=== PATIENT | male | born 1970 | race Caucasian/White ===

== ENCOUNTER 2019-11-04 00:13 | Emergency (ER) | payer OTHER, SELFPAY ==
--- NOTE | 2019-11-04 00:21 | HMH.EDGENADL ---
ED Disposition Clinical Impression: Elbow pain, right Disposition: Home, Self-Care Condition on Discharge: Good Additional Instructions: Use Tylenol and ibuprofen for pain and ice intermediately and keep elevated in the sling. Follow-up with orthopedics for further evaluation return to the ED for any new numbness or weakness to the right hand. Referrals: PCP,No [Primary Care Provider] - - Critical Care Critical Care Time: No Attestation: On , the high probability of a clinically significant, sudden or life threatening deterioration of the following system(s) required my full and direct attention, intervention and personal management. The time I documented below is in addition to time spent performing reported procedures but includes the following listed in this critical care notation. Medical Decision Making - Surendra Inquiry Pt receiving controlled substance: No Vital Signs: 11/04/19 00:23 Temperature 98.7 F Temperature Source Oral Pulse Rate [Left Radial] 96 H Respiratory Rate 18 Blood Pressure [Left Arm] 158/100 H Blood Pressure Mean [Left Arm] 119 Blood Pressure Source [Left Arm] Automatic Cuff Blood Pressure Position [Left Arm] Sitting 02 Sat by Pulse Oximetry 100 Oxygen Delivery Method Room Air Orders (Tests/Meds): ED MEDICATIONS Discontinued Medications Generic Name Dose Route Start Last Admin Trade Name Freq PRN Reason Stop Dose Admin Hydrocodone Bitart/Acetaminophen 1 tab 11/04/19 00:28 11/04/19 00:35 Mercer 5/325mg Tablet PO 11/04/19 00:29 1 tab ONCE ONE Administration ORDERS Category Date Time Status Elbow XR right minimum 3 views [XR elbow RT min 3V] Exams 11/04/19 00:27 Taken Stat Forearm XR right 2 views [XR forearm RT 2V] Stat Exams 11/04/19 00:28 Taken - Radiology Data #1 Image Reviewed: Yes I reviewed the patient's radiology image X-rays of the right elbow and forearm were reviewed demonstrating subtle posterior effusion of the distal humerus concerning for possible occult radial head fracture. Medical Decision Narrative: 48-year-old male who presents after hyperextension of the right arm with pain over the elbow. X-rays demonstrate possible posterior fat pad on the distal humerus concerning for occult radial head fracture no other obvious fracture seen. On reevaluation following Lortab administration for pain the patient's range of motion is improved and able to extend the elbow with minimal pain. Remains neurovascularly intact. Patient will be placed in a sling and instructed to keep sling on for flexion of the elbow and stabilization of the joint. Instructed to follow-up with orthopedics within 1 week and return to the ED for any persistent pain or new numbness or weakness to the hand. General Adult HPI - General Stated complaint: rt shoulder injury Time Seen by Provider: 11/04/19 00:22 Mode of Arrival: Ambulatory Source of Information: Patient Limitations: No Limitations - History of Present Illness HPI narrative: 48-year-old male presents with pain in his right elbow and difficulty with extension of the elbow secondary to pain. Patient states he was lifting a heavy barrel when he felt and heard a pop in his arm hyperextended at the elbow. Denies weakness in his hand denies numbness and tingling states his pain is 6 out of 10 at this time worse with supination of the forearm and flexion of the wrist. Not taking medication prior to arrival. No other trauma. Onset (ago): minute(s) Location: upper extremity Severity: moderate Severity scale (1-10): 6 Quality: sharp Consistency: constant Relieving factors: none Exacerbating factors: movement Associated symptoms: denies other symptoms - Related Data Home Medications Medication Instructions Recorded Confirmed No Known Home Medications 11/04/19 11/04/19 Allergies Allergy/AdvReac Type Severity Reaction Status Date / Time No Known Allergies Allergy Verified 11/04/19 0
[2019-11-04 00:23] VITALS: BP 158/100; PULSE 96; RESP 18; TEMP 37.1; O2SAT 100; BMI 35.6
--- NOTE | 2019-11-04 00:27 | XR_ITS ---
PROCEDURE: XR ELBOW RT MIN 3V CLINICAL INDICATION: pain on supination COMPARISON: No exams were available for comparison FINDINGS: No fracture or dislocation. No lytic or blastic change. There is normal mineralization. The joint spaces are well-preserved. No significant degenerative/arthritic changes. No erosive changes evident. Other findings:None. IMPRESSION: No acute findings. Dictated by: Dr. Alton Andre MD 11/04/2019 08:28 Dr. Alton Andre MD in [place] 11/04/2019 08:28
--- NOTE | 2019-11-04 00:28 | XR_ITS ---
PROCEDURE: XR FOREARM RT 2V CLINICAL INDICATION: hyperextension with pain COMPARISON: No exams were available for comparison FINDINGS: No fracture or dislocation. No lytic or blastic change. There is normal mineralization. The joint spaces are well-preserved. No significant degenerative/arthritic changes. No erosive changes evident. Other findings:None. IMPRESSION: No acute findings. Dictated by: Dr. Alton Andre MD 11/04/2019 08:28 Dr. Alton Andre MD in [place] 11/04/2019 08:28
[2019-11-04 01:37] VITALS: BP 134/95; PULSE 85; RESP 16; TEMP 36.6
== END 2019-11-04 01:44 | disposition home or self-care (01) ==
PROVIDERS: Emergency Provider Student in an Organized Health Care Education/Training Program
DX: M25.521 Pain in right elbow (principal); I10 Essential (primary) hypertension; F17.210 Nicotine dependence, cigarettes, uncomplicated; X50.0XXA Overexertion from strenuous movement or load, initial encounter
CPT/HCPCS: 73080; 73090; 99282

== ENCOUNTER → 2019-11-21 10:06 | Outpatient (CLI) | payer OTHER, SELFPAY ==
[2019-11-21 10:10] LABS: MANUAL DIFFERENTIAL MANUAL DIFFERENTIAL (MANUAL DIFF)
--- NOTE | 2019-11-21 10:16 | XR_ITS ---
PROCEDURE: XR CHEST 2V CLINICAL HISTORY: HTN,H/O NICOTINE DEPENDENCE COMPARISON: No exams were available for comparison FINDINGS: The cardiomediastinal silhouette and pulmonary vascularity are within normal limits. The lungs are clear without infiltrates, suspicious nodules, or pleural effusions. There are small calcified hilar nodes bilaterally and there are few scattered tiny calcified granulomata in both lower lobes. No acute bony abnormalities. IMPRESSION: Old granulomatous disease, no acute chest pathology noted Dictated by: Dr. Alton Andre MD 11/21/2019 10:44 Dr. Alton Andre MD in [place] 11/21/2019 10:44
[2019-11-21 10:45] LABS: Basophils # 0.2 K/mm3 (0-0.2); Basophils % 1.4 % (0.1-2.0); Eosinophils # 0.3 K/mm3 (0.0-0.4); Eosinophils % 2.9 % (0.1-12.0); Hematocrit 51.3 % (42.0-52.0); Hemoglobin 17.4 g/dL (14.1-18.0); Lymphocytes # 2.8 K/mm3 (0.7-4.5); Mean Corpuscular HGB Conc 33.9 g/dL (31.8-35.4); Mean Corpuscular Hemoglobin 32.6 pg (27.0-31.2); Mean Corpuscular Volume 96.1 fl (80-94); Mean Platelet Volume 8.1 fl (7.4-10.4); Monocytes % 8.5 % (1.7-9.3); Neutrophils # 7.1 K/mm3 (1.8-7.8); Neutrophils % 62.4 % (37.0-80.0); Platelet Count 267 K/mm3 (142-424); Red Blood Count 5.34 M/mm3 (4.60-6.20); White Blood Count 11.3 K/mm3 (4.8-10.8)
[2019-11-21 11:21] LABS: Chloride 106 mmol/L (98-107); Potassium 4.7 mmoL/L (3.5-5.1); Sodium 141 mmol/L (136-145)
[2019-11-21 11:24] LABS: Alanine Aminotransferase 34 U/L (12-78); Albumin Level 4.4 g/dl (3.5-5.0); Albumin/Globulin Ratio 1.4 (1.1-1.8); Alkaline Phosphatase 76 U/L (38-126); Anion Gap 14.7 mEq/L (5-15); Aspartate Amino Transferase 41 U/L (17-59); Bilirubin,Total 0.7 mg/dl (0.2-1.3); Blood Urea Nitrogen 21 mg/dl (9-20); Calcium 9.8 mg/dl (8.4-10.2); Carbon Dioxide 25 mmol/L (22.0-30.0); Estimated Glomerular Filt Rate 72 ml/min (>60); GFR (African American) 87 ML/MIN (>60); Globulin 3.1 g/dL (1.3-3.2); Glucose 114 mg/dl (74-100); Total Protein,Serum 7.5 g/dl (6.3-8.2)
[2019-11-21 11:52] LABS: Coronavirus 19 IgG Antibody Negative (Negative); Coronavirus 19 IgM Antibody Negative (Negative)
[2019-11-21 14:12] LABS: Eosinophils % 4 % (0-3); Lymphocytes % 17 % (10-50); Monocytes % 4 % (2-9); Neutrophils % 75 % (42-76); Platelet Estimate Normal; RBC Morphology Normal; Total Cells Counted 100
== END ==
PROVIDERS: Visit Provider Orthopaedic Surgery
DX: Z01.89 Encounter for other specified special examinations (principal); S46.219A Strain of muscle, fascia and tendon of other parts of biceps, unspecified arm, initial encounter
CPT/HCPCS: 36415; 71046; 80053; 85007; 85014; 85018; 85048; 85049; 86328

== ENCOUNTER 2019-11-22 06:07 | Day surgery (SDC) | payer OTHER, SELFPAY ==
[2019-11-20 10:28] VITALS: BMI 31.4
[2019-11-22] VITALS (12 sets, daily range): BP systolic 129–151; BP diastolic 47–93; PULSE 78–115; RESP 18–20; TEMP 36.1–43; O2SAT 90–98
--- NOTE | 2019-11-22 08:47 | HMH.ANESCL ---
[facility] Anesthesia Checklist - Patient Identification Patient Identification: Arm Band, Verbal (Name & ) - Structural Data Admitted From: Home Planned Operative Procedure/s: Right distal biceps tendon repair Consent for Planned Operative Procedure(s) Verified: Yes Verified Documents: Surgical Consent, History and Physical - NPO Status Verified Time NPO: 22:00 - Chart Verification Results Verified: CBC, BMP - Additional verifications Anesthesia Reactions: No Hx Blood Transfusions: No Blood Transfusion Reaction: No - Airway Assessment C-Spine Mobility Assessed: Yes (Facial hair, MP 2, TMD 4) TMJ Mobility Assessed: Yes Dentition: Edentulous - Neurological Assessment Level of Consciousness: Awake, Alert, Appropriate, Follows Commands Hx Seizures: No Numbness or tingling in extremities: No - Anesthesia Plan Anesthesia Risk discussed: Yes Anesthesia Plan: Verified ASA Class: II Anesthesia Type: General w/block [facility] History I have reviewed the patient's past medical history: Yes Medical History: Reports:: Hypertension, Kidney Stones Denies:: Cancer, Diabetes Mellitus Type 1, Diabetes Mellitus Type 2, MRSA, Seizures *Have you ever received a pneumonia vaccine?: No *Have you received a flu vaccine this season?: No Other Medical History: Denies: Blood Transfusion Reaction Comment:: obesity, histoplasmosis, legionnaires disease. Anesthesia experience/problems:: None Other Surgeries: Yes: Cardiac Catheterization, Hernia Repair, Other (ESWL) Amputation: No Fractures: No - *Social History Last grade of school completed: Some college Smoking Status: Current every day smoker Tobacco Type: cigarettes # Packs/Day (cigarettes): 20 Alcohol Intake: current Alcohol Intake Frequency:: 0-2 drinks per day Substance Use Type: denies use, crack/cocaine (20+ years ago) *Occupational Status:: employed *Travel in the last 8 weeks: None Family Hx:: Other (NA)
--- NOTE | 2019-11-22 11:03 | XR_ITS ---
PROCEDURE: XR ELBOW RT 2V CLINICAL INDICATION: BICEP REPAIR COMPARISON: No exams were available for comparison FINDINGS: Fluoro time: 47 seconds Multiple images are submitted with C-arm during biceps tendon repair. Multiple small surgical clips are present in the anterior elbow region and there is a small metallic button along the proximal radius at the tendon tunnel site IMPRESSION: Status post bicipital tendon repair Dictated by: Sheldon Barrientos MD 11/22/2019 17:36 Sheldon Barrientos MD in [place] 11/22/2019 17:36
--- NOTE | 2019-11-22 11:28 | HMH.ANESI ---
[facility] Anesthesia Record Part I Intake, IV Amount: 140 Estimated blood loss (mL): 10 Urine output (mL): 0 (NM) Blood Products used (#): none Blood Pressure: 141/79 SaO2: 90 Pulse Rate: 115 Respiratory Rate: 18 Temperature: 97.7 F Patient is:: Awake, Drowsy, Stable Stable to PACU at:: 11:25
--- NOTE | 2019-11-22 11:40 | PC.NURSE ---
1135- resp therapist at bedside giving duoneb per pet adoption counselor orders
--- NOTE | 2019-11-22 13:39 | HMH.OPNOTE ---
Date of procedure: 11/22/19 Pre-op Diagnosis:: R distal biceps tendon rupture Post-op Diagnosis:: R distal biceps tendon rupture Procedure performed:: R distal biceps tendon repair Surgeon:: Hannah Wynne MD Varnish Maker(s):: Ramandeep Aleman ALTERATION TAILOR:: Jamar Ludwig Anesthesia: GETA, regional (interscalene block) Estimated blood loss (mL): 50 Clinical Note:: 48-year-old [id number] male who sustained an injury to the right elbow on 11/04/2019. He was attempting to lift a large trash can full of wood, weighing around 55 pounds, with the right arm supinated and underneath the bottom of the trash can. When he lifted it up, his hand slipped and the trash can came down on the hand/wrist while he simultaneously tried to flex the elbow, creating an eccentric load on the elbow. He felt an immediate tearing sensation and heard a pop in the right elbow. He has had a small bulge over the distal/anterior aspect of the arm with inability to flex or supinate the arm without severe pain. Additionally he has ecchymosis over the anterior/distal aspect of the right arm in the medial/proximal aspect of the right forearm. A few days after the injury he started noticing numbness in the radial 3 digits of the hand. No open wounds. No previous history of injury to or surgery on this arm. He is right-hand dominant and self-employed in construction. MRI of the right elbow confirmed complete rupture of the distal biceps tendon with 9cm retraction. I discussed treatment options with the patient and have recommended surgical repair. I discussed the risks of surgery, including but not limited to: infection, bleeding, failure of tendon to heal, tendon re-rupture, nerve injury including PIN palsy; the patient vocalized understanding, informed consent obtained. I attempted to obtain an EMG-NCS of the RUE prior to surgery but it was not able to be scheduled for several weeks and I felt surgery should not be delayed. I will monitor the ulnar-sided numbness and obtain EMG-NCS if still present 6 weeks post-injury. On exam, sensation is intact but patient reports tingling in ulnar distribution. Operative findings:: *arthrex distal biceps repair kit used distal biceps tendon was completely ruptured and retracted to mid-upper arm. Stump was bulbous and scarred. Operative note:: The patient was examined in preoperative holding and the right arm signed by myself. Anesthesia discussed surgical analgesia options including a regional nerve block; the patient elected to have a regional nerve block in addition to general anesthesia with an LMA. Consent was reviewed with the patient and all questions answered. He was then taken to the OR where he was placed supine on the operative table. 2 g Ancef were infused intravenously and general anesthesia induced. Once the patient was asleep, the right upper extremity was then prepped and draped in the usual sterile fashion and a sterile tourniquet was placed on the upper right arm. Timeout was performed, identifying the correct patient, correct procedure, and correct site. The procedure was begun by exsanguinating the right upper extremity with an Esmarch and inflating the tourniquet to 250 mmHg. Incision was made over the proximal volar right forearm in a transverse fashion, 4 cm long and 3 cm distal to the antecubital crease. Skin only was incised, and subcutaneous tissue bluntly dissected with a blunt-tipped Metzenbaum scissors. The biceps tendon was easily palpated and identified, and delivered from the wound. The distal stump of the tendon was bulbous and scarred, and some additional scarring/contraction was seen around the biceps muscle belly; this was mobilized with finger dissection. During the approach, care was taken to identify and protect the lateral antebrachial cutaneous nerve and blunt [place] retractors were used to hold the incision open and provide adequate exposure to the wound. An Tianna clamp was next placed on the end of the ten
--- NOTE | 2019-11-23 07:04 | HMH.ANESII ---
[facility] Anesthesia Record Part II Discharge Time: 11:55 Destination: Medical Surgical Department PACU nurse assessment reviewed?: Yes Patient Condition:: Good Anesthesia Complications:: None Swallowing reflex intact?: Yes Cyanosis?: No Blood Pressure: 129/47 Pulse Rate: 107 Temperature: 98.3 F Mental Status: Alert & Oriented Pain level:: 0 Nausea and/or vomitting:: None Intake, IV Amount: 0 (Normovolemic)
[2019-11-23 07:07] VITALS: BP 129/47; PULSE 107; TEMP 36.8
== END 2019-11-22 12:39 | disposition home or self-care (01) ==
LOC: OR 06:09
PROVIDERS: PCP Nurse Practitioner Family; Visit Provider Orthopaedic Surgery
PROC: (CPT 24341; principal; 2019-11-22 07:30)
DX: M66.821 Spontaneous rupture of other tendons, right upper arm (principal)
CPT/HCPCS: 24342; 73070; 76000; 94640; 96374; J0670; J2405

== ENCOUNTER 2019-11-29 14:22 | Outpatient (RCR) | payer OTHER, SELFPAY | END 2019-11-29 15:00 | disposition home or self-care (01) | LOC: OT 14:22 | PROVIDERS: Visit Provider Orthopaedic Surgery | DX: S46.211D Strain of muscle, fascia and tendon of other parts of biceps, right arm, subsequent encounter (principal) | CPT/HCPCS: 97763 ==

== ENCOUNTER → 2020-01-14 10:33 | Outpatient (CLI) | payer OTHER, SELFPAY ==
--- NOTE | 2020-01-14 10:39 | XR_ITS ---
PROCEDURE: XR ELBOW RT MIN 3V CLINICAL INDICATION: RT bicep repair COMPARISON: No exams were available for comparison FINDINGS: Status post biceps tendon repair with bony defect in the proximal radius from the tendon surgery. There is minimal calcific density along the anterior aspect of the bony defect and may be related to some soft tissue calcification. Surgical clips are present in the antecubital fossa region. The joint spaces are well-preserved. No significant degenerative/arthritic changes. No erosive changes evident. Other findings:None. IMPRESSION: Postsurgical changes, no acute finding Dictated by: Sheldon Barrientos MD 01/14/2020 16:24 Sheldon Barrientos MD in [place] 01/14/2020 16:24
== END ==
PROVIDERS: Visit Provider Orthopaedic Surgery
DX: M25.521 Pain in right elbow (principal)
CPT/HCPCS: 73080

== ENCOUNTER 2020-01-14 17:14 | Emergency (ER) | payer OTHER, SELFPAY ==
--- NOTE | 2020-01-14 17:08 | ECG_ITS ---
APPROVED REPORT Exam: Resting ECG HR:81 bpm ECG Measurements Heart Rate 81 AXES NC 138 P 42 QRSd 102 QRS 40 QT 378 T 2 QTc 439 Conclusion Normal sinus rhythm Nonspecific ST and T wave abnormality Abnormal ECG Electronically signed by : Kj Madrid, 01/14/2020 21:05:25
[2020-01-14 17:14] VITALS: BP 157/107; BP 160/108; PULSE 83; PULSE 85; RESP 12; RESP 18; TEMP 36.7; O2SAT 97; BMI 30.8
--- NOTE | 2020-01-14 17:15 | XR_ITS ---
PROCEDURE: XR CHEST PORTABLE CLINICAL HISTORY: chest pain COMPARISON: DX XR CHEST 2V from 11/21/2019 FINDINGS: The cardiomediastinal silhouette and pulmonary vascularity are within normal limits. There are numerous small bilateral calcified nodules consistent with miliary granulomas. No lobar consolidation or collapse. No acute bony abnormalities. IMPRESSION: No acute findings. Dictated by: Sheldon Barrientos MD 01/14/2020 17:46 Sheldon Barrientos MD in [place] 01/14/2020 17:46
[2020-01-14 17:30] LABS: Basophils # 0.1 K/mm3 (0-0.2); Basophils % 1.1 % (0.1-2.0); Eosinophils # 0.3 K/mm3 (0.0-0.4); Eosinophils % 3.8 % (0.1-12.0); Hematocrit 48.1 % (42.0-52.0); Hemoglobin 16.5 g/dL (14.1-18.0); Lymphocytes # 2.4 K/mm3 (0.7-4.5); Lymphocytes % 28.5 % (10-50); Mean Corpuscular HGB Conc 34.2 g/dL (31.8-35.4); Mean Corpuscular Hemoglobin 31.9 pg (27.0-31.2); Mean Corpuscular Volume 93.3 fl (80-94); Mean Platelet Volume 8.5 fl (7.4-10.4); Monocytes # 0.9 K/mm3 (0.1-1.0); Monocytes % 10.4 % (1.7-9.3); Neutrophils # 4.8 K/mm3 (1.8-7.8); Neutrophils % 56.3 % (37.0-80.0); Platelet Count 279 K/mm3 (142-424); Red Blood Count 5.16 M/mm3 (4.60-6.20); Red Cell Distribution Width 13.2 % (11.5-17.5); White Blood Count 8.5 K/mm3 (4.8-10.8)
[2020-01-14 17:34] LABS: Chloride 105 mmol/L (98-107); Sodium 142 mmol/L (136-145)
[2020-01-14 17:37] LABS: Blood Urea Nitrogen 23 mg/dl (9-20); Creatinine Clearance Estimated 126 mL/min (50-200); Estimated Glomerular Filt Rate 65 ml/min (>60); GFR (African American) 78 ML/MIN (>60)
[2020-01-14 17:38] LABS: Calcium 9.1 mg/dl (8.4-10.2); Carbon Dioxide 26 mmol/L (22.0-30.0); Glucose 102 mg/dl (74-100)
[2020-01-14 17:44] VITALS: BP 166/111; PULSE 81; RESP 16; O2SAT 95
[2020-01-14 17:51] LABS: Troponin I < 0.01 ng/ml (0.00-0.034)
--- NOTE | 2020-01-14 17:59 | HMH.EDCP ---
ED Disposition Clinical Impression: Atypical chest pain Disposition: Home, Self-Care Condition on Discharge: Fair Instructions: DI for Atypical Chest Pain, Essential Hypertension Additional Instructions: Tear labs EKG and chest x-ray and no acute findings are noted however your blood pressure was noted to be elevated we have given you clonidine to bring the blood pressure down but you need to follow-up with your primary care physician as soon as possible Referrals: PCP,No [Primary Care Provider] - - Critical Care Critical Care Time: No Attestation: On 01/14/20, the high probability of a clinically significant, sudden or life threatening deterioration of the following system(s) required my full and direct attention, intervention and personal management. The time I documented below is in addition to time spent performing reported procedures but includes the following listed in this critical care notation. Medical Decision Making - Medical Records Medical records reviewed: Yes: I reviewed the patient's medical records. MR Talamantes: Is a 49-year-old male here with a complaint of chest pain that has been ongoing for about 2 days, also worried about his blood pressure which has been noted to be high this was an incidental finding he had a surgery on his right hand and when he comes up for physical therapy, they recheck his blood pressure and found to be consistently high; he is going to be evaluated by primary care physician in a couple of days, however his insisted that he come to the ER for further for evaluation prior to that visit; he says his chest pain is low is about 3 on a scale of 0-10; He does smoke, he has no family history of heart disease, but states that he has used drugs in the past. Checked his EKG labs chest x-ray and troponin x2 and all within normal limits his blood pressure was elevated so we have given him clonidine I am advising him to follow-up with his primary care doctor for for follow-up on the blood pressure and we have also advised him to quit smoking - Surendra Inquiry Pt receiving controlled substance: No Vital Signs: 01/14/20 17:14 01/14/20 17:44 01/14/20 18:44 Temperature 98.0 F Temperature Source Oral Pulse Rate [Right Radial] 83 81 74 Respiratory Rate 12 16 14 Blood Pressure [Right Arm] 160/108 H 166/111 H 159/103 H Blood Pressure Mean [Right Arm] 125 129 121 Blood Pressure Source [Right Arm] Automatic Cuff Automatic Cuff Automatic Cuff Blood Pressure Position [Right Arm] Sitting Sitting Sitting 02 Sat by Pulse Oximetry 97 95 97 Oxygen Delivery Method Room Air Room Air Room Air - Lab Data Lab results reviewed: Yes: I reviewed the patient's lab results. Lab Results 01/14/20 15:17: WBC 8.5, RBC 5.16, Hgb 16.5, Hct 48.1, MCV 93.3, MCH 31.9 H, MCHC 34.2, RDW 13.2, Plt Count 279, MPV 8.5, Neut % (Auto) 56.3, Lymph % (Auto) 28.5, [place] % (Auto) 10.4 H, Eos % (Auto) 3.8, Baso % (Auto) 1.1, Neut # (Auto) 4.8, Lymph # (Auto) 2.4, [place] # (Auto) 0.9, Eos # (Auto) 0.3, Baso # (Auto) 0.1 01/14/20 15:17: Sodium 142, Potassium 4.0, Chloride 105, Carbon Dioxide 26, Anion Gap 15.0, BUN 23 H, Creatinine 1.20, Estimated Creat Clear 126, Estimated GFR 65, Est GFR ( Amer) 78, Glucose 102 H, Calcium 9.1, Troponin I < 0.01 01/14/20 19:15: Troponin I < 0.01 Result diagrams: 01/14/20 15:17 01/14/20 15:17 Orders (Tests/Meds): ED MEDICATIONS Discontinued Medications Generic Name Dose Route Start Last Admin Trade Name Yonny PRN Reason Stop Dose Admin Aspirin 324 mg 01/14/20 17:50 01/14/20 18:05 Aspirin 81mg Chewable Tablet PO 01/14/20 17:51 324 mg ONCE ONE Administration Clonidine HCl 0.1 mg 01/14/20 19:49 01/14/20 19:50 Clonidine 0.1mg Tablet PO 01/14/20 19:50 0.1 mg ONCE ONE Administration ORDERS Category Date Time Status Troponin I Q3H Lab 01/14/20 23:15 Ordered Chest Pain HPI - General Chief Complaint: Chest Pain Stated Complaint: CH
[2020-01-14 18:44] VITALS: BP 159/103; PULSE 74; RESP 14; O2SAT 97
--- NOTE | 2020-01-14 19:04 | PC.NURSE ---
ER MD gave verbal order for troponin at 7:30pm
[2020-01-14 19:52] LABS: Troponin I < 0.01 ng/ml (0.00-0.034)
[2020-01-14 19:58] VITALS: BP 154/101; PULSE 67; RESP 16; TEMP 36.7; O2SAT 98
== END 2020-01-14 20:06 | disposition home or self-care (01) ==
PROVIDERS: Emergency Provider Emergency Medicine
DX: R07.89 Other chest pain (principal); F17.210 Nicotine dependence, cigarettes, uncomplicated; Z87.442 Personal history of urinary calculi
CPT/HCPCS: 71045; 80048; 84484; 85025; 93005; 99283

== ENCOUNTER → 2020-01-23 14:26 | Outpatient (CLI) | payer OTHER, SELFPAY ==
--- NOTE | 2020-01-23 14:29 | CT_ITS ---
PROCEDURE: CT LUNG SCREENING CLINICAL INDICATION: HX OF NICOTINE USE Forty-five pack-year smoking history, asymptomatic for lung cancer COMPARISON: No exams were available for comparison TECHNIQUE: The exam was performed on a GE Light Speed [address] scanner using 2.90 mGy CTDI. A low dose helical CT CHEST was performed on a multi-detector scanner. All CT scans at the facility use one or more dose reduction, viz: automated exposure control, ma/kV adjustment per patient size (including targeted exams where dose is matched to indication, i.e. head), or iterative reconstruction technique. The LDCT was performed in a facility that meets the criteria for the screening program. Data regarding this exam was submitted to ACR which is an approved registry. The order for this exam indicates that it came as a result of a lung cancer screening counseling shard decision-making visit that included all the elements required of such a visit including smoking cessation. The radiologist interpreting this exam meets the CMS criteria for the LDCT lung cancer screening program. The exam is reported using the Lung-RADS classification scale and reported to the ACR registry. NOTE: This study was performed for the specific purposes of lung cancer screening and is not an alternative to diagnostic chest CT. RADIATION DOSE: CTDI vol(CT dose Index-volume) = 2.90mG DLP (Dose Length Product) = 106.5 mGcm FINDINGS: COPD changes and old granulomatous disease. There are multiple calcified granulomas. Calcified hilar lymph nodes and mediastinal lymph nodes are present. No suspicious pulmonary nodules identified. OTHER FINDINGS: No other pertinent findings evident. IMPRESSION: Lung-RADS Category 2 Benign Appearance or Behavior Follow-up: Continue annual screening with LDCT in 12 months Dictated by: Sheldon Barrientos MD 02/07/2020 11:33 Sheldon Barrientos MD in [place] 02/07/2020 11:33
== END ==
PROVIDERS: PCP Internal Medicine Adolescent Medicine; Visit Provider Internal Medicine Adolescent Medicine
DX: Z87.891 Personal history of nicotine dependence (principal); Z12.2 Encounter for screening for malignant neoplasm of respiratory organs

== ENCOUNTER → 2020-01-29 14:09 | Outpatient (CLI) | payer OTHER, SELFPAY ==
[2020-01-29 16:03] VITALS: PULSE 75; PULSE 80
== END ==
PROVIDERS: PCP Internal Medicine Adolescent Medicine; Visit Provider Internal Medicine Adolescent Medicine
DX: R06.02 Shortness of breath (principal); F17.200 Nicotine dependence, unspecified, uncomplicated; Z86.19 Personal history of other infectious and parasitic diseases
CPT/HCPCS: 94060; 94618; 94640; 94726; 94729

== ENCOUNTER 2020-02-11 09:00 | Outpatient (RCR) | payer OTHER, SELFPAY ==
--- NOTE | 2019-12-06 10:35 | HMH.OTOPEV ---
OT Inpatient Evaluation Rehab OT Outpatient Eval Start: 12/06/19 10:22 Freq: Status: Active Protocol: Document 12/06/19 10:22 RMARSHALL (Rec: 12/06/19 10:35 [facility] [id number]) Electronically Signed By Kj Moon OT 12/06/19 10:22 Outpatient Therapy Subjective History Subjective History Pt seen this date for initial evaluation to right elbow. Pt initially injured his right elbow while working; he is self employed. He was lifting a 55 gallon drum when it slipped and he tried to catch it with right arm. Pt had immediate pain and obvious deformity of proximal bicep area. Pt required surgery on 11/22/19 for R distal biceps repair. Pt is right hand dominant. Pt is currently 2 weeks out and following the post operative rehab protocol with hinged elbow brace at 45 degrees to full eblow flexion. Pt demonstrates with decreased AROM and PROM at right elbow. Pt will continue to be seen twice a week in order to address all right elbow deficits. Chief Complaint Pain,Stiff,Swelling,Weakness Symptom Type Ache,Throb,Sharp,Dull,Numbness Symptoms Relieved By Rest/Positioning Symptoms Aggravated By Physical Activity,Twisting, Lifting Prior Functional Limitations None Current Functional Limitations Reaching,Lifting,Housework, Dressing,Driving,Sleeping, Recreation Activity Symptom Description Constant but Variable Level of pain today (0-10) 7 Pain scale - at its best (0-10) 5 Pain scale - at its worst (0-10) 10 Shoulder/Elbow Eval Shoulder Objective Measurements Elbow Objective Measurements Elbow ROM Right full ROM elbow exam standard left decreased ROM elbow exam standard right pain with active ROM elbow exam standard right pain with passive ROM elbow exam right standard Elbow Extension Active Range of Motion ( 45 degrees degrees) Elbow Extension Passive Range of Motion 45 degrees (degrees) Elbow Flexion Active Range of Motion ( 100 degrees degrees) Elbow Flexion Passive Range of [place]
--- NOTE | 2020-01-17 08:45 | HMH.RHREAS ---
Rehab Reassessment Rehab OP Re-assessment Start: 01/17/20 08:31 Freq: Status: Active Protocol: Document 01/17/20 08:32 RMARSHALL (Rec: 01/17/20 08:45 RMARSHALL [id number]) Electronically Signed By Kj Moon OT 01/17/20 08:32 Rehab Re-assessment Subjective Subjective She said I could start strengthening. Objective Objective Notes Pt continues to be seen twice weekly in order to address right elbow deficits. Each session pt has received scar massage and prom manual stretching to right elbow in flexion, extension, supination and pronation. Pt also receives modalities in order to decrease pain/inflammation. AROM/AAROM have been completed as well due to following protocol of distal biceps repair. Assessment Progress Assessment Progressing as Expected Assessment Notes Pt's AROM at right elbow has improved significantly since initial evaluation. Pt's AROM is WNL at this time. Strength continues to remain slightly limitied due to not being able to engage in strengthening exercises. Surgeon recently released patient to begin strengthening exercises so these will be added to each therapy session. Pt was also released from brace at last check-up. Current MMT at R elbow: Flex: 4- Ext: 4- Sup: 4- Pro: 4- Patient goals met All STGs have been met. All LTG based on AROM, pain, and endurance have been met. Goals Not Met LTG of strength Revised Goals The only goals still not met are the assisted goals of strength: 4+,5-,5/5 throughout elbow Plan Plan Continue with OT plan of care Frequency of Therapy 1-2x's a week Duration of therapy 6 more weeks Mishel
== END 2020-02-11 09:05 | disposition home or self-care (01) ==
LOC: OT 09:00
PROVIDERS: Visit Provider Orthopaedic Surgery
DX: S46.211D Strain of muscle, fascia and tendon of other parts of biceps, right arm, subsequent encounter (principal)
CPT/HCPCS: 97014; 97110; 97140; 97164; 97165; G0283

== ENCOUNTER → 2020-02-23 16:16 | Outpatient (CLI) | payer OTHER, SELFPAY | PROVIDERS: PCP Internal Medicine Adolescent Medicine; Visit Provider Nurse Practitioner Family | DX: G47.33 Obstructive sleep apnea (adult) (pediatric) (principal); R06.89 Other abnormalities of breathing | CPT/HCPCS: 95806 ==

== ENCOUNTER → 2020-03-14 11:32 | Outpatient (CLI) | payer OTHER, SELFPAY ==
[2020-03-14 12:20] LABS: Basophils # 0.1 K/mm3 (0-0.2); Basophils % 0.7 % (0.1-2.0); Eosinophils # 0.4 K/mm3 (0.0-0.4); Eosinophils % 3.1 % (0.1-12.0); Hematocrit 51.2 % (42.0-52.0); Lymphocytes # 2.4 K/mm3 (0.7-4.5); Lymphocytes % 19.5 % (10-50); Mean Corpuscular HGB Conc 33.2 g/dL (31.8-35.4); Mean Corpuscular Hemoglobin 31.6 pg (27.0-31.2); Mean Corpuscular Volume 95.4 fl (80-94); Monocytes # 0.6 K/mm3 (0.1-1.0); Monocytes % 5.2 % (1.7-9.3); Neutrophils # 8.8 K/mm3 (1.8-7.8); Neutrophils % 71.5 % (37.0-80.0); Platelet Count 311 K/mm3 (142-424); Red Blood Count 5.37 M/mm3 (4.60-6.20); Red Cell Distribution Width 13.2 % (11.5-17.5); White Blood Count 12.3 K/mm3 (4.8-10.8)
[2020-03-16 18:14] LABS: Alpha-1-Antitrypsin 128 mg/dL (101-187)
== END ==
PROVIDERS: Visit Provider Internal Medicine Pulmonary Disease
DX: J44.9 Chronic obstructive pulmonary disease, unspecified (principal); J45.909 Unspecified asthma, uncomplicated
CPT/HCPCS: 36415; 82103; 85025

== ENCOUNTER 2020-04-28 23:23 | Emergency (ER) | payer OTHER, SELFPAY ==
[2020-04-28 23:30] VITALS: BP 138/99; PULSE 116; RESP 17; TEMP 36.7; O2SAT 95; BMI 28.8
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
[2020-04-28 23:47] VITALS: BP 140/100; PULSE 89; RESP 16; TEMP 36.7; O2SAT 98
== END 2020-04-28 23:53 | disposition home or self-care (01) ==
PROVIDERS: Emergency Provider Emergency Medicine; PCP Internal Medicine Adolescent Medicine
DX: F10.10 Alcohol abuse, uncomplicated (principal); I10 Essential (primary) hypertension; Z87.442 Personal history of urinary calculi; F17.210 Nicotine dependence, cigarettes, uncomplicated; Z79.899 Other long term (current) drug therapy
CPT/HCPCS: 99282

== ENCOUNTER → 2020-12-09 08:58 | Outpatient (CLI) | payer OTHER, SELFPAY ==
[2020-12-09 09:58] LABS: Alanine Aminotransferase 43 U/L (12-78); Albumin/Globulin Ratio 1.3 (1.1-1.8); Alkaline Phosphatase 73 U/L (38-126); Anion Gap 7.8 mEq/L (5-15); Aspartate Amino Transferase 53 U/L (17-59); Bilirubin,Total 1.1 mg/dl (0.2-1.3); Blood Urea Nitrogen 15 mg/dl (9-20); Calcium 8.9 mg/dl (8.4-10.2); Carbon Dioxide 32 mmol/L (22.0-30.0); Chloride 105 mmol/L (98-107); Chol/HDL Ratio 3.2 (1-3.5); Cholesterol 201 mg/dl (140-200); Estimated Glomerular Filt Rate 90 ml/min (>60); GFR (African American) 109 ML/MIN (>60); Globulin 3.1 g/dL (1.3-3.2); Glucose 98 mg/dl (74-100); HDL Cholesterol 63 mg/dl (40-60); Potassium 3.8 mmoL/L (3.5-5.1); Sodium 141 mmol/L (136-145); Total Protein,Serum 7.1 g/dl (6.3-8.2); Triglycerides 251 mg/dl (30-150); VLDL Cholesterol 50 mg/dL (0-40)
== END ==
PROVIDERS: Visit Provider Nurse Practitioner Family
DX: Z00.00 Encounter for general adult medical examination without abnormal findings (principal); I10 Essential (primary) hypertension
CPT/HCPCS: 36415; 80053; 80061

== ENCOUNTER → 2021-01-26 11:49 | Outpatient (CLI) | payer OTHER, SELFPAY | PROVIDERS: PCP Internal Medicine Adolescent Medicine; Visit Provider Nurse Practitioner | DX: Z20.822 Contact with and (suspected) exposure to COVID-19 (principal) | CPT/HCPCS: C9803; U0003; U0005 ==

== ENCOUNTER → 2021-02-10 08:32 | Outpatient (CLI) | payer OTHER, SELFPAY ==
--- NOTE | 2021-02-10 08:35 | CT_ITS ---
PROCEDURE: CT CHEST WO CON CLINICAL INDICATION: TOBACCO USE DISORDER Shortness of air COMPARISON: CT CT LUNG SCREENING from 01/23/2020 TECHNIQUE: Axial images obtained with sagittal and coronal reformats. All CT scans at the facility use one or more dose reduction, viz: automated exposure control, ma/kV adjustment per patient size (including targeted exams where dose is matched to indication, i.e. head), or iterative reconstruction technique. FINDINGS: HEART AND MEDIASTINAL STRUCTURES: There are scattered calcified nodes in the mediastinum and maye. No adenopathy. LUNGS AND PLEURAL SPACES: COPD changes. Scattered calcified granulomas. 8 x 4 mm nodular density in the right major fissure suggesting a lymph node unchanged minimal subpleural thickening posteriorly on the right in the mid aspect of the right lower lobe nonspecific measuring 8 x 3 mm. This is not readily apparent on the previous study. No areas of infiltrate. No effusions or suspicious nodules. BONY STRUCTURES: No acute bony abnormalities apparent. UPPER ABDOMEN: Fatty liver. Possible cholelithiasis. Hyperdensity noted in the upper pole of both kidneys within the calices. If the patient has not had recent IV contrast then, this would be consistent with bilateral nephrolithiasis. ADDITIONAL FINDINGS: No other significant abnormalities. IMPRESSION: 1. No acute finding of the chest. There is COPD with evidence of old granulomatous disease. A new small subpleural opacity is present in the right lower lobe and is nonspecific. Consider 6-12 month follow-up to confirm stability in this patient with positive smoking history. 2. Possible cholelithiasis. 3. Hyperdensity within the upper pole both renal calices. Differential diagnosis would include recent IV contrast administration versus bilateral nephrolithiasis. Dictated by: Sheldon Barrientos MD 02/11/2021 08:33 Sheldon Barrientos MD in [place] 02/11/2021 08:34
== END ==
PROVIDERS: PCP Internal Medicine Adolescent Medicine; Visit Provider Nurse Practitioner Family
DX: F17.200 Nicotine dependence, unspecified, uncomplicated (principal)
CPT/HCPCS: 71250

== ENCOUNTER 2021-06-28 10:11 | Emergency (ER) | payer OTHER, SELFPAY ==
[2021-06-28 10:31] VITALS: BMI 32.0
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
--- NOTE | 2021-06-28 10:32 | PC.NURSE ---
ED MD at
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
[2021-06-28 10:41] LABS: Basophils # 0.2 K/mm3 (0-0.2); Basophils % 2.2 % (0.1-2.0); Eosinophils # 0.3 K/mm3 (0.0-0.4); Eosinophils % 3.7 % (0.1-12.0); Hematocrit 49.2 % (42.0-52.0); Hemoglobin 16.4 g/dL (14.1-18.0); Lymphocytes # 2.1 K/mm3 (0.7-4.5); Lymphocytes % 23.8 % (10-50); Mean Corpuscular HGB Conc 33.4 g/dL (31.8-35.4); Mean Corpuscular Hemoglobin 33.5 pg (27.0-31.2); Mean Corpuscular Volume 100.3 fl (80-94); Mean Platelet Volume 9.3 fl (7.4-10.4); Monocytes # 0.5 K/mm3 (0.1-1.0); Monocytes % 5.6 % (1.7-9.3); Neutrophils # 5.7 K/mm3 (1.8-7.8); Neutrophils % 64.8 % (37.0-80.0); Platelet Count 296 K/mm3 (142-424); Red Blood Count 4.91 M/mm3 (4.60-6.20); Red Cell Distribution Width 13.8 % (11.5-17.5); White Blood Count 8.8 K/mm3 (4.8-10.8)
--- NOTE | 2021-06-28 10:41 | PC.NURSE ---
patient to radiology by stretcher with classroom technology coach
[2021-06-28 10:44] LABS: Alanine Aminotransferase 41 U/L (12-78); Albumin Level 4.1 g/dl (3.5-5.0); Albumin/Globulin Ratio 1.4 (1.1-1.8); Alkaline Phosphatase 74 U/L (38-126); Anion Gap 12.4 mEq/L (5-15); Aspartate Amino Transferase 48 U/L (17-59); Bilirubin,Total 0.5 mg/dl (0.2-1.3); Blood Urea Nitrogen 18 mg/dl (9-20); Calcium 8.3 mg/dl (8.4-10.2); Carbon Dioxide 27 mmol/L (22.0-30.0); Chloride 107 mmol/L (98-107); Creatinine Clearance Estimated 155 mL/min (50-200); Estimated Glomerular Filt Rate 79 ml/min (>60); GFR (African American) 96 ML/MIN (>60); Globulin 2.9 g/dL (1.3-3.2); Glucose 119 mg/dl (74-100); Potassium 3.4 mmoL/L (3.5-5.1); Sodium 143 mmol/L (136-145)
[2021-06-28 10:47] VITALS: BP 174/115; PULSE 97; RESP 18; TEMP 36.8; O2SAT 98; BMI 32.0
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
--- NOTE | 2021-06-28 11:51 | PC.NURSE ---
JAMES Villalba at [facility]
[2021-06-28 12:54] VITALS: BP 162/94; PULSE 91; RESP 18; TEMP 36.8; O2SAT 99
== END 2021-06-28 12:55 | disposition home or self-care (01) ==
PROVIDERS: Emergency Provider Emergency Medicine; PCP Internal Medicine Adolescent Medicine
DX: S06.0X0A Concussion without loss of consciousness, initial encounter (principal); S39.012A Strain of muscle, fascia and tendon of lower back, initial encounter; S13.4XXA Sprain of ligaments of cervical spine, initial encounter; V23.4XXA Motorcycle driver injured in collision with car, pick-up truck or van in traffic accident, initial encounter
CPT/HCPCS: 70450; 71260; 72125; 72131; 74177; 80053; 85025; 96360; 99284; Q9967

== ENCOUNTER 2021-07-25 08:08 | Emergency (ER) | payer OTHER, SELFPAY ==
[2021-07-25 08:09] VITALS: BP 177/112; PULSE 105; RESP 20; TEMP 36.6; O2SAT 97; BMI 31.8
[2021-07-25 08:15] VITALS: BP 177/112; PULSE 79; O2SAT 96
--- NOTE | 2021-07-25 08:17 | HMH.EDGENADL ---
ED Disposition Clinical Impression: Acute gout Qualifiers: Gout site: foot Gout etiology: idiopathic Laterality: left Qualified Code(s): M10.072 - Idiopathic gout, left ankle and foot Disposition: Home, Self-Care Condition on Discharge: Good Instructions: DI for Gout Additional Instructions: Prednisone as prescribed. Percocet as needed for pain. Rest and elevate foot. Follow-up with primary care provider next week. Additional instructions for CONTROLLED SUBSTANCES: You have been prescribed a medication that is a controlled substance. Controlled substances include pain medications known as opiates and sedative nerve medications known as benzodiazepines. Tramadol, fioricet, and gabapentin are also controlled substances. Some common opiates include: Codeine (such as Tylenol #3) Hydrocodone (Vicodin, Lortab, Lorcet, [place]) Oxycodone (Percocet, Percodan, Oxycodone, Oxy IR) Some common benzodiazepines include: Diazepam (Valium) Lorazepam (Ativan) Alprazolam (Xanax) Clonazepam (Klonopin) Oxazepam (Serax) All of these controlled substances are highly addictive and frequently abused. Misuse can and frequently does lead to addiction as well as overdose and . Medication should be stored in a locked cabinet or other secure storage unit. Do not store the medication in a motor vehicle. Short term supplies, 3 days or less, are prescribed because of the highly addictive nature of the medication. Any of the controlled substance medication NOT taken should be disposed of properly and NOT SAVED. The recommended method of disposing of unused medications is: Place the medicines in a sealable plastic bag. If the medicine is a solid, crush it or add water to dissolve it. Add something undesirable (cat litter, coffee grounds, etc.) Dispose of sealed bag in household trash Do not flush or pour unused medicines down a sink or drain. Controlled substances should not be shared, given away or sold. Because of the addictive nature and frequent abuse, these medications are sometimes stolen. These medications should be kept in a safe place where they cannot be stolen. Do not keep them in your car or purse. Lost or stolen prescriptions for controlled substances WILL NOT BE REFILLED in this emergency department, regardless of whether a police report was filed. Prescriptions: Oxycodone HCl/Acetaminophen [Percocet 5/325mg tablet] 1 tab PO Q6HP PRN #10 tablet PRN Reason: Moderate To Severe Pain Transmission Status[id number] predniSONE [Prednisone 10mg Tab Dose-Pack] 10 mg PO DAILY #42 packet Transmission Status: [facility] Referrals: Kj Madrid MD [Primary Care Provider] - - Critical Care Critical Care Time: No Attestation: On , the high probability of a clinically significant, sudden or life threatening deterioration of the following system(s) required my full and direct attention, intervention and personal management. The time I documented below is in addition to time spent performing reported procedures but includes the following listed in this critical care notation. Medical Decision Making - Surendar Inquiry Pt receiving controlled substance: Yes Surendra was queried for this patient: Yes Risks and benefits of using a controlled substance: were discussed with pt by me Orders (Tests/Meds): ED MEDICATIONS Discontinued Medications Generic Name Dose Route Start Last Admin Trade Name Freq PRN Reason Stop Dose Admin Ketorolac Tromethamine 30 mg 07/25/21 08:21 Ketorolac 30mg/Ml Vial IV 07/25/21 08:22 ONCE ONE Methylprednisolone Sodium Succinate 125 mg 07/25/21 08:21 Methylprednisolone Sod Succ 125mg Vial IV 07/25/21 08:22 ONCE ONE ORDERS Category Date Time Status XR foot LT min 3V Stat Exams 07/25/21 08:21 Taken - Radiology Data #1 Image(s): Foot/Toes Image Reviewed: Yes I reviewed the patient's radiology i
--- NOTE | 2021-07-25 08:18 | PC.NURSE ---
ED MD at
--- NOTE | 2021-07-25 08:19 | PC.NURSE ---
Grace Buchanan, RN at
--- NOTE | 2021-07-25 08:19 | PC.NURSE ---
dr went into room to see pt
--- NOTE | 2021-07-25 08:21 | XR_ITS ---
PROCEDURE INFORMATION: Exam: XR Left Foot Exam date and time: 07/25/2021 8:19 AM Age: 50 years old Clinical indication: Pain; Foot; Left; Additional info: Pain, swelling- patient said feels like gout, he has had that before - pain in 5th metatarsal area TECHNIQUE: Imaging protocol: XR Left foot. Views: 3 or more views. COMPARISON: No relevant prior studies available. FINDINGS: Bones/joints: Degenerative change, without marginal erosions. Anatomic alignment. Subcentimeter calcaneal bone islands. Soft tissues: Multiple soft tissue calcifications about the lateral tarsus and proximal 5th metatarsal. IMPRESSION: Multiple soft tissue calcifications about the lateral tarsus and proximal 5th metatarsal.
[2021-07-25 08:22] VITALS: BP 154/133; PULSE 83; O2SAT 98
--- NOTE | 2021-07-25 08:45 | PC.NURSE ---
ED MD at speaking with patient regarding POC
[2021-07-25 09:01] VITALS: BP 154/118
--- NOTE | 2021-07-25 09:01 | PC.NURSE ---
Grace Buchanan, RN at discussing discharge instructions
[2021-07-25 09:05] VITALS: BP 154/118; PULSE 83; RESP 20; TEMP 36.6; O2SAT 98
== END 2021-07-25 09:06 | disposition home or self-care (01) ==
LOC: ER 08:41
PROVIDERS: Emergency Provider Emergency Medicine; PCP Internal Medicine Adolescent Medicine
DX: M10.072 Idiopathic gout, left ankle and foot (principal); I10 Essential (primary) hypertension; F17.210 Nicotine dependence, cigarettes, uncomplicated
CPT/HCPCS: 73630; 96374; 96375; 99284

== ENCOUNTER → 2021-09-15 07:51 | Outpatient (CLI) | payer OTHER, SELFPAY ==
--- NOTE | 2021-09-15 07:52 | CT_ITS ---
FINAL REPORT TECHNIQUE: Axial CT images of the abdomen and pelvis were obtained before and after the administration of IV contrast. Oral contrast was administered.This study was performed with techniques to keep radiation doses as low as reasonably achievable (ALARA). Individualized dose reduction techniques using automated exposure control or adjustment of mA and/or kV according to the patient''s size were employed. CLINICAL HISTORY: RENAL MASS COMPARISON: 06/28/2021 FINDINGS: Abdomen: The lung bases are clear. The heart is normal in size. There is fatty infiltration of the liver. The spleen is unremarkable. No adrenal masses present. The pancreas has an unremarkable appearance. There is a mass in the anterior pole of the right kidney measuring 4.3 cm which is heterogeneous and shows contrast enhancement consistent with renal neoplasm, likely renal cell carcinoma. The renal veins appear normal. Moderate vascular calcification peer The aorta is normal in caliber. There is no free fluid or adenopathy. Precontrast images demonstrate numerous bilateral renal stones including staghorn calculi bilaterally. The largest in the left upper pole measures 3.8 cm. Pelvis: The appendix is normal. There is sigmoid diverticulosis without evidence of diverticulitis. The urinary bladder is unremarkable. No inflammatory process is seen. There is no evidence of mass or adenopathy. There is no evidence of bowel obstruction. IMPRESSION: Right renal mass consistent with renal neoplasm, likely renal cell carcinoma. Bilateral nephrolithiasis. Reviewed, Interpreted and Dictated by Nick Ruiz III, MD Transcribed by Maria De Jesus Negron Authenticated and [facility]
== END ==
PROVIDERS: PCP Internal Medicine Adolescent Medicine; Visit Provider Urology
DX: N28.89 Other specified disorders of kidney and ureter (principal)
CPT/HCPCS: 74178; Q9967

== ENCOUNTER → 2021-09-21 16:42 | Outpatient (CLI) | payer OTHER, SELFPAY | PROVIDERS: PCP Internal Medicine Adolescent Medicine; Visit Provider Internal Medicine | DX: Z01.812 Encounter for preprocedural laboratory examination (principal); Z20.822 Contact with and (suspected) exposure to COVID-19; Z12.11 Encounter for screening for malignant neoplasm of colon | CPT/HCPCS: C9803; U0003; U0005 ==

== ENCOUNTER 2021-09-23 10:59 | Day surgery (SDC) | payer OTHER, SELFPAY ==
[2021-09-21 14:07] VITALS: BMI 32.0
[2021-09-23 11:17] VITALS: BP 158/104; PULSE 84; RESP 18; TEMP 36.5; O2SAT 98
--- NOTE | 2021-09-23 12:08 | P.PN_ITS ---
[facility] Anesthesia Checklist - Structural Data Admitted From: Home Planned Operative Procedure/s: colonoscopy Consent for Planned Operative Procedure(s) Verified: Yes - Additional verifications Anesthesia Reactions: No Hx Blood Transfusions: No Blood Transfusion Reaction: No - Airway Assessment C-Spine Mobility Assessed: Yes TMJ Mobility Assessed: Yes Dentition: Good Dentition - Neurological Assessment Level of Consciousness: Awake, Alert, Appropriate - Anesthesia Plan Anesthesia Risk discussed: Yes Anesthesia Plan: Patient unable to respond/answer ASA Class: II Anesthesia Type: MAC [facility] History I have reviewed the patient's past medical history: Yes Medical History: Reports:: Hypertension, Kidney Stones Denies:: Cancer, Diabetes Mellitus Type 1, Diabetes Mellitus Type 2, Internal Pacemaker, MRSA, Seizures *Have you ever received a pneumonia vaccine?: No *Have you received a flu vaccine this season?: No Other Medical History: Denies: Blood Transfusion Reaction Anesthesia experience/problems:: none Laterality Cases: Right: Other Other Surgeries: Yes: Cardiac Catheterization, Hernia Repair, Other. No: Pacemaker Amputation: No Fractures: No - *Social History Last grade of school completed: Some college Smoking Status: Current every day smoker Tobacco Type: cigarettes # Packs/Day (cigarettes): 1 Alcohol Intake: current Alcohol Intake Frequency:: 0-2 drinks per day Substance Use Type: denies use, crack/cocaine *Occupational Status:: employed Housing: house Household Members: spouse, family *Travel in the last 8 weeks: None Family Hx:: Other
[2021-09-23 12:16] VITALS: O2SAT 98
[2021-09-23 12:44] VITALS: BP 128/80; PULSE 80; RESP 18; TEMP 36.3; O2SAT 95
--- NOTE | 2021-09-23 12:46 | HMH.SCOPE ---
- Procedure: Date: 09/23/21 Patient Date of :: 1970 Procedure Performed:: Colonoscopy Indications:: The patient is a 50 year old who presents for colonoscopy. He had a CT abdomen and pelvis in June that reported possible left sided colon wall thickening. Also found to have a right renal neoplasm. A repeat CT abdomen and pelvis in August did not report thickening of the left colon Performing Provider:: Marty Small MD Referring Provider:: Kj Madrid MD Sedation:: See RN notes Procedure:: After placing the patient in the left lateral decubitus position, the colonoscopy was gently inserted into the rectum and under direct visualization advanced to the cecum which was identified by transillumination in the right lower quadrant, identification of the ileocecal valve, appendiceal orifice, and cecal strap. Color, texture, mucosa, and anatomy of the colon were carefully examined with the scope. Findings:: Anal canal: normal Rectum: Internal hemorrhoids Sigmoid colon: Edematous appearing mucosa of the mid sigmoid colon. Biopsies obtained. Diverticulosis. Fair to poor bowel preparation Descending colon: Diverticulosis. Fair to poor bowel preparation Splenic flexure: Fair to poor bowel preparation Transverse colon: Poor bowel preparation Hepatic flexure: Poor bowel preparation Ascending colon: Poor bowel preparation Cecum: Poor bowel preparation Terminal ileum: not visualized Recommendations:: Await pathology results Recommend repeat colonoscopy with 2 days liquid diet and split dose bowel preparation Complications:: none Estimated blood obtained (mL): 0
[2021-09-23 12:54] VITALS: BP 163/87; PULSE 80; RESP 18; TEMP 36.3; O2SAT 96
[2021-09-23 13:04] VITALS: BP 134/96; PULSE 79; RESP 16; TEMP 36.3; O2SAT 96
[2021-09-23 13:10] VITALS: BP 134/96; PULSE 79; RESP 18; TEMP 36.3; O2SAT 96
== END 2021-09-23 13:10 | disposition home or self-care (01) ==
LOC: OUTP 11:00
PROVIDERS: PCP Internal Medicine Adolescent Medicine; Visit Provider Internal Medicine
PROC: 0DJD8ZZ Inspection of Lower Intestinal Tract, Via Natural or Artificial Opening Endoscopic (ICD-10-PCS; CPT 45378; principal; 2021-09-23 12:00)
DX: R93.89 Abnormal findings on diagnostic imaging of other specified body structures (principal); I10 Essential (primary) hypertension; Z72.0 Tobacco use; Z91.19 Patient's noncompliance with other medical treatment and regimen; K57.30 Diverticulosis of large intestine without perforation or abscess without bleeding
CPT/HCPCS: 45380

== ENCOUNTER → 2021-10-05 15:41 | Outpatient (CLI) | payer OTHER, SELFPAY | PROVIDERS: PCP Internal Medicine Adolescent Medicine; Visit Provider Internal Medicine | DX: Z01.812 Encounter for preprocedural laboratory examination (principal); Z20.822 Contact with and (suspected) exposure to COVID-19; Z12.11 Encounter for screening for malignant neoplasm of colon | CPT/HCPCS: C9803; U0003; U0005 ==

== ENCOUNTER 2021-10-07 09:44 | Day surgery (SDC) | payer OTHER, SELFPAY ==
[2021-10-01 14:35] VITALS: BMI 32.0
[2021-10-07] VITALS (7 sets, daily range): BP systolic 92–132; BP diastolic 61–98; PULSE 86–109; RESP 17–18; TEMP 36.2–36.4; O2SAT 91–97
--- NOTE | 2021-10-07 10:09 | HMH.ANESCL ---
[facility] Anesthesia Checklist - Patient Identification Patient Identification: Arm Band - Structural Data Admitted From: Home Planned Operative Procedure/s: Colonoscopy Consent for Planned Operative Procedure(s) Verified: Yes - NPO Status Verified Time NPO: 03:00 - Additional verifications Anesthesia Reactions: No Hx Blood Transfusions: No Blood Transfusion Reaction: No - Airway Assessment C-Spine Mobility Assessed: Yes TMJ Mobility Assessed: Yes Dentition: Edentulous - Neurological Assessment Level of Consciousness: Awake Hx Seizures: No Numbness or tingling in extremities: No - Anesthesia Plan Anesthesia Risk discussed: Yes Anesthesia Plan: Verified ASA Class: III Anesthesia Type: MAC [facility] History I have reviewed the patient's past medical history: Yes Medical History: Reports:: Cancer (kidney), Chronic Obstructive Pulmonary Disease (COPD), Hypertension, Kidney Stones Denies:: Diabetes Mellitus Type 1, Diabetes Mellitus Type 2, Internal Pacemaker, MRSA, Seizures *Have you ever received a pneumonia vaccine?: No *Have you received a flu vaccine this season?: No Other Medical History: Denies: Blood Transfusion Reaction Anesthesia experience/problems:: None Laterality Cases: Right: Other Other Surgeries: Yes: Cardiac Catheterization, Hernia Repair, Other. No: Pacemaker Amputation: No Fractures: No - *Social History Smoking Status: Current every day smoker Tobacco Type: cigarettes # Packs/Day (cigarettes): 1 Alcohol Intake: current Alcohol Intake Frequency:: 3 or more drinks per day Substance Use Type: denies use, crack/cocaine *Occupational Status:: employed Housing: house Household Members: spouse, family *Travel in the last 8 weeks: None Family Hx:: No significant family history
--- NOTE | 2021-10-07 11:13 | HMH.SCOPE ---
- Procedure: Date: 10/07/21 Patient Date of :: 1970 Procedure Performed:: Colonoscopy Indications:: The patient is a 50 year old who presents for colonoscopy. He had a CT abdomen and pelvis in June that reported possible left sided colon wall thickening. Also found to have a right RCC. A repeat CT abdomen and pelvis in August did not report thickening of the left colon. Colonoscopy last month was poor bowel preparation Performing Provider:: Marty Small MD Referring Provider:: Kj Madrid MD Sedation:: See RN records Procedure:: After placing the patient in the left lateral decubitus position, the colonoscopy was gently inserted into the rectum and under direct visualization advanced to the cecum which was identified by transillumination in the right lower quadrant, identification of the ileocecal valve, appendiceal orifice, and cecal strap. Color, texture, mucosa, and anatomy of the colon were carefully examined with the scope. Bowel preparation was good Findings:: Anal canal: normal Rectum: normal Sigmoid colon: Non-specific irritation, possible inflammatory changes of mid sigmoid colon. Biopsies obtained. Diverticulosis Descending colon: normal without polyps or inflammatory changes Splenic flexure: normal Transverse colon: normal without polyps or inflammatory changes Hepatic flexure: normal Ascending colon: normal without polyps or inflammatory changes Cecum: normal Terminal ileum: not visualized Impression: 1. Non-specific irritation, possible inflammatory changes of mid sigmoid colon 2. Sigmoid colon diverticulosis Recommendations:: Await pathology results Repeat colonoscopy in 5 years or sooner if clinically indicated Complications:: None Estimated blood obtained (mL): 0
== END 2021-10-07 12:00 | disposition home or self-care (01) ==
LOC: OUTP 09:45
PROVIDERS: PCP Internal Medicine Adolescent Medicine; Visit Provider Internal Medicine
PROC: 0DJD8ZZ Inspection of Lower Intestinal Tract, Via Natural or Artificial Opening Endoscopic (ICD-10-PCS; CPT 45378; principal; 2021-10-07 10:30)
DX: Z72.0 Tobacco use; Z12.11 Encounter for screening for malignant neoplasm of colon; K57.90 Diverticulosis of intestine, part unspecified, without perforation or abscess without bleeding
CPT/HCPCS: 45380; J2704

== ENCOUNTER 2022-01-07 06:18 | Emergency (ER) | payer OTHER, SELFPAY ==
[2022-01-07] VITALS (10 sets, daily range): BP systolic 123–146; BP diastolic 78–112; PULSE 70–113; RESP 18–20; TEMP 36.8–36.9; O2SAT 97–99; BMI 31.4
--- NOTE | 2022-01-07 07:02 | XR_ITS ---
FINAL REPORT CLINICAL HISTORY: left lateral foot pain and swelling COMPARISON: 07/25/2021 FINDINGS: LEFT FOOT Three views demonstrate no acute fracture or dislocation. There are minimal hypertrophic changes at the 1st metatarsophalangeal joint. An os trigonum is noted. No acute soft tissue abnormality is seen. IMPRESSION: No acute process. Reviewed, Interpreted and Dictated by Leoncio Gardner MD Transcribed by Naz Pete Authenticated and [facility]
[2022-01-07 07:10] LABS: Basophils # 0.1 K/mm3 (0-0.2); Basophils % 0.8 % (0.1-2.0); Eosinophils # 0.2 K/mm3 (0.0-0.4); Eosinophils % 1.2 % (0.1-12.0); Hematocrit 47.2 % (42.0-52.0); Hemoglobin 15.4 g/dL (14.1-18.0); Lymphocytes # 3.3 K/mm3 (0.7-4.5); Lymphocytes % 25.4 % (10-50); Mean Corpuscular HGB Conc 32.7 g/dL (31.8-35.4); Mean Corpuscular Hemoglobin 33.3 pg (27.0-31.2); Mean Corpuscular Volume 102.1 fl (80-94); Mean Platelet Volume 8.5 fl (7.4-10.4); Monocytes % 7.8 % (1.7-9.3); Neutrophils # 8.4 K/mm3 (1.8-7.8); Neutrophils % 64.7 % (37.0-80.0); Platelet Count 329 K/mm3 (142-424); Red Blood Count 4.62 M/mm3 (4.60-6.20); Red Cell Distribution Width 14.2 % (11.5-17.5)
[2022-01-07 07:15] LABS: Alanine Aminotransferase 38 U/L (12-78); Albumin Level 4.7 g/dl (3.5-5.0); Albumin/Globulin Ratio 1.3 (1.1-1.8); Alkaline Phosphatase 103 U/L (38-126); Aspartate Amino Transferase 49 U/L (17-59); Bilirubin,Total 0.5 mg/dl (0.2-1.3); Blood Urea Nitrogen 25 mg/dl (9-20); Calcium 9.5 mg/dl (8.4-10.2); Carbon Dioxide 19 mmol/L (22.0-30.0); Chloride 105 mmol/L (98-107); Creatinine Clearance Estimated 107 mL/min (50-200); Estimated Glomerular Filt Rate 54 ml/min (>60); GFR (African American) 65 ML/MIN (>60); Globulin 3.5 g/dL (1.3-3.2); Glucose 123 mg/dl (74-100); Sodium 141 mmol/L (136-145); Total Protein,Serum 8.2 g/dl (6.3-8.2)
[2022-01-07 07:20] LABS: C-Reactive Protein 6.6 mg/L (0-4)
[2022-01-07 07:42] LABS: Erythrocyte Sedimentation Rate 17 mm/hr (0-15)
--- NOTE | 2022-01-07 08:33 | HMH.EDGENADL ---
Discharge Plan Disposition Patient Disposition: Home, Self-Care Condition: Fair Prescriptions Prescriptions: New indomethacin 50 mg capsule 50 mg PO TID 5 Days Qty: 15 0RF Rx Instructions: administer with food or milk hydrocodone-acetaminophen 5-325 mg tablet 1 tab PO Q8H PRN (Reason: pain) Qty: 10 0RF prednisone 20 mg tablet 20 mg PO DAILY Qty: 18 0RF Rx Instructions: 3 tabs daily for 3 days, followed by 2 tabs daily for 3 days followed by 1 tab daily for 3 days No Action losartan 50 mg tablet 100 mg PO DAILY albuterol sulfate [Ventolin HFA] 90 mcg/actuation HFA aerosol inhaler 2 puff INHALATION Q6H PRN (Reason: .) indomethacin 50 mg capsule 50 mg PO Q4HP PRN (Reason: Pain) metoprolol succinate 25 mg tablet extended release 24 hr 25 mg PO DAILY Spiriva with HandiHaler 18 mcg capsule, w/inhalation device 18 mcg INHALATION DAILY Keytruda 50 mg Recon Soln 50 mg IV MONTHLY amlodipine 10 MG tablet 10 mg PO DAILY Referrals Follow up/Referrals: Kj Madrid MD [Primary Care Provider] - See instructions Clinical Impressions Clinical Impression: Gout attack Instructions Patient Instructions: DI for Gout Discharge ED Provider: Manuel Boyce General Adult HPI General Chief complaint: PAIN Stated complaint: Hurting all over Time Seen by Provider: 01/07/22 08:20 Mode of Arrival: Ambulatory Source of Information: Patient Limitations: No Limitations Description of Symptoms (Recalled from ER Triage Doc. by RN): Patient c/o generalized severe cramping for the last few days. Says that the pain had been intermittent, lasting 5-10 seconds at a time, however over the last day it has been very severe and unbearable. Patient says he has pain anywhere I've ever had a surgery or broken bone . Patient is concerned that the he has been in an immunotherapy program at [facility] for Kidney cancer. Patient says his worst pain is in his left foot where his dog stepped on it several days ago. History of Present Illness HPI narrative: Patient is a 51-year-old male with a past medical history of renal cell carcinoma, gout who presents with concern for pain. He says that his pain is mainly in his left ankle. He said that his dog stepped on it several days ago and he says that since then he is now getting a cramping sensation that comes up his calf. He says his ankle is painful to move. He says it feels like a stabbing sensation. He says that it is also happening at some other joints as well but says that it all feels like when he normally has gout. He denies any fever or chills. He says that it has just gotten progressively worse over the last couple days so he wanted to come in for evaluation. Denies any shortness of breath or chest pain. Denies any numbness or tingling into the extremity. Denies any neck or back pain. He is still able to ambulate but with difficulty. Related Data Home Medications Medication Instructions Recorded Confirmed albuterol sulfate 90 mcg/actuation 2 puff INHALATION Q6H PRN . 02/11/20 01/07/22 aerosol inhaler (Ventolin HFA) losartan 50 mg tablet 100 mg PO DAILY . 02/11/20 01/07/22 amlodipine 10 mg tablet 10 mg PO DAILY High blood pressure 09/23/21 01/07/22 indomethacin 50 mg capsule 50 mg PO Q4HP PRN Pain 01/07/22 01/07/22 metoprolol succinate 25 mg 25 mg PO DAILY htn 01/07/22 01/07/22 tablet,extended release 24 hr pembrolizumab 50 mg intravenous 50 mg IV MONTHLY cancer 01/07/22 01/07/22 solution tiotropium bromide 18 mcg capsule 18 mcg inhalation DAILY COPD 01/07/22 01/07/22 with inhalation device (Spiriva with HandiHaler) Previous Rx's Medication Instructions Recorded hydrocodone 5 mg-acetaminophen 325 1 tab PO Q8H PRN pain #10 tabs 01/07/22 mg tablet indomethacin 50 mg capsule 50 mg PO TID 5 days #15 caps 01/07/22 prednisone 20 mg tablet 20 mg PO DAILY #18 tabs 01/07/22 Allergies Allergy
--- NOTE | 2022-01-07 09:11 | PC.NURSE ---
Maria De Jesus Yun of customer relations came down and roomed on pt
[2022-01-07 09:44] LABS: Uric Acid 13.4 mg/dl (3.5-8.5)
[2022-01-07 09:54] LABS: Magnesium 1.3 mg/dl (1.6-2.3)
== END 2022-01-07 12:02 | disposition home or self-care (01) ==
PROVIDERS: Emergency Medicine; Emergency Provider Student in an Organized Health Care Education/Training Program; PCP Internal Medicine Adolescent Medicine
DX: M25.572 Pain in left ankle and joints of left foot (principal); M79.672 Pain in left foot; M10.9 Gout, unspecified; F17.210 Nicotine dependence, cigarettes, uncomplicated; Z79.51 Long term (current) use of inhaled steroids; Z79.52 Long term (current) use of systemic steroids; Z79.899 Other long term (current) drug therapy; Z87.442 Personal history of urinary calculi; Z90.5 Acquired absence of kidney; Z85.528 Personal history of other malignant neoplasm of kidney; Z92.25 Personal history of immunosuppression therapy
CPT/HCPCS: 73630; 80053; 83735; 84550; 85025; 85651; 86140; 99283; J3475

== ENCOUNTER 2022-03-10 02:35 | Observation (INO) | payer OTHER, SELFPAY ==
[2022-03-10] VITALS (14 sets, daily range): BP systolic 118–152; BP diastolic 81–111; PULSE 100–153; RESP 16–28; TEMP 36.6–36.9; O2SAT 90–97; BMI 32.0; BMI 25.9
--- NOTE | 2022-03-10 02:42 | ECG_ITS ---
APPROVED REPORT Exam: Resting ECG HR:151 bpm ECG Measurements Heart Rate 151 AXES WV 130 P 60 QRSd 93 QRS 59 QT 283 T 62 QTc 369 Conclusion SINUS TACHYCARDIA UNCONFIRMED REPORT Electronically signed by : Kj Madrid MD 03/10/2022 21:45:09
--- NOTE | 2022-03-10 02:52 | XR_ITS ---
PROCEDURE INFORMATION: Exam: XR Chest Exam date and time: 03/10/2022 2:54 AM Age: 51 years old Clinical indication: Pain; Shortness of breath; On breathing; Additional info: SOA, known kidney cancer TECHNIQUE: Imaging protocol: Radiologic exam of the chest. Views: 2 views. COMPARISON: 1. CT CHEST W CON 06/28/2021 11:03 AM 2. CR XR CHEST PORTABLE 01/14/2020 5:14 PM FINDINGS: Lungs: Left greater than right bilateral basilar indistinctness is new versus prior studies. Hypoaerated lungs. Bilateral perihilar calcific granulomata. Pleural spaces: No pneumothorax. Minimal bilateral pleural thickening. Heart/Mediastinum: Cardiac silhouette not enlarged. Bones/joints: Unremarkable. IMPRESSION: New finding of left greater than right bilateral basilar opacities and indistinctness may be secondary to atelectasis versus early consolidation.
[2022-03-10 02:57] LABS: Coronavirus 19, PCR Not Detected (NotDetected); Influenza A, PCR Not Detected (NotDetected); Influenza B, PCR Not Detected (NotDetected)
[2022-03-10 03:02] LABS: Basophils # 0.2 K/mm3 (0-0.2); Basophils % 1.1 % (0.1-2.0); Eosinophils # 0.2 K/mm3 (0.0-0.4); Eosinophils % 1.2 % (0.1-12.0); Hematocrit 46.9 % (42.0-52.0); Hemoglobin 15.6 g/dL (14.1-18.0); Lymphocytes # 3.7 K/mm3 (0.7-4.5); Lymphocytes % 17.6 % (10-50); Mean Corpuscular HGB Conc 33.3 g/dL (31.8-35.4); Mean Platelet Volume 8.8 fl (7.4-10.4); Monocytes # 11.4 K/mm3 (0.1-1.0); Monocytes % 54.9 % (1.7-9.3); Neutrophils # 5.2 K/mm3 (1.8-7.8); Neutrophils % 25.2 % (37.0-80.0); Platelet Count 295 K/mm3 (142-424); Red Blood Count 4.73 M/mm3 (4.60-6.20); Red Cell Distribution Width 13.8 % (11.5-17.5); White Blood Count 20.7 K/mm3 (4.8-10.8)
[2022-03-10 03:04] LABS: Chloride 104 mmol/L (98-107); Potassium 3.9 mmoL/L (3.5-5.1); Sodium 136 mmol/L (136-145)
[2022-03-10 03:06] LABS: Blood Urea Nitrogen 24 mg/dl (9-20); Creatinine Clearance Estimated 96 mL/min (50-200); Estimated Glomerular Filt Rate 46 ml/min (>60); GFR (African American) 56 ML/MIN (>60)
[2022-03-10 03:07] LABS: Alanine Aminotransferase 45 U/L (12-78); Albumin Level 4.5 g/dl (3.5-5.0); Albumin/Globulin Ratio 1.2 (1.1-1.8); Alkaline Phosphatase 98 U/L (38-126); Anion Gap 15.9 mEq/L (5-15); Aspartate Amino Transferase 27 U/L (17-59); Bilirubin,Total 0.8 mg/dl (0.2-1.3); Calcium 9.2 mg/dl (8.4-10.2); Carbon Dioxide 20 mmol/L (22.0-30.0); Globulin 3.8 g/dL (1.3-3.2); Glucose 121 mg/dl (74-100); MANUAL DIFFERENTIAL MANUAL DIFFERENTIAL (MANUAL DIFF); Total Protein,Serum 8.3 g/dl (6.3-8.2)
[2022-03-10 03:12] LABS: C-Reactive Protein 43.8 mg/L (0-4)
[2022-03-10 03:18] LABS: NT Pro Brain Natriuretic Pep. 116 pg/mL (0-125)
[2022-03-10 03:29] LABS: Troponin I < 0.01 ng/ml (0.00-0.034)
[2022-03-10 03:35] LABS: Procalcitonin 0.318 ng/mL (0.0-2.0)
--- NOTE | 2022-03-10 03:35 | CT_ITS ---
PROCEDURE INFORMATION: Exam: CTA Chest With Contrast Exam date and time: 03/10/2022 4:21 AM Age: 51 years old Clinical indication: Injury or trauma; Patient HX: Recent fall from ladder. C/O right sided chest pain, SOA; Additional info: R chest pain, SOA, sudden onset TECHNIQUE: Imaging protocol: Computed tomographic angiography of the chest with contrast. 3D rendering (Not supervised by radiologist): MIP and/or 3D reconstructed images were created by the technologist. Radiation optimization: All CT scans at this facility use at least one of these dose optimization techniques: automated exposure control; mA and/or kV adjustment per patient size (includes targeted exams where dose is matched to clinical indication); or iterative reconstruction. Contrast material: ISOVUE; Contrast volume: 70 ml; Contrast route: INTRAVENOUS (IV); COMPARISON: CT CHEST W CON 06/28/2021 11:03 AM FINDINGS: Limitations: Patient motion artifacts degrade multiple images of this examination. These artifacts can cause image blurring and limit interpretation. Pulmonary arteries: The examination is not optimal given motion artifacts, but differential enhancement of a right lower lobe posterolateral segmental pulmonary artery on images 5/46-50, 1002/33-38 and 1001/59-61 are concerning for acute pulmonary embolus when compared to enhancement of adjacent pulmonary artery branches and prior imaging. Aorta: The thoracic aorta is nonaneurysmal. No dissection. Calcific vessel wall plaque. Lungs: Scattered bilateral calcific pulmonary granulomata. Nonspecific interstitial thickening. No lobar consolidation. Pleural spaces: No pneumothorax. There are no pleural effusions present. Heart: Heart not enlarged. Coronary artery calcification is not appreciated. The RV/LV ratio is normal, measuring 0.85. No right heart strain. Lymph nodes: Multiple bilateral hilar and mediastinal calcified nodules are stable. Diaphragm: Small hiatal hernia. Bones/joints: No large or obvious lytic or expansile bone lesions. Interval anterolateral left 4th rib defect possible healed fracture. Soft tissues: Unremarkable. IMPRESSION: 1. Suspected acute right lower lobe segmental pulmonary embolus. 2. Small hiatal hernia. 3. Suspected anterolateral left 4th rib healed fracture.
[2022-03-10 03:36] LABS: Lactic Acid 1.7 mmol/L (0.7-2.1)
--- NOTE | 2022-03-10 03:57 | PC.NURSE ---
Dr. May at
--- NOTE | 2022-03-10 04:01 | HMH.EDSOB ---
Discharge Plan Disposition Patient Disposition: Admitted As Inpatient Chief Complaint: Shortness of Breath/Dyspnea Prescriptions Prescriptions: No Action albuterol sulfate [Ventolin HFA] 90 mcg/actuation HFA aerosol inhaler 2 puff INHALATION Q6H PRN (Reason: soa) Spiriva with HandiHaler 18 mcg capsule, w/inhalation device 18 mcg INHALATION DAILY Keytruda 50 mg Recon Soln 50 mg IV MONTHLY hydrocodone-acetaminophen 5-325 mg tablet 1 tab PO Q8H PRN (Reason: pain) Qty: 10 0RF methocarbamol 500 mg tablet 500 mg PO TIDP PRN (Reason: Muscle Spasm) prednisone 20 mg tablet 20 mg PO DAILY metoprolol succinate 100 mg tablet extended release 24 hr 100 mg PO DAILY losartan 100 mg tablet 100 mg PO DAILY amlodipine 10 MG tablet 10 mg PO DAILY Referrals Follow up/Referrals: Kj Madrid MD [Primary Care Provider] - See instructions Clinical Impressions Clinical Impression: Pulmonary emboli, H/O renal cell cancer Discharge ED Provider: Gallo May Resp/SOB HPI General Chief Complaint: Shortness of Breath/Dyspnea Stated Complaint: SOA Time Seen by Provider: 03/10/22 03:30 Mode of Arrival: Family Vehicle Source of Information: Patient, Spouse and Medical Record Limitations: No Limitations Description of Symptoms (Recalled from ER Triage Doc. by RN): Pt c/o SOA and pain to R flank and R lateral chest area That came on suddenly while laying in bed. States he recently had a fall off a ladder on Tuesday03/07/22. He did not seek treatment. Pt has also had recent kideny surgery d/t renal cell carcinoma. History of Present Illness has hx of rt renal cell cancer and has finished chemo and then steroids - he had fall a few days ago but had been doing ok but dev rt sided chest pain and sob this am Complaint: shortness of breath Onset (ago): hour(s) Context: trauma/injury and other Severity: moderate Consistency/Duration: constant Associated symptoms: chest pain Treatment prior to arrival: none Related Data Home oxygen amount: none Home Medications Medication Instructions Recorded Confirmed albuterol sulfate 90 mcg/actuation 2 puff INHALATION Q6H PRN soa 02/11/20 03/10/22 aerosol inhaler (Ventolin HFA) amlodipine 10 mg tablet 10 mg PO DAILY Hypertension 09/23/21 03/10/22 pembrolizumab 50 mg intravenous 50 mg IV MONTHLY cancer 01/07/22 03/10/22 solution tiotropium bromide 18 mcg capsule 18 mcg inhalation DAILY COPD 01/07/22 03/10/22 with inhalation device (Spiriva with HandiHaler) losartan 100 mg tablet 100 mg PO DAILY Hypertension 03/10/22 03/10/22 methocarbamol 500 mg tablet 500 mg PO TIDP PRN Muscle Spasm 03/10/22 03/10/22 metoprolol succinate 100 mg 100 mg PO DAILY Hypertension 03/10/22 03/10/22 tablet,extended release 24 hr prednisone 20 mg tablet 20 mg PO DAILY inflammation 03/10/22 03/10/22 Previous Rx's Medication Instructions Recorded hydrocodone 5 mg-acetaminophen 325 1 tab PO Q8H PRN pain #10 tabs 01/07/22 mg tablet Allergies Allergy/AdvReac Type Severity Reaction Status Date / Time No Known Allergies Allergy Verified 10/07/21 09:57 Well's Criteria PE Score Clinical signs/symptoms of DVT: No PE is #1 diagnosis or equally likely: Yes Heart rate is > 100: Yes Immobile at least 3 days, or surgery in past 4 wks: No Previously, obj. diagnosed PE or DVT: No Hemoptysis: No Malignancy w/Rx within 6mo, or palliative: Yes PE Score: 5 Risk of Pulmonary Embolism by score: >3 pts=Hi Risk (78%) [facility] Disclaimer: The information contained in this section may have been updated after the patient was seen, as this information can be updated by other users. Medical History (Updated 03/10/22 @ 08:14 by Gallo May MD) Cancer of kidney Gout HTN (hypertension) Kidney stone Surgical History (Updated 01/07/22 @ 06:57 by Karla Benson RN) History of nephrectomy Social History (System 11/06/19 @ 08:18 by Celestina Acosta
--- NOTE | 2022-03-10 04:02 | CT_ITS ---
PROCEDURE INFORMATION: Exam: CT Abdomen And Pelvis With Contrast Exam date and time: 03/10/2022 4:21 AM Age: 51 years old Clinical indication: Injury or trauma; Injury date: 03/07/21; Patient HX: Recent fall from ladder, C/O right flank pain. HX renal cell carcinoma. HX partial nephrectomy. TECHNIQUE: Imaging protocol: Computed tomography of the abdomen and pelvis with contrast. Radiation optimization: All CT scans at this facility use at least one of these dose optimization techniques: automated exposure control; mA and/or kV adjustment per patient size (includes targeted exams where dose is matched to clinical indication); or iterative reconstruction. Contrast material: ISOVUE; Contrast volume: 70 ml; Contrast route: IV; COMPARISON: 1. CT ABDOMEN PELVIS WO/W CON 09/15/2021 8:[address] ABDOMEN PELVIS W CON 06/28/2021 11:03 AM FINDINGS: Diaphragm: Hiatal hernia. Diaphragmatic eventration. Chronically elevated right hemidiaphragm. Liver: Homogeneously hypodense liver parenchyma suggesting hepatic steatosis. Parenchymal calcification. Capsule intact. Gallbladder and bile ducts: Tiny dependent gallstones. No pericholecystic fluid. Pancreas: The pancreatic parenchyma appears homogeneous and unremarkable. Spleen: Splenic calcifications consistent with old granulomatous process. No visualized laceration. Accessory splenic tissue. Adrenal glands: The adrenal glands are normal. Kidneys and ureters: Interval resection of previously demonstrated right renal mass. Some postsurgical stranding, fluid and inflammatory changes are seen about the anterolateral aspect of the right kidney. Multiple bilateral renal calculi and staghorn appearance. No hydronephrosis. No ureterectasis. Stomach and bowel: No evidence of gastric or intestinal viscus perforation or bowel obstruction. No bowel wall thickening. Diverticulosis without diverticulitis. Appendix: The appendix is well visualized and unremarkable. Air-containing. No evidence of appendicitis. Intraperitoneal space: No free air. No ascites. Vasculature: Aorta nonaneurysmal. Minimal infrarenal aortic calcification. Celiac ostial stenosis. Mid celiac trunk ectasia to 15 mm (im ), which may be secondary to poststenotic dilatation but is stable versus my measurements on both prior studies. No dissection or inflammatory changes. Appearance is persistent. Superior mesenteric and inferior mesenteric arteries are both patent. Portal vein patent. Renal veins appear patent. Lymph nodes: No new or enlarged retroperitoneal or mesenteric root lymph node. Urinary bladder: Urinary bladder decompressed. Reproductive: Unremarkable as visualized. Bones/joints: No acute fracture. Left ischial ossicle. Soft tissues: Right pre femoral intramuscular lipoma stable in size. New, well healed anterior abdominal wall supraumbilical surgical scar. No fluid collection. IMPRESSION: 1. Interval resection of previously demonstrated right renal mass. Residual surgical bed inflammatory changes. Cannot exclude small residual or recurrent mass. 2. Bilateral and staghorn renal calculi. 3. Diverticulosis without diverticulitis. 4. Celiac artery ectasia.
[2022-03-10 04:20] LABS: Erythrocyte Sedimentation Rate 23 mm/hr (0-15)
[2022-03-10 04:28] LABS: Magnesium 1.5 mg/dl (1.6-2.3)
[2022-03-10 04:50] LABS: Lymphocytes % 15 % (10-50); Monocytes % 1 % (2-9); Neutrophils % 83 % (42-76); Total Cells Counted 100
[2022-03-10 04:51] LABS: Macrocytosis 1+; Platelet Estimate Normal
--- NOTE | 2022-03-10 05:12 | PC.NURSE ---
Rechecked pt condition. Pt given ice per request. No other needs voiced.
--- NOTE | 2022-03-10 05:34 | PC.NURSE ---
Second trop drawn and sent to lab
--- NOTE | 2022-03-10 05:55 | PC.NURSE ---
Dr. May s/w LORIEAD
[2022-03-10 06:10] LABS: Troponin I < 0.01 ng/ml (0.00-0.034)
--- NOTE | 2022-03-10 07:00 | PC.NURSE ---
verbal order for pain medication given by dr de dios
--- NOTE | 2022-03-10 07:55 | CA_ITS ---
APPROVED REPORT EXAM: Comprehensive 2D, Doppler, and color-flow Echocardiogram [employer]: Shweta Mayfield, JOSE L, RVS Ht: 6 ft 5 in Wt: 270lbs BSA: 2.54 BP: 130/94 mmHg Rhythm: PVC's Indications: Dyspnea, SOA, COPD, + pulmonary embolism, Renal cell carcinoma s/p partial nephrectomy-ongoing chemotherapy, Smoker, HTN 2D Dimensions IVSd 0.98 cm LVEF (Visual) 50.00 % PWd 1.02 cm LVDd 5.63 cm LVDs 3.21 cm Aortic Root 3.76 cm Left Atrium 3.43 cm LVOT 2.31 cm (M/F) 1.5-2.5 M-Mode Dimensions LA Diam 3.53 cm (1.9-4.0) Ao Diam 3.95 cm (2.0-3.7) EPSs 1.07 cm TAPSE 1.79 (<1.7) LV Diastology E Decel Time 127.00 (160-240 msec) E/A Ratio 0.60 MED E' 6.60 (< 7 cm/sec) MED A' 12.90 cm/s E'/MED E' Ratio 5.71 (>14) LAT E' 10.80 (<10 cm/sec) LAT A' 11.70 cm/s E/LAT E' Ratio 3.49 (>14) Aortic Valve LVOT Max 80.00 (70-110 cm/s) LVOT VTI 13.87 cm AoV Peak Zi. 125.00 (50-130 cm/s) AO Peak GR. 6.20 mmHg AO Mean GR. 3.10 (<5 mmHg) AO VTI 15.86 (18-25 cm) TOYIN (VTI) 3.67 (2.5-4.5 cm2) Mitral Valve MV A Velocity 63.00 (40-130 cm/s) E/A Ratio 0.60 MV Decel. Time 127.00 (160-240 ms) MV PHT 37.00 ms Pulmonary Valve PV Peak Velocity 68.00 (50-150 cm/s) Tricuspid Valve TR P. Velocity 168.00 cm/s RAP Estimate 10.00 mmHg RVSP 21.30 mmHg Left Ventricle Technically difficult study because of the patient factors and poor acoustic windows. Left atrium is mildly enlarged, left ventricle is normal size, estimated ejection fraction 55%, there is abnormal septal motion, grade 1 diastolic dysfunction seen without tissue Doppler evidence of large left atrial pressure. Right Ventricle Right atrium and right ventricle are mildly enlarged with normal contractility. Aortic Valve Aortic valve is grossly normal there is no aortic stenosis aortic insufficiency. Mitral Valve Mitral valve is grossly normal, there is trace mitral regurgitation. Tricuspid Valve Tricuspid valve grossly normal, there is trace tricuspid regurgitation tricuspid regurgitation jet velocity is inadequate for calculation of the right ventricular systolic pressure. Pulmonic Valve Pulmonic valve is poorly visualized. Great Vessels Aortic root is normal size. Inferior vena cava is poorly visualized. Pericardium No significant pericardial effusion noted. Conclusion 1. Mild biatrial enlargement, normal left ventricular size, mild concentric left ventricular hypertrophy, estimated ejection fraction 55% with no regional wall motion abnormality, there is abnormal septal motion, grade 1 diastolic dysfunction seen without tissue Doppler evidence of raise left atrial pressure. 2. Mildly enlarged right ventricle with normal contractility. 3. Trace mitral and tricuspid regurgitation. 4. No significant pericardial effusion. 5. Inferior vena cava is poorly visualized. Electronically signed by : Omid Laguna MD 03/10/2022 13:07:04
--- NOTE | 2022-03-10 07:55 | EXP.HP ---
[facility] Disclaimer: The information contained in this section may have been updated after the patient was seen, as this information can be updated by other users. Medical History (Updated 01/07/22 @ 11:38 by Manuel Boyce MD) Cancer of kidney Gout HTN (hypertension) Kidney stone Surgical History (Updated 01/07/22 @ 06:57 by Karla Benson RN) History of nephrectomy Social History (System 11/06/19 @ 08:18 by Celestina Weller) Smoking Status: Current every day smoker tobacco type: cigarettes packs per day: 1 second hand exposure: Yes alcohol intake: current substance use type: denies use and crack/cocaine current occupational status: employed Travel in the last 8 weeks: None household members: spouse and family housing: house current occupation: self current occupational exposures/hazards: No caffeine: Yes Meds Home Medications and Allergies Home Medications Medication Instructions Recorded Confirmed Type albuterol sulfate 90 mcg/actuation 2 puff INHALATION Q6H PRN soa 02/11/20 03/10/22 History aerosol inhaler (Ventolin HFA) amlodipine 10 mg tablet 10 mg PO DAILY Hypertension 09/23/21 03/10/22 History hydrocodone 5 mg-acetaminophen 325 1 tab PO Q8H PRN pain #10 tabs 01/07/22 03/10/22 Rx mg tablet pembrolizumab 50 mg intravenous 50 mg IV MONTHLY cancer 01/07/22 03/10/22 History solution tiotropium bromide 18 mcg capsule 18 mcg inhalation DAILY COPD 01/07/22 03/10/22 History with inhalation device (Spiriva with HandiHaler) losartan 100 mg tablet 100 mg PO DAILY Hypertension 03/10/22 03/10/22 History methocarbamol 500 mg tablet 500 mg PO TIDP PRN Muscle Spasm 03/10/22 03/10/22 History metoprolol succinate 100 mg 100 mg PO DAILY Hypertension 03/10/22 03/10/22 History tablet,extended release 24 hr prednisone 20 mg tablet 20 mg PO DAILY inflammation 03/10/22 03/10/22 History New Prescriptions to Start Prescriptions: Allergies Allergy/AdvReac Type Severity Reaction Status Date / Time No Known Allergies Allergy Verified 10/07/21 09:57 Exam Data for Last 24 hours Vital signs and Labs for Last 24 Hours: Temp Pulse Resp BP Pulse Ox 98.5 F 110 H 21 130/94 H 94 L 03/10/22 02:36 03/10/22 06:31 03/10/22 06:31 03/10/22 06:31 03/10/22 06:31 Laboratory Results - last 24 hr 03/10/22 02:49: WBC 20.7 H*, RBC 4.73, Hgb 15.6, Hct 46.9, MCV 99.0 H, MCH 33.0 H, MCHC 33.3, RDW 13.8, Plt Count 295, MPV 8.8, Neut % (Auto) 25.2 L, Lymph % (Auto) 17.6, [place] % (Auto) 54.9 H, Eos % (Auto) 1.2, Baso % (Auto) 1.1, Neut # (Auto) 5.2, Lymph # (Auto) 3.7, [place] # (Auto) 11.4 H, Eos # (Auto) 0.2, Baso # (Auto) 0.2, Total Counted 100, Neutrophils % (Manual) 83 H, Lymphocytes % (Manual) 15, Monocytes % (Manual) 1 L, Basophils % (Manual) 1.0, Platelet Estimate Normal, RBC Morphology Not Reportable, Macrocytosis 1+, ESR 23 H 03/10/22 02:49: Sodium 136, Potassium 3.9, Chloride 104, Carbon Dioxide 20 L, Anion Gap 15.9 H, BUN 24 H, Creatinine 1.60 H, Estimated Creat Clear 96, Estimated GFR 46 L, Est GFR ( Amer) 56 L, Glucose 121 H, Calcium 9.2, Total Bilirubin 0.8, AST 27, ALT 45, Alkaline Phosphatase 98, Troponin I < 0.01, C-Reactive Protein 43.8 H, NT-Pro-B Natriuret Pep 116, Total Protein 8.3 H, Albumin 4.5, Globulin 3.8 H, Albumin/Globulin Ratio 1.2, Procalcitonin 0.318 03/10/22 02:49: Lactate 1.7 03/10/22 02:49: Magnesium 1.5 L 03/10/22 02:54: SARS-CoV-2 (PCR) Not detected, Influenza A Untype (PCR) Not detected, Influenza Type B (PCR) Not detected 03/10/22 05:33: Troponin I < 0.01 I & O for Last 24 hours: Intake & Output 03/07/22 03/08/22 03/09/22 03/10/22 23:59 23:59 23:59 23:59 Weight 122.47 kg
--- NOTE | 2022-03-10 08:00 | PC.NURSE ---
0800 DR. RUIZ SPEAKING WITH DR. ANDINO FOR ADMISSION
--- NOTE | 2022-03-10 08:10 | PC.NURSE ---
called care management for admission
--- NOTE | 2022-03-10 08:14 | PC.NURSE ---
ECHO AT BEDSIDE
--- NOTE | 2022-03-10 08:22 | PC.NURSE ---
PT REPORTS INCREASED SHORTNESS OF BREATH, RN AND RESPIRATORY AT BEDSIDE. PT AND REQUESTING MD EVALUATION. DR. RUIZ NOTIFIED
--- NOTE | 2022-03-10 08:23 | PC.NURSE ---
VERBAL ORDER RECEIVED FROM DR. RUIZ FOR LOVENOX 1MG/KG. PHARMACY NOTIFIED. BENJY IN PHARMACY WITH DOSE
--- NOTE | 2022-03-10 08:24 | PC.NURSE ---
DR. RUIZ AT BEDSIDE FOR EVALUATION
--- NOTE | 2022-03-10 08:26 | PC.NURSE ---
verbal order for dilaudid and ativan given by dr de dios at this time
--- NOTE | 2022-03-10 08:35 | PC.NURSE ---
PT MEDICATED PER EMAR, PT WEARING NRB MASK. PT VERY ANXIOUS.
--- NOTE | 2022-03-10 08:38 | PC.NURSE ---
Spoke with Deja in Registration to place patient in a bed assignment. [id number]
--- NOTE | 2022-03-10 08:40 | PC.NURSE ---
PT MORE COMFORTABLE AT THIS TIME
[2022-03-10 08:50] LABS: ABG Base Excess -7.9 mmol/L (-2.4-2.3); ABG HCO3 18.1 mmhg (22.0-26.0); ABG Oxygen Saturation 92 % (90-100); ABG PCO2 35.4 mmhg (35.0-45.0); ABG PH 7.33 mmol/L (7.35-7.45); ABG PO2 64.6 mmhg (80-100); ABG TCO2 19.2 mmhg (23-27)
[2022-03-10 08:51] LABS: Allen's Test Patient Unable; Oxygen RA %; Source Right Radial
[2022-03-10 09:24] LABS: Troponin I < 0.01 ng/ml (0.00-0.034)
--- NOTE | 2022-03-10 09:51 | PC.NURSE ---
arrived to floor by wheelchair from ED at [id number]
--- NOTE | 2022-03-10 11:50 | CA_ITS ---
FINAL REPORT TECHNIQUE: Graded compression and a standard color Doppler and grayscale ultrasound images of the bilateral deep venous system were obtained from the groin to the knee. CLINICAL HISTORY: PE, renal cancer, chemo, smoker, HTN, COPD, SOB COMPARISON: None FINDINGS: The deep venous system is normal. There is normal compressibility. There is no evidence of thrombus. IMPRESSION: No evidence of right or left lower extremity DVT. Reviewed, Interpreted and Dictated by Nick Ruiz III, MD Transcribed by Ada Bales Authenticated and [facility]
--- NOTE | 2022-03-10 15:37 | EXP.HPDC ---
General Admission date:: 03/10/22 Discharge date: 03/10/22 *Admission Date: 03/10/22 *Chief complaint: atypical chest pain *History of present illness: 51-year-old male who presented to the ER because of worsening chest pain on the right side of his chest. History of recent diagnosis of hepatocellular carcinoma with removal of a third of his right kidney. Has metastases per his report and his cancer is stage III. He has been going through chemotherapy, on steroids at this time. States that he was helping a friend with moving material in a box truck when he fell out of the truck on Tuesday landing on his side and his back. His friend fell on him when he landed on the ground. He has had pain on the right side for the past 3 to 4 days, worse this morning to the point was unbearable and he sought medical treatment at the ER. On work-up in the ER, noted to have mild leukocytosis, tachypnea, intractable pain. Imaging with no right-sided rib fractures. No large hematomas or right upper quadrant trauma. He did however have finding of subsegmental PE in right lower lobe of his lung. States that his pain is worse when he takes a deep breath. Scant hemoptysis that is longstanding. Denies nausea, vomiting, syncope. Some improvement with Dilaudid and Toradol in the ER. Admitted to medicine for observation and initiation of treatment for PE. On arrival to the floor, patient is stable on room air. He is received 1 dose of therapeutic Lovenox (1 mg/kg). He is requesting to go home later today if possible. Remains afebrile. No previous history of DVTs [facility] Disclaimer: The information contained in this section may have been updated after the patient was seen, as this information can be updated by other users. Medical History Cancer of kidney Gout Histoplasmosis HTN (hypertension) Kidney stone Legionella infection Surgical History History of nephrectomy Social History Smoking Status: Current every day smoker tobacco type: cigarettes packs per day: 1 second hand exposure: Yes alcohol intake: current substance use type: denies use and crack/cocaine current occupational status: employed Travel in the last 8 weeks: None household members: spouse and family housing: house current occupation: self current occupational exposures/hazards: No caffeine: Yes Review of Systems Review of Systems Review of systems (narrative): 14 point review of systems performed, pertinent positives and negatives as per HPI Exam Data for Last 24 hours Vital signs and Labs for Last 24 Hours: Temp Pulse Resp BP Pulse Ox 97.9 F 110 H 22 151/86 H 93 L 03/10/22 12:00 03/10/22 12:00 03/10/22 12:00 03/10/22 12:00 03/10/22 12:00 Laboratory Results - last 24 hr 03/10/22 02:49: WBC 20.7 H*, RBC 4.73, Hgb 15.6, Hct 46.9, MCV 99.0 H, MCH 33.0 H, MCHC 33.3, RDW 13.8, Plt Count 295, MPV 8.8, Neut % (Auto) 25.2 L, Lymph % (Auto) 17.6, [place] % (Auto) 54.9 H, Eos % (Auto) 1.2, Baso % (Auto) 1.1, Neut # (Auto) 5.2, Lymph # (Auto) 3.7, [place] # (Auto) 11.4 H, Eos # (Auto) 0.2, Baso # (Auto) 0.2, Total Counted 100, Neutrophils % (Manual) 83 H, Lymphocytes % (Manual) 15, Monocytes % (Manual) 1 L, Basophils % (Manual) 1.0, Platelet Estimate Normal, RBC Morphology Not Reportable, Macrocytosis 1+, ESR 23 H 03/10/22 02:49: Sodium 136, Potassium 3.9, Chloride 104, Carbon Dioxide 20 L, Anion Gap 15.9 H, BUN 24 H, Creatinine 1.60 H, Estimated Creat Clear 96, Estimated GFR 46 L, Est GFR ( Amer) 56 L, Glucose 121 H, Calcium 9.2, Total Bilirubin 0.8, AST 27, ALT 45, Alkaline Phosphatase 98, Troponin I < 0.01, C-Reactive Protein 43.8 H, NT-Pro-B Natriuret Pep 116, Total Protein 8.3 H, Albumin 4.5, Globulin 3.8 H, Albumin/Globulin Ratio 1.2, Procalcitonin 0.318 03/10/22 02:49: Lactate 1.7 03/10/22 02
[2022-03-12 04:38] LABS: Peripheral Smear Review Scanned Result
--- NOTE | 2022-03-15 14:15 | CARE MANAGER ---
Attempted post-discharge phone interview, no answer.
== END 2022-03-10 16:07 | disposition home or self-care (01) ==
LOC: ER 08:14 → 2ND 09:01
PROVIDERS: Admitting Provider Internal Medicine Adolescent Medicine; Emergency Provider Emergency Medicine; PCP Internal Medicine Adolescent Medicine; Visit Provider Internal Medicine Adolescent Medicine
DX: R07.89 Other chest pain (principal); I26.93 Single subsegmental thrombotic pulmonary embolism without acute cor pulmonale; F17.210 Nicotine dependence, cigarettes, uncomplicated; I10 Essential (primary) hypertension; Z79.899 Other long term (current) drug therapy; Z79.811 Long term (current) use of aromatase inhibitors; C64.1 Malignant neoplasm of right kidney, except renal pelvis; C79.9 Secondary malignant neoplasm of unspecified site; Z90.5 Acquired absence of kidney; W17.89XA Other fall from one level to another, initial encounter; Z91.81 History of falling; Z20.822 Contact with and (suspected) exposure to COVID-19
CPT/HCPCS: 71046; 71275; 74177; 80053; 82803; 83605; 83735; 83880; 84145; 84484; 85007; 85025; 85651; 86140; 87040; 93005; 93306; 93970; 99285; C9803; G0378; J0131; Q9967; U0003; U0005

== ENCOUNTER 2022-04-20 10:13 | Outpatient (CLI) | payer OTHER, SELFPAY ==
[2022-04-20 10:21] VITALS: BMI 29.6
[2022-04-20 10:33] VITALS: BP 103/61; PULSE 103; RESP 18; O2SAT 97
[2022-04-20 10:45] LABS: Basophils # 0.1 K/mm3 (0-0.2); Basophils % 1.1 % (0.1-2.0); Eosinophils # 0.8 K/mm3 (0.0-0.4); Eosinophils % 6.3 % (0.1-12.0); Hematocrit 45.8 % (42.0-52.0); Hemoglobin 14.9 g/dL (14.1-18.0); Lymphocytes # 2.7 K/mm3 (0.7-4.5); Lymphocytes % 21.6 % (10-50); Mean Corpuscular HGB Conc 32.5 g/dL (31.8-35.4); Mean Corpuscular Hemoglobin 31.5 pg (27.0-31.2); Mean Corpuscular Volume 96.8 fl (80-94); Mean Platelet Volume 8.6 fl (7.4-10.4); Neutrophils # 7.9 K/mm3 (1.8-7.8); Neutrophils % 63.1 % (37.0-80.0); Platelet Count 543 K/mm3 (142-424); Red Blood Count 4.74 M/mm3 (4.60-6.20); Red Cell Distribution Width 13.7 % (11.5-17.5); White Blood Count 12.5 K/mm3 (4.8-10.8)
[2022-04-20 10:50] VITALS: BP 121/83; PULSE 100; RESP 18
[2022-04-20 11:00] LABS: Alanine Aminotransferase 21 U/L (12-78); Albumin Level 4.3 g/dl (3.5-5.0); Albumin/Globulin Ratio 1.1 (1.1-1.8); Alkaline Phosphatase 88 U/L (38-126); Anion Gap 14.9 mEq/L (5-15); Aspartate Amino Transferase 24 U/L (17-59); Bilirubin,Total 0.4 mg/dl (0.2-1.3); Blood Urea Nitrogen 32 mg/dl (9-20); Calcium 9.3 mg/dl (8.4-10.2); Carbon Dioxide 21 mmol/L (22.0-30.0); Chloride 106 mmol/L (98-107); Creatinine Clearance Estimated 51 mL/min (50-200); Estimated Glomerular Filt Rate 24 ml/min (>60); GFR (African American) 29 ML/MIN (>60); Glucose 100 mg/dl (74-100); Magnesium 1.4 mg/dl (1.6-2.3); Potassium 3.9 mmoL/L (3.5-5.1); Sodium 138 mmol/L (136-145); Total Protein,Serum 8.3 g/dl (6.3-8.2)
--- NOTE | 2022-04-20 11:18 | PC.NURSE ---
[id number]-notified lamine estevez aprn of pt's labs and blood pressure;new orders for pt to stop losartan, can take amlodipine tomorrow if sbp is >120; increase fluid intake with clear liquids for 24 hrs then bland diet;call nephrology with creatinine level 2.80; notify oncology of white stools and give copy of labs.
[2022-04-20 11:36] VITALS: BP 134/94; PULSE 94; RESP 18
--- NOTE | 2022-04-20 12:00 | PC.NURSE ---
Lesa-lamine zenaida russon notified rn to increase rate of ns bolus to 999 to finish liter
[2022-04-20 12:38] VITALS: BP 132/84; PULSE 93; RESP 18; O2SAT 98
== END 2022-04-20 12:38 | disposition home or self-care (01) ==
LOC: INF 10:14
PROVIDERS: PCP Nurse Practitioner Family; Visit Provider Nurse Practitioner Family
DX: E86.0 Dehydration (principal); I95.89 Other hypotension
CPT/HCPCS: 80053; 83735; 85025; 96360; 96361

== ENCOUNTER 2022-05-06 15:36 | Emergency (ER) | payer OTHER, SELFPAY ==
[2022-05-06 15:48] VITALS: BP 116/74; PULSE 129; RESP 20; O2SAT 99; BMI 29.0
--- NOTE | 2022-05-06 15:53 | PC.NURSE ---
Pt states that his baseline hr is 108, report given to [facility] nurse, will reassess pt hr. Pt states that he is really hurting at this time with his gout.
[2022-05-06 15:54] VITALS: BP 116/74; PULSE 129; RESP 20; TEMP 37; O2SAT 99; BMI 28.9
--- NOTE | 2022-05-06 16:14 | EXP.UTC ---
Discharge Plan Disposition Patient Disposition: Home, Self-Care Condition: Good Prescriptions Prescriptions: New methylprednisolone 4 mg Tablets,Dose Pack 4 mg PO DIRECTED Qty: 21 0RF No Action albuterol sulfate [Ventolin HFA] 90 mcg/actuation HFA aerosol inhaler 2 puff INHALATION Q6H PRN (Reason: soa) Spiriva with HandiHaler 18 mcg capsule, w/inhalation device 18 mcg INHALATION DAILY pembrolizumab 50 mg Recon Soln 50 mg IV MONTHLY hydrocodone-acetaminophen 5-325 mg tablet 1 tab PO Q8H PRN (Reason: pain) Qty: 10 0RF methocarbamol 500 mg tablet 500 mg PO TIDP PRN (Reason: Muscle Spasm) metoprolol succinate 100 mg tablet extended release 24 hr 100 mg PO DAILY losartan 100 mg tablet 100 mg PO DAILY oxycodone-acetaminophen 5-325 mg Tablet 1 ea PO Q6HP PRN (Reason: Moderate To Severe Pain) 3 Days Qty: 12 0RF Xarelto DVT-PE Treat 30d Start 15 mg (42)- 20 mg (9) tablets,dose pack See Rx Instructions .ROUTE .COMPLEX Qty: 51 0RF Rx Instructions: take one-15 mg tablet twice daily for 21 days, then one-20 mg tablet once daily; must take with meal/food prednisone 20 mg tablet 10 mg PO DAILY 2 Days Qty: 1 0RF amlodipine 10 MG tablet 10 mg PO DAILY Referrals Follow up/Referrals: Kj Madrid MD [Primary Care Provider] - See instructions Activity Restrictions/Add. Instructions Additional Instructions/Restrictions: Take the medications as directed, but don't start the oral steroids until tomorrow. Follow up with your regular doctor. GO TO THE ER FOR ANY WORSENING SYMPTOMS Clinical Impressions Clinical Impression: Exacerbation of gout Instructions Patient Instructions: Gout, DI for Gout, Methylprednisolone Injection Discharge ED [place]lin [place] [facility] [place] General Stated complaint: Possible Gout, L Lower leg ging around to R Mode of Arrival: Wheelchair Source of Information: Patient Limitations: No Limitations Time Seen by Provider: 05/06/22 16:08 Description of Symptoms (Recalled from Triage Doc. by RN): c/o left foot/toe and right foot pain, feels like his gout has flarred up. Pt states that he had a colonostomy a few weeks ago and usually after a procedure he has flare ups with gout. Denies any othe issues at time. HEENT Symptoms (Recalled from RN notes): No Resp Symptoms (Recalled from RN notes): No Skin Symptoms (Recalled from RN notes): No MS Symptoms (Recalled from RN notes): No Functional Status (Recalled from RN notes): wnl History of Present Illness Provider Complaint: He states that for the past 2 days he has had worsening left foot and ankle pain. He has a history of gout and he states that is what's happening now. Related Data Home Medications Medication Instructions Recorded Confirmed albuterol sulfate 90 mcg/actuation 2 puff INHALATION Q6H PRN soa 02/11/20 03/10/22 aerosol inhaler (Ventolin HFA) amlodipine 10 mg tablet 10 mg PO DAILY High blood pressure 09/23/21 03/10/22 pembrolizumab 50 mg intravenous 50 mg IV MONTHLY cancer 01/07/22 03/10/22 solution tiotropium bromide 18 mcg capsule 18 mcg inhalation DAILY COPD 01/07/22 03/10/22 with inhalation device (Spiriva with HandiHaler) losartan 100 mg tablet 100 mg PO DAILY High blood pressure 03/10/22 03/10/22 methocarbamol 500 mg tablet 500 mg PO TIDP PRN Muscle Spasm 03/10/22 03/10/22 metoprolol succinate 100 mg 100 mg PO DAILY High blood pressure 03/10/22 03/10/22 tablet,extended release 24 hr Previous Rx's Medication Instructions Recorded hydrocodone 5 mg-acetaminophen 325 1 tab PO Q8H PRN pain #10 tabs 01/07/22 mg tablet oxycodone-acetaminophen 5 mg-325 1 ea PO Q6HP PRN Moderate To 03/10/22 mg tablet Severe Pain 3 days #12 tabs prednisone 20 mg tablet 10 mg PO DAILY inflammation 2 days 03/10/22 #1 tab rivaroxaban 15 mg (42)-20 mg (9) See Rx Instructions PO .COMPLEX 03/10/22 tablets in a starter pack (Xarelto #51 tabs DVT-PE
[2022-05-06 16:49] VITALS: BP 116/74; PULSE 129; RESP 20; TEMP 37; O2SAT 99
== END 2022-05-06 17:09 | disposition home or self-care (01) ==
PROVIDERS: Emergency Provider Nurse Practitioner Family; PCP Internal Medicine Adolescent Medicine
DX: M79.671 Pain in right foot (principal); M10.9 Gout, unspecified
CPT/HCPCS: 96372; 99212; 99214; G0463

== ENCOUNTER 2022-05-07 09:22 | Outpatient (CLI) | payer OTHER, SELFPAY ==
[2022-05-07 09:41] VITALS: BMI 28.2
[2022-05-07 09:50] VITALS: BP 140/98; PULSE 101; RESP 18; O2SAT 97
[2022-05-07 10:07] LABS: Chloride 99 mmol/L (98-107); Potassium 3.8 mmoL/L (3.5-5.1); Sodium 130 mmol/L (136-145)
[2022-05-07 10:09] LABS: Blood Urea Nitrogen 18 mg/dl (9-20); Creatinine Clearance Estimated 96 mL/min (50-200); Estimated Glomerular Filt Rate 54 ml/min (>60); GFR (African American) 65 ML/MIN (>60)
[2022-05-07 10:10] LABS: Alanine Aminotransferase 22 U/L (12-78); Albumin Level 3.4 g/dl (3.5-5.0); Albumin/Globulin Ratio 0.9 (1.1-1.8); Alkaline Phosphatase 76 U/L (38-126); Aspartate Amino Transferase 42 U/L (17-59); Bilirubin,Total 0.5 mg/dl (0.2-1.3); Calcium 8.2 mg/dl (8.4-10.2); Carbon Dioxide 21 mmol/L (22.0-30.0); Globulin 3.6 g/dL (1.3-3.2); Glucose 182 mg/dl (74-100); Magnesium 1.3 mg/dl (1.6-2.3)
[2022-05-07 10:14] LABS: Anion Gap 13.8 mEq/L (5-15)
[2022-05-07 10:17] LABS: Uric Acid 8.6 mg/dl (3.5-8.5)
--- NOTE | 2022-05-07 10:20 | PC.NURSE ---
1020-spoke with lamine estevez aprn new orders for cbc and xray of left foot for pain and gout
--- NOTE | 2022-05-07 10:42 | XR_ITS ---
FINAL REPORT CLINICAL HISTORY: gout/swelling COMPARISON: 01/07/2022 FINDINGS: LEFT ANKLE 2 were obtained. There is no acute fracture. There is no dislocation. The joint spaces are preserved. There is evidence of soft tissue nodule or bony erosion. IMPRESSION: No acute bony abnormality or evidence of bony erosion. Reviewed, Interpreted and Dictated by Nick Ruiz III, MD Transcribed by Shirley Maynard Authenticated and [facility]
--- NOTE | 2022-05-07 10:42 | XR_ITS ---
FINAL REPORT CLINICAL HISTORY: gout/swelling/pain FINDINGS: LEFT FOOT 2 views of the left foot were obtained. There is no acute fracture or dislocation. There are mild degenerative changes of the 1st MTP joint. No soft tissue nodule or evidence of bony erosion is seen. IMPRESSION: Mild degenerative changes of the 1st MTP joint without acute bony abnormality or evidence of bony erosion. Reviewed, Interpreted and Dictated by Nick Ruiz III, MD Transcribed by Shirley Maynard Authenticated and [facility]
--- NOTE | 2022-05-07 10:42 | PC.NURSE ---
1042-rad here for xrays
[2022-05-07 11:05] VITALS: BP 139/85; PULSE 101; RESP 18; O2SAT 98
[2022-05-07 11:15] LABS: Basophils % 0.2 % (0.1-2.0); Eosinophils % 0.1 % (0.1-12.0); Hematocrit 38.9 % (42.0-52.0); Hemoglobin 13.2 g/dL (14.1-18.0); Lymphocytes # 1.5 K/mm3 (0.7-4.5); Lymphocytes % 6.9 % (10-50); Mean Corpuscular Hemoglobin 32.1 pg (27.0-31.2); Mean Corpuscular Volume 94.6 fl (80-94); Mean Platelet Volume 8.6 fl (7.4-10.4); Monocytes % 8.9 % (1.7-9.3); Neutrophils # 18.6 K/mm3 (1.8-7.8); Neutrophils % 83.9 % (37.0-80.0); Platelet Count 371 K/mm3 (142-424); Red Blood Count 4.11 M/mm3 (4.60-6.20); Red Cell Distribution Width 14.1 % (11.5-17.5); White Blood Count 22.2 K/mm3 (4.8-10.8)
[2022-05-07 11:40] LABS: MANUAL DIFFERENTIAL MANUAL DIFFERENTIAL (MANUAL DIFF)
[2022-05-07 12:33] LABS: Lymphocytes % 5 % (10-50); Monocytes % 1 % (2-9); Neutrophils % 94 % (42-76); Platelet Estimate Normal; RBC Morphology Normal; Total Cells Counted 100
== END 2022-05-07 11:05 | disposition home or self-care (01) ==
LOC: INF 09:23
PROVIDERS: Nurse Practitioner Family; PCP Internal Medicine Adolescent Medicine; Visit Provider Internal Medicine
DX: K52.1 Toxic gastroenteritis and colitis; M25.572 Pain in left ankle and joints of left foot; M79.672 Pain in left foot; E86.0 Dehydration; C64.1 Malignant neoplasm of right kidney, except renal pelvis
CPT/HCPCS: 73600; 73620; 80053; 83735; 84550; 85007; 85025; 96360

== ENCOUNTER → 2022-05-08 11:32 | Outpatient (CLI) | payer OTHER, SELFPAY ==
[2022-05-08 12:35] LABS: Basophils % 0.1 % (0.1-2.0); Hematocrit 41.9 % (42.0-52.0); Hemoglobin 13.7 g/dL (14.1-18.0); Lymphocytes # 1.2 K/mm3 (0.7-4.5); Lymphocytes % 4.4 % (10-50); MANUAL DIFFERENTIAL MANUAL DIFFERENTIAL (MANUAL DIFF); Mean Corpuscular HGB Conc 32.8 g/dL (31.8-35.4); Mean Corpuscular Hemoglobin 31.9 pg (27.0-31.2); Mean Corpuscular Volume 97.2 fl (80-94); Mean Platelet Volume 8.5 fl (7.4-10.4); Monocytes # 2.3 K/mm3 (0.1-1.0); Neutrophils % 87.5 % (37.0-80.0); Platelet Count 547 K/mm3 (142-424); Red Blood Count 4.31 M/mm3 (4.60-6.20); White Blood Count 28.5 K/mm3 (4.8-10.8)
[2022-05-08 12:47] LABS: Chloride 103 mmol/L (98-107)
[2022-05-08 12:48] LABS: Potassium 4.1 mmoL/L (3.5-5.1); Sodium 135 mmol/L (136-145)
[2022-05-08 12:50] LABS: Alanine Aminotransferase 25 U/L (12-78); Aspartate Amino Transferase 43 U/L (17-59); Blood Urea Nitrogen 34 mg/dl (9-20); Estimated Glomerular Filt Rate 64 ml/min (>60); GFR (African American) 78 ML/MIN (>60)
[2022-05-08 12:51] LABS: Albumin Level 3.5 g/dl (3.5-5.0); Albumin/Globulin Ratio 1.1 (1.1-1.8); Alkaline Phosphatase 89 U/L (38-126); Anion Gap 16.1 mEq/L (5-15); Bilirubin,Total 0.2 mg/dl (0.2-1.3); Calcium 8.5 mg/dl (8.4-10.2); Carbon Dioxide 20 mmol/L (22.0-30.0); Globulin 3.2 g/dL (1.3-3.2); Glucose 151 mg/dl (74-100); Total Protein,Serum 6.7 g/dl (6.3-8.2)
[2022-05-08 12:52] LABS: Lymphocytes % 2 % (10-50); Monocytes % 1 % (2-9); Neutrophils % 97 % (42-76); Platelet Estimate Slight Increase; RBC Morphology Normal; Total Cells Counted 100
[2022-05-08 12:56] LABS: C-Reactive Protein 67.3 mg/L (0-4)
[2022-05-08 20:16] LABS: Adenovirus F 40/41, stool Not Detected (NotDetected); Astrovirus Not Detected (NotDetected); Campylobacter Not Detected (NotDetected); Clostridium Difficile A/B, PCR Not Detected (NotDetected); Cryptosporidium Not Detected (NotDetected); Cyclospora Cayetanesis Not Detected (NotDetected); Entamoeba histolytica Not Detected (NotDetected); Enteroaggregative E coli Not Detected (NotDetected); Enteropathogenic E coli Not Detected (NotDetected); Enterotoxigenic E coli Not Detected (NotDetected); Giardia lamblia Not Detected (NotDetected); Norovirus Not Detected (NotDetected); Plesimonas Shigalloides, PCR Not Detected (NotDetected); Rotavirus A Not Detected (NotDetected); Salmonella, PCR Not Detected (NotDetected); Sapovirus Not Detected (NotDetected); Shiga-like toxin E coli Not Detected (NotDetected); Shigella Enterovasive E coli Not Detected (NotDetected); Vibrio Cholerae Not Detected (NotDetected); Vibrio, PCR Not Detected (NotDetected); Yersinia Entercolitica, PCR Not Detected (NotDetected)
[2022-05-11 15:52] LABS: Strongyloides IgG Antibody Negative (Negative)
[2022-05-11 22:38] LABS: QuantiFERON-TB Gold Plus Indeterminate (Negative)
[2022-05-12 19:34] LABS: Calprotectin, Fecal 132 ug/g (0-120)
== END ==
PROVIDERS: Internal Medicine Gastroenterology; PCP Internal Medicine Adolescent Medicine
DX: K52.9 Noninfective gastroenteritis and colitis, unspecified (principal)
CPT/HCPCS: 36415; 80053; 83993; 85007; 85025; 86140; 86480; 86682; 87177; 87385; 87506

== ENCOUNTER 2022-05-14 09:33 | Outpatient (CLI) | payer OTHER, SELFPAY ==
[2022-05-14 09:42] VITALS: BMI 28.2
[2022-05-14 09:55] VITALS: BP 135/70; PULSE 90; RESP 18; O2SAT 98
[2022-05-14 11:00] VITALS: BP 131/65; PULSE 90; RESP 18; O2SAT 98
== END 2022-05-14 11:00 | disposition home or self-care (01) ==
LOC: INF 09:33
PROVIDERS: Nurse Practitioner Family; PCP Internal Medicine Adolescent Medicine; Visit Provider Internal Medicine
DX: K52.1 Toxic gastroenteritis and colitis; N22 Calculus of urinary tract in diseases classified elsewhere; E86.0 Dehydration; C64.1 Malignant neoplasm of right kidney, except renal pelvis
CPT/HCPCS: 82370; 96360

== ENCOUNTER → 2022-05-15 10:52 | Outpatient (CLI) | payer OTHER, SELFPAY ==
[2022-05-15 13:09] LABS: Basophils # 0.1 K/mm3 (0-0.2); Basophils % 0.3 % (0.1-2.0); Eosinophils # 0.1 K/mm3 (0.0-0.4); Eosinophils % 0.9 % (0.1-12.0); Hematocrit 42.7 % (42.0-52.0); Hemoglobin 14.1 g/dL (14.1-18.0); Lymphocytes # 2.8 K/mm3 (0.7-4.5); Lymphocytes % 18.9 % (10-50); Mean Corpuscular Hemoglobin 31.7 pg (27.0-31.2); Mean Corpuscular Volume 95.9 fl (80-94); Mean Platelet Volume 8.1 fl (7.4-10.4); Monocytes # 9.2 K/mm3 (0.1-1.0); Monocytes % 61.7 % (1.7-9.3); Neutrophils # 2.7 K/mm3 (1.8-7.8); Neutrophils % 18.2 % (37.0-80.0); Platelet Count 571 K/mm3 (142-424); Red Blood Count 4.45 M/mm3 (4.60-6.20); White Blood Count 14.8 K/mm3 (4.8-10.8)
[2022-05-15 13:12] LABS: MANUAL DIFFERENTIAL MANUAL DIFFERENTIAL (MANUAL DIFF)
[2022-05-15 13:40] LABS: Alanine Aminotransferase 70 U/L (12-78); Albumin Level 3.7 g/dl (3.5-5.0); Albumin/Globulin Ratio 1.5 (1.1-1.8); Alkaline Phosphatase 73 U/L (38-126); Aspartate Amino Transferase 39 U/L (17-59); Bilirubin,Total 0.7 mg/dl (0.2-1.3); Blood Urea Nitrogen 32 mg/dl (9-20); Calcium 8.2 mg/dl (8.4-10.2); Carbon Dioxide 30 mmol/L (22.0-30.0); Chloride 95 mmol/L (98-107); Estimated Glomerular Filt Rate 79 ml/min (>60); GFR (African American) 96 ML/MIN (>60); Globulin 2.5 g/dL (1.3-3.2); Glucose 83 mg/dl (74-100); Sodium 133 mmol/L (136-145); Total Protein,Serum 6.2 g/dl (6.3-8.2)
[2022-05-15 13:47] LABS: C-Reactive Protein 2.3 mg/L (0-4)
[2022-05-15 14:14] LABS: Lymphocytes % 21 % (10-50); Monocytes % 6 % (2-9); Neutrophils % 73 % (42-76); Total Cells Counted 100
[2022-05-15 14:15] LABS: Differential Comment P; Platelet Estimate Slight Increase
[2022-05-15 14:18] LABS: RBC Morphology Normal
[2022-05-18 18:09] LABS: QuantiFERON-TB Gold Plus Negative (Negative)
== END ==
PROVIDERS: PCP Internal Medicine Adolescent Medicine; Visit Provider Internal Medicine Gastroenterology
DX: K52.9 Noninfective gastroenteritis and colitis, unspecified (principal); R76.12 Nonspecific reaction to cell mediated immunity measurement of gamma interferon antigen response without active tuberculosis
CPT/HCPCS: 36415; 80053; 85007; 85025; 86140; 86480

== ENCOUNTER 2022-05-20 09:23 | Outpatient (CLI) | payer OTHER, SELFPAY ==
[2022-05-20 09:52] VITALS: BP 149/90; PULSE 89; RESP 18; O2SAT 99
[2022-05-20 10:45] VITALS: BP 135/85; PULSE 84; RESP 18; O2SAT 97
== END 2022-05-20 10:55 | disposition home or self-care (01) ==
LOC: INF 09:23
PROVIDERS: PCP Internal Medicine Adolescent Medicine; Visit Provider Internal Medicine
DX: K52.1 Toxic gastroenteritis and colitis; E86.0 Dehydration; C64.1 Malignant neoplasm of right kidney, except renal pelvis
CPT/HCPCS: 96360

== ENCOUNTER 2022-05-28 08:57 | Outpatient (CLI) | payer OTHER, SELFPAY ==
[2022-05-28 08:57] VITALS: BP 116/85; PULSE 102; RESP 18; O2SAT 97
[2022-05-28 10:25] VITALS: BP 123/76; PULSE 94; RESP 18; O2SAT 98
== END 2022-05-28 10:25 | disposition home or self-care (01) ==
LOC: INF 08:57
PROVIDERS: PCP Internal Medicine Adolescent Medicine; Visit Provider Internal Medicine Hematology & Oncology
DX: K52.1 Toxic gastroenteritis and colitis; E86.0 Dehydration; C64.1 Malignant neoplasm of right kidney, except renal pelvis
CPT/HCPCS: 96360

== ENCOUNTER 2022-06-04 09:33 | Outpatient (CLI) | payer OTHER, SELFPAY ==
[2022-06-04 09:43] VITALS: BMI 28.2
[2022-06-04 10:00] VITALS: BP 138/95; PULSE 85; RESP 18; O2SAT 97
[2022-06-04 10:13] LABS: Basophils % 0.4 % (0.1-2.0); Eosinophils % 0.3 % (0.1-12.0); Hematocrit 42.7 % (42.0-52.0); Hemoglobin 13.4 g/dL (14.1-18.0); Lymphocytes # 1.5 K/mm3 (0.7-4.5); Lymphocytes % 13.3 % (10-50); Mean Corpuscular HGB Conc 31.5 g/dL (31.8-35.4); Mean Corpuscular Volume 98.6 fl (80-94); Mean Platelet Volume 8.2 fl (7.4-10.4); Monocytes % 8.4 % (1.7-9.3); Neutrophils # 8.9 K/mm3 (1.8-7.8); Neutrophils % 77.7 % (37.0-80.0); Platelet Count 275 K/mm3 (142-424); Red Blood Count 4.33 M/mm3 (4.60-6.20); Red Cell Distribution Width 14.9 % (11.5-17.5); White Blood Count 11.4 K/mm3 (4.8-10.8)
[2022-06-04 10:15] LABS: Chloride 103 mmol/L (98-107); Potassium 3.8 mmoL/L (3.5-5.1); Sodium 136 mmol/L (136-145)
[2022-06-04 10:17] LABS: Blood Urea Nitrogen 35 mg/dl (9-20); Creatinine Clearance Estimated 123 mL/min (50-200); Estimated Glomerular Filt Rate 71 ml/min (>60); GFR (African American) 86 ML/MIN (>60)
[2022-06-04 10:18] LABS: Alanine Aminotransferase 32 U/L (12-78); Albumin Level 4.1 g/dl (3.5-5.0); Albumin/Globulin Ratio 1.5 (1.1-1.8); Alkaline Phosphatase 64 U/L (38-126); Anion Gap 13.8 mEq/L (5-15); Aspartate Amino Transferase 24 U/L (17-59); Bilirubin,Total 0.4 mg/dl (0.2-1.3); Calcium 8.9 mg/dl (8.4-10.2); Carbon Dioxide 23 mmol/L (22.0-30.0); Globulin 2.8 g/dL (1.3-3.2); Glucose 117 mg/dl (74-100); Total Protein,Serum 6.9 g/dl (6.3-8.2)
[2022-06-04 10:20] VITALS: BP 135/92; PULSE 88; RESP 18; O2SAT 97
[2022-06-04 10:50] VITALS: BP 142/81; PULSE 90; RESP 18
[2022-06-04 11:05] VITALS: BP 147/89; PULSE 93; RESP 18; O2SAT 98
== END 2022-06-04 11:05 | disposition home or self-care (01) ==
LOC: INF 09:33
PROVIDERS: PCP Internal Medicine Adolescent Medicine; Visit Provider Internal Medicine Gastroenterology
DX: C64.9 Malignant neoplasm of unspecified kidney, except renal pelvis (principal); K52.1 Toxic gastroenteritis and colitis
CPT/HCPCS: 80053; 85025; 86140; 96360; J3380

== ENCOUNTER → 2022-06-05 10:33 | Outpatient (CLI) | payer OTHER, SELFPAY ==
[2022-06-05 11:27] LABS: Basophils # 0.1 K/mm3 (0-0.2); Basophils % 0.5 % (0.1-2.0); Eosinophils # 0.2 K/mm3 (0.0-0.4); Eosinophils % 1.6 % (0.1-12.0); Hematocrit 42.4 % (42.0-52.0); Hemoglobin 13.7 g/dL (14.1-18.0); Lymphocytes # 2.4 K/mm3 (0.7-4.5); Mean Corpuscular HGB Conc 32.2 g/dL (31.8-35.4); Mean Platelet Volume 7.9 fl (7.4-10.4); Monocytes % 8.6 % (1.7-9.3); Neutrophils # 8.3 K/mm3 (1.8-7.8); Neutrophils % 69.2 % (37.0-80.0); Platelet Count 295 K/mm3 (142-424); Red Blood Count 4.42 M/mm3 (4.60-6.20); Red Cell Distribution Width 14.8 % (11.5-17.5)
[2022-06-05 11:37] LABS: Chloride 102 mmol/L (98-107)
[2022-06-05 11:38] LABS: Sodium 136 mmol/L (136-145)
[2022-06-05 11:40] LABS: Alanine Aminotransferase 32 U/L (12-78); Alkaline Phosphatase 59 U/L (38-126); Aspartate Amino Transferase 26 U/L (17-59); Bilirubin,Total 0.5 mg/dl (0.2-1.3); Blood Urea Nitrogen 29 mg/dl (9-20); Carbon Dioxide 27 mmol/L (22.0-30.0); Estimated Glomerular Filt Rate 71 ml/min (>60); GFR (African American) 86 ML/MIN (>60)
[2022-06-05 11:41] LABS: Albumin Level 4.3 g/dl (3.5-5.0); Albumin/Globulin Ratio 1.7 (1.1-1.8); Calcium 9.1 mg/dl (8.4-10.2); Globulin 2.6 g/dL (1.3-3.2); Glucose 93 mg/dl (74-100); Total Protein,Serum 6.9 g/dl (6.3-8.2)
[2022-06-08 00:07] LABS: Calprotectin, Fecal 32 ug/g (0-120)
[2022-06-08 18:06] LABS: QuantiFERON-TB Gold Plus Negative (Negative)
== END ==
PROVIDERS: PCP Internal Medicine Adolescent Medicine; Visit Provider Internal Medicine Gastroenterology
DX: K52.9 Noninfective gastroenteritis and colitis, unspecified (principal); R76.12 Nonspecific reaction to cell mediated immunity measurement of gamma interferon antigen response without active tuberculosis
CPT/HCPCS: 36415; 80053; 83993; 85025; 86140; 86480; 87305; 87385

== ENCOUNTER 2022-06-11 09:28 | Outpatient (CLI) | payer OTHER, SELFPAY ==
[2022-06-11 10:00] VITALS: BP 116/86; PULSE 87; RESP 18; O2SAT 98
[2022-06-11 11:00] VITALS: BP 121/85; PULSE 85; RESP 18; O2SAT 99
== END 2022-06-11 11:05 | disposition home or self-care (01) ==
LOC: INF 09:31
PROVIDERS: PCP Internal Medicine Adolescent Medicine; Visit Provider Internal Medicine
DX: K52.1 Toxic gastroenteritis and colitis; E86.0 Dehydration; C64.1 Malignant neoplasm of right kidney, except renal pelvis
CPT/HCPCS: 96360

== ENCOUNTER 2022-06-18 09:20 | Outpatient (CLI) | payer OTHER, SELFPAY ==
[2022-06-18 09:36] VITALS: BMI 28.2
[2022-06-18 09:48] VITALS: BP 145/95; PULSE 75; RESP 20; TEMP 36.8; O2SAT 98
[2022-06-18 09:55] LABS: Basophils # 0.1 K/mm3 (0-0.2); Basophils % 0.6 % (0.1-2.0); Eosinophils # 0.1 K/mm3 (0.0-0.4); Hematocrit 42.1 % (42.0-52.0); Hemoglobin 13.3 g/dL (14.1-18.0); Lymphocytes # 2.6 K/mm3 (0.7-4.5); Lymphocytes % 24.6 % (10-50); Mean Corpuscular HGB Conc 31.7 g/dL (31.8-35.4); Mean Corpuscular Volume 97.8 fl (80-94); Mean Platelet Volume 8.2 fl (7.4-10.4); Monocytes % 9.5 % (1.7-9.3); Neutrophils # 6.7 K/mm3 (1.8-7.8); Neutrophils % 64.2 % (37.0-80.0); Platelet Count 333 K/mm3 (142-424); Red Cell Distribution Width 15.1 % (11.5-17.5); White Blood Count 10.5 K/mm3 (4.8-10.8)
[2022-06-18 09:59] LABS: Chloride 102 mmol/L (98-107); Potassium 3.4 mmoL/L (3.5-5.1); Sodium 138 mmol/L (136-145)
[2022-06-18 10:02] LABS: Alanine Aminotransferase 28 U/L (12-78); Albumin/Globulin Ratio 1.4 (1.1-1.8); Alkaline Phosphatase 64 U/L (38-126); Anion Gap 12.4 mEq/L (5-15); Aspartate Amino Transferase 28 U/L (17-59); Bilirubin,Total 0.4 mg/dl (0.2-1.3); Blood Urea Nitrogen 29 mg/dl (9-20); Carbon Dioxide 27 mmol/L (22.0-30.0); Creatinine Clearance Estimated 123 mL/min (50-200); Estimated Glomerular Filt Rate 71 ml/min (>60); GFR (African American) 86 ML/MIN (>60); Globulin 2.8 g/dL (1.3-3.2); Glucose 110 mg/dl (74-100); Total Protein,Serum 6.8 g/dl (6.3-8.2)
[2022-06-18 10:08] LABS: C-Reactive Protein 5.3 mg/L (0-4)
[2022-06-18 10:18] VITALS: BP 139/89; PULSE 79; RESP 20; O2SAT 98
[2022-06-18 10:59] VITALS: BP 147/71; PULSE 93; RESP 20; O2SAT 98
== END 2022-06-18 11:19 | disposition home or self-care (01) ==
LOC: INF 09:21
PROVIDERS: PCP Internal Medicine Adolescent Medicine; Visit Provider Internal Medicine Gastroenterology
DX: K52.1 Toxic gastroenteritis and colitis (principal); C64.9 Malignant neoplasm of unspecified kidney, except renal pelvis
CPT/HCPCS: 80053; 85025; 86140; 96360; 96417; J3380

== ENCOUNTER 2022-06-25 09:20 | Outpatient (CLI) | payer OTHER, SELFPAY ==
[2022-06-25 09:45] VITALS: BP 129/69; PULSE 88; RESP 18; TEMP 36.6; O2SAT 98
[2022-06-25 10:48] VITALS: BP 144/72; PULSE 80; RESP 18; TEMP 36.7; O2SAT 98
== END 2022-06-25 10:48 | disposition home or self-care (01) ==
LOC: INF 09:21
PROVIDERS: PCP Internal Medicine Adolescent Medicine; Visit Provider Internal Medicine
DX: K52.1 Toxic gastroenteritis and colitis; E86.0 Dehydration; C64.1 Malignant neoplasm of right kidney, except renal pelvis
CPT/HCPCS: 96360

== ENCOUNTER 2022-07-02 09:27 | Outpatient (CLI) | payer OTHER, SELFPAY ==
[2022-07-02 09:46] VITALS: BP 146/79; PULSE 91; RESP 18; TEMP 36.7; O2SAT 97
[2022-07-02 10:48] VITALS: BP 158/92; PULSE 96; RESP 18
== END 2022-07-02 10:48 | disposition home or self-care (01) ==
LOC: INF 09:28
PROVIDERS: PCP Internal Medicine Adolescent Medicine; Visit Provider Internal Medicine Hematology & Oncology
DX: K52.1 Toxic gastroenteritis and colitis; E86.0 Dehydration; C64.1 Malignant neoplasm of right kidney, except renal pelvis
CPT/HCPCS: 96360

== ENCOUNTER → 2022-07-05 14:45 | Outpatient (POV) | payer OTHER, SELFPAY | PROVIDERS: Visit Provider Internal Medicine Nephrology | DX: Z00.00 Encounter for general adult medical examination without abnormal findings (principal) ==

== ENCOUNTER 2022-07-09 09:01 | Outpatient (CLI) | payer OTHER, SELFPAY ==
[2022-07-09 09:30] VITALS: BP 130/74; PULSE 99; RESP 18; O2SAT 95
[2022-07-09 10:30] VITALS: BP 137/88; PULSE 97; RESP 18
== END 2022-07-09 10:35 | disposition home or self-care (01) ==
LOC: INF 09:01
PROVIDERS: PCP Internal Medicine Adolescent Medicine; Visit Provider Internal Medicine Hematology & Oncology
DX: K52.1 Toxic gastroenteritis and colitis; E86.0 Dehydration; C64.1 Malignant neoplasm of right kidney, except renal pelvis
CPT/HCPCS: 96360

== ENCOUNTER 2022-07-16 09:33 | Outpatient (CLI) | payer OTHER, SELFPAY ==
[2022-07-16 09:41] VITALS: BMI 30.3
[2022-07-16 10:02] LABS: Basophils # 0.1 K/mm3 (0-0.2); Basophils % 0.9 % (0.1-2.0); Eosinophils # 0.3 K/mm3 (0.0-0.4); Eosinophils % 2.1 % (0.1-12.0); Hematocrit 43.1 % (42.0-52.0); Hemoglobin 14.3 g/dL (14.1-18.0); Lymphocytes # 3.4 K/mm3 (0.7-4.5); Lymphocytes % 24.3 % (10-50); Mean Corpuscular HGB Conc 33.1 g/dL (31.8-35.4); Mean Corpuscular Hemoglobin 32.6 pg (27.0-31.2); Mean Corpuscular Volume 98.6 fl (80-94); Monocytes % 7.3 % (1.7-9.3); Neutrophils # 9.1 K/mm3 (1.8-7.8); Neutrophils % 65.5 % (37.0-80.0); Platelet Count 365 K/mm3 (142-424); Red Blood Count 4.37 M/mm3 (4.60-6.20); Red Cell Distribution Width 15.3 % (11.5-17.5); White Blood Count 13.8 K/mm3 (4.8-10.8)
[2022-07-16 10:05] VITALS: BP 114/71; PULSE 90; RESP 16
[2022-07-16 10:13] LABS: Chloride 92 mmol/L (98-107); Potassium 3.5 mmoL/L (3.5-5.1); Sodium 135 mmol/L (136-145)
[2022-07-16 10:16] LABS: Alanine Aminotransferase 65 U/L (12-78); Albumin Level 4.2 g/dl (3.5-5.0); Albumin/Globulin Ratio 1.5 (1.1-1.8); Alkaline Phosphatase 68 U/L (38-126); Anion Gap 21.5 mEq/L (5-15); Aspartate Amino Transferase 70 U/L (17-59); Bilirubin,Total 0.6 mg/dl (0.2-1.3); Blood Urea Nitrogen 39 mg/dl (9-20); Carbon Dioxide 25 mmol/L (22.0-30.0); Creatinine Clearance Estimated 85 mL/min (50-200); Estimated Glomerular Filt Rate 43 ml/min (>60); GFR (African American) 52 ML/MIN (>60); Globulin 2.8 g/dL (1.3-3.2); Glucose 86 mg/dl (74-100)
[2022-07-16 10:17] LABS: Calcium 9.4 mg/dl (8.4-10.2)
[2022-07-16 10:22] LABS: C-Reactive Protein 35.6 mg/L (0-4)
[2022-07-16 11:05] VITALS: BP 132/69; PULSE 86; RESP 16
== END 2022-07-16 11:10 | disposition home or self-care (01) ==
LOC: INF 09:33
PROVIDERS: PCP Internal Medicine Adolescent Medicine; Visit Provider Internal Medicine Gastroenterology
DX: K52.3 Indeterminate colitis (principal); K52.1 Toxic gastroenteritis and colitis; E86.0 Dehydration; C64.1 Malignant neoplasm of right kidney, except renal pelvis
CPT/HCPCS: 80053; 85025; 86140; 96360; 96417; J3380

== ENCOUNTER 2022-07-23 09:25 | Outpatient (CLI) | payer OTHER, SELFPAY ==
[2022-07-23 09:42] VITALS: BP 125/71; PULSE 98; RESP 18; TEMP 36.6; O2SAT 96
[2022-07-23 10:12] VITALS: BP 119/72; PULSE 94; RESP 18; O2SAT 97
[2022-07-23 10:49] VITALS: BP 126/73; PULSE 95; RESP 18; O2SAT 97
== END 2022-07-23 10:51 | disposition home or self-care (01) ==
LOC: INF 09:25
PROVIDERS: PCP Internal Medicine Adolescent Medicine; Visit Provider Internal Medicine Hematology & Oncology
DX: C64.1 Malignant neoplasm of right kidney, except renal pelvis (principal); K52.1 Toxic gastroenteritis and colitis; E86.0 Dehydration
CPT/HCPCS: 96360

== ENCOUNTER 2022-07-30 09:35 | Outpatient (CLI) | payer OTHER, SELFPAY ==
[2022-07-30 09:50] VITALS: BP 115/88; PULSE 118; RESP 18; O2SAT 96
[2022-07-30 10:55] VITALS: BP 135/89; PULSE 101; RESP 18
== END 2022-07-30 10:55 | disposition home or self-care (01) ==
LOC: INF 09:35
PROVIDERS: PCP Internal Medicine Adolescent Medicine; Visit Provider Internal Medicine Hematology & Oncology
DX: K52.1 Toxic gastroenteritis and colitis; E86.0 Dehydration; C64.1 Malignant neoplasm of right kidney, except renal pelvis
CPT/HCPCS: 96360

== ENCOUNTER 2022-08-06 09:25 | Outpatient (CLI) | payer OTHER, SELFPAY ==
[2022-08-06 09:53] VITALS: BP 103/68; PULSE 88; RESP 18; TEMP 36.7; O2SAT 96
[2022-08-06 10:56] VITALS: BP 128/74; PULSE 81; RESP 18; O2SAT 98
== END 2022-08-06 10:56 | disposition home or self-care (01) ==
LOC: INF 09:25
PROVIDERS: PCP Internal Medicine Adolescent Medicine; Visit Provider Internal Medicine
DX: C64.1 Malignant neoplasm of right kidney, except renal pelvis (principal); K52.1 Toxic gastroenteritis and colitis; E86.0 Dehydration
CPT/HCPCS: 96360

== ENCOUNTER 2022-08-27 09:27 | Outpatient (CLI) | payer OTHER, SELFPAY ==
[2022-08-27 09:45] VITALS: BP 111/73; PULSE 90; RESP 18; O2SAT 95
[2022-08-27 10:51] VITALS: BP 143/89; PULSE 96; RESP 18; TEMP 36.2; O2SAT 95
== END 2022-08-27 10:53 | disposition home or self-care (01) ==
LOC: INF 09:28
PROVIDERS: PCP Internal Medicine Adolescent Medicine; Visit Provider Internal Medicine Hematology & Oncology
DX: K52.1 Toxic gastroenteritis and colitis; C64.1 Malignant neoplasm of right kidney, except renal pelvis; E86.0 Dehydration
CPT/HCPCS: 96360

== ENCOUNTER → 2022-09-03 08:04 | Outpatient (CLI) | payer OTHER, SELFPAY ==
--- NOTE | 2022-09-03 08:09 | CT_ITS ---
FINAL REPORT CLINICAL HISTORY: renal ca, colitis COMPARISON: 03/10/2022 FINDINGS: Axial CT images of the chest were obtained with contrast. Coronal reformatted images were also obtained. This study was performed with techniques to keep radiation doses as low as reasonably achievable, (ALARA). Individualized dose reduction techniques using automated exposure control or adjustment of mA and/or KV according to the patient's size were employed. There is no evidence of mediastinal or hilar mass or adenopathy. No axillary mass or adenopathy is identified. There is no evidence of pulmonary embolism. On lung window images, no pulmonary mass or dominant pulmonary nodule is identified. No localized pulmonary inflammatory process is identified. There are multiple small calcified granulomas. There is mild atelectasis in the lung bases. IMPRESSION: Mild atelectasis in the lung bases. Reviewed, Interpreted and Dictated by Nick Ruiz III, MD Transcribed by Maria De Jesus Negron Authenticated and [facility]
--- NOTE | 2022-09-03 08:27 | CT_ITS ---
FINAL REPORT TECHNIQUE: After the administration of oral and intravenous contrast, axial images were obtained through the abdomen and pelvis by computed tomography. The study was performed with techniques to keep radiation dose as low as reasonably achievable, (ALARA). Individual dose reduction techniques using automated exposure control or adjustment of mA and/or kV according to the patient's size were employed. CLINICAL HISTORY: RENAL CA, COLITIS COMPARISON: 03/10/2022 FINDINGS: Abdomen: There is fatty infiltration of the liver. There are questionable small gallstones. The spleen is unremarkable. The adrenals are normal. The pancreas is unremarkable. Postoperative changes in the anterior right kidney are again identified. There are multiple bilateral renal stones including staghorn calculi, stable from previous. The aorta is normal in caliber. There is no free fluid or adenopathy. Pelvis: The appendix is normal. There is sigmoid diverticulosis without evidence of diverticulitis. Moderate vascular calcification is identified. The urinary bladder is unremarkable. There is no free fluid or adenopathy. IMPRESSION: Questionable small gallstones. Bilateral renal stones, stable. Diverticulosis without evidence of diverticulitis. Reviewed, Interpreted and Dictated by Nick Ruiz III, MD Transcribed by Maria De Jesus Negron Authenticated and [facility]
[2022-09-03 08:40] LABS: Blood Urea Nitrogen 25 mg/dl (9-20)
[2022-09-03 08:48] LABS: Estimated Glomerular Filt Rate 79 ml/min (>60); GFR (African American) 96 ML/MIN (>60)
== END ==
PROVIDERS: PCP Internal Medicine Adolescent Medicine; Visit Provider Internal Medicine
DX: C64.1 Malignant neoplasm of right kidney, except renal pelvis (principal); K52.9 Noninfective gastroenteritis and colitis, unspecified
CPT/HCPCS: 36415; 71260; 74177; 82565; 84520; Q9967

== ENCOUNTER 2022-09-10 09:18 | Outpatient (CLI) | payer OTHER, SELFPAY ==
[2022-09-10 09:26] VITALS: BMI 29.9
[2022-09-10 09:40] VITALS: BP 130/85; PULSE 93; RESP 16; O2SAT 94
[2022-09-10 10:04] LABS: Basophils # 0.1 K/mm3 (0-0.2); Basophils % 0.5 % (0.1-2.0); Eosinophils # 0.1 K/mm3 (0.0-0.4); Hematocrit 35.7 % (42.0-52.0); Hemoglobin 11.6 g/dL (14.1-18.0); Lymphocytes # 3.9 K/mm3 (0.7-4.5); Lymphocytes % 28.6 % (10-50); Mean Corpuscular HGB Conc 32.5 g/dL (31.8-35.4); Mean Corpuscular Hemoglobin 32.1 pg (27.0-31.2); Mean Corpuscular Volume 98.8 fl (80-94); Mean Platelet Volume 8.4 fl (7.4-10.4); Monocytes # 1.2 K/mm3 (0.1-1.0); Monocytes % 8.8 % (1.7-9.3); Neutrophils # 8.3 K/mm3 (1.8-7.8); Neutrophils % 61.2 % (37.0-80.0); Platelet Count 311 K/mm3 (142-424); Red Blood Count 3.61 M/mm3 (4.60-6.20); Red Cell Distribution Width 14.6 % (11.5-17.5); White Blood Count 13.6 K/mm3 (4.8-10.8)
[2022-09-10 10:09] LABS: Alanine Aminotransferase 143 U/L (12-78); Albumin Level 3.6 g/dl (3.5-5.0); Albumin/Globulin Ratio 1.3 (1.1-1.8); Alkaline Phosphatase 92 U/L (38-126); Anion Gap 11.8 mEq/L (5-15); Aspartate Amino Transferase 141 U/L (17-59); Bilirubin,Total 0.3 mg/dl (0.2-1.3); Blood Urea Nitrogen 21 mg/dl (9-20); Calcium 8.6 mg/dl (8.4-10.2); Carbon Dioxide 28 mmol/L (22.0-30.0); Chloride 102 mmol/L (98-107); Creatinine Clearance Estimated 130 mL/min (50-200); Estimated Glomerular Filt Rate 71 ml/min (>60); GFR (African American) 86 ML/MIN (>60); Globulin 2.8 g/dL (1.3-3.2); Glucose 116 mg/dl (74-100); Sodium 139 mmol/L (136-145); Total Protein,Serum 6.4 g/dl (6.3-8.2)
[2022-09-10 10:12] LABS: Potassium 2.8 mmoL/L (3.5-5.1)
[2022-09-10 10:14] LABS: C-Reactive Protein 10.7 mg/L (0-4)
[2022-09-10 10:15] VITALS: BP 141/66; PULSE 91; RESP 16; O2SAT 94
[2022-09-10 10:55] VITALS: BP 161/86; PULSE 98; RESP 16
== END 2022-09-10 11:00 | disposition home or self-care (01) ==
LOC: INF 09:19
PROVIDERS: Internal Medicine Gastroenterology; PCP Internal Medicine Adolescent Medicine; Visit Provider Internal Medicine Hematology & Oncology
DX: C64.9 Malignant neoplasm of unspecified kidney, except renal pelvis (principal); K52.1 Toxic gastroenteritis and colitis; K52.3 Indeterminate colitis; E86.0 Dehydration
CPT/HCPCS: 80053; 85025; 86140; 96360; J3380

== ENCOUNTER 2022-09-17 09:25 | Outpatient (CLI) | payer OTHER, SELFPAY ==
[2022-09-17 09:32] VITALS: BMI 28.9
[2022-09-17 09:55] VITALS: BP 155/98; PULSE 87; RESP 18; O2SAT 99
[2022-09-17 10:19] LABS: Alanine Aminotransferase 183 U/L (12-78); Albumin Level 4.3 g/dl (3.5-5.0); Albumin/Globulin Ratio 1.4 (1.1-1.8); Alkaline Phosphatase 129 U/L (38-126); Anion Gap 15.5 mEq/L (5-15); Aspartate Amino Transferase 184 U/L (17-59); Bilirubin,Total 0.5 mg/dl (0.2-1.3); Blood Urea Nitrogen 25 mg/dl (9-20); Calcium 9.4 mg/dl (8.4-10.2); Carbon Dioxide 23 mmol/L (22.0-30.0); Chloride 103 mmol/L (98-107); Creatinine Clearance Estimated 126 mL/min (50-200); Estimated Glomerular Filt Rate 71 ml/min (>60); GFR (African American) 86 ML/MIN (>60); Globulin 3.1 g/dL (1.3-3.2); Glucose 103 mg/dl (74-100); Magnesium 1.7 mg/dl (1.6-2.3); Potassium 4.5 mmoL/L (3.5-5.1); Sodium 137 mmol/L (136-145); Total Protein,Serum 7.4 g/dl (6.3-8.2)
[2022-09-17 10:24] LABS: C-Reactive Protein 10.4 mg/L (0-4)
[2022-09-17 10:25] VITALS: BP 156/87; PULSE 84
[2022-09-17 11:00] VITALS: BP 161/89; PULSE 88; O2SAT 96
[2022-09-17 11:15] LABS: Basophils % 0.7 % (0.1-2.0); Eosinophils # 0.2 K/mm3 (0.0-0.4); Eosinophils % 1.2 % (0.1-12.0); Hematocrit 37.2 % (42.0-52.0); Hemoglobin 12.6 g/dL (14.1-18.0); Lymphocytes # 1.2 K/mm3 (0.7-4.5); Lymphocytes % 8.3 % (10-50); Mean Corpuscular HGB Conc 33.9 g/dL (31.8-35.4); Mean Corpuscular Hemoglobin 32.5 pg (27.0-31.2); Mean Corpuscular Volume 95.9 fl (80-94); Mean Platelet Volume 10.3 fl (7.4-10.4); Monocytes # 0.7 K/mm3 (0.1-1.0); Monocytes % 4.9 % (1.7-9.3); Neutrophils # 11.5 K/mm3 (1.8-7.8); Neutrophils % 83.2 % (37.0-80.0); Platelet Count 374 K/mm3 (142-424); Red Blood Count 3.88 M/mm3 (4.60-6.20); Red Cell Distribution Width 13.5 % (11.5-17.5); White Blood Count 13.8 K/mm3 (4.8-10.8)
[2022-09-17 11:16] LABS: Basophils # 0.1 K/mm3 (0-0.2)
== END 2022-09-17 11:00 | disposition home or self-care (01) ==
LOC: INF 09:26
PROVIDERS: Internal Medicine Gastroenterology; PCP Radiology Diagnostic Radiology; Visit Provider Internal Medicine Hematology & Oncology
DX: C64.9 Malignant neoplasm of unspecified kidney, except renal pelvis (principal); K52.1 Toxic gastroenteritis and colitis; K52.9 Noninfective gastroenteritis and colitis, unspecified; E87.6 Hypokalemia
CPT/HCPCS: 80053; 83735; 85025; 86140; 96360

== ENCOUNTER 2022-09-20 19:39 | Emergency (ER) | payer OTHER, SELFPAY ==
[2022-09-20 19:55] VITALS: BP 142/96; PULSE 118; RESP 18; TEMP 37.2; O2SAT 95; BMI 28.8
[2022-09-20 20:42] VITALS: BP 143/79; PULSE 84; RESP 19; TEMP 36.8; O2SAT 94
--- NOTE | 2022-09-21 23:26 | HMH.EDGENADL ---
Discharge Plan Disposition Patient Disposition: Home, Self-Care Condition: Good Prescriptions Prescriptions: No Action albuterol sulfate [Ventolin HFA] 90 mcg/actuation HFA aerosol inhaler 2 puff INHALATION Q6H PRN (Reason: soa) Spiriva with HandiHaler 18 mcg capsule, w/inhalation device 18 mcg INHALATION DAILY hydrocodone-acetaminophen 5-325 mg tablet 1 tab PO Q8H PRN (Reason: pain) Qty: 10 0RF methocarbamol 500 mg tablet 500 mg PO TIDP PRN (Reason: Muscle Spasm) metoprolol succinate 100 mg tablet extended release 24 hr 100 mg PO DAILY losartan 100 mg tablet 100 mg PO DAILY oxycodone-acetaminophen 5-325 mg Tablet 1 ea PO Q6HP PRN (Reason: Moderate To Severe Pain) 3 Days Qty: 12 0RF prednisone 20 mg tablet 10 mg PO DAILY 2 Days Qty: 1 0RF Xarelto DVT-PE Treat 30d Start 15 mg (42)- 20 mg (9) tablets,dose pack See Rx Instructions .ROUTE .COMPLEX Rx Instructions: take one-15 mg tablet twice daily for 21 days, then one-20 mg tablet once daily; must take with meal/food amlodipine 10 MG tablet 10 mg PO DAILY potassium chloride 20 mEq Tablet Extended Release 40 meq PO DAILY Referrals Follow up/Referrals: Kj Madrid MD [Primary Care Provider] - See instructions Clinical Impressions Clinical Impression: Bursitis, olecranon Discharge ED Provider: Garrett To General Adult HPI General Chief complaint: Extremity Injury, Upper Stated complaint: AO 08/30 athome InjuredL Elbow Time Seen by Provider: 09/20/22 19:45 Mode of Arrival: Ambulatory Source of Information: Patient and Spouse Limitations: No Limitations Description of Symptoms (Recalled from ER Triage Doc. by RN): pt presents with L elbow pain, erythema, and edema. pt states he fell about 3wks ago and hit it on a deck. there is a very small scab, no draining present. pt is up to date on his tetnus vaccine. pt is currently being treated for renal cell carcinoma. History of Present Illness HPI narrative: 51-year-old male, history of malignancy, ulcerative colitis on Entyvio, gout, liver disease, chronic kidney disease presents with localized swelling of his left olecranon. Patient reports that he fell against it about 3 weeks ago. He reports that he had an abrasion but no laceration. Reports that he is up-to-date on his tetanus. Reports he is currently not on treatment for his cancer. Denies any purulent drainage from the area, denies any pain except with palpation. Reports no difficulty with range of motion of the elbow. Patient reports that the swelling has not been decreasing in size and that is why he came in today. He reports no fevers chills or other systemic symptoms. Related Data Home Medications Medication Instructions Recorded Confirmed albuterol sulfate 90 mcg/actuation 2 puff INHALATION Q6H PRN soa 02/11/20 09/17/22 aerosol inhaler (Ventolin HFA) amlodipine 10 mg tablet 10 mg PO DAILY High blood pressure 09/23/21 09/17/22 tiotropium bromide 18 mcg capsule 18 mcg inhalation DAILY COPD 01/07/22 09/17/22 with inhalation device (Spiriva with HandiHaler) losartan 100 mg tablet 100 mg PO DAILY High blood pressure 03/10/22 09/17/22 methocarbamol 500 mg tablet 500 mg PO TIDP PRN Muscle Spasm 03/10/22 09/17/22 metoprolol succinate 100 mg 100 mg PO DAILY High blood pressure 03/10/22 09/17/22 tablet,extended release 24 hr rivaroxaban 15 mg (42)-20 mg (9) See Rx Instructions .Route 06/18/22 09/17/22 tablets in a starter pack (Xarelto .COMPLEX Blood thinner DVT-PE Treatment 30-Day Starter) potassium chloride 20 mEq 40 meq PO DAILY diet supplement 09/17/22 09/17/22 tablet,extended release Previous Rx's Medication Instructions Recorded hydrocodone 5 mg-acetaminophen 325 1 tab PO Q8H PRN pain #10 tabs 01/07/22 mg tablet oxycodone-acetaminophen 5 mg-325 1 ea PO Q6HP PRN Moderate To 03/10/22 mg tablet Severe Pain 3 days #12 tabs prednisone 20 mg tablet 10 mg PO JC
== END 2022-09-20 20:44 | disposition home or self-care (01) ==
PROVIDERS: Emergency Provider Emergency Medicine; PCP Internal Medicine Adolescent Medicine
DX: M70.22 Olecranon bursitis, left elbow (principal); K51.90 Ulcerative colitis, unspecified, without complications; M10.9 Gout, unspecified; I12.9 Hypertensive chronic kidney disease with stage 1 through stage 4 chronic kidney disease, or unspecified chronic kidney disease; N18.9 Chronic kidney disease, unspecified; F17.210 Nicotine dependence, cigarettes, uncomplicated; W19.XXXA Unspecified fall, initial encounter
CPT/HCPCS: 99283

== ENCOUNTER 2022-10-01 09:37 | Outpatient (CLI) | payer OTHER, SELFPAY ==
[2022-10-01 10:05] VITALS: BP 125/89; PULSE 84; RESP 16; TEMP 36.8; O2SAT 97
[2022-10-01 11:05] VITALS: BP 132/85; PULSE 89; RESP 16; TEMP 36.8; O2SAT 97
== END 2022-10-01 11:10 | disposition home or self-care (01) ==
LOC: INF 09:37
PROVIDERS: PCP Internal Medicine Adolescent Medicine; Visit Provider Internal Medicine Hematology & Oncology
DX: C64.9 Malignant neoplasm of unspecified kidney, except renal pelvis (principal); K52.1 Toxic gastroenteritis and colitis; E86.0 Dehydration
CPT/HCPCS: 96360

== ENCOUNTER 2022-10-08 09:25 | Outpatient (CLI) | payer OTHER, SELFPAY ==
[2022-10-08 09:40] VITALS: BP 127/76; PULSE 105; RESP 18; O2SAT 99
[2022-10-08 10:15] VITALS: BP 157/78; PULSE 108
[2022-10-08 10:45] VITALS: BP 136/76; PULSE 97; O2SAT 99
== END 2022-10-08 10:45 | disposition home or self-care (01) ==
LOC: INF 09:25
PROVIDERS: PCP Internal Medicine Adolescent Medicine; Visit Provider Internal Medicine Hematology & Oncology
DX: C64.9 Malignant neoplasm of unspecified kidney, except renal pelvis (principal); K52.1 Toxic gastroenteritis and colitis; E86.0 Dehydration
CPT/HCPCS: 96360

== ENCOUNTER 2022-10-15 09:27 | Outpatient (CLI) | payer OTHER, SELFPAY ==
[2022-10-15 10:00] VITALS: BP 132/86; PULSE 97; RESP 17; O2SAT 97
[2022-10-15 11:00] VITALS: BP 138/79; PULSE 98; RESP 16
== END 2022-10-15 11:05 | disposition home or self-care (01) ==
LOC: INF 09:28
PROVIDERS: PCP Internal Medicine Adolescent Medicine; Visit Provider Internal Medicine Hematology & Oncology
DX: C64.9 Malignant neoplasm of unspecified kidney, except renal pelvis (principal); K52.1 Toxic gastroenteritis and colitis; E86.0 Dehydration
CPT/HCPCS: 96360

== ENCOUNTER 2022-10-22 09:27 | Outpatient (CLI) | payer OTHER, SELFPAY ==
[2022-10-22 09:40] VITALS: BP 147/94; PULSE 87; RESP 18; O2SAT 95
[2022-10-22 10:44] VITALS: BP 141/80; PULSE 84; RESP 18
== END 2022-10-22 10:44 | disposition home or self-care (01) ==
LOC: INF 09:27
PROVIDERS: PCP Internal Medicine Adolescent Medicine; Visit Provider Internal Medicine Hematology & Oncology
DX: C64.9 Malignant neoplasm of unspecified kidney, except renal pelvis (principal); K52.1 Toxic gastroenteritis and colitis; E86.0 Dehydration
CPT/HCPCS: 96360

== ENCOUNTER 2022-10-29 09:28 | Outpatient (CLI) | payer OTHER, SELFPAY ==
[2022-10-29 09:55] VITALS: BP 113/79; PULSE 105; RESP 17; O2SAT 99
[2022-10-29 10:55] VITALS: BP 122/84; PULSE 108; RESP 18
== END 2022-10-29 10:57 | disposition home or self-care (01) ==
LOC: INF 09:30
PROVIDERS: PCP Internal Medicine Adolescent Medicine; Visit Provider Internal Medicine Hematology & Oncology
DX: K52.1 Toxic gastroenteritis and colitis; E86.0 Dehydration; C64.9 Malignant neoplasm of unspecified kidney, except renal pelvis
CPT/HCPCS: 96360

== ENCOUNTER 2022-11-04 15:48 | Emergency (ER) | payer OTHER, SELFPAY ==
[2022-11-04] VITALS (8 sets, daily range): BP systolic 106–129; BP diastolic 66–93; PULSE 76–126; RESP 19–22; TEMP 36.6–36.8; O2SAT 95–98; BMI 30.9
--- NOTE | 2022-11-04 15:48 | ECG_ITS ---
APPROVED REPORT Exam: Resting ECG HR:117 bpm ECG Measurements Heart Rate 117 AXES MS 130 P 50 QRSd 97 QRS 61 QT 347 T 77 QTc 416 Conclusion SINUS TACHYCARDIA WITH FREQUENT VENTRICULAR PREMATURE COMPLEXES NONSPECIFIC ST & T-WAVE ABNORMALITY ABNORMAL RHYTHM ECG UNCONFIRMED REPORT Electronically signed by : Kj Madrid MD 11/04/2022 19:55:53
--- NOTE | 2022-11-04 15:52 | XR_ITS ---
PROCEDURE INFORMATION: Exam: XR Chest Exam date and time: 11/04/2022 4:06 PM Age: 51 years old Clinical indication: Pain; Angina pectoris; Additional info: Cp, copd TECHNIQUE: Imaging protocol: Radiologic exam of the chest. Views: 2 views. COMPARISON: CT CHEST W CON 09/03/2022 9:12 AM FINDINGS: Lungs: Unremarkable. No consolidation. Pleural spaces: Unremarkable. No pleural effusion. No pneumothorax. Heart/Mediastinum: Unremarkable. No cardiomegaly. Bones/joints: Unremarkable. IMPRESSION: No acute findings.
[2022-11-04 16:08] LABS: Basophils # 0.1 K/mm3 (0-0.2); Basophils % 0.6 % (0.1-2.0); Eosinophils # 0.3 K/mm3 (0.0-0.4); Eosinophils % 2.8 % (0.1-12.0); Hematocrit 39.7 % (42.0-52.0); Hemoglobin 12.4 g/dL (14.1-18.0); Lymphocytes # 2.7 K/mm3 (0.7-4.5); Lymphocytes % 24.8 % (10-50); Mean Corpuscular HGB Conc 31.3 g/dL (31.8-35.4); Mean Corpuscular Hemoglobin 29.2 pg (27.0-31.2); Mean Corpuscular Volume 93.2 fl (80-94); Mean Platelet Volume 8.6 fl (7.4-10.4); Monocytes # 0.8 K/mm3 (0.1-1.0); Monocytes % 7.2 % (1.7-9.3); Neutrophils % 64.6 % (37.0-80.0); Platelet Count 321 K/mm3 (142-424); Red Blood Count 4.26 M/mm3 (4.60-6.20); Red Cell Distribution Width 15.6 % (11.5-17.5); White Blood Count 10.8 K/mm3 (4.8-10.8)
[2022-11-04 16:17] LABS: Alanine Aminotransferase 140 U/L (12-78); Albumin Level 4.5 g/dl (3.5-5.0); Albumin/Globulin Ratio 1.3 (1.1-1.8); Alkaline Phosphatase 121 U/L (38-126); Anion Gap 17.6 mEq/L (5-15); Aspartate Amino Transferase 108 U/L (17-59); Bilirubin,Total 0.7 mg/dl (0.2-1.3); Blood Urea Nitrogen 19 mg/dl (9-20); Calcium 9.7 mg/dl (8.4-10.2); Carbon Dioxide 25 mmol/L (22.0-30.0); Chloride 102 mmol/L (98-107); Estimated Glomerular Filt Rate 64 ml/min (>60); GFR (African American) 78 ML/MIN (>60); Globulin 3.6 g/dL (1.3-3.2); Glucose 95 mg/dl (74-100); Potassium 3.6 mmoL/L (3.5-5.1); Sodium 141 mmol/L (136-145); Total Protein,Serum 8.1 g/dl (6.3-8.2)
[2022-11-04 16:18] LABS: Lipase 139 U/L (23-300)
[2022-11-04 16:21] LABS: D-Dimer 0.76 ug/mL (0.0-0.5)
[2022-11-04 16:28] LABS: NT Pro Brain Natriuretic Pep. 88.7 pg/mL (0-125)
--- NOTE | 2022-11-04 16:33 | HMH.EDGENADL ---
Discharge Plan Disposition Patient Disposition: Home, Self-Care Prescriptions Prescriptions: New chlordiazepoxide HCl 25 mg capsule See Rx Instructions .ROUTE .COMPLEX Qty: 15 0RF Rx Instructions: Day 1: 50mg every 6 hours Day 2: 25mg every 6 hours Day 3: 25mg every 12 hours Day 4: 25mg at night (Rx 15x 25mg tabs) Max 300mg per 24 hours nicotine 14 mg/24 hr patch 24 hour 1 patch transdermal DAILY Qty: 14 0RF famotidine [Pepcid] 20 mg tablet 20 mg PO BID 42 Days Qty: 84 0RF No Action albuterol sulfate [Ventolin HFA] 90 mcg/actuation HFA aerosol inhaler 2 puff INHALATION Q6H PRN (Reason: soa) Spiriva with HandiHaler 18 mcg capsule, w/inhalation device 18 mcg INHALATION DAILY hydrocodone-acetaminophen 5-325 mg tablet 1 tab PO Q8H PRN (Reason: pain) Qty: 10 0RF methocarbamol 500 mg tablet 500 mg PO TIDP PRN (Reason: Muscle Spasm) metoprolol succinate 100 mg tablet extended release 24 hr 100 mg PO DAILY losartan 100 mg tablet 100 mg PO DAILY oxycodone-acetaminophen 5-325 mg Tablet 1 ea PO Q6HP PRN (Reason: Moderate To Severe Pain) 3 Days Qty: 12 0RF prednisone 20 mg tablet 10 mg PO DAILY 2 Days Qty: 1 0RF Xarelto DVT-PE Treat 30d Start 15 mg (42)- 20 mg (9) tablets,dose pack See Rx Instructions .ROUTE .COMPLEX Rx Instructions: take one-15 mg tablet twice daily for 21 days, then one-20 mg tablet once daily; must take with meal/food amlodipine 10 MG tablet 10 mg PO DAILY potassium chloride 20 mEq Tablet Extended Release 40 meq PO DAILY Referrals Follow up/Referrals: Kj Madrid MD [Primary Care Provider] - See instructions Activity Restrictions/Add. Instructions Additional Instructions/Restrictions: Take medications as prescribed. Chlordiazepoxide (Librium) taper as prescribed. Take Pepcid and avoid drinking with either of these medications. Nicotine patches also sent to the pharmacy. Call your family doctor to establish care for this visit to the emergency department and schedule follow-up within 48 hours to ensure improvement. If you have any worsening of your condition or any other concerning signs or symptoms, return to the emergency department or your primary care doctor for further evaluation. Clinical Impressions Clinical Impression: Alcohol withdrawal Qualifiers: Complication of substance-induced condition: uncomplicated Qualified Code(s): F10.930 - Alcohol use, unspecified with withdrawal, uncomplicated Discharge ED Provider: Naveed Oliveira General Adult HPI General Chief complaint: Chest Pain Stated complaint: CP Time Seen by Provider: 11/04/22 15:52 Mode of Arrival: Family Vehicle Source of Information: Patient Limitations: No Limitations Description of Symptoms (Recalled from ER Triage Doc. by RN): Pt c/o anterior chest pain that has been present for a few days. States he was at his nephrology appt and they were concerned with his heart being elevated to 140s. 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 History of Present Illness HPI narrative: Is a 51-year-old male with history of chronic alcoholism currently drinking 16 shots per day, gout, COPD, pulmonary emboli currently on Xarelto presenting with chest pain. Patient states that his chest pain is more of a heartburn pain. It is in his epigastrium and radiates to his left shoulder. Intermittent, does not seem to be associated with food. Not associated with shortness of breath, nausea or vomiting, decreased p.o. intake, diaphoresis, or any other concerns. Saw his doctor earlier today, they stated the patient's heart rate was high enough that they wanted him to go to the emergency department the setting of the symptoms. Patient states that he has been trying to detox at home and takes a shot every time he starts getting shaky. Related Data Home Medications Medication Instructi
[2022-11-04 16:35] LABS: T4 (Thyroxine) 12.4 ug/dl (5.53-11.0)
[2022-11-04 16:49] LABS: Thyroid Stimulating Hormone 1.46 uIU/mL (0.465-4.68)
[2022-11-04 16:54] LABS: Troponin I < 0.01 ng/ml (0.00-0.034)
--- NOTE | 2022-11-04 17:45 | PC.NURSE ---
Moved pt in the middle of the room with stretcher so he could see the tv and lay more comfortable on his right side and gave him two pillows with a warm blanket
[2022-11-04 19:59] LABS: Troponin I < 0.01 ng/ml (0.00-0.034)
== END 2022-11-04 20:49 | disposition home or self-care (01) ==
PROVIDERS: Emergency Provider Emergency Medicine; PCP Internal Medicine Adolescent Medicine
DX: R07.9 Chest pain, unspecified (principal); F10.239 Alcohol dependence with withdrawal, unspecified; R10.13 Epigastric pain; M25.512 Pain in left shoulder; J44.9 Chronic obstructive pulmonary disease, unspecified; M10.9 Gout, unspecified; F17.210 Nicotine dependence, cigarettes, uncomplicated; Z86.711 Personal history of pulmonary embolism; Z79.01 Long term (current) use of anticoagulants
CPT/HCPCS: 71046; 80053; 83690; 83880; 84436; 84443; 84484; 85025; 85378; 93005; 96361; 96374; 99285; J3475

== ENCOUNTER 2022-11-05 08:44 | Emergency (ER) | payer OTHER, SELFPAY ==
[2022-11-05 08:44] VITALS: BP 160/82; PULSE 115; RESP 22; O2SAT 98; BMI 31.4
--- NOTE | 2022-11-05 08:46 | HMH.EDGENADL ---
Discharge Plan Disposition Patient Disposition: Home, Self-Care Chief Complaint: Alcohol Prescriptions Prescriptions: No Action albuterol sulfate [Ventolin HFA] 90 mcg/actuation HFA aerosol inhaler 2 puff INHALATION Q6H PRN (Reason: soa) Spiriva with HandiHaler 18 mcg capsule, w/inhalation device 18 mcg INHALATION DAILY hydrocodone-acetaminophen 5-325 mg tablet 1 tab PO Q8H PRN (Reason: pain) Qty: 10 0RF methocarbamol 500 mg tablet 500 mg PO TIDP PRN (Reason: Muscle Spasm) metoprolol succinate 100 mg tablet extended release 24 hr 100 mg PO DAILY losartan 100 mg tablet 100 mg PO DAILY oxycodone-acetaminophen 5-325 mg Tablet 1 ea PO Q6HP PRN (Reason: Moderate To Severe Pain) 3 Days Qty: 12 0RF prednisone 20 mg tablet 10 mg PO DAILY 2 Days Qty: 1 0RF Xarelto DVT-PE Treat 30d Start 15 mg (42)- 20 mg (9) tablets,dose pack See Rx Instructions .ROUTE .COMPLEX Rx Instructions: take one-15 mg tablet twice daily for 21 days, then one-20 mg tablet once daily; must take with meal/food amlodipine 10 MG tablet 10 mg PO DAILY potassium chloride 20 mEq Tablet Extended Release 40 meq PO DAILY chlordiazepoxide HCl 25 mg capsule See Rx Instructions .ROUTE .COMPLEX Qty: 15 0RF Rx Instructions: Day 1: 50mg every 6 hours Day 2: 25mg every 6 hours Day 3: 25mg every 12 hours Day 4: 25mg at night (Rx 15x 25mg tabs) Max 300mg per 24 hours nicotine 14 mg/24 hr patch 24 hour 1 patch transdermal DAILY Qty: 14 0RF famotidine [Pepcid] 20 mg tablet 20 mg PO BID 42 Days Qty: 84 0RF Referrals Follow up/Referrals: Provider,Referral, MD [Referring] - See instructions Activity Restrictions/Add. Instructions Additional Instructions/Restrictions: Call your family doctor to establish care for this visit to the emergency department and schedule follow-up within 48 hours to ensure improvement. If you have any worsening of your condition or any other concerning signs or symptoms, return to the emergency department or your primary care doctor for further evaluation. Clinical Impressions Clinical Impression: Alcohol abuse Discharge ED Provider: Naveed Oliveira General Adult HPI General Chief complaint: Alcohol Stated complaint: Withdrawl Time Seen by Provider: 11/05/22 08:46 History of Present Illness HPI narrative: 51-year-old male history of daily alcohol abuse, among other comorbidities presenting with withdrawal symptoms. Patient was seen 1 day prior to arrival on 11/04 by me. Patient was given Librium at that time 50 mg, and patient planned not to drink today. Librium started wearing off and patient presenting with diaphoresis, tremors, anxiety and high blood pressure. He states initial Librium dose helped him significantly and he is trying to avoid drinking, so came to the emergency department for another dose of Librium. Patient was trying to wait for pharmacy to open around 9 AM today, 11/05, however has appointment at 9 AM and would be unable to make it to the pharmacy to pick it up prior to his appointment. Denies drinking since starting medication. Patient not having hallucinations, seizures, or any other concerning symptoms. Related Data Home Medications Medication Instructions Recorded Confirmed albuterol sulfate 90 mcg/actuation 2 puff INHALATION Q6H PRN soa 02/11/20 10/29/22 aerosol inhaler (Ventolin HFA) amlodipine 10 mg tablet 10 mg PO DAILY High blood pressure 09/23/21 10/29/22 tiotropium bromide 18 mcg capsule 18 mcg inhalation DAILY COPD 01/07/22 10/29/22 with inhalation device (Spiriva with HandiHaler) losartan 100 mg tablet 100 mg PO DAILY High blood pressure 03/10/22 10/29/22 methocarbamol 500 mg tablet 500 mg PO TIDP PRN Muscle Spasm 03/10/22 10/29/22 metoprolol succinate 100 mg 100 mg PO DAILY High blood pressure 03/10/22 10/29/22 tablet,extended release 24 hr rivaroxaban 15 mg (42)-20 mg (9) See Rx
[2022-11-05 09:14] VITALS: BP 126/74; PULSE 112; RESP 19; TEMP 36.8; O2SAT 98
== END 2022-11-05 09:43 | disposition home or self-care (01) ==
PROVIDERS: Emergency Provider Emergency Medicine; PCP Internal Medicine Adolescent Medicine
DX: F10.239 Alcohol dependence with withdrawal, unspecified (principal); R61 Generalized hyperhidrosis; R25.1 Tremor, unspecified; F41.9 Anxiety disorder, unspecified; I10 Essential (primary) hypertension; M10.9 Gout, unspecified; Z85.528 Personal history of other malignant neoplasm of kidney; F17.210 Nicotine dependence, cigarettes, uncomplicated
CPT/HCPCS: 99283

== ENCOUNTER 2022-11-05 09:25 | Outpatient (CLI) | payer OTHER, SELFPAY ==
--- NOTE | 2022-11-05 09:55 | PC.NURSE ---
pt was seen in ER prior to arrival here and would like to reschedule Entyvio and IVF to next tuesday due to not feeling well and being started on new medication. Pt did not receive any medication here today. Pt rescheduled for 11/12/22.
== END 2022-11-05 11:20 | disposition home or self-care (01) ==
LOC: INF 09:25
PROVIDERS: PCP Internal Medicine Adolescent Medicine
DX: C64.9 Malignant neoplasm of unspecified kidney, except renal pelvis (principal); K52.1 Toxic gastroenteritis and colitis

== ENCOUNTER → 2022-11-11 16:21 | Outpatient (CLI) | payer OTHER, SELFPAY ==
--- NOTE | 2022-11-11 16:27 | XR_ITS ---
PROCEDURE INFORMATION: Exam: XR Left Ankle Exam date and time: 11/11/2022 4:31 PM Age: 51 years old Clinical indication: Pain; Ankle; Left; Additional info: Lt ankle pain TECHNIQUE: Imaging protocol: Radiologic exam of the left ankle. Views: 3 or more views. COMPARISON: CR XR ANKLE LT 2V 05/07/2022 10:45 AM FINDINGS: Bones/joints: No fracture or dislocation. Small dorsal osteophytic spur at the talar head. No other significant degenerative change. Soft tissues: Mild medial and lateral soft tissue swelling. IMPRESSION: Mild medial and lateral soft tissue swelling without evidence of a fracture.
--- NOTE | 2022-11-11 16:27 | XR_ITS ---
PROCEDURE INFORMATION: Exam: XR Right Ankle Exam date and time: 11/11/2022 4:31 PM Age: 51 years old Clinical indication: Pain; Ankle; Right; Additional info: RT ankle pain TECHNIQUE: Imaging protocol: Radiologic exam of the right ankle. Views: 3 or more views. COMPARISON: CA VENOUS DOPPLER LE BI 03/10/2022 12:48 PM FINDINGS: Bones/joints: The ankle mortise appears normal without degenerative changes. No acute fracture or dislocation. There is surgical hardware on the 5th metatarsal. Soft tissues: Normal. IMPRESSION: No significant radiographic abnormality of the right ankle.
--- NOTE | 2022-11-11 16:27 | XR_ITS ---
PROCEDURE INFORMATION: Exam: XR Right Foot Exam date and time: 11/11/2022 4:31 PM Age: 51 years old Clinical indication: Pain; Foot; Right TECHNIQUE: Imaging protocol: Radiologic exam of the right foot. Views: 3 or more views. COMPARISON: CA VENOUS DOPPLER LE BI 03/10/2022 12:48 PM FINDINGS: Tubes, catheters and devices: Surgical plate and cortical screws on the lateral aspect of the 5th metatarsal. The fracture is well healed. No other osseous abnormality. Bones/joints: See Tubes, catheters and devices finding. Soft tissues: Normal. IMPRESSION: Surgical hardware on the 5th metatarsal with a well-healed fracture.
--- NOTE | 2022-11-11 16:27 | XR_ITS ---
PROCEDURE INFORMATION: Exam: XR Left Foot Exam date and time: 11/11/2022 4:31 PM Age: 51 years old Clinical indication: Pain; Foot; Left; Additional info: Lt foot pain TECHNIQUE: Imaging protocol: Radiologic exam of the left foot. Views: 3 or more views. COMPARISON: CR XR FOOT LT 2V 05/07/2022 10:45 AM FINDINGS: Bones/joints: Moderate degenerative change at the 1st MTP joint is unchanged. No fracture or focal lesion. No other significant arthropathy. Soft tissues: Normal. IMPRESSION: Unchanged moderate degenerative joint disease at the 1st MTP joint.
== END ==
PROVIDERS: PCP Nurse Practitioner Family; Visit Provider Nurse Practitioner Family
DX: M79.671 Pain in right foot (principal); M79.672 Pain in left foot; M25.571 Pain in right ankle and joints of right foot; M25.572 Pain in left ankle and joints of left foot
CPT/HCPCS: 73610; 73630

== ENCOUNTER 2022-11-12 09:22 | Outpatient (CLI) | payer OTHER, SELFPAY ==
[2022-11-12 09:30] VITALS: BMI 31.4
[2022-11-12 09:48] VITALS: BP 105/68; PULSE 102; RESP 19; O2SAT 96
[2022-11-12 09:53] LABS: Basophils # 0.1 K/mm3 (0-0.2); Basophils % 0.6 % (0.1-2.0); Eosinophils # 0.4 K/mm3 (0.0-0.4); Eosinophils % 3.8 % (0.1-12.0); Hematocrit 34.8 % (42.0-52.0); Hemoglobin 10.8 g/dL (14.1-18.0); Lymphocytes # 2.6 K/mm3 (0.7-4.5); Lymphocytes % 27.4 % (10-50); Mean Corpuscular HGB Conc 31.1 g/dL (31.8-35.4); Mean Corpuscular Hemoglobin 28.1 pg (27.0-31.2); Mean Corpuscular Volume 90.4 fl (80-94); Monocytes # 3.9 K/mm3 (0.1-1.0); Monocytes % 40.9 % (1.7-9.3); Neutrophils # 2.6 K/mm3 (1.8-7.8); Neutrophils % 27.3 % (37.0-80.0); Platelet Count 479 K/mm3 (142-424); Red Blood Count 3.86 M/mm3 (4.60-6.20); Red Cell Distribution Width 15.7 % (11.5-17.5); White Blood Count 9.6 K/mm3 (4.8-10.8)
[2022-11-12 10:00] LABS: MANUAL DIFFERENTIAL MANUAL DIFFERENTIAL (MANUAL DIFF)
[2022-11-12 10:01] LABS: Alanine Aminotransferase 44 U/L (12-78); Albumin Level 3.6 g/dl (3.5-5.0); Alkaline Phosphatase 87 U/L (38-126); Anion Gap 13.8 mEq/L (5-15); Aspartate Amino Transferase 43 U/L (17-59); Bilirubin,Total 0.3 mg/dl (0.2-1.3); Blood Urea Nitrogen 20 mg/dl (9-20); Calcium 8.9 mg/dl (8.4-10.2); Carbon Dioxide 24 mmol/L (22.0-30.0); Chloride 104 mmol/L (98-107); Creatinine Clearance Estimated 94 mL/min (50-200); Estimated Glomerular Filt Rate 46 ml/min (>60); GFR (African American) 56 ML/MIN (>60); Globulin 3.6 g/dL (1.3-3.2); Glucose 105 mg/dl (74-100); Potassium 3.8 mmoL/L (3.5-5.1); Sodium 138 mmol/L (136-145); Total Protein,Serum 7.2 g/dl (6.3-8.2); Uric Acid 8.4 mg/dl (3.5-8.5)
[2022-11-12 10:06] LABS: C-Reactive Protein 91.4 mg/L (0-4)
[2022-11-12 10:41] LABS: Eosinophils % 1 % (0-3); Lymphocytes % 20 % (10-50); Monocytes % 12 % (2-9); Neutrophils % 67 % (42-76); Platelet Estimate Slight Increase; RBC Morphology Normal; Total Cells Counted 100
[2022-11-12 10:55] VITALS: BP 110/67; PULSE 88; RESP 19; O2SAT 95
== END 2022-11-12 10:55 | disposition home or self-care (01) ==
LOC: INF 09:22
PROVIDERS: Nurse Practitioner Family; PCP Internal Medicine Adolescent Medicine; Visit Provider Internal Medicine Gastroenterology
DX: C64.9 Malignant neoplasm of unspecified kidney, except renal pelvis (principal); K52.1 Toxic gastroenteritis and colitis; K52.3 Indeterminate colitis; E86.0 Dehydration; M79.672 Pain in left foot
CPT/HCPCS: 80053; 84550; 85007; 85025; 86140; 96360; 96417; J3380

== ENCOUNTER 2022-11-19 09:34 | Outpatient (CLI) | payer OTHER, SELFPAY ==
[2022-11-19 09:50] VITALS: BP 137/84; PULSE 90; RESP 18; O2SAT 94
[2022-11-19 10:58] VITALS: BP 141/76; PULSE 91; RESP 18; O2SAT 94
== END 2022-11-19 10:58 | disposition home or self-care (01) ==
LOC: INF 09:34
PROVIDERS: PCP Internal Medicine Adolescent Medicine; Visit Provider Internal Medicine
DX: C64.9 Malignant neoplasm of unspecified kidney, except renal pelvis (principal); K52.1 Toxic gastroenteritis and colitis; E86.0 Dehydration
CPT/HCPCS: 96360

== ENCOUNTER 2022-11-26 09:24 | Outpatient (CLI) | payer OTHER, SELFPAY ==
[2022-11-26 09:35] VITALS: BP 109/65; PULSE 90; RESP 18; O2SAT 96
[2022-11-26 10:40] VITALS: BP 144/82; PULSE 83; RESP 18
== END 2022-11-26 10:40 | disposition home or self-care (01) ==
LOC: INF 09:24
PROVIDERS: PCP Internal Medicine Adolescent Medicine; Visit Provider Internal Medicine
DX: C64.9 Malignant neoplasm of unspecified kidney, except renal pelvis (principal); K52.1 Toxic gastroenteritis and colitis; E86.0 Dehydration
CPT/HCPCS: 96360

== ENCOUNTER 2022-12-03 08:17 | Outpatient (CLI) | payer OTHER, SELFPAY ==
--- OUTSIDE RECORDS SUMMARY | 2022-12-03 08:21 | XMS_ITS | Patient Health Record ---
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 Name Role Phone Kj Mdarid Primary Care Provider Kj Madrid Unavailable Unavailable Sarah Watson Unavailable [phone] Cyndi Wolfe Unavailable [phone] ALLERGIES No Known Allergies RESULTS Component Value Reference Range Notes M-Comprehensive Metabolic Pa dante Reviewed date:05/07/2022 10:48:52 AM Interpretation: Performing Lab: Notes/Report: NA 130 136-145 mmol/L K 3.8 3.5-5.1 mmoL/L CL 99 98-107 mmol/L CO2 21 22.0-30.0 mmol/L GAP 13.8 5-15 mEq/L BUN 18 9-20 mg/dl CREATT 1.40 0.66-1.25 mg/dl CRCLE 96 50-200 mL/min GFRAA 65 >60 ML/MIN EGFR 54 >60 ml/min GLU 182 74-100 mg/dl CA 8.2 8.4-10.2 mg/dl BILIT 0.5 0.2-1.3 mg/dl AST 42 17-59 U/L ALT 22 12-78 U/L TP 7.0 6.3-8.2 g/dl ALB 3.4 3.5-5.0 g/dl GLOB 3.6 1.3-3.2 g/dL AGRATI
[2022-12-03 08:45] VITALS: BP 120/77; PULSE 100; RESP 17; O2SAT 96
[2022-12-03 09:45] VITALS: BP 118/75; PULSE 97; RESP 16
== END 2022-12-03 09:50 | disposition home or self-care (01) ==
PROVIDERS: PCP Internal Medicine Adolescent Medicine; Visit Provider Internal Medicine
DX: C64.9 Malignant neoplasm of unspecified kidney, except renal pelvis (principal); K52.1 Toxic gastroenteritis and colitis; E86.0 Dehydration
CPT/HCPCS: 96360

== ENCOUNTER 2022-12-10 08:43 | Outpatient (CLI) | payer OTHER, SELFPAY ==
[2022-12-10 09:00] VITALS: BP 104/68; PULSE 88; RESP 18; TEMP 36.8; O2SAT 94
[2022-12-10 10:03] VITALS: BP 142/78; PULSE 83; RESP 18
== END 2022-12-10 10:03 | disposition home or self-care (01) ==
LOC: INF 08:43
PROVIDERS: PCP Internal Medicine Adolescent Medicine; Visit Provider Internal Medicine Hematology & Oncology
DX: C64.9 Malignant neoplasm of unspecified kidney, except renal pelvis (principal); K52.1 Toxic gastroenteritis and colitis; E86.0 Dehydration
CPT/HCPCS: 96360

== ENCOUNTER 2022-12-17 09:05 | Outpatient (CLI) | payer OTHER, SELFPAY ==
[2022-12-17 09:30] VITALS: BP 139/80; PULSE 91; RESP 19; TEMP 36.7; O2SAT 92
[2022-12-17 10:40] VITALS: BP 162/99; PULSE 98; RESP 18; O2SAT 93
== END 2022-12-17 10:40 | disposition home or self-care (01) ==
LOC: INF 09:06
PROVIDERS: PCP Internal Medicine Adolescent Medicine; Visit Provider Internal Medicine
DX: C64.9 Malignant neoplasm of unspecified kidney, except renal pelvis (principal); K52.1 Toxic gastroenteritis and colitis; E86.0 Dehydration
CPT/HCPCS: 96360

== ENCOUNTER 2022-12-24 08:00 | Outpatient (RCR) | payer OTHER, SELFPAY ==
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
--- NOTE | 2022-12-17 13:03 | HMH.RHREAS ---
Rehab Reassessment Rehab OP Re-assessment Start: 11/15/22 15:05 Freq: Status: Active Protocol: Document 12/17/22 08:35 BLAIRMAX (Rec: 12/17/22 13:03 MICHELE [id number]) E-signed By Maday Smart, PT Rehab Re-assessment Subjective Subjective Pt reports he has been unable to attend a few PT sessions due to a gout flare up for last week. Pt reports this has limited him in walking independently for exercise and performing his HEP as well. Pt reports he feels about 10% improved in regards to strength and endurance since starting PT. Pt reports he does still notice SOA and difficulty walking on uphill terrain. Pt reports some msucular soreness after sessions but overall is tolerating it well. Pt reports compliance with HEP. Objective Objective Notes UE MMT: 4/5 grossly LE MMT: knee extension 5/5, knee flexion 4+/5, hip abd/add 4/5, hip ext 4-/5, hip flexion 4/5 Endurance: NuStep x10' with RPE 5/10 and SPO2 >95% Assessment Progress Assessment Progressing as Expected Assessment Notes Pt has attended 4 PT sessions consisting of aerobic exercise , LE/UE strengthening, and HEP with fair-good tolerance. Pt' s PT progress has been limited by gout flare up however he states this is improving. Pt continues to demonstrate decreased aerobic capacity and muscular strength and endurance. Pt would continue to benefit from skilled PT to further improve strength and endurance to assist with functional activity tolerance and to improve overall QOL/ health. Patient goals met ST/4 Goals Not Met LTG Revised Goals strength, LTG Plan Plan Continue initial POC Frequency of Therapy 2x/week Duration of therapy 4 more weeks Time and Billing Re-Eval Time 9 Re-Eval Billing Units 1 PHYSICIAN CERTIFICATION: I certify the specified therapy services for Toan Ureña are required, authorized, and reviewed every 30 days.
== END 2022-12-24 09:15 | disposition home or self-care (01) ==
LOC: PT 08:00
PROVIDERS: PCP Internal Medicine Adolescent Medicine; Visit Provider Nurse Practitioner Family
DX: C64.1 Malignant neoplasm of right kidney, except renal pelvis (principal); M62.81 Muscle weakness (generalized); R53.83 Other fatigue
CPT/HCPCS: 97110; 97163; 97164; 97530; 97535

== ENCOUNTER 2022-12-24 08:40 | Outpatient (CLI) | payer OTHER, SELFPAY ==
[2022-12-24 08:55] VITALS: BP 138/98; PULSE 84; RESP 19; TEMP 36.6; O2SAT 95
[2022-12-24 09:59] VITALS: BMI 30.3
[2022-12-24 10:11] VITALS: BP 151/100; PULSE 96; RESP 19; O2SAT 95
--- NOTE | 2022-12-24 10:11 | PC.NURSE ---
1011-collected labs via venipuncture stick with butterfly needle in right hAND.;pt d/c home;will notify provider with results.
[2022-12-24 10:33] LABS: Basophils # 0.1 K/mm3 (0-0.2); Basophils % 0.5 % (0.1-2.0); Eosinophils # 0.3 K/mm3 (0.0-0.4); Eosinophils % 2.8 % (0.1-12.0); Hematocrit 35.6 % (42.0-52.0); Hemoglobin 12.1 g/dL (14.1-18.0); Lymphocytes # 1.8 K/mm3 (0.7-4.5); Lymphocytes % 18.8 % (10-50); Mean Corpuscular HGB Conc 33.9 g/dL (31.8-35.4); Mean Corpuscular Volume 79.6 fl (80-94); Mean Platelet Volume 8.9 fl (7.4-10.4); Monocytes # 0.6 K/mm3 (0.1-1.0); Monocytes % 6.6 % (1.7-9.3); Neutrophils # 6.8 K/mm3 (1.8-7.8); Neutrophils % 71.4 % (37.0-80.0); Platelet Count 329 K/mm3 (142-424); Red Blood Count 4.47 M/mm3 (4.60-6.20); Red Cell Distribution Width 16.9 % (11.5-17.5); White Blood Count 9.5 K/mm3 (4.8-10.8)
[2022-12-24 10:57] LABS: Chloride 101 mmol/L (98-107); Potassium 3.1 mmoL/L (3.5-5.1); Sodium 139 mmol/L (136-145)
[2022-12-24 10:59] LABS: Alanine Aminotransferase 120 U/L (12-78); Aspartate Amino Transferase 168 U/L (17-59); Blood Urea Nitrogen 21 mg/dl (9-20); Creatinine Clearance Estimated 159 mL/min (50-200); Estimated Glomerular Filt Rate 89 ml/min (>60); GFR (African American) 108 ML/MIN (>60)
[2022-12-24 11:00] LABS: Albumin Level 3.7 g/dl (3.5-5.0); Albumin/Globulin Ratio 1.2 (1.1-1.8); Alkaline Phosphatase 71 U/L (38-126); Anion Gap 12.1 mEq/L (5-15); Bilirubin,Total 0.4 mg/dl (0.2-1.3); Calcium 7.8 mg/dl (8.4-10.2); Carbon Dioxide 29 mmol/L (22.0-30.0); Glucose 141 mg/dl (74-100); Total Protein,Serum 6.7 g/dl (6.3-8.2)
[2022-12-24 11:30] LABS: Thyroid Stimulating Hormone 1.18 uIU/mL (0.465-4.68)
[2022-12-24 11:58] LABS: Uric Acid 7.1 mg/dl (3.5-8.5)
[2022-12-24 16:31] LABS: Hemoglobin A1C 5.5 % (4.0-6.0)
== END 2022-12-24 10:11 | disposition home or self-care (01) ==
LOC: INF 08:41
PROVIDERS: Nurse Practitioner Family; PCP Internal Medicine Adolescent Medicine; Visit Provider Internal Medicine
DX: C64.9 Malignant neoplasm of unspecified kidney, except renal pelvis (principal); K52.1 Toxic gastroenteritis and colitis; E86.0 Dehydration
CPT/HCPCS: 80053; 83036; 84443; 84550; 85025; 96360

== ENCOUNTER 2022-12-31 09:14 | Outpatient (CLI) | payer OTHER, SELFPAY ==
[2022-12-31 09:24] VITALS: BMI 30.8
[2022-12-31 09:55] VITALS: BP 147/74; PULSE 71; RESP 17; O2SAT 94
[2022-12-31 09:57] LABS: Basophils # 0.1 K/mm3 (0-0.2); Basophils % 1.4 % (0.1-2.0); Eosinophils # 0.5 K/mm3 (0.0-0.4); Eosinophils % 5.2 % (0.1-12.0); Hematocrit 34.5 % (42.0-52.0); Hemoglobin 11.7 g/dL (14.1-18.0); Lymphocytes % 33.6 % (10-50); Mean Corpuscular HGB Conc 33.8 g/dL (31.8-35.4); Mean Corpuscular Hemoglobin 26.9 pg (27.0-31.2); Mean Corpuscular Volume 79.6 fl (80-94); Mean Platelet Volume 8.5 fl (7.4-10.4); Monocytes # 0.8 K/mm3 (0.1-1.0); Monocytes % 8.6 % (1.7-9.3); Neutrophils # 4.6 K/mm3 (1.8-7.8); Neutrophils % 51.2 % (37.0-80.0); Platelet Count 310 K/mm3 (142-424); Red Blood Count 4.33 M/mm3 (4.60-6.20); Red Cell Distribution Width 17.2 % (11.5-17.5); White Blood Count 8.9 K/mm3 (4.8-10.8)
[2022-12-31 10:03] LABS: Chloride 109 mmol/L (98-107); Potassium 3.6 mmoL/L (3.5-5.1); Sodium 142 mmol/L (136-145)
[2022-12-31 10:06] LABS: Alanine Aminotransferase 109 U/L (12-78); Albumin Level 3.9 g/dl (3.5-5.0); Albumin/Globulin Ratio 1.2 (1.1-1.8); Alkaline Phosphatase 72 U/L (38-126); Anion Gap 13.6 mEq/L (5-15); Aspartate Amino Transferase 114 U/L (17-59); Bilirubin,Total 0.3 mg/dl (0.2-1.3); Blood Urea Nitrogen 20 mg/dl (9-20); Calcium 8.2 mg/dl (8.4-10.2); Carbon Dioxide 23 mmol/L (22.0-30.0); Creatinine Clearance Estimated 146 mL/min (50-200); Estimated Glomerular Filt Rate 79 ml/min (>60); GFR (African American) 95 ML/MIN (>60); Globulin 3.2 g/dL (1.3-3.2); Glucose 111 mg/dl (74-100); Iron 44 ug/dL (49-181); Total Protein,Serum 7.1 g/dl (6.3-8.2)
[2022-12-31 10:16] LABS: Total Iron Binding Capacity 434 ug/dL (261-462)
--- NOTE | 2022-12-31 10:16 | PC.NURSE ---
0945-blood drawn from right fa with iv stick to check labs as ordered. unable to flush or infuse through iv after blood drawn. iv removed.
[2022-12-31 10:42] LABS: Ferritin 12.6 ng/ml (17.9-464)
[2022-12-31 10:55] VITALS: BP 129/98; PULSE 73; RESP 18
== END 2022-12-31 11:00 | disposition home or self-care (01) ==
PROVIDERS: Internal Medicine Gastroenterology; Nurse Practitioner Family; PCP Internal Medicine Adolescent Medicine; Visit Provider Internal Medicine
DX: D84.821 Immunodeficiency due to drugs (principal); T38.0X5A Adverse effect of glucocorticoids and synthetic analogues, initial encounter; I10 Essential (primary) hypertension; I26.99 Other pulmonary embolism without acute cor pulmonale; E86.0 Dehydration; Z79.52 Long term (current) use of systemic steroids; D50.8 Other iron deficiency anemias; K52.1 Toxic gastroenteritis and colitis; K52.3 Indeterminate colitis; C64.9 Malignant neoplasm of unspecified kidney, except renal pelvis
CPT/HCPCS: 80053; 82728; 83540; 83550; 85025; 96360; 96417; J3380

== ENCOUNTER 2023-02-18 08:52 | Outpatient (CLI) | payer OTHER, SELFPAY ==
[2023-02-18 09:11] VITALS: BMI 30.5
[2023-02-18 09:20] VITALS: BP 135/80; PULSE 95; RESP 18; O2SAT 94
[2023-02-18] MEDS: 0.9 % SODIUM CHLORIDE 1000ML 1,000 ML 999 ML IV (09:20)
[2023-02-18] MEDS: SODIUM CHLORIDE 0.9% 10ML FLUSH SYRINGE 10 ML IV (09:20)
[2023-02-18 09:36] LABS: Basophils # 0.1 K/mm3 (0-0.2); Basophils % 1.5 % (0.1-2.0); Eosinophils # 0.4 K/mm3 (0.0-0.4); Eosinophils % 5.6 % (0.1-12.0); Hematocrit 37.9 % (42.0-52.0); Hemoglobin 12.6 g/dL (14.1-18.0); Lymphocytes # 2.5 K/mm3 (0.7-4.5); Lymphocytes % 34.2 % (10-50); Mean Corpuscular HGB Conc 33.2 g/dL (31.8-35.4); Mean Corpuscular Hemoglobin 26.5 pg (27.0-31.2); Mean Corpuscular Volume 79.8 fl (80-94); Mean Platelet Volume 8.7 fl (7.4-10.4); Monocytes # 0.5 K/mm3 (0.1-1.0); Neutrophils # 3.7 K/mm3 (1.8-7.8); Neutrophils % 51.8 % (37.0-80.0); Platelet Count 304 K/mm3 (142-424); Red Blood Count 4.75 M/mm3 (4.60-6.20); Red Cell Distribution Width 18.8 % (11.5-17.5); White Blood Count 7.2 K/mm3 (4.8-10.8)
[2023-02-18 09:51] LABS: Chloride 100 mmol/L (98-107); Potassium 3.2 mmoL/L (3.5-5.1); Sodium 137 mmol/L (136-145)
[2023-02-18 09:53] LABS: Blood Urea Nitrogen 16 mg/dl (9-20); Creatinine Clearance Estimated 112 mL/min (50-200); Estimated Glomerular Filt Rate 58 ml/min (>60); GFR (African American) 70 ML/MIN (>60)
[2023-02-18 09:54] LABS: Alanine Aminotransferase 95 U/L (12-78); Albumin Level 4.2 g/dl (3.5-5.0); Albumin/Globulin Ratio 1.1 (1.1-1.8); Alkaline Phosphatase 106 U/L (38-126); Anion Gap 16.2 mEq/L (5-15); Aspartate Amino Transferase 180 U/L (17-59); Bilirubin,Total 0.8 mg/dl (0.2-1.3); Calcium 8.7 mg/dl (8.4-10.2); Carbon Dioxide 24 mmol/L (22.0-30.0); Globulin 3.7 g/dL (1.3-3.2); Glucose 113 mg/dl (74-100); Total Protein,Serum 7.9 g/dl (6.3-8.2)
[2023-02-18 10:01] LABS: Cholesterol 190 mg/dl (140-200); Triglycerides 162 mg/dl (30-150); VLDL Cholesterol 32 mg/dL (0-40)
[2023-02-18 10:02] LABS: Chol/HDL Ratio 2.9 (1-3.5); HDL Cholesterol 66 mg/dl (40-60)
[2023-02-18 10:10] LABS: Magnesium 1.2 mg/dl (1.6-2.3); Uric Acid 6.3 mg/dl (3.5-8.5)
[2023-02-18 10:12] LABS: Direct LDL Cholesterol 91.81 mg/dL (100-129)
[2023-02-18 10:30] VITALS: BP 144/90; PULSE 87; RESP 18; O2SAT 98
[2023-02-18 12:59] LABS: Iron 36 ug/dL (49-181)
[2023-02-18 13:01] LABS: Total Iron Binding Capacity 430 ug/dL (261-462)
== END 2023-02-18 10:30 | disposition home or self-care (01) ==
LOC: INF 08:53
PROVIDERS: Nurse Practitioner Family; PCP Internal Medicine Adolescent Medicine; Visit Provider Internal Medicine Hematology & Oncology
DX: C64.9 Malignant neoplasm of unspecified kidney, except renal pelvis (principal); K52.1 Toxic gastroenteritis and colitis; Z79.899 Other long term (current) drug therapy
CPT/HCPCS: 80053; 80061; 82728; 83540; 83550; 83735; 84550; 85025; 96360

== ENCOUNTER 2023-02-25 09:12 | Outpatient (CLI) | payer OTHER, SELFPAY ==
[2023-02-25 09:23] VITALS: BMI 30.8
[2023-02-25 09:28] VITALS: BP 111/91; PULSE 101; RESP 19; O2SAT 96
[2023-02-25] MEDS: 0.9 % SODIUM CHLORIDE 50 ML 100 ML IV (09:28)
[2023-02-25] MEDS: 0.9 % SODIUM CHLORIDE 1000ML 1,000 ML 999 ML IV (09:28)
[2023-02-25] MEDS: VEDOLIZUMAB 300 MG in 0.9 % SODIUM CHLORIDE 250 ML 500 MG IV (09:32)
[2023-02-25 09:45] LABS: Chloride 100 mmol/L (98-107)
[2023-02-25 09:46] LABS: Potassium 3.4 mmoL/L (3.5-5.1); Sodium 137 mmol/L (136-145)
[2023-02-25 09:48] LABS: Blood Urea Nitrogen 13 mg/dl (9-20); Creatinine Clearance Estimated 97 mL/min (50-200); Estimated Glomerular Filt Rate 49 ml/min (>60); GFR (African American) 60 ML/MIN (>60)
[2023-02-25 09:49] LABS: Alanine Aminotransferase 116 U/L (12-78); Albumin Level 4.1 g/dl (3.5-5.0); Albumin/Globulin Ratio 1.2 (1.1-1.8); Alkaline Phosphatase 105 U/L (38-126); Aspartate Amino Transferase 159 U/L (17-59); Bilirubin,Total 0.7 mg/dl (0.2-1.3); Calcium 8.7 mg/dl (8.4-10.2); Carbon Dioxide 20 mmol/L (22.0-30.0); Globulin 3.4 g/dL (1.3-3.2); Glucose 117 mg/dl (74-100); Total Protein,Serum 7.5 g/dl (6.3-8.2)
[2023-02-25 09:53] LABS: Anion Gap 20.4 mEq/L (5-15)
[2023-02-25 09:55] LABS: C-Reactive Protein 23.5 mg/L (0-4)
[2023-02-25 09:58] LABS: Basophils # 0.1 K/mm3 (0-0.2); Basophils % 1.2 % (0.1-2.0); Eosinophils # 0.6 K/mm3 (0.0-0.4); Hematocrit 40.8 % (42.0-52.0); Hemoglobin 13.5 g/dL (14.1-18.0); Lymphocytes # 3.1 K/mm3 (0.7-4.5); Lymphocytes % 30.8 % (10-50); Mean Corpuscular HGB Conc 33.1 g/dL (31.8-35.4); Mean Corpuscular Hemoglobin 26.7 pg (27.0-31.2); Mean Corpuscular Volume 80.4 fl (80-94); Mean Platelet Volume 8.8 fl (7.4-10.4); Monocytes # 0.9 K/mm3 (0.1-1.0); Monocytes % 9.4 % (1.7-9.3); Neutrophils # 5.2 K/mm3 (1.8-7.8); Neutrophils % 52.6 % (37.0-80.0); Platelet Count 357 K/mm3 (142-424); Red Blood Count 5.07 M/mm3 (4.60-6.20); Red Cell Distribution Width 19.3 % (11.5-17.5); White Blood Count 9.9 K/mm3 (4.8-10.8)
[2023-02-25 10:32] VITALS: BP 128/88; PULSE 96; RESP 18; O2SAT 96
== END 2023-02-25 10:32 | disposition home or self-care (01) ==
PROVIDERS: Internal Medicine Gastroenterology; PCP Internal Medicine Adolescent Medicine; Visit Provider Internal Medicine Hematology & Oncology
DX: C64.9 Malignant neoplasm of unspecified kidney, except renal pelvis (principal); E86.0 Dehydration; K52.1 Toxic gastroenteritis and colitis; K52.3 Indeterminate colitis
CPT/HCPCS: 80053; 85025; 86140; 96360; 96417; J3380

== ENCOUNTER 2023-03-04 09:13 | Outpatient (CLI) | payer OTHER, SELFPAY ==
[2023-03-04 09:18] VITALS: BMI 29.6
[2023-03-04 09:25] VITALS: BP 107/70; PULSE 102; RESP 18; O2SAT 98
[2023-03-04 09:48] LABS: Blood Urea Nitrogen 24 mg/dl (9-20); Calcium 9.1 mg/dl (8.4-10.2); Carbon Dioxide 18 mmol/L (22.0-30.0); Chloride 104 mmol/L (98-107); Creatinine Clearance Estimated 78 mL/min (50-200); Estimated Glomerular Filt Rate 40 ml/min (>60); GFR (African American) 48 ML/MIN (>60); Glucose 93 mg/dl (74-100); Potassium 4.2 mmoL/L (3.5-5.1)
[2023-03-04 10:30] VITALS: BP 117/76; PULSE 105; RESP 19; O2SAT 98
[2023-03-04 11:14] LABS: Anion Gap 16.2 mEq/L (5-15); Sodium 134 mmol/L (136-145)
[2023-03-05 10:52] LABS: Magnesium 1.9 mg/dl (1.6-2.3)
== END 2023-03-04 10:30 | disposition home or self-care (01) ==
LOC: INF 09:13
PROVIDERS: Nurse Practitioner Family; PCP Internal Medicine Adolescent Medicine; Visit Provider Internal Medicine
DX: C64.9 Malignant neoplasm of unspecified kidney, except renal pelvis (principal); K52.1 Toxic gastroenteritis and colitis; E86.0 Dehydration
CPT/HCPCS: 80048; 83735; 96360

== ENCOUNTER 2023-03-11 09:24 | Outpatient (CLI) | payer OTHER, SELFPAY ==
[2023-03-11] MEDS: SODIUM CHLORIDE 0.9% 10ML FLUSH SYRINGE 10 ML IV (09:35)
[2023-03-11 09:40] VITALS: BP 114/74; PULSE 107; RESP 17; O2SAT 98
[2023-03-11] MEDS: 0.9 % SODIUM CHLORIDE 1000ML 1,000 ML 999 ML IV (09:40)
[2023-03-11 10:40] VITALS: BP 107/58; PULSE 86; RESP 16
== END 2023-03-11 10:45 | disposition home or self-care (01) ==
LOC: INF 09:24
PROVIDERS: PCP Internal Medicine Adolescent Medicine; Visit Provider Internal Medicine
DX: C64.9 Malignant neoplasm of unspecified kidney, except renal pelvis (principal); K52.1 Toxic gastroenteritis and colitis; E86.0 Dehydration
CPT/HCPCS: 96360

== ENCOUNTER 2023-03-21 09:01 | Outpatient (CLI) | payer OTHER, SELFPAY ==
[2023-03-21 09:23] VITALS: BP 102/70; PULSE 103; RESP 17; TEMP 35.9; O2SAT 98
[2023-03-21] MEDS: 0.9 % SODIUM CHLORIDE 1000ML 1,000 ML 999 ML IV (09:25)
[2023-03-21 10:31] VITALS: BP 112/68; PULSE 78; RESP 17; TEMP 36.4; O2SAT 98
== END 2023-03-21 10:30 | disposition home or self-care (01) ==
LOC: INF 09:02
PROVIDERS: PCP Internal Medicine Adolescent Medicine; Visit Provider Internal Medicine
DX: C64.9 Malignant neoplasm of unspecified kidney, except renal pelvis (principal); E86.0 Dehydration; K52.1 Toxic gastroenteritis and colitis; K52.3 Indeterminate colitis
CPT/HCPCS: 96360

== ENCOUNTER 2023-03-25 09:16 | Outpatient (CLI) | payer OTHER, SELFPAY ==
[2023-03-25 09:45] VITALS: BP 134/94; PULSE 84; RESP 19; O2SAT 96
[2023-03-25] MEDS: 0.9 % SODIUM CHLORIDE 1000ML 1,000 ML 1000 ML IV (09:45)
[2023-03-25 10:20] VITALS: BMI 32.9
[2023-03-25 10:32] LABS: Basophils # 0.1 K/mm3 (0-0.2); Basophils % 1.3 % (0.1-2.0); Eosinophils # 0.3 K/mm3 (0.0-0.4); Eosinophils % 3.2 % (0.1-12.0); Hematocrit 48.4 % (42.0-52.0); Lymphocytes # 2.8 K/mm3 (0.7-4.5); Lymphocytes % 29.2 % (10-50); Mean Corpuscular HGB Conc 33.1 g/dL (31.8-35.4); Mean Corpuscular Hemoglobin 28.7 pg (27.0-31.2); Mean Corpuscular Volume 86.8 fl (80-94); Monocytes # 0.9 K/mm3 (0.1-1.0); Neutrophils # 5.6 K/mm3 (1.8-7.8); Neutrophils % 57.3 % (37.0-80.0); Platelet Count 319 K/mm3 (142-424); Red Blood Count 5.58 M/mm3 (4.60-6.20); Red Cell Distribution Width 19.6 % (11.5-17.5); White Blood Count 9.7 K/mm3 (4.8-10.8)
[2023-03-25 10:37] LABS: Alanine Aminotransferase 80 U/L (12-78); Albumin Level 4.1 g/dl (3.5-5.0); Albumin/Globulin Ratio 1.1 (1.1-1.8); Alkaline Phosphatase 85 U/L (38-126); Anion Gap 16.5 mEq/L (5-15); Aspartate Amino Transferase 71 U/L (17-59); Bilirubin,Total 0.5 mg/dl (0.2-1.3); Blood Urea Nitrogen 23 mg/dl (9-20); Calcium 9.7 mg/dl (8.4-10.2); Carbon Dioxide 19 mmol/L (22.0-30.0); Chloride 108 mmol/L (98-107); Creatinine Clearance Estimated 97 mL/min (50-200); Estimated Glomerular Filt Rate 46 ml/min (>60); GFR (African American) 55 ML/MIN (>60); Globulin 3.6 g/dL (1.3-3.2); Glucose 112 mg/dl (74-100); Magnesium 1.5 mg/dl (1.6-2.3); Potassium 4.5 mmoL/L (3.5-5.1); Sodium 139 mmol/L (136-145); Total Protein,Serum 7.7 g/dl (6.3-8.2)
[2023-03-25 10:52] VITALS: BP 144/100; PULSE 78; RESP 19; O2SAT 98
--- NOTE | 2023-03-25 10:52 | PC.NURSE ---
1052-c.twin chavis cosigned yomairarna charting.
[2023-03-25] MEDS: SODIUM CHLORIDE 0.9% 10ML FLUSH SYRINGE 10 ML IV (11:19)
== END 2023-03-25 10:52 | disposition home or self-care (01) ==
LOC: INF 09:16
PROVIDERS: Nurse Practitioner Family; PCP Internal Medicine Adolescent Medicine; Visit Provider Internal Medicine Hematology & Oncology
DX: N28.89 Other specified disorders of kidney and ureter (principal); E86.0 Dehydration
CPT/HCPCS: 80053; 83735; 85025; 96360

== ENCOUNTER 2023-04-01 09:41 | Outpatient (CLI) | payer OTHER, SELFPAY ==
[2023-04-01 09:50] VITALS: BP 102/72; PULSE 103; RESP 17; O2SAT 94
[2023-04-01] MEDS: 0.9 % SODIUM CHLORIDE 1000ML 1,000 ML 999 ML IV (09:50)
[2023-04-01 10:58] VITALS: BP 124/77; PULSE 91; RESP 18; O2SAT 95
== END 2023-04-01 10:58 | disposition home or self-care (01) ==
LOC: INF 09:41
PROVIDERS: PCP Internal Medicine Adolescent Medicine; Visit Provider Internal Medicine Hematology & Oncology
DX: N28.89 Other specified disorders of kidney and ureter (principal); E86.0 Dehydration
CPT/HCPCS: 96360

== ENCOUNTER 2023-04-08 09:28 | Outpatient (CLI) | payer OTHER, SELFPAY ==
[2023-04-08] MEDS: 0.9 % SODIUM CHLORIDE 1000ML 1,000 ML 999 ML IV (09:36)
[2023-04-08] MEDS: SODIUM CHLORIDE 0.9% 10ML FLUSH SYRINGE 10 ML IV (09:37)
[2023-04-08 09:40] VITALS: BP 110/75; PULSE 106; RESP 17; O2SAT 94
[2023-04-08 10:40] VITALS: BP 97/66; PULSE 86; RESP 16
== END 2023-04-08 10:50 | disposition home or self-care (01) ==
LOC: INF 09:29
PROVIDERS: PCP Internal Medicine Adolescent Medicine; Visit Provider Internal Medicine Hematology & Oncology
DX: N28.89 Other specified disorders of kidney and ureter (principal); E86.0 Dehydration
CPT/HCPCS: 96360

== ENCOUNTER 2023-04-15 12:20 | Outpatient (CLI) | payer OTHER, SELFPAY ==
[2023-04-15 12:30] VITALS: BP 134/78; PULSE 81; O2SAT 96
[2023-04-15] MEDS: 0.9 % SODIUM CHLORIDE 1000ML 1,000 ML 999 ML IV (12:30)
[2023-04-15 13:30] VITALS: BP 121/69; PULSE 86; O2SAT 96
== END 2023-04-15 23:59 ==
LOC: INF 12:21
PROVIDERS: PCP Internal Medicine Adolescent Medicine; Visit Provider Internal Medicine Hematology & Oncology
DX: N28.89 Other specified disorders of kidney and ureter (principal); E86.0 Dehydration
CPT/HCPCS: 96360

== ENCOUNTER 2023-04-22 08:19 | Outpatient (CLI) | payer OTHER, SELFPAY ==
[2023-04-22 08:24] VITALS: BMI 29.2
--- NOTE | 2023-04-22 08:24 | CT_ITS ---
FINAL REPORT TECHNIQUE: Routine axial images were obtained from the lung apices to below the diaphragm following IV contrast administration. Individualized dose reduction techniques using automated exposure control or adjustment of the mA and/or kV according to the patient size were employed. CLINICAL HISTORY: RENAL MASS COMPARISON: 09/03/2022 FINDINGS: There is scarring at the right lung base. There are multitude of small calcified and noncalcified granulomas in both lungs. No pleural or pericardial effusion is seen. No adenopathy or mass lesion is present. IMPRESSION: No suspicious pulmonary mass or nodule. Reviewed, Interpreted and Dictated by Leoncio Gardner MD Transcribed by Naz Pete Authenticated and [facility]
--- NOTE | 2023-04-22 08:24 | CT_ITS ---
FINAL REPORT TECHNIQUE: After the administration of oral and intravenous contrast, axial images were obtained through the abdomen and pelvis by computed tomography. The study was performed with techniques to keep radiation dose as low as reasonably achievable, (ALARA). Individual dose reduction techniques using automated exposure control or adjustment of mA and/or kV according to the patient's size were employed. CLINICAL HISTORY: RENAL MASS FINDINGS: Abdomen: There is extensive diffuse fatty infiltration of the liver. There are a few small stones in the dependent portion of the gallbladder. The spleen, pancreas, and adrenals appear unremarkable. There are multitude of obstructing stones in both renal collecting systems. Individual stones measure up to 3.7 cm in greatest dimension consistent with staghorn calculi. There is a stone in the right renal pelvis which extends to the proximal right ureter. There is mild stranding along the anterior margin of the right kidney which may be from prior resection. There is no hydronephrosis. No suspicious renal mass is identified. The aorta is normal in caliber. There is no free fluid or adenopathy. Pelvis: There are scattered diverticula throughout the sigmoid colon. There is abnormal thickening of the sigmoid colon. The appendix is not identified. The urinary bladder is unremarkable. There is no free fluid or adenopathy. IMPRESSION: Fatty liver. Extensive bilateral renal stones with a stone in the right renal pelvis which extends to the right ureter. Sigmoid diverticulosis with mucosal thickening of the sigmoid colon may be due to colitis. Reviewed, Interpreted and Dictated by Leoncio Gardner MD Transcribed by Naz Pete Authenticated and [facility]
[2023-04-22 08:45] LABS: Basophils # 0.1 K/mm3 (0-0.2); Basophils % 0.9 % (0.1-2.0); Eosinophils # 0.4 K/mm3 (0.0-0.4); Hematocrit 52.2 % (42.0-52.0); Lymphocytes # 2.9 K/mm3 (0.7-4.5); Lymphocytes % 39.6 % (10-50); Mean Corpuscular HGB Conc 32.5 g/dL (31.8-35.4); Mean Corpuscular Hemoglobin 29.3 pg (27.0-31.2); Mean Corpuscular Volume 90.1 fl (80-94); Mean Platelet Volume 8.4 fl (7.4-10.4); Monocytes # 0.6 K/mm3 (0.1-1.0); Monocytes % 7.9 % (1.7-9.3); Neutrophils # 3.3 K/mm3 (1.8-7.8); Neutrophils % 45.6 % (37.0-80.0); Platelet Count 299 K/mm3 (142-424); Red Cell Distribution Width 17.8 % (11.5-17.5); White Blood Count 7.2 K/mm3 (4.8-10.8)
[2023-04-22 08:56] LABS: Chloride 107 mmol/L (98-107); Potassium 4.9 mmoL/L (3.5-5.1); Sodium 134 mmol/L (136-145)
[2023-04-22 08:59] LABS: Alanine Aminotransferase 59 U/L (12-78); Albumin Level 4.2 g/dl (3.5-5.0); Albumin/Globulin Ratio 1.1 (1.1-1.8); Alkaline Phosphatase 93 U/L (38-126); Anion Gap 12.9 mEq/L (5-15); Aspartate Amino Transferase 68 U/L (17-59); Bilirubin,Total 0.6 mg/dl (0.2-1.3); Blood Urea Nitrogen 26 mg/dl (9-20); Carbon Dioxide 19 mmol/L (22.0-30.0); Creatinine Clearance Estimated 92 mL/min (50-200); Estimated Glomerular Filt Rate 49 ml/min (>60); GFR (African American) 60 ML/MIN (>60); Globulin 3.9 g/dL (1.3-3.2); Total Protein,Serum 8.1 g/dl (6.3-8.2)
[2023-04-22 09:00] LABS: Calcium 9.2 mg/dl (8.4-10.2); Glucose 104 mg/dl (74-100)
[2023-04-22 09:07] LABS: C-Reactive Protein 5.6 mg/L (0-4)
[2023-04-22] MEDS: SODIUM CHLORIDE 0.9% 10ML SYR (RAD ONLY) 10 ML IV (09:19)
[2023-04-22] MEDS: BARIUM SULFATE(READI-CAT2);450ML BOTTLE 450 ML PO (09:19)
[2023-04-22] MEDS: IOPAMIDOL-370 (76%);100ML BOTTLE 75 ML IV (09:19)
[2023-04-22 09:30] VITALS: BP 98/72; PULSE 72; RESP 18; TEMP 36.8; O2SAT 96
[2023-04-22] MEDS: 0.9 % SODIUM CHLORIDE 1000ML 1,000 ML 999 ML IV (09:30)
[2023-04-22] MEDS: VEDOLIZUMAB 300 MG in 0.9 % SODIUM CHLORIDE 250 ML 500 MG IV (10:03)
[2023-04-22 10:05] VITALS: BP 110/72; PULSE 73
[2023-04-22 10:35] VITALS: BP 115/77; PULSE 80; O2SAT 96
== END 2023-04-22 10:40 | disposition home or self-care (01) ==
LOC: RAD 09:22 → INF 09:39
PROVIDERS: PCP Internal Medicine Hematology & Oncology; Visit Provider Internal Medicine Hematology & Oncology
DX: N28.89 Other specified disorders of kidney and ureter (principal); E86.0 Dehydration; K52.3 Indeterminate colitis; C64.9 Malignant neoplasm of unspecified kidney, except renal pelvis; K52.1 Toxic gastroenteritis and colitis
CPT/HCPCS: 71260; 74177; 80053; 85025; 86140; 96360; J3380; Q9967

== ENCOUNTER 2023-04-29 09:27 | Outpatient (CLI) | payer OTHER, SELFPAY ==
[2023-04-29] MEDS: 0.9 % SODIUM CHLORIDE 1000ML 1,000 ML 999 ML IV ×2 (09:35→09:40)
[2023-04-29 09:40] VITALS: BP 103/77; PULSE 90; RESP 18; O2SAT 97
[2023-04-29 10:48] VITALS: BP 117/82; PULSE 83; RESP 18
== END 2023-04-29 10:48 | disposition home or self-care (01) ==
LOC: INF 09:28
PROVIDERS: PCP Internal Medicine Adolescent Medicine; Visit Provider Internal Medicine Hematology & Oncology
DX: N28.89 Other specified disorders of kidney and ureter (principal); E86.0 Dehydration
CPT/HCPCS: 96360

== ENCOUNTER 2023-05-06 09:17 | Outpatient (CLI) | payer OTHER, SELFPAY ==
[2023-05-06 09:21] VITALS: BMI 28.7
[2023-05-06 09:45] VITALS: BP 99/66; PULSE 86; RESP 18; O2SAT 95
[2023-05-06] MEDS: 0.9 % SODIUM CHLORIDE 1000ML 1,000 ML 999 ML IV (09:45)
[2023-05-06 10:01] LABS: Basophils # 0.1 K/mm3 (0-0.2); Eosinophils # 0.6 K/mm3 (0.0-0.4); Eosinophils % 7.7 % (0.1-12.0); Hematocrit 53.9 % (42.0-52.0); Hemoglobin 17.1 g/dL (14.1-18.0); Lymphocytes # 2.5 K/mm3 (0.7-4.5); Lymphocytes % 34.3 % (10-50); Mean Corpuscular HGB Conc 31.7 g/dL (31.8-35.4); Mean Corpuscular Hemoglobin 30.3 pg (27.0-31.2); Mean Corpuscular Volume 95.7 fl (80-94); Mean Platelet Volume 8.3 fl (7.4-10.4); Monocytes # 0.7 K/mm3 (0.1-1.0); Monocytes % 9.7 % (1.7-9.3); Neutrophils # 3.4 K/mm3 (1.8-7.8); Neutrophils % 46.4 % (37.0-80.0); Platelet Count 261 K/mm3 (142-424); Red Blood Count 5.64 M/mm3 (4.60-6.20); Red Cell Distribution Width 17.6 % (11.5-17.5); White Blood Count 7.3 K/mm3 (4.8-10.8)
[2023-05-06 10:07] LABS: Albumin Level 4.2 g/dl (3.5-5.0); Anion Gap 15.2 mEq/L (5-15); Blood Urea Nitrogen 23 mg/dl (9-20); Calcium 8.7 mg/dl (8.4-10.2); Carbon Dioxide 22 mmol/L (22.0-30.0); Chloride 107 mmol/L (98-107); Creatinine Clearance Estimated 90 mL/min (50-200); Estimated Glomerular Filt Rate 49 ml/min (>60); GFR (African American) 60 ML/MIN (>60); Glucose 93 mg/dl (74-100); Phosphorous 4.2 mg/dl (2.5-4.5); Potassium 4.2 mmoL/L (3.5-5.1); Sodium 140 mmol/L (136-145)
[2023-05-06 10:48] VITALS: BP 118/67; PULSE 86; RESP 18
[2023-05-06 10:49] VITALS: BP 118/67; PULSE 86; RESP 18
[2023-05-06 11:22] LABS: Microscopic, Urine URINE MICROSCOPIC (MICROSCOPIC)
[2023-05-06 11:43] LABS: Appearance,Urine CLEAR (Clear); Blood, Urine 3+ (Negative); Color,Urine YELLOW (Yellow); Glucose,Urine (UA) Negative (Negative); Ketones,Urine Negative (Negative); Leukocyte Esterase,Urine 1+ (Negative); Nitrate,Urine Negative (Negative); PH,Urine 5.5 (5.0-8.5); Protein,Urine TRACE (Negative); Specific Gravity, Urine 1.025 (1.005-1.030); Urobilinogen,Urine 0.2 EU/dl (0.2)
[2023-05-06 11:51] LABS: Bilirubin,Urine Negative (Negative)
[2023-05-06 12:16] LABS: Bacteria,Urine Trace /lpf; RBC,Urine 20-50 #/hpf (0-3)
[2023-05-06 12:24] LABS: Creatinine,Urine Random 192 mg/dL (Not Estab.)
== END 2023-05-06 10:48 | disposition home or self-care (01) ==
PROVIDERS: Internal Medicine Nephrology; PCP Internal Medicine Adolescent Medicine; Visit Provider Internal Medicine Hematology & Oncology
DX: N18.31 Chronic kidney disease, stage 3a (principal); N28.89 Other specified disorders of kidney and ureter; N39.0 Urinary tract infection, site not specified; E86.0 Dehydration
CPT/HCPCS: 80069; 81001; 82570; 84155; 85025; 87086; 96360

== ENCOUNTER 2023-05-09 09:30 | Outpatient (CLI) | payer OTHER, SELFPAY ==
[2023-05-21 12:57] LABS: Composition PERCENTAGE; Size 4X4; Specimen Type NOT PROVIDED
[2023-05-21 12:58] LABS: Ammonium acid urate 0; Ca oxalate dihydrate 0; Calcium bilirubinate 0; Calcium carbonate 0; Calcium phosphate 0; Cholesterol 0; Magnesium ammon phos 0; Sodium acid urate 0; Uric acid dihydrate 0
== END 2023-05-09 23:59 ==
LOC: LAB.DROPOF 05-20 09:31
PROVIDERS: PCP Nurse Practitioner Family; Visit Provider Internal Medicine Nephrology
DX: N20.0 Calculus of kidney (principal)
CPT/HCPCS: 82370

== ENCOUNTER 2023-05-20 09:22 | Outpatient (CLI) | payer OTHER, SELFPAY ==
[2023-05-20 09:40] VITALS: BP 108/72; PULSE 95; RESP 18; O2SAT 95
[2023-05-20] MEDS: 0.9 % SODIUM CHLORIDE 1000ML 1,000 ML 999 ML IV (09:40)
[2023-05-20 10:40] VITALS: BP 126/80; PULSE 81; RESP 18; O2SAT 96
== END 2023-05-20 10:40 | disposition home or self-care (01) ==
PROVIDERS: PCP Nurse Practitioner Family; Visit Provider Internal Medicine Hematology & Oncology
DX: N20.0 Calculus of kidney (principal); E86.0 Dehydration; N28.89 Other specified disorders of kidney and ureter
CPT/HCPCS: 96360

== ENCOUNTER 2023-05-27 09:22 | Outpatient (CLI) | payer OTHER, SELFPAY ==
[2023-05-27 09:33] VITALS: BP 117/63; PULSE 95; RESP 18; O2SAT 96
[2023-05-27] MEDS: 0.9 % SODIUM CHLORIDE 1000ML 1,000 ML 999 ML IV (09:33)
[2023-05-27 10:35] VITALS: BP 116/79; PULSE 89; RESP 18
== END 2023-05-27 10:35 | disposition home or self-care (01) ==
LOC: INF 09:22
PROVIDERS: PCP Internal Medicine Adolescent Medicine; Visit Provider Internal Medicine Hematology & Oncology
DX: N28.89 Other specified disorders of kidney and ureter (principal); E86.0 Dehydration
CPT/HCPCS: 96360

== ENCOUNTER 2023-06-17 09:23 | Outpatient (CLI) | payer OTHER, SELFPAY ==
[2023-06-17 10:07] LABS: Basophils # 0.2 K/mm3 (0-0.2); Basophils % 2.3 % (0.1-2.0); Eosinophils # 0.7 K/mm3 (0.0-0.4); Eosinophils % 8.5 % (0.1-12.0); Hematocrit 48.1 % (42.0-52.0); Hemoglobin 15.5 g/dL (14.1-18.0); Lymphocytes % 35.9 % (10-50); Mean Corpuscular HGB Conc 32.2 g/dL (31.8-35.4); Mean Corpuscular Hemoglobin 31.5 pg (27.0-31.2); Mean Corpuscular Volume 97.9 fl (80-94); Mean Platelet Volume 8.5 fl (7.4-10.4); Monocytes # 0.5 K/mm3 (0.1-1.0); Monocytes % 6.6 % (1.7-9.3); Neutrophils # 3.9 K/mm3 (1.8-7.8); Neutrophils % 46.8 % (37.0-80.0); Platelet Count 277 K/mm3 (142-424); Red Blood Count 4.92 M/mm3 (4.60-6.20); Red Cell Distribution Width 15.1 % (11.5-17.5); White Blood Count 8.3 K/mm3 (4.8-10.8)
--- NOTE | 2023-06-17 11:11 | PC.NURSE ---
0930-PT ARRIVED FROM LAB AFTER ALREADY HAVING BLOOD DRAWN PER ENTYVIO ORDERS. PT STATES HE DOES NOT WISH TO RECEIVE ENTYVIO OR IVF'S TODAY, HE HAS BEEN FEELING GOOD AND STATES HE FEELS WORSE AFTER HE TAKES ENTYVIO. ENCOURAGED ENTYVIO AND FLUIDS ORDERED BUT PT CONTINUED TO REFUSE, STATING HE MAY COME AND GET IT NEXT WEEK.
[2023-06-17 11:23] LABS: Alanine Aminotransferase 217 U/L (12-78); Albumin/Globulin Ratio 1.3 (1.1-1.8); Alkaline Phosphatase 100 U/L (38-126); Aspartate Amino Transferase 301 U/L (17-59); Bilirubin,Total 0.4 mg/dl (0.2-1.3); Blood Urea Nitrogen 21 mg/dl (9-20); Calcium 9.4 mg/dl (8.4-10.2); Carbon Dioxide 21 mmol/L (22.0-30.0); Chloride 106 mmol/L (98-107); Estimated Glomerular Filt Rate 53 ml/min (>60); GFR (African American) 65 ML/MIN (>60); Glucose 105 mg/dl (74-100); Sodium 140 mmol/L (136-145)
[2023-06-17 11:28] LABS: C-Reactive Protein 8.8 mg/L (0-4)
[2023-06-20 19:08] LABS: QuantiFERON-TB Gold Plus Negative (Negative)
== END 2023-06-17 10:03 | disposition home or self-care (01) ==
LOC: INF 09:23
PROVIDERS: PCP Internal Medicine Adolescent Medicine; Visit Provider Internal Medicine Gastroenterology
DX: K52.3 Indeterminate colitis (principal)
CPT/HCPCS: 36415; 80053; 85025; 86140; 86480

== ENCOUNTER 2023-11-16 07:32 | Outpatient (CLI) | payer OTHER, SELFPAY ==
--- NOTE | 2023-11-16 07:41 | CT_ITS ---
FINAL REPORT TECHNIQUE: After the administration of oral and intravenous contrast, axial images were obtained through the abdomen and pelvis by computed tomography. The study was performed with techniques to keep radiation dose as low as reasonably achievable, (ALARA). Individual dose reduction techniques using automated exposure control or adjustment of mA and/or kV according to the patient's size were employed. CLINICAL HISTORY: Right Kidney malignant neoplasm COMPARISON: 04/22/2023 FINDINGS: Abdomen: The lung bases are clear. Diffuse fatty infiltration of the liver is once again noted. The gallbladder is present and contains multiple small gallstones. The spleen, pancreas, and adrenals appear unremarkable. Multiple stones are once again noted in the renal collecting systems bilaterally. There is an obstructing stone in the right ureter, measuring 1.9 cm in the craniocaudal dimension, best seen on image #47 of series 604. There is now right hydronephrosis, which was not present on the prior exam. No focal renal mass is identified. The aorta is normal in caliber. There is no free fluid or adenopathy. Pelvis: The appendix is normal in appearance. The urinary bladder is unremarkable. There is no free fluid or adenopathy. Moderate sigmoid diverticulosis is once again noted, and the colitis noted on the prior CT has resolved. IMPRESSION: Obstructing stone in the right ureter proximally, as described above, with new right hydronephrosis. No focal renal masses identified. Moderate sigmoid diverticulosis, the colitis noted on the prior CT of March has resolved. Reviewed, Interpreted and Dictated by Leoncio Gardner MD Transcribed by Gin Williamson Authenticated and [facility]
--- NOTE | 2023-11-16 07:41 | CT_ITS ---
FINAL REPORT TECHNIQUE: Routine axial images were obtained from the lung apices to below the diaphragm following IV contrast administration. Individualized dose reduction techniques using automated exposure control or adjustment of the mA and/or kV according to the patient size were employed. CLINICAL HISTORY: MALIGNANT NEOPLASM RT KIDNEY COMPARISON: 04/22/2023 FINDINGS: No acute lung disease is present. No pleural or pericardial effusion is seen. No adenopathy or mass lesion is present. There is a right sided small fissural nodule best seen on image #44 of series 4, stable in appearance on prior CT and may represent a intrafissural lymph node. IMPRESSION: Right small fissural nodule as described, stable in appearance and may represent an intrafissural lymph node. No new adenopathy or mass lesion is seen. Reviewed, Interpreted and Dictated by Leoncio Gardner MD Transcribed by Gin Williamson Authenticated and [facility]
[2023-11-16 07:56] LABS: Blood Urea Nitrogen 16 mg/dl (9-20); Estimated Glomerular Filt Rate 71 ml/min (>60); GFR (African American) 85 ML/MIN (>60)
[2023-11-16] MEDS: IOPAMIDOL-370 (76%);100ML BOTTLE 75 ML IV (08:26)
[2023-11-16] MEDS: SODIUM CHLORIDE 0.9% 10ML SYR (RAD ONLY) 10 ML IV (08:26)
== END 2023-11-16 23:59 | disposition home or self-care (01) ==
PROVIDERS: PCP Internal Medicine Adolescent Medicine; Visit Provider Internal Medicine Hematology & Oncology
DX: C64.1 Malignant neoplasm of right kidney, except renal pelvis (principal)
CPT/HCPCS: 36415; 71260; 74177; 82565; 84520; Q9967

== ENCOUNTER 2024-02-21 11:43 | Outpatient (CLI) | payer OTHER, SELFPAY | END 2024-02-21 23:59 | disposition home or self-care (01) | LOC: LAB 11:44 | PROVIDERS: PCP Internal Medicine Adolescent Medicine; Visit Provider Urology | DX: N20.1 Calculus of ureter (principal) | CPT/HCPCS: 87086 ==

== ENCOUNTER 2024-03-22 08:09 | Emergency (ER) | payer OTHER, SELFPAY ==
[2024-03-22 08:10] VITALS: BP 111/86; PULSE 114; RESP 18; TEMP 37.1; O2SAT 97; BMI 27.2
--- NOTE | 2024-03-22 08:17 | ED_ITS ---
Discharge Plan Disposition Patient Disposition: Home, Self-Care Condition: Good Prescriptions Prescriptions: New amoxicillin-pot clavulanate 875-125 mg tablet 1 tab PO BID 7 Days Qty: 20 0RF No Action albuterol sulfate [Ventolin HFA] 90 mcg/actuation HFA aerosol inhaler 2 puff INHALATION Q6H PRN (Reason: soa) tiotropium bromide [Spiriva with HandiHaler] 18 mcg capsule, w/inhalation device 18 mcg INHALATION DAILY hydrocodone-acetaminophen 5-325 mg tablet 1 tab PO Q8H PRN (Reason: pain) Qty: 10 0RF methocarbamol 500 mg tablet 500 mg PO TIDP PRN (Reason: Muscle Spasm) metoprolol succinate 100 mg tablet extended release 24 hr 100 mg PO DAILY losartan 100 mg tablet 100 mg PO DAILY oxycodone-acetaminophen 5-325 mg Tablet 1 ea PO Q6HP PRN (Reason: Moderate To Severe Pain) 3 Days Qty: 12 0RF prednisone 20 mg tablet 10 mg PO DAILY 2 Days Qty: 1 0RF Xarelto DVT-PE Treat 30d Start 15 mg (42)- 20 mg (9) tablets,dose pack See Rx Instructions .ROUTE .COMPLEX Rx Instructions: take one-15 mg tablet twice daily for 21 days, then one-20 mg tablet once daily; must take with meal/food nicotine 14 mg/24 hr patch 24 hour 1 patch transdermal DAILY famotidine [Pepcid] 20 mg tablet 20 mg PO BID amlodipine 10 MG tablet 10 mg PO DAILY potassium chloride 20 mEq Tablet Extended Release 40 meq PO DAILY Referrals Follow up/Referrals: Kj Madrid MD [Primary Care Provider] - See instructions Activity Restrictions/Add. Instructions Additional Instructions/Restrictions: As we discussed, a dog bite on the front part of your hand is at high risk for an infection that, if worsened from what it currently looks like at this time, may need surgery. I prescribed a course of antibiotics, and we discussed getting an x-ray although after shared decision making we will not proceed with getting an x-ray to look for any broken bones of your hand. We also discussed that the dog is up-to-date on its shots in regard to any treatment for rabies, and you mention to me that you are up-to-date on tetanus. We discussed what to look for to return to the emergency department, which includes but is not limited to worsening swelling of your hand, pain with movement of your hand or thumb or other fingers, feeling like you need to hold your thumb or fingers slightly bent, and other worsening signs. The antibiotics may not start to immediately improve your symptoms for the first 24 to 48 hours, however if you experience any of these symptoms in the meantime please return to the emergency department. Clinical Impressions Clinical Impression: Dog bite Instructions Patient Instructions: Animal Bites Print Language Print Language: Hungarian Discharge ED Provider: Kentrell Kwon General Adult HPI General Chief complaint: Animal Bite Stated complaint: dog bite/R Thumb Time Seen by Provider: 03/22/24 08:17 History of Present Illness HPI narrative: Patient presents for evaluation of mammalian bite, dog, that occurred to his right ventral thenar eminence yesterday. The dog is reportedly up-to-date on rabies vaccination, patient is reportedly up-to-date on tetanus. Patient noticed erythema streaking up his wrist area today which prompted evaluation. He has mild pain, that is not exquisitely exacerbated by movement of his thumb, denies any numbness or tingling. Denies any significant swelling. Symptoms were gradual in onset, constant, stable in course. Please note that above description of symptoms, in this electronic medical record under categorization of recalled from ER triage doctor by RN are reflective of an initial nursing assessment, however, is not reflective of my full history and physical exam that was personally taken and clarified. Consequentially, this preceding description of symptoms, which may include the patient's categorized chief complaint in the EMR, do not reflect my personal clinical impression, and the ultimate description of history of present illness and patient stated complaints should be deferred to this section of the note. Unless stated otherwise or congruent with this section of the note, additional signs, symptoms, or incongruence should be interpreted as inaccurate with my clinical impression. Related Data Home Medications ?Medication ?Instructions ?Recorded ?Confirmed albuterol sulfate 90 mcg/actuation 2 puff INHALATION Q6H PRN soa 02/11/20 04/22/23 aerosol inhaler (Ventolin HFA) amlodipine 10 mg tablet 10 mg PO DAILY High blood pressure 09/23/21 04/22/23 tiotropium bromide 18 mcg capsule 18 mcg inhalation DAILY COPD 01/07/22 04/22/23 with inhalation device (Spiriva with HandiHaler) losartan 100 mg tablet 100 mg PO DAILY High blood pressure 03/10/22 04/22/23 methocarbamol 500 mg tablet 500 mg PO TIDP PRN Muscle Spasm 03/10/22 04/22/23 metoprolol succinate 100 mg 100 mg PO DAILY High blood pressure 03/10/22 04/22/23 tablet,extended release 24 hr rivaroxaban 15 mg (42)-20 mg (9) See Rx Instructions .Route 06/18/22 04/22/23 tablets in a starter pack (Xarelto .COMPLEX Blood thinner DVT-PE Treatment 30-Day Starter) potassium chloride 20 mEq 40 meq PO DAILY diet supplement 09/17/22 04/22/23 tablet,extended release famotidine 20 mg tablet (Pepcid) 20 mg PO BID gerd 11/19/22 04/22/23 nicotine 14 mg/24 hr daily 1 patch transdermal DAILY smoking 11/19/22 04/22/23 transdermal patch cessation Previous Rx's ?Medication ?Instructions ?Recorded hydrocodone 5 mg-acetaminophen 325 1 tab PO Q8H PRN pain #10 tabs 01/07/22 mg tablet oxycodone-acetaminophen 5 mg-325 1 ea PO Q6HP PRN Moderate To 03/10/22 mg tablet Severe Pain 3 days #12 tabs prednisone 20 mg tablet 10 mg (1/2 x 20 mg) PO DAILY 03/10/22 inflammation 2 days #1 tab amoxicillin 875 mg-potassium 1 tab PO BID 7 days #20 tabs 03/22/24 clavulanate 125 mg tablet Allergies Allergy/AdvReac Type Severity Reaction Status Date / Time No Known Allergies Allergy Verified 10/01/22 12:18 [facility] Disclaimer: The information contained in this section may have been updated after the patient was seen, as this information can be updated by other users. Medical History Cancer of kidney Gout Histoplasmosis HTN (hypertension) Kidney stone Legionella infection Surgical History History of nephrectomy Social History Smoking Status: Current every day smoker tobacco type: cigarettes packs per day: 1 second hand exposure: Yes alcohol intake: current alcohol intake frequency: 3 or more drinks per day substance use type: denies use and crack/cocaine current occupational status: employed Travel in the last 8 weeks: None household members: spouse and family housing: house current occupation: self current occupational exposures/hazards: No caffeine: Yes Have you lived/traveled outside [place] in past 30 days?: No Contact w/someone who lives/traveled outside [place] past 30 days?: No Exposure to someone with infectious disease in past 14 days?: No Do you have a fever (greater than 100.4 F or 38 C)?: No Have you tested positive for COVID-19: No Exposed to someone with COVID-19 in past 14 days?: No Do you have a sore throat?: No Do you have a cough?: No Do you have any weakness?: No Do you have any diarrhea?: No Are you experiencing any unusual bleeding?: No Do you have any muscle aches/pain?: No Do you have any abdominal pain?: No Are you experiencing loss of taste or smell?: No Other Medical History Have you received the Flu Vaccine for this season: No Have you received the Pneumonia Vaccine: No ROS Obtained: Yes other As per HPI Physical Exam General General appearance: alert and in no apparent distress Head Head exam: atraumatic and normocephalic Eye Eye exam: Present normal appearance Neck Neck exam: Present normal inspection Chest Chest inspection: Present normal inspection and symmetric chest wall rise Respiratory Respiratory exam: Present normal lung sounds bilaterally; Absent respiratory distress Cardiovascular Cardiovascular exam: Present regular rate and normal rhythm Abdominal Exam Abdominal exam: Present soft Neurological Exam Neurological exam: Present alert and oriented X3 Psychiatric Psychiatric exam: Present normal affect and normal mood Skin Skin exam: Present warm and dry Other Other exam information: Right thenar eminence with evidence of mammalian bite, streaking erythema up ventral aspect of forearm on ipsilateral side, no sausage digit, no digits held in passive flexion, no tenderness to percussion, no pain with passive range of motion Medical Decision Making Medical Records Medical records reviewed: Yes I reviewed the patient's medical records. Screening: Per USPSTF and CDC recommendations, given the prevalence of disease in our region, it is our hospital?s policy to screen for HIV and viral Hepatitis for all patients aged 18 and over and those with ongoing risk factors. Surendra Inquiry Pt receiving controlled substance: No Vital Signs: 03/22/24 08:10 03/22/24 08:48 Temperature 98.8 F 98.8 F Temperature Source Oral Oral Pulse Rate 92 H Pulse Rate [Radial] 114 H Respiratory Rate 18 16 Blood Pressure 212/89 H Blood Pressure [Right Arm] 111/86 Blood Pressure Mean [Right Arm] 94 Blood Pressure Source Automatic Cuff Blood Pressure Source [Right Arm] Automatic Cuff Blood Pressure Position Sitting Blood Pressure Position [Right Arm] Sitting 02 Sat by Pulse Oximetry 97 Oxygen Delivery Method Room Air Room Air Medical Decision Narrative: Patient with history and exam per above presenting for evaluation of dog bite Diagnoses considered include cellulitis, lymphangitis, based on physical exam at this time, with no Knievel signs, patient does not have clinical evidence of flexor tenosynovitis at this time. I did discuss the possibility of possible retained foreign body, however after shared decision making patient declines x- ray imaging. Patient declines rabies or tetanus vaccination. Patient and family member at bedside were extensively counseled on Knievel signs, shown clinical images, and instructed that this is a surgical emergency, should symptoms change or worsen and that patient is at risk with acute onset erythema of developing this condition and should be highly vigilant for any new or worsening symptoms, particularly those previously mentioned. They expressed an understanding and acknowledgment Patient will be prescribed course of antibiotics for mammalian bite. I discussed my clinical impression with patient and answered all questions. At this time, the evidence for any other entities in the differential is insufficient to warrant any further testing or ED observation. This was explained to the patient. The patient was advised that persistent or worsening symptoms require further evaluation. Critical Care Critical Care Time Critical Care Time: No
[2024-03-22 08:48] VITALS: BP 212/89; PULSE 92; RESP 16; TEMP 37.1; O2SAT 93
== END 2024-03-22 08:49 | disposition home or self-care (01) ==
PROVIDERS: Emergency Provider Emergency Medicine; PCP Internal Medicine Adolescent Medicine
DX: S61.031A Puncture wound without foreign body of right thumb without damage to nail, initial encounter (principal); M79.644 Pain in right finger(s); W54.0XXA Bitten by dog, initial encounter; Y93.89 Activity, other specified; Y92.9 Unspecified place or not applicable
CPT/HCPCS: 99283

== ENCOUNTER 2024-07-26 12:21 | Outpatient (CLI) | payer OTHER, SELFPAY ==
--- NOTE | 2024-07-26 | CA_ITS ---
APPROVED REPORT Exam: Pharmacologic Technologist: Avril Nolen Ht: 6 ft 5 in Wt: 240 lbs BSA: 2.42 m2 Medical History Medications: albuterol, spiriva, vicodin, percocet, methocarbamol, metoprolol succinate, losartan, xarelto, nicotine patch, pepcid, amlodipine, potassium chloride. Stress Test Details Test: Lexiscan Reason for pharmacologic stress test: physical limitation-SOB . HR Resting HR: 68 bpm Max Heart Rate (APMHR): 168 bpm Max HR Achieved: 82 bpm Target HR (85% APMHR): 143 bpm % of APMHR: 49 Recovery HR: 71 bpm BP Resting BP: 139.0/86.0 mmHg Max BP: 139.0/86.0 mmHg Recovery BP: 121.0/86.0 mmHg ECG Resting ECG: SR Stress ECG Conclusion Symptoms: fatigue with Lexiscan. Arrhythmias/Ectopy: None. ST-T Changes: unremarkable with Lexiscan. Electronically signed by : Quiana Dubon MD 07/28/2024 21:05:10
--- NOTE | 2024-07-26 12:25 | NM_ITS ---
APPROVED REPORT Exam: Nuclear Stress Test Indication: Chest pain, SOB, Syncope, Fatigue, HTN, Tobacco use Patient Location: Outpatient Stress Tech: Avril Garrett MD Tech:Millie Farris ARRT RT(R)(N) Ht: 6 ft 5 in Wt: 240 lbs HR: 71 bpm BP: 139/86 mmHg BSA: 2.42 m2 TID: 1.13 BMI: 28.4 History: Chest pain, SOB, Syncope, Fatigue, HTN, Tobacco use Procedure: Patient received 0.4 mg of intravenous Lexiscan, resting heart rate 71 bpm, resting blood pressure 139/86 mmHg, with Lexiscan maximum heart rate achieved was 85 bpm which is % of the maximum predicted heart rate and blood pressure was 135/86 mmHg. With Lexiscan, patient denied any complaint of chest pain. Cardiac Stress and Resting SPECT Images: Cardiac Stress and Resting SPECT images were obtained using technetium 99m Myoview 30.7 mCi stress and 10.44 mCi at rest. Resting and stress imaging in supine and prone positions demonstrate a large sized, moderate, predominantly fixed perfusion defect in the inferior, inferoseptal, and septal LV john. There is a small region of reversibility towards the distal inferior LV wall towards the inferoapical region. Gated imaging demonstrates mild reduction global LV systolic function. There is moderate hypokinesis of the inferior LV wall. LVEF is calculated at 42%. Conclusion: Large sized, moderate, predominantly fixed perfusion defect in the inferior, inferoseptal, and septal LV john. There is a small region of reversibility towards the distal inferior LV wall towards the inferoapical region. Findings are suggestive of partial reversible ischemia. Gated imaging demonstrates mild reduction global LV systolic function. There is moderate hypokinesis of the inferior LV wall. LVEF is calculated at 42%. Electronically signed by : Quiana Dubon MD 07/28/2024 20:59:37
[2024-07-26] MEDS: SODIUM CHLORIDE 0.9% 10ML SYR (RAD ONLY) 10 ML IV ×2 (14:52)
[2024-07-26] MEDS: ISOTOPE MYOVIEW (PER STUDY) 1 DOSE IV (14:52)
[2024-07-26] MEDS: REGADENOSON 0.4MG/5ML SYRINGE 0.4 MG IV (14:52)
== END 2024-07-26 23:59 | disposition home or self-care (01) ==
LOC: RAD 12:22
PROVIDERS: PCP Nurse Practitioner Family; Visit Provider Nurse Practitioner Family
DX: R94.39 Abnormal result of other cardiovascular function study (principal); I25.10 Atherosclerotic heart disease of native coronary artery without angina pectoris; I10 Essential (primary) hypertension; R55 Syncope and collapse; Z72.0 Tobacco use
CPT/HCPCS: 78452; 93017; 93018; A9502; J2785

== ENCOUNTER 2024-08-09 10:37 | Outpatient (CLI) | payer OTHER, SELFPAY ==
--- OUTSIDE RECORDS SUMMARY | 2024-08-09 10:51 | XMS_ITS | Clinical Summary ---
Author Organization [facility] Address [address] [place] [address] Care Team Providers Care Social Group Worker Name Role Phone Kj Madrid MD Primary Care Provider [phone] Allergies No known active allergies Medications budesonide-form oterol (Symbicort) 160-4.5 MCG/ACT inhaler Inhale 2 puffs 2 (two) times a day. 1 Active amLODIPine (Norvasc) 10 MG tablet Take 1 tablet (10 mg) by mouth 1 (one) time each day. Active Spiriva HandiHaler [address] 1 capsule (18 mcg) into inhaler and inhale 1 (one) time each day. 3 Active losartan (Cozaar) 100 MG tablet Take 1 tablet (100 mg) by mouth 1 (one) time each day. 3 Active triamcinolone (Kenalog) 0.5 % ointment Apply 1 Application topically 2 (two) times a day. 4 Active allopurinol (Zyloprim) 300 MG tablet Take 1 tablet (300 mg) by mouth 1 (one) time each day. Active cyanocobalamin (Vitamin B-12) 1000 MCG tablet Take 1 tablet (1,000 mcg) by mouth 1 (one) time each day. 30 tablet 5 Active folic acid (Folvite) 1 MG tablet Take 1 tablet (1 mg) by mouth 1 (one) time each day. 30 tablet 5 Active thiamine (Vitamin B-1) 100 MG tablet Take 1 tablet (100 mg) by mouth 1 (one) time each day. 30 tablet 5 Active oxyCODONE (Roxicodone) 5 MG immediate release tablet Take 1 tablet (5 mg) by mouth every 4 (four) hours if needed for moderate pain for up to 12 doses. 12 tablet 5 Active Active Problems Problem Noted Date Diagnosed Date Indeterminate colitis 05/27/2022 Hyperuricemia 04/13/2022 Tobacco use disorder 01/13/2022 Renal cell cancer 11/18/2021 Chronic obstructive pulmonary disease 10/16/2021 Daytime somnolence 10/16/2021 Essential hypertension 10/16/2021 Obstructive sleep apnea syndrome 10/16/2021 Renal mass 10/16/2021 Primary gout 10/16/2021 Alcoholism 10/16/2021 Tobacco abuse 10/16/2021 Obesity (BMI 30-39.9) 10/16/2021 CKD (chronic kidney disease) stage 3, GFR 30-59 ml/min 10/16/2021 Resolved Problems Problem Noted Date Diagnosed Date Resolved Date Soft tissue infection 03/25/20242024 Cellulitis 03/23/2024 03/27/2024 Asthma 10/16/2021 11/02/2022 Encounters Date Type Department Care Team Description 05/23/2024 Orders Only [facility] [address] [place] [phone] Rboby Brown MD Renal cell carcinoma of left kidney (CMS/HCC) (Primary Dx) from Last 3 Months Immunizations Immunization Administration Dates Next Due Tdap 03/23/2024 Family History Medical History Relation Name Comments Cataracts Father Relation Name Status Comments Father Social History Tobacco Use Types Packs/Day Years Used Date Smoking Tobacco: Every Day Cigarettes 0.5 41.4 Started: 02/28/1983 Cigars Passive Smoke Exposure: Current Smokeless Tobacco: Never Tobacco Cessation:Ready to Q uit: Not Asked; Counseling Given: Not Answered Alcohol Use Standard Drinks/Week Comments Yes 140 (1 standard drin k = 0.6 oz pure alcohol) Three strong drinks per day which the patient states is the equivalent of 10 shots of liquor Humiliation, Afraid, Rape, and Kick questionnair e Answer Date Recorded Within the last year, have y ou been afraid of your partner or ex-partner? No 03/26/2024 Within the last year, have y ou been humiliated or emotionally abused in other ways by your partner or ex-partner? No Within the last year, have y ou been kicked, hit, slapped, or otherwise physically hurt by your partner or ex-partner? No 03/26/2024 Within the last year, have y ou been raped or forced to have any kind of sexual activity by your partner or ex-partner? No 03/26/2024 PHQ-2 Answer Date Recorded Patient Health Questionnaire-2 Score 2 12/17/2022 Hunger Vital Sign Answer Date Recorded Within the past 12 months, y ou worried that your food would run out before you got the money to buy more. Never true 03/26/19 Within the past 12 months, t he food you bought just didn't last and you didn't have money to get more. Never true 03/26/2024 PRAPARE - Transportation Answer Date Re corded In the past 12 months, has l ack of transportation kept you from medical appointments or from getting medications? No 03/01 In the past 12 months, has l ack of transportation kept you from meetings, work, or from getting things needed for daily living? No 03/26/2024 PHQ-9 Answer Date Recorded Patient Health Questionnaire-9 Score 14 08/03/2022 Housing Stability Vital Sign Answer Jim e Recorded In the last 12 months, was t here a time when you were not able to pay the mortgage or rent on time? No 03/26/2024 Number of Times Moved in the Last Year Not on fi le 03/26/2024 At any time in the past 12 m [facility], were you homeless or living in a jail (including now)? No 03/26/2024 CAGE ASSESSMENT Answer Date Recorded Cage unable to access Not on file 03/23/2024 Maximum number of drinks you had on a given occasion in the last month? 1 drink 03/23/2024 How many alcoholic Beverages do you typically drink in a week? 0 - 7 per week 03/23/2024 Have you ever felt you should CUT down on your d rinking? 1 03/23/2024 Have you been ANNOYED by peo ple criticizing your drinking? 0 03/23/2024 Have you felt GUILTY about your drinking? 1 03/23/2024 Have you had a drink first t sterling in the morning ([employer]) to steady your nerves or to get rid of a hangover? 1 03/23/2024 CAGE Questionnaire Score 3 025 Utilities Answer Date Recorded In the past 12 months has th e electric, gas, oil, or water company threatened to shut off services in your home? No 03/26/2024 PHQ-2A Answer Date Recorded Depression Risk 1 02/24/2022 Sex and Gender Information Value Date Recorded Sex Assigned at Male 10/16/2021 11:15 AM EDT Legal Sex Male 7:34 PM EDT Gender Identity Male 10/16/2021 11:15 AM EDT Sexual Orientation Straight 10/16/2021 11 :15 AM EDT Last Filed Vital Signs Vital Sign Reading Time Taken Comments Blood Pressure 164/103 03/27/2024 4:35 PM EST Pulse 80 03/27/2024 4:35 PM EST Temperature 36.8 C (98.3 F) 03/27/2024 4:35 PM EST Respiratory Rate 20 03/27/2024 4:35 PM EST Oxygen Saturation 97% 03/27/2024 4:35 PM EST Inhaled Oxygen Concentration - - Weight 104 kg (229 lb) 03/23/2024 3:07 PM EST Height 195.6 cm (6' 5.01 ) 03/23/2024 3:07 PM ES T Body Mass Index 27.15 03/23/2024 3:07 PM EST Plan of Treatment Health Maintenance Due Date Last Done Comments [facility]-Infant/Child/Adol SDOH Screenings 1971 [id number] Vaccine (#1) 12/14/1976 [facility]-Hepatitis B Vaccines (1 of 3 - 19+ 3-dose series) 12/14/1990 [facility]-Pneumococcal Vaccine: 50+ Years (1 of 2 - PCV) 12/14/1990 [facility]-Zoster Vaccines (1 of 2) 12/14/1990 CT Colonography 12/14/2016 FIT-DNA 12/14/2016 FIT 12/14/2016 FOBT 12/14/2016 Sigmoidoscopy 12/14/2016 [facility]-Depression Screening 12/18/2023 023, 08/03/2022, 02/24/2022, Additional history exists [facility]- SDOH Screenings 09/23/2024 [facility]-Adult SDOH Screenings 09/23/2024 03/26/2024 [facility]-Influenza Vaccine (Season Ended) 2024 Colonoscopy 05/04/2032 05/04/2022 [facility]-Colorectal Cancer Screening 05/04/2032 [facility]-DTaP,Tdap,and Td Vaccines (2 - Td or Tdap) 03/23/2034 03/23/2024 [facility]-Lung Cancer Screening Discontinued 2022, 04/21/2022, 03/10/2022, Additional history exists [facility]-HIV Screening Completed 03/23/2024 [facility]-Hepatitis C Screening Completed 03/23/2024 [facility]-Obesity Intervention Completed 025, 03/23/2024, 05/09/2023, Additional history exists HPV Vaccines Aged Out No longer eligi ble based on patient's age to complete this topic [facility]-HIB Vaccines Aged Out No longer e ligible based on patient's age to complete this topic [facility]-Hepatitis A Vaccines Aged Out No longer eligible based on patient's age to complete this topic [facility]-IPV Vaccines Aged Out No longer e ligible based on patient's age to complete this topic [facility]-Rotavirus Vaccines Aged Out No lo nger eligible based on patient's age to complete this topic Procedures Procedure Name Priority Date/Time Associated Diagnosis Comments HEPATITIS C ANTIBODY - ED W/REFLEX TO HCV QUANT PCR STAT 03/23/2024 10:25 AM EST ED HIV 1/2 ANTIBODY/ANTIGEN SCREEN WITH REFLEX TO HIV I/II DIFFERENTIATION STAT 03/23/2024 10:[address] CHEST W IV CONTRAST 9:12 AM EDT COLONOSCOPY Routine 05/04/2022 9:38 AM EST Renal cell carcinoma of right kidney (CMS/HCC) from Last 3 Months or Most Recently Relevant to Health Maintenance Results * ED HIV 1/2 Antibody/Antigen Screen w/Reflex to HIV 1/2 Differentiation (03/23/2024 10:25 AM EST) HIV 1 & 2 Antibody/Antigen Screen Non Reactive Non Reactive 03/23/2024 11:22 AM EST [facility] Comment:Screening for HIV 1 & 2 antibodies, and P24 antigen is NONREACTIVE. No confirmatory testing is required. Blood Venous blood specimen / Unknown Venipuncture / Unknown 03/23/2024 10:25 AM EST 03/23/2024 10:38 AM EST Robbin REDDY LAB BLOOD ORDERABLES Final Re sult Performing Organization Address City/[facility]/[place] [address] * Hepatitis C Antibody - ED (03/23/2024 10:25 AM EST) Pathologist [facility] Hepatitis C Antibody Negative Negative 03/23/2024 11:22 AM EST [facility] Blood Venous blood specimen / Unknown Venipuncture / Unknown 03/23/2024 10:25 AM EST 03/23/2024 10:38 AM EST Robbin REDDY LAB BLOOD ORDERABLES Final Re sult Performing Organization Address City/[facility] [place] [address] * CT Chest w IV Contrast (09/03/2022 9:12 AM EDT) Anatomical Region Laterality Modality Chest Computed Tomogra phy 09/03/2022 9:12 AM EDT External Provider IMG CT PROCEDURES Final Result * Colonoscopy (05/04/2022 9:38 AM EST) Anatomical Region Laterality Modality Endoscopy Narrative 05/04/2022 11:12 AM EST Table formatting from the original result was not included. Impression Overall Impression: Severe, generalized edematous, erythematous, friable and ulcerated mucosa with exudate in the distal sigmoid colon, rectosigmoid and rectum, consistent with ulcerative colitis Mccarty Score 3; performed cold forceps biopsy. Severe inflammation up to 30 cm from the anal verge. Mild scattered inflammation from 30 to 50 cm. Biopsies were also sent for CMV culture. Small diverticula of mild severity in the sigmoid colon All observed locations appeared normal, including the cecum, ascending colon, transverse colon and descending colon. Performed random biopsy using biopsy forceps. Recommendation Await pathology results Await culture results. Start Prednisone 100 mg daily. Restart Xarelto today. Patient will be seen in IBD clinic on 05/11/2022. Results were discussed with patient's oncologist. Indication Renal cell carcinoma of right kidney (CMS/HCC) Diarrhea, change in bowel habits. Blood in stool. Medications See anesthesia record for anesthesia administered medications. Staff Staff Role Rebecca Rankin MD Proceduralist Nnamdi Vera MD Anesthesiologist Laura Figueredo, CASH TELLER CASH TELLER, No role selected Unknown Endo Nurse 1 Endo Nurse Vilma Fitzpatrick Endo Nurse Preprocedure A history and physical has been performed, and patient medication allergies have been reviewed. The patient's tolerance of previous anesthesia has been reviewed. The risks and benefits of the procedure and the sedation options and risks were discussed with the patient. All questions were answered and informed consent obtained. Details of the Procedure The patient underwent monitored anesthesia care, which was administered by an anesthesia professional. The patient's blood pressure, heart rate, level of consciousness, respirations and oxygen were monitored throughout the procedure. A digital rectal exam was performed. A perianal exam was performed. The scope was introduced through the anus and advanced to the cecum. The quality of bowel preparation was evaluated using the Benton Bowel Preparation Scale with scores of: right colon = 3, transverse colon = 3, left colon = 3. The total BBPS score was 9. Bowel prep was adequate. The patient's estimated blood loss was minimal (<5 mL). The procedure was not difficult. The patient tolerated the procedure well. There were no apparent complications. Attestation I personally performed the entire procedure Events Procedure Events Event Event Time ENDO SCOPE IN TIME 05/04/2022 9:17 AM ENDO CECUM REACHED 05/04/2022 9:22 AM ENDO SCOPE OUT TIME 05/04/2022 9:35 AM Specimens ID Type Source Tests Collected by Time 1 : rectosigmoid bx for CMV culture Tissue Colon CYTOMEGALOVIRUS (CMV) CULTURE Rebecca Rankin MD 05/04/2022928 A : normal colon bx Tissue Colon SURGICAL PATHOLOGY EXAM Rebecca Rankin MD 05/04/2022921 B : rectosigmoid bx Tissue Colon SURGICAL PATHOLOGY EXAM Rebecca Rankin MD 05/04/2022930 Findings Severe, generalized edematous, erythematous, friable and ulcerated mucosa in the distal sigmoid colon, rectosigmoid and rectum, consistent with ulcerative colitis; performed cold forceps biopsy. Severe inflammation up to 30 cm from the anal verge. Mild scattered inflammation from 30 to 50 cm., Mccarty Score 3, Small diverticula of mild severity in the sigmoid colon All observed locations appeared normal, including the cecum, ascending colon, transverse colon and descending colon. Performed random biopsy using biopsy forceps. Robby Brown MD GI PROCEDURE ORDERABLES Final Re sult from Last 3 Months or Most Recently Relevant to Health Maintenance Insurance [employer] Advance Directives * Full Code (Latest Code Status on File) Date Activated Date Inactivated Comments 03/23/2024 2:32 PM 03/27/2024 8:00 PM Question Answer Comments Patient has decision-making capacity? Yes Care Teams Social Group Worker Relationship Specialty Start Date End Date Kj Madrid MD [address] [place] [address] [place] [address] PCP - General Internal Medicine 09/17/21
--- OUTSIDE RECORDS SUMMARY | 2024-08-09 10:51 | XMS_ITS ---
Author Organization [facility] Address [address] [place] [address] Care Team Providers Care Cdl A Driver Name Role Phone Kj Madrid MD Primary Care Provider [phone] Active Problems Problem Noted Date Diagnosed Date Indeterminate colitis 05/27/2022 Hyperuricemia 04/13/2022 Tobacco use disorder 01/13/2022 Renal cell cancer 11/18/2021 Chronic obstructive pulmonary disease 10/16/2021 Daytime somnolence 10/16/2021 Essential hypertension 10/16/2021 Obstructive sleep apnea syndrome 10/16/2021 Renal mass 10/16/2021 Primary gout 10/16/2021 Alcoholism 10/16/2021 Tobacco abuse 10/16/2021 Obesity (BMI 30-39.9) 10/16/2021 CKD (chronic kidney disease) stage 3, GFR 30-59 ml/min 10/16/2021 Current Treatment and Therapy Plans No current plan information found. Past Treatment and Therapy Plans Oncology Treatment Plan Name Start Date Discontinue Date Treatment Medications Discontinue Reason Plan Provider Cycles Pembrolizumab Every 42 Days 2 09/23/2022 pembrolizumab (Keytruda) IVPB Toxicity/Comp lication Robby Brown MD 3 of 24 cycles started Resolved Problems Problem Noted Date Diagnosed Date Resolved Date Soft tissue infection 03/25/20242024 Cellulitis 03/23/2024 03/27/2024 Asthma 10/16/2021 11/02/2022
--- OUTSIDE RECORDS SUMMARY | 2024-08-09 10:53 | XMS_ITS | Encounter Summary ---
Author Organization Healthcare Address [address] [place] [address] Care Team Providers Care Broke Handler Name Role Phone Kj Madrid MD Primary Care Provider [phone] Encounter Details Date Type Department Care Team (Late st Contact Info) Description 06/28/2021 Orders Only External Location [address] [place] [address] Provider, External Social History Tobacco Use Types Packs/Day Years Used Date Smoking Tobacco: Never Assessed Sex and Gender Information Value Date Recorded Sex Assigned at Male 10/16/2021 11:15 AM EDT Legal Sex Male 7:34 PM EDT Gender Identity Male 10/16/2021 11:15 AM EDT Sexual Orientation Straight 10/16/2021 11 :15 AM EDT documented as of this encounter Plan of Treatment Not on file documented as of this encounter Procedures Procedure Name Priority Date/Time Associated Diagnosis Comments CT ABDOMEN OUTSIDE IMAGES 06/28/2021 11:03 AM EDT documented in this encounter Results * CT ABDOMEN OUTSIDE IMAGES (06/28/2021 11:03 AM EDT) Anatomical Region Laterality Modality Computed Tomogra phy 06/28/2021 11:0 3 AM EDT us External Provider IMG CT PROCEDURES Final Result documented in this encounter Visit Diagnoses Not on filedocumented in this encounter Care Teams Broke Handler Relationship Specialty Start Date End Date Kj Madrid MD [address] [place] [address] PCP - General Internal Medicine 09/17/21 documented as of this encounter
--- OUTSIDE RECORDS SUMMARY | 2024-08-09 10:59 | XMS_ITS | Encounter Summary ---
Author Organization Healthcare Address [address] [place] [address] Care Team Providers Care Mold Dumper Name Role Phone Kj Madrid MD Primary Care Provider [phone] Encounter Details Date Type Department Care Team ([facility] st Contact Info) Description 03/10/2022 Orders Only External Location [address] [place] [address] Gallo May MD [address] [id number] Social History Tobacco Use Types Packs/Day Years Used Date Smoking Tobacco: Every Day Cigarettes Smokeless Tobacco: Never Alcohol Use Standard Drinks/Week Comments Yes 0 (1 standard drink = 0.6 oz pure alcohol) Three strong drinks per day which the patient states is the equivalent of 10 shots of liquor PHQ-2 Answer Date Recorded Patient Health Questionnaire-2 Score 6 01/13/2022 PHQ-2A Answer Date Recorded Depression Risk 1 02/24/2022 Sex and Gender Information Value Date Recorded Sex Assigned at Male 10/16/2021 11:15 AM EDT Legal Sex Male 7:34 PM EDT Gender Identity Male 10/16/2021 11:15 AM EDT Sexual Orientation Straight 10/16/2021 11 :15 AM EDT COVID-19 Exposure Response Date Recorded In the last 10 days, have yo u been in contact with someone who was confirmed or suspected to have Coronavirus/COVID-19? No / Unsure 02/24/2022 9:50 AM EST documented as of this encounter Plan of Treatment Not on file documented as of this encounter Procedures Procedure Name Priority Date/Time Associated Diagnosis Comments CT ANGIO PULMONARY EMBOLISM 03/10/2022 4:21 AM EST documented in this encounter Results * CT Angio Pulmonary Embolism (03/10/2022 4:21 AM EST) Anatomical Region Laterality Modality Chest Computed Tomogra phy 03/10/2022 4:21 AM EST Gallo May MD IMG CT PROCEDURES Final Resu lt documented in this encounter Visit Diagnoses Not on filedocumented in this encounter Additional Health Concerns Assessment Noted Time A fall risk assessment has been complete d for the patient 02/24/2022 9:58 AM EST documented as of this encounter Care Teams Mold Dumper Relationship Specialty Start Date End Date Kj Madrid MD [address] [place] [address] PCP - General Internal Medicine 09/17/21 documented as of this encounter
--- OUTSIDE RECORDS SUMMARY | 2024-08-09 11:01 | XMS_ITS | Encounter Summary ---
Author Organization Healthcare Address [address] [place] [address] Care Team Providers Care Cnc Operator Programmer Name Role Phone Kj Madrid MD Primary Care Provider [phone] Encounter Details Date Type Department Care Team ([facility] st Contact Info) Description 03/10/2022 Orders Only External Location [address] [place] [address] Gallo May MD [address] [id number] Social History Tobacco Use Types Packs/Day Years [...] Priority Date/Time Associated Diagnosis Comments CT ABDOMEN PELVIS W IV CONTRAST 03/10/2022 4:21 AM EST documented in this encounter Results * CT Abdomen Pelvis w IV Contrast (03/10/2022 4:21 AM EST) Anatomical Region Laterality Modality Abdomen, Pelvis Computed Tomogra phy 03/10/2022 4:21 AM EST Gallo May MD IMG CT PROCEDURES Final Resu lt documented in this encounter Visit Diagnoses Not on filedocumented in this encounter Additional Health Concerns Assessment Noted Time A fall risk assessment has been complete d for the patient 02/24/2022 9:58 AM EST documented as of this encounter Care Teams Cnc Operator Programmer Relationship Specialty Start Date End Date Kj Madrid MD [address] [place] [address] PCP - General Internal Medicine 09/17/21 documented as of this encounter
[2024-08-09 11:59] LABS: Basophils # 0.1 K/mm3 (0-0.2); Eosinophils # 0.4 Kmm3 (0.0-0.4); Eosinophils % 5.4 % (0.1-12.0); Hematocrit 44.6 % (42.0-52.0); Hemoglobin 14.9 g/dL (14.1-18.0); Immature Granulocytes # 0.03 10^3uL; Immature Granulocytes % 0.4 %; Lymphocytes % 25.1 % (10-50); Mean Corpuscular HGB Conc 33.4 g/dL (31.8-35.4); Mean Corpuscular Volume 92.9 fl (80-94); Mean Platelet Volume 11.3 fl (7.4-10.4); Monocytes # 0.6 K/mm3 (0.1-1.0); Monocytes % 7.9 % (1.7-9.3); Neutrophils # 4.9 K/mm3 (1.8-7.8); Neutrophils % 60.2 % (37.0-80.0); Nucleated Red Blood Cells # 0 10^3/uL; Nucleated Red Blood Cells % 0 %; Platelet Count 272 K/mm3 (142-424); Red Cell Distribution Width 13.3 % (11.5-17.5); Red Cell Distribution Width-SD 45.5 fL; White Blood Count 8.1 K/mm3 (4.8-10.8)
[2024-08-09 12:22] LABS: Alanine Aminotransferase 19 U/L (12-78); Albumin Level 4.3 g/dl (3.5-5.0); Alkaline Phosphatase 83 U/L (38-126); Anion Gap 11.6 mEq/L (5-15); Aspartate Amino Transferase 29 U/L (17-59); Bilirubin,Direct 0.2 mg/dl (0.0-0.4); Bilirubin,Indirect 0.3 mg/dL (0.0-0.9); Bilirubin,Total 0.5 mg/dl (0.2-1.3); Bilirubin,Unconjugated 0.3 mg/dL (0.0-1.1); Blood Urea Nitrogen 41 mg/dl (9-20); Carbon Dioxide 26 mmol/L (22.0-30.0); Chloride 102 mmol/L (98-107); Chol/HDL Ratio 8.1 (1-3.5); Cholesterol 251 mg/dl (140-200); Estimated Glomerular Filt Rate 37 ml/min (>60); GFR (African American) 45 ML/MIN (>60); Glucose 87 mg/dl (74-100); HDL Cholesterol 31 mg/dl (40-60); Magnesium 1.5 mg/dl (1.6-2.3); Potassium 5.6 mmoL/L (3.5-5.1); Sodium 134 mmol/L (136-145); Total Protein,Serum 7.8 g/dl (6.3-8.2); Triglycerides 369 mg/dl (30-150); VLDL Cholesterol 74 mg/dL (0-40)
[2024-08-09 12:28] LABS: Hemoglobin A1C 5.8 % (4.0-6.0)
[2024-08-09 12:33] LABS: Direct LDL Cholesterol 107.45 mg/dL (100-129)
[2024-08-09 12:38] LABS: Free T4 (Free Thyroxine) 1.28 ng/dl (0.78-2.19)
== END 2024-08-09 23:59 | disposition home or self-care (01) ==
LOC: LAB 10:38
PROVIDERS: PCP Internal Medicine Adolescent Medicine; Visit Provider Nurse Practitioner
DX: R93.1 Abnormal findings on diagnostic imaging of heart and coronary circulation (principal); I26.99 Other pulmonary embolism without acute cor pulmonale; I10 Essential (primary) hypertension
CPT/HCPCS: 36415; 80048; 80061; 80076; 83036; 83735; 84439; 84443; 85025

== ENCOUNTER 2024-08-13 14:02 | Outpatient (CLI) | payer OTHER, SELFPAY ==
--- OUTSIDE RECORDS SUMMARY | 2024-06-25 09:17 | XMS_ITS | Encounter Summary ---
Author Organization [facility] In iatives Address [address] [address] Care Team Providers Care Vision Mixer Name Role Phone Kj Madrid MD Primary Care Provider + [phone] Reason for Visit * Auth/Cert (Routine) Specialty Diagnoses / Procedures Referred By Contac t Referred To Contact Diagnoses Kidney stone Kidney Stone Procedures RI CYSTO W/URETEROSCOPY W/LITHOTRIPSY CYSTOURETEROSCOPY, WITH LASER LITHOTRIPSY Gareth Ray MD [address] [place] [address] [place] [address] Phone: tel: fax: Referral ID Status Reason Start Date Expiration Date Visits Re quested Visits Authorized [id number] 06/15/2024 1 1 Encounter Details Date Type Department Care Team (Late st Contact Info) Description 06/25/2024 9:17 AM EDT - 06/25/2024 4:32 PM EDT Hospital Encounter [facility] Surgery Department [address] [place] [phone] Gareth Ray MD [address] [place] [address] [place] [address] Discharge Disposition: Home or Self Care Social [...] living situation today? I have a [facility] place to live 02/02/2024 Think about the [...] Do you speak a language other than [place] at ho sc? No 02/02/2024 Do you want help with [...] Everywhere. * General Anesthesia Adult Care After ([place]ayan) * Ureteral Stent Implantation Care After ([place]ayan) * Laser Therapy for Kidney Stones Care After ([place]) documented in this encounter Medications at Time [...] kidney disease) stage 3, GFR 30-59 ml/min ([facility]) 10/16/2021 Essential hypertension 10/16/2021 Primary gout 10/16/2021 Obesity (BMI 30-39.9) 10/16/2021 Obstructive sleep apnea syndrome 10/16/2021 Tobacco abuse 10/16/2021 Past Surgical History: Procedure Laterality Date bicep surgery Right CYSTOSCOPY,REMOVAL URETERAL STENTS Left 04/03/2024 Procedure: CYSTOSCOPY, WITH URETERAL STENT REMOVAL; Surgeon: Gareth Ray MD; Location: [facility];Service: Urology; Laterality: Left; left ureteral stent removal FOOT SURGERY Right metal adelita in right metatarsal HERNIA REPAIR KIDNEY STONE SURGERY LITHOTRIPSY,EXTRACORPOREAL SHOCK WAVE (ESWL) Left 04/03/2024 Procedure: LITHOTRIPSY,EXTRACORPOREAL SHOCK WAVE (ESWL); Surgeon: Gareth Ray MD; Location: [facility]; Service: Urology; Laterality: Left; ESWL CONF [id number] SPOKE TO ASHELY LYMPHADENECTOMY Right kidney NEPHRECTOMY [...] STENT REMOVAL; Surgeon: Gareth Ray MD; Location: [facility];Service: Urology; Laterality: Left; left ureteral stent removal FOOT SURGERY Right metal adelita in right metatarsal HERNIA REPAIR KIDNEY STONE SURGERY LITHOTRIPSY,EXTRACORPOREAL SHOCK WAVE (ESWL) Left 04/03/2024 Procedure: LITHOTRIPSY,EXTRACORPOREAL SHOCK WAVE (ESWL); Surgeon: Gareth Ray MD; Location: [facility]; Service: Urology; Laterality: Left; ESWL CONF [id number] SPOKE TO ASHELY LYMPHADENECTOMY Right kidney NEPHRECTOMY [...] Blood Administered: None Grafts or Implants: 4.8 Czech by 28 cm left ureteral stent string attached Complications: None Condition: PACU stable Findings: After satisfactory general anesthesia was carefully placed lithotomy. Sequential compression garments were placed and functioning. The genital areas prepped and draped in normal fashion. Timeout was called. 21 Czech cystoscopy sheath introduced amplification cleared to be [...] 1 HOUR Routine 06/25/2024 2:30 PM EDT RI CYSTO W/INSERT URETERAL STENT 06/25/2024 1:27 PM EDT Kidney stone Case Notes Left Ureteroscopy RI CYSTO W/URETEROSCOPY W/LITHOTRIPSY 06/25/2024 1:27 PM EDT [...] Coronary atherosclerosis of unspecified type of vessel, [place] or graft documented in this encounter Administered [...] Pre-op documented in this encounter Care Teams Vision Mixer Relationship Specialty Start Date End Date Kj Madrid MD [address] [place] [address] PCP - General Adolescent Medicine 01/09/24 documented as of this encounter
--- OUTSIDE RECORDS SUMMARY | 2024-06-25 11:33 | XMS_ITS | Encounter Summary ---
Author Organization [facility] In iatives Address [address] [address] Care Team Providers Care Whizzer Hand Name Role Phone Kj Madrid MD Primary Care Provider + [phone] Reason for Visit * Auth/Cert (Routine) Specialty Diagnoses / Procedures Referred By Contac t Referred To Contact Diagnoses Kidney stone Kidney Stone Procedures [place] CYSTO W/URETEROSCOPY W/LITHOTRIPSY CYSTOURETEROSCOPY, WITH LASER LITHOTRIPSY Gareth Ray MD [address] [place] [address] [place] [address] Phone: tel: fax: Referral ID Status Reason Start Date Expiration Date Visits Re quested Visits Authorized [id number] 06/15/2024 1 1 Encounter Details Date Type Department Care Team (Late st Contact Info) Description 06/25/2024 11:33 AM EDT - 06/25/2024 1:02 PM EDT Surgery [facility] Surgery Department [address] [place] [phone] Gareth Ray MD [address] [place] [address] CYSTOURETEROSCOPY, WITH LASER LITHOTRIPSY Social History Tobacco Use Types Packs/Day Years [...] living situation today? I have a [facility] place to live 02/02/[address] you li ve. Do you have problems with any of the following? None of the above 02/02/2024 Food Insecurity Answer Date Recorded Within the past 12 months, y ou worried that your food would run out before you got money to buy more. Never true 02/02/2024 Within the past 12 months, umer he food you bought just didn't last [...] Do you speak a language other than Ugandan at [facility]? No 02/02/2024 Do you want help with [...] Sign Reading Time Taken Comments Blood Pressure 146/92 06/25/2024 9:53 AM EDT Pulse 77 06/25/2024 9:53 AM EDT Temperature 36.2 C (97.1 F) 06/25/2024 9:53 AM EDT Respiratory Rate 18 06/25/2024 9:53 AM EDT Oxygen Saturation 99% 06/25/2024 9:53 AM EDT Inhaled Oxygen Concentration - - Weight [...] Everywhere. * General Anesthesia Adult Care After (Ugandan) * Ureteral Stent Implantation Care After (Ugandan) * Laser Therapy for Kidney Stones Care After (Ugandan) documented in this encounter Medications at Time [...] disease) stage 3, GFR 30-59 ml/min ([facility]) 10/16/2021 Essential hypertension 10/16/2021 Primary gout 10/16/2021 Obesity (BMI 30-39.9) 10/16/2021 Obstructive sleep apnea syndrome 10/16/2021 Tobacco abuse 10/16/2021 Past Surgical History: Procedure Laterality Date bicep surgery Right CYSTOSCOPY,REMOVAL URETERAL STENTS Left 04/03/2024 Procedure: CYSTOSCOPY, WITH URETERAL STENT REMOVAL; Surgeon: Gareth Ray MD; Location: [facility];Service: Urology; Laterality: Left; left ureteral stent removal FOOT SURGERY Right metal adelita in right metatarsal HERNIA REPAIR KIDNEY STONE SURGERY LITHOTRIPSY,EXTRACORPOREAL SHOCK WAVE (ESWL) Left 04/03/2024 Procedure: LITHOTRIPSY,EXTRACORPOREAL SHOCK WAVE (ESWL); Surgeon: Gareth Ray MD; Location: [facility]; Service: Urology; Laterality: Left; ESWL CONF [id number] SPOKE TO ASHELY LYMPHADENECTOMY Right kidney NEPHRECTOMY [...] STENT REMOVAL; Surgeon: Gareth Ray MD; Location: [facility]; Service: Urology; Laterality: Left; left ureteral stent removal FOOT SURGERY Right metal adelita in right metatarsal HERNIA REPAIR KIDNEY STONE SURGERY LITHOTRIPSY,EXTRACORPOREAL SHOCK WAVE (ESWL) Left 04/03/2024 Procedure: LITHOTRIPSY,EXTRACORPOREAL SHOCK WAVE (ESWL); Surgeon: Gareth Ray MD; Location: [facility]; Service: Urology; Laterality: Left; ESWL CONF [id number] SPOKE TO ASHELY LYMPHADENECTOMY Right kidney NEPHRECTOMY [...] Blood Administered: None Grafts or Implants: 4.8 Thai by 28 cm left ureteral stent string attached Complications: None Condition: PACU stable Findings: After satisfactory general anesthesia was carefully placed lithotomy. Sequential compression garments were placed and functioning. The genital areas prepped and draped in normal fashion. Timeout was called. 21 Thai cystoscopy sheath introduced amplification cleared to be placed. Urethranormal his prostate nonobstructing. I point 035 sensor wire was easily advanced up the left ureter. No obvious ureteral calcifications were noted. Cystoscope was exchanged for semirigid ureteroscopewhich was advanced. It easily traversed the transmural [...] the stone and therefore a second wire was placed through the ureteroscope and the ureteroscope withdrawn. The flexible scope was passed overthe second wire to the level of the renal pelvis where the proximal ureter stone had been reduced to 2. In the upper pole calyx there is [...] tiny material was left within his collecting sy stem. The scope was slowly withdrawn. There is no residual ureteral stone material. The stent was placed over the wire with a nice coil in the kidney and: The bladder. String was left attached next to the urethra. Bladder was emptied with cystoscopy sheath. Patient procedure well transferred postopcovering stable condition. Gareth Ray MD 52:42 PM documented in this encounter Plan of Treatment Not on file documented as of this encounter Procedures Procedure Name Priority Date/Time Associated Diagnosis Comments FL < 1 HOUR Routine 06/25/2024 2:30 PM EDT AZ CYSTO W/INSERT URETERAL STENT 06/25/2024 1:27 PM EDT Kidney stone Case Notes Left Ureteroscopy AZ CYSTO W/URETEROSCOPY W/LITHOTRIPSY 06/25/2024 1:27 PM EDT [...] Mick Vivar. Transcribed by Evan Lucio PA-C. us Gareth Ray MD IMG FLUOROSCOPY ORDERABLES Fin al Result documented in this encounter Visit Diagnoses Diagnosis Smoker Tobacco use disorder CAD (coronary artery disease) Coronary atherosclerosis of unspecified type of vessel, ione or graft Kidney stone Calculus of kidney documented in this encounter Administered Medications Inactive [...] Given 06/25/2024 3:19 PM EDT 0.5 mg lidocaine (UROJET, GLYDO) 2 % jelly As needed, Starting on Tue06/25/24 at 1356, Intra-op Given 06/25/2024 1:56 PM EDT 1 Application ondansetron (ZOFRAN) injection 4 mg 4 mg [...] Pre-op documented in this encounter Care Teams Whizzer Hand Relationship Specialty Start Date End Date Kj Madrid MD [address] [place] [address] PCP - General Adolescent Medicine 01/09/24 documented as of this encounter
--- OUTSIDE RECORDS SUMMARY | 2024-06-25 13:27 | XMS_ITS | Encounter Summary ---
Author Organization [facility] In iatives Address [address] [address] Care Team Providers Care Special Education Educational Assistant Name Role Phone Kj Madrid MD Primary Care Provider + [phone] Reason for Visit * Auth/Cert (Routine) Specialty Diagnoses / Procedures Referred By Contac t Referred To Contact Diagnoses Kidney stone Kidney Stone Procedures [place] CYSTO W/URETEROSCOPY W/LITHOTRIPSY CYSTOURETEROSCOPY, WITH LASER LITHOTRIPSY Gareth Ray MD [address] [facility] [address] [place] [address] Phone: tel: fax: Referral ID Status Reason Start Date Expiration Date Visits Re quested Visits Authorized [id number] 06/15/2024 1 1 Encounter Details Date Type Department Care Team (Late st Contact Info) Description 06/25/2024 1:27 PM EDT Anesthesia Event [facility] Surgery Department [address] [place] [phone] Joyce Mcfarlane CRNA [address] [place] [address] Reggie Calderon MD [address] [place], [place] [id number] Anesthesia Record Procedure Summary Procedure Name Responsible Anesthesiologist Anesthesia Start Time Anesthesia Stop Time CYSTOURETEROSCOPY, WITH LASER LITHOTRIPSY (Left: Ureter) Joyce Mcfarlane CRNA 06/25/24 1327 06/25/24 1440 Events Date Time Event Comment 06/25/2024 1011 1327 An Start Patient identif ied and chart reviewed. 1327 An Start Data Anesthesia mac yoav and monitors checked. 1327 Pre-Induction Eval FDA anest hesia machine pre-use checkout completed. Patient status reassessed prior to start of anesthesia care. 1331 An Induction 1331 An Intubation 1331 Anesthesia Ready 1428 An Extubation 1432 an stop data 1440 Handoff to Receiving I compl eted my handoff to the receiving clinician during which we: 1. Identified the patient. 2. Identified the responsible provider. 3. Reviewed the pertinent medical history. 4. Discussed the surgical course. 5. Reviewed intra-op anesthesia management and issues during anesthesia. 6. Set expectations for post-procedure period. 7. Allowed opportunity for questions and acknowledgement of understanding. 1440 An Stop Meds Name Total fentaNYL (SUBLIMAZE) injection 100 mcg lidocaine (XYLOCAINE) injection 2% 100 m g propofol (DIPRIVAN) injection 10 mg/mL b olus 200 mg dexamethasone (PF) injection 10 mg/mL 10 mg ondansetron (ZOFRAN) injection vial 4 mg clindamycin (CLEOCIN) IVPB 900 mg in dex trose 5 % 50 mL (premix) 900 mg lactated ringers (LR) infusion 1,000 mL * Agents Name O2 N2O Air SEVOFLURANE * Blood No blood administrations on file. Lines, Drains, and Airways Type Details Placement Removal Wound 02/02/24; 1325; Inci corbin; Back; Left; 07/17/24; 1449; Unknown (not present on arrival to OR) 02/02/24 1325 by Nkechi Hawkins RN 07/17/24 1449 by Anushka Lopez Wound 04/03/24; 0935; Inci corbin; Perineum; Not applicable; 07/17/24; 1449; Unknown (not present on arrival to OR) 04/03/24 0935 by Libra Maxwell RN 07/17/24 1449 by Anushka Lopez Peripheral IV Placement Date: 05/30 10/22; Placement Time: 1009; Size: 22 G; Orientation: Posterior, Right; Location: Hand; Site Prep: Chlorhexidine ; Insertion attempts: 1; Removal Date: 06/25/24; Removal Time: 1625; Removal Reason: Per order 06/25/24 1009 by Savana Mukherjee RN 06/25/24 1625 by Verónica Pathak RN ETT Placement Date 06/25; Placement Time 1331 (created via procedure documentation); Removal Date 06/25/24; Removal Time 1428 06/25/24 1331 by Joyce Mcfarlane, RAIL CAR REPAIRER 06/25/24 1428 by Joyce Mcfarlane, RAIL CAR REPAIRER Wound 06/25/24; 1428; Inci corbin; Penis; Not applicable; STENT STRING SECURED WIT TEGADERM; 07/17/24; 1449; Unknown (not present on arrival to OR) 06/25/24 1428 by Sarah Garza RN 07/17/24 1449 by Anushka Lopez documented in this encounter Social History Tobacco Use Types Packs/Day Years Used Date Smoking Tobacco: Every Day Cigarettes Smokeless Tobacco: Current Comments:vapes Alcohol Use Standard Drinks/Week Comments Yes 0 (1 standard drink = 0.6 oz pur e alcohol) Utilities Answer Date Recorded In the past 12 months, has t he electric, gas, oil, or water [employer] threatened to shut off services in your home? No 02/02/2024 Interpersonal Safety Answer Date Record ed How often does anyone, cooper ashley family and friends, physically hurt you? Never 02/02/2024 How often does anyone, cooper ashley family and friends, insult or talk down to you? Never 02/02/2024 How often does anyone, cooper gabi family and friends, threaten you with harm? Never 02/02/2024 How often does anyone, cooper ashley family and friends, scream or curse at you? Never 02/02/2024 Housing Stability Answer Date Recorded What is your living situation today? I have a [facility] place to live 02/02/2024 Think [...] speak a language other than Ugandan at [facility]? No 02/02/2024 Do you [...] on file documented as of this encounter OR Notes * Anesthesia Postprocedure Evaluation - Joyce Mcfarlane CRNA - 06/25/2024 2:40 PM EDT Patient: Toan Ureña Procedure Summary Date: 06/25/24 Room / Location: [facility] OR [facility] OPERATING ROOM Anesthesia Start: 1327 Anesthesia Stop: Procedures: CYSTOURETEROSCOPY, WITH LASER LITHOTRIPSY (Left: Ureter) CYSTOSCOPY, WITH URETERAL STENT INSERTION (Left: Ureter) Diagnosis: Kidney stone (Kidney Stone) Surgeons: Gareth Ray MD Responsible Provider: Joyce Mcfarlane CRNA Anesthesia Type: general ASA Status: 3 Anesthesia Type: general Vitals Value Taken Time BP 108/62 06/25/24 1436 Temp 98 06/25/24 1440 Pulse 71 06/25/24 1439 Resp 12 06/25/24 1440 SpO2 96 % 06/25/24 1439 Vitals shown include unfiled device data. Wt 105.7 kg (233 lb) BMI 27.63 kg/m?? Anesthesia Post Evaluation Patient location during evaluation: PACU Patient participation: complete - patient participated Level of consciousness: awake Pain score: 2 Pain management: adequate Multimodal analgesia pain management approach Airway patency: patent Two or more strategies used to mitigate risk of obstructive sleep apnea Cardiovascular status: acceptable and stable Respiratory status: acceptable Hydration status: acceptable Color: [place] Activity: Moves 4 extremities Inotropes/Vasopressors: N/A No notable events documented. Joyce Mcfarlane CRNA 06/25/2024 2:40 PM EDT * Anesthesia Procedure Notes - Joyce Mcfarlane CRNA - 06/25/2024 1:34 PM EDT Associated Order(s): Intubation Intubation Authorized by: Joyce Mcfarlane CRNA Performed by: Joyce Mcfarlane CRNA Date/Time: 06/25/2024 1:31 PM Urgency: elective Indications and Patient Condition Indications for airway management: anesthesia Spontaneous Ventilation: absent Sedation level: general anesthesia Preoxygenated: yes Patient position: sniffing Mask difficulty assessment: 0 - not attempted Final Airway Details Final airway type: supraglottic airway Supraglottic airway type: classic Size: 4 Number of attempts at approach: 1 * Anesthesia Preprocedure Evaluation - Kj Cisneros DO - 06/25/2024 9:43 AM EDT Anesthesia Pre Evaluation Mr. Toan Ureña is a 53 y.o. male being evaluated for the following: Date/Time: 06/25/241132 Procedure: CYSTOURETEROSCOPY, WITH LASER LITHOTRIPSY (Left) Location: [facility] OR OPERATING ROOM Surgeons: Gareth Ray MD Relevant Problems ANESTHESIA (+) Obstructive sleep apnea syndrome CARDIOVASCULAR H/O PE 2022 (+) CAD (coronary artery disease) (+) Essential hypertension ENDOCRINE Gout GASTROINTESTINAL UC /RENAL Renal cancer - in remission CKD - Stg 3 (+) CKD (chronic kidney disease) stage 3, GFR 30-59 ml/min (HCC) (+) Renal cell cancer (HCC) (+) Renal stone RESPIRATORY SYSTEM (+) Chronic obstructive pulmonary disease (HCC) (+) Smoker Other H/O ETOH abuse - off 30 days Clinical information reviewed: NPO Status No data recorded Physical Exam Airway Mallampati: II TM distance: >3 FB Neck ROM: full Cardiovascular - normal exam Dental (+) upper dentures, lower dentures Pulmonary - normal exam Abdominal (+) obese Anesthesia Plan ASA 3 Planned anesthetic: general Anesthesia Plan Factors- The patient is a current smoker. Patient was previously instructed to abstain from smoking on day of procedure. Patient smoked on day of procedure. Induction: intravenous Postoperative Plan- Postoperative administration of opioids is intended. Informed Consent- Anesthetic plan and risks discussed with patient. Plan discussed with RAIL CAR REPAIRER. documented in this encounter Plan of Treatment Not on file documented as of this encounter Procedures Procedure Name Priority Date/Time Associated Diagnosis Comments ANESTHESIA INTUBATION Routine 06/25/2024 1:31 PM EDT documented in this encounter Results * AN SINGLE LUMEN INTUBATION (06/25/2024 1:31 PM EDT) Joyce Beckham CRNA - 06/25/2024 1:31 PM EDT Joyce Mcfarlane CRNA 06/25/2024 1:34 PM Intubation Authorized by: Joyce Mcfarlane CRNA Performed by: Joyce Mcfarlane CRNA Date/Time: 06/25/2024 1:31 PM Urgency: elective Indications and Patient Condition Indications for airway management: anesthesia Spontaneous Ventilation: absent Sedation level: general anesthesia Preoxygenated: yes Patient position: sniffing Mask difficulty assessment: 0 - not attempted Final Airway Details Final airway type: supraglottic airway Supraglottic airway type: classic Size: 4 Number of attempts at approach: 1 Joyce Mcfarlane CRNA ANESTHESIA ORDERABLES Fin al Result documented in this encounter Visit Diagnoses Not on filedocumented in this encounter Administered Medications Inactive Administered Medications - up to 3 most recent administrations Medication Order MAR Action Action Date Dose Rate Site clindamycin (CLEOCIN) IVPB 900 mg in dextrose 5 % 50 mL (premix) 900 mg Once, intravenous, Administer over 60 Minutes, On Tue06/25/24 at 1000, For 1 dose, Administer within 60 minutes of incision or procedure start, Pre-op, Please choose an indication: Surgical Prophylaxis Given 06/25/2024 1:32 PM EDT 900 mg dexAMETHasone PF injection As needed, perineural, Starting on Tue06/25/24 at 1331, Anesthesia Intra-op Given 06/25/2024 1:31 PM EDT 10 mg fentaNYL PF (SUBLIMAZE) injection As needed, intravenous, Starting on Tue06/25/24 at 1327, Anesthesia Intra-op Given 06/25/2024 1:27 PM EDT 100 mcg lactated Ringer's infusion Continuous PRN, intravenous, Starting on Tue06/25/24 at 1327, Anesthesia Intra-op New Bag 06/25/2024 2:26 PM EDT New Bag 06/25/2024 1:27 PM EDT lidocaine (XYLOCAINE) injection 2% As needed, intravenous, Starting on Tue06/25/24 at 1331, Anesthesia Intra-op Given 06/25/2024 1:31 PM EDT 100 mg ondansetron (ZOFRAN) injection As needed, intravenous, Starting on Tue06/25/24 at 1347, Anesthesia Intra-op Given 06/25/2024 1:47 PM EDT 4 mg propofol (DIPRIVAN) injection 10 mg/mL bolus As needed, intravenous, Starting on Tue06/25/24 at 1331, Anesthesia Intra-op Given 06/25/2024 1:31 PM EDT 200 mg documented in this encounter Care Teams Special Education Educational Assistant Relationship Specialty Start Date End Date Kj Madrid MD [address] [place] [address] PCP - General Adolescent Medicine 01/09/24 documented as of this encounter
--- OUTSIDE RECORDS SUMMARY | 2024-06-28 07:15 | XMS_ITS ---
Author Organization [facility] Address [address] [place] [address] Care Team Providers Care Administrative Sales Assistant Name Role Phone Kj Madrid Primary Care Provider Kj Madrid Unavailable Unavailable Cyndi Wolfe Unavailable [phone] Allergies No Known Allergies REASON FOR VISIT f/u supa morales, needs refil l on Triamcinolone Medications Medication SIG (Take, Route, Frequency, Duration) Notes Start Date End Date Status Metoprolol Succinate ER 100 MG 1 tablet Orally Once a day Active Albuterol Sulfate HFA 108 (90 Base) MCG/ACT 2 puff(s) inhaled every 4 hours prn Active Folic Acid 1 MG 1 tablet Orally Once a day Active Vitamin B1 100 MG 1 tablet Orally Once a day Active Allopurinol 300 MG 1 tab(s) orally once a day for 90 days Active Propranolol HCl 40 MG 1 tablet Orally Tw ice a day for 30 days Active oxyBUTYnin Chloride ER 10 MG 1 tablet Or ally Once a day Active Lisinopril 20 MG 1 tablet Orally Once a day for 30 days 06/28/2024 Active Magnesium Oxide 400 MG 1 tablet with griselda d Orally twice a day Active Nitrofurantoin Monohyd Macro 100 MG 1 capsule with food Orally every 12 hrs Active Vraylar 3 MG 1 capsule Orally Onc e a day for 30 days Active busPIRone HCl 5 MG 1 tablet Orally 3 ti mes a day for 30 days 06/22/2024 Active Triamcinolone Acetonide 0.5 % 1 application Externally Twice a day Active Social History Tobacco Use: Social History Observation Description Date Details (start date - stop date) Current Smoker NA - NA Smoking: Question Answer Notes Are you a: current smoker How often do you smoke cigarettes? every day How many cigarettes a day do you smoke? 5 or les s Section Notes: Also vapes Problems Problem Type SNOMED Code ICD Code Onset Dates Problem Status W/U Status Risk Notes Problem 745647188 Bipolar depression (F31.9) Active confirmed Problem 96355179 ETOH abuse (F10.10) Active confirmed Problem [id number] Essential hypertension (I10) Active confirmed Vital Signs Temperature 97.8 degrees Fahrenheit 06/29/19 25 Heart Rate 78 /min 06/28/2024 Blood pressure systolic 134 mm Hg 06/29/19 25 Blood pressure diastolic 100 mm Hg 025 Height 6 ft 5 in in 06/28/2024 Weight 238.5 lbs 06/28/2024 BMI 28.28 kg/m2 06/28/2024 Encounters Encounter Location Date Provider Diagnosis [facility] [place] [address] [facility] [address] [place] [address] 06/28/2024 Cyndi Yaneth Bipolar depression F31.9 ; ETOH abuse F10.10 and Essential hypertension I10 Assessments Encounter Date Diagnosis (ICD Code) Assessment Notes Treatment Notes Treatment Clinical Notes Section Notes 06/28/2024 Bipolar depression (ICD-10 - F31.9) Extensive time spent with patient Increase Vraylar Continue buspar. Keep FU with counselor and psych Discussed s/s of worsening mood/agitation that warrant FU 06/28/2024 ETOH abuse (ICD-10 - F10.10) Positive reinforcement on ETOH cessation. Continue daily meetings at AA 06/28/2024 Essential hypertension (ICD-10 - I10) Increase propranolol and add lisinopril as above. MOA and SE profile discussed. RTC in 2 weeks for FU Plan Of Treatment Medication Medication Name Sig Start Date Stop Date Notes Propranolol HCl 40 MG 1 tablet Orally Tw ice a day for 30 days Lisinopril 20 MG 1 tablet Orally Once a day for 30 days 06/28/2024 Vraylar 3 MG 1 capsule Orally Onc e a day for 30 days busPIRone HCl 5 MG 1 tablet Orally 3 ti mes a day for 30 days 06/22/2024 Treatment Notes Assessment Notes Bipolar depression Extensive time spent with patient Increase Vraylar Continue buspar. Keep FU with counselor and psych Discussed s/s of worsening mood/agitation that warrant FU ETOH abuse Positive reinforcement on ETOH cessation. Continue daily meetings at Essential hypertension Increase propranolol and add lisinopril as above. MOA and SE profile discussed. RTC in 2 weeks for FU Next Appt Details Follow Up: 2 Weeks,prn, Reas on: Provider Name:Sarah Huff ce, 08/14/2024 11:15:00 AM, [address], [address], [place], [address], Progress Notes * Toan UREÑAB:1970 (53 yo M)Acc No.[id number]:06/28/2024 Progress notes Patient: Toan MYERS Provider: Gomez Wolfe APRN :1970 A ge:53 Y S ex:Male Date:06/28/2024 Address:[address] [place], [place] [address], [id number] Pcp:Kj Madrid Subjective: * Chief Complaints: * 1 . F/u [facility]. 2. needs refil l on Triamcinolone. * HPI: P sychology: 53 year old male presents with c/o high stress. c/o depressed mood. c/o feeling overwhelmed. Denies : sleep disturbances. D enies : appetite change.?Denies : low energy level. D enies : sad or cry easily. 53 y/o male presents for [facility] FU on suicide attempt and bipolar depression. Patient reports long h/o bipolar disorder with several suicide attempts in the past when he was a teenager and again approx 20 years ago. Called suicide hotline and spoke to someone for approx 45 minutes. Later that night took a bottle of losartan and metoprolol. States I woke up at home 4 days later. came home from trip and took him to [facility] for evaluation were he was admitted, counseled and started on Vraylar and BuSpar. Today, reports he has been sober x 30 days. Going to daily, received 30 day chip yesterday. Feels better on Vraylar but continues to down and overwhelmed most days. Continues to struggle with inability to work and provide for due to RCC and associated health problems. Would like to increase dose. Denies SI/HI. Appointment at [facility] tomorrow for counseling and has an appointment with psych for medication management. Blood pressure above goal today. * ROS: R ESPIRATORY: no C hest congestion. n o C ough. C ARDIOLOGY: no C hest pain. n o P alpitations. n o L eg edema. S hortness of breath y es, a t baseline. C ONSTITUTIONAL: no L oss of appetite. n o F ever. D ERMATOLOGY: no R javi. H EMATOLOGY/LYMPH: no E asy bruising. N EUROLOGY: no H eadache. n o T ingling numbness. ? P SYCHOLOGY: See HPI Y es. * Medical History: H istoplasmosis, Legionnaires, Diverticulitis, Chronic bronchitis, Bipolar, COPD, Kidney cancer- 1/3 right kidney removed, 1 lymph node (Renal Cell Carcinoma), HTN, Ulcerative colitis. * Surgical History: P in in right foot , Right torn bicep 11/22/2019, Biopsy left arm , Lung biopsies , Right hand dog attack , Hernia repair , Kidney Stones x2 , 1/3 of rt kidney removed 09/2021, removal of kidney stones x 4 , debridement of rt hand 02/2024. * Hospitalization/Major Diagno stic Procedure: L egionnaires x 7 weeks , Surgeries as above , Heat stroke? 2016, - nephrectomy 09/2021, [facility] 03/22, [facility]/ . * Family History: F ather: alive, Cataracts, kidney disease. M other: , MVA. P aternal Grand Father: 98 yrs, Thyroid disease. P aternal Grand Mother: 102 yrs, Anxiety. M aternal Grand Father: , CVA. M aternal Grand Mother: , leukemia. P aternal uncle: alive. M aternal uncle: , uncle breast cancer. M aternal aunt: , leukemia. S iblings: alive. C hildren: alive, allergies, depression. 3 brother(s) - healthy. 1 daughter(s) - healthy. . * Social History: S moking A re you a: c urrent smoker, H ow often do you smoke cigarettes? e very day, H ow many cigarettes a day do you smoke? 5 or less. R ecreational drug use: yes, Past use of coke but no current. Exercise: no. Home smoke detector use: yes. Caffeine: yes, daily. Living Will: No. Alcohol: socially, 30 days sober. Sexually active: yes. Travel outside [place]: no. Occupation: remodeling. Also vapes. * Medications: T aking Triamcinolone Acetonide 0.5 % Ointment 1 application Externally Twice a day , Taking Vraylar 1.5 MG Capsule 1 capsule Orally Once a day , Taking Nitrofurantoin Monohyd Macro 100 MG Capsule 1 capsule with food Orally every 12 hrs , Taking oxyBUTYnin Chloride ER 10 MG Tablet Extended Release 24 Hour 1 tablet Orally Once a day , Taking Magnesium Oxide 400 MG Tablet 1 tablet with food Orally twice a day , Taking Folic Acid 1 MG Tablet 1 tablet Orally Once a day , Taking Vitamin B1 100 MG Tablet 1 tablet Orally Once a day , Taking Metoprolol Succinate ER 100 MG Tablet Extended Release 24 Hour 1 tablet Orally Once a day , Taking Albuterol Sulfate HFA 108 (90 Base) MCG/ACT Aerosol Solution 2 puff(s) inhaled every 4 hours prn , Taking Allopurinol 300 MG Tablet 1 tab(s) orally once a day , Taking busPIRone HCl 5 MG Tablet 1 tablet Orally 3 times a day , Taking Propranolol HCl 20 MG Tablet 1 tablet Orally 3 times a day , Discontinued Xarelto 20 MG Tablet TAKE 1 TABLET BY MOUTH EVERY DAY IN THE EVENING , Discontinued Doxycycline Monohydrate 100 MG Tablet 1 tab(s) orally 2 times a day , Discontinued Losartan Potassium 100 MG Tablet 1 tab(s) orally once a day , Medication List reviewed and reconciled with the patient * Allergies: N .K.D.A. Objective: * Vitals: N urse: jl, Pain: 8-groin, Temp: 97.8, RR: 18, HR: 78, BP: 134/100, Ht: 6 ft 5 in, Wt: 238.5, BMI:28.28, Repeat BP: 148/102. * Examination: P sychology: General Appearance: N AD, pleasant. Grooming : a dequate. Eye contact : n ormal. Mood : p leasant. Heart: R egular Rate and Rhythm, no murmur, rubs or gallops. Lungs: L CTAB, No wheezes, crackles or rhonchi, Good air movement,. Abdomen: S oft, NTND, BSNA, No organomegaly or peritoneal signs.. Neurologic Exam: n o focal signs,, normal sensation, strength, Alert and oriented x 3. Assessment: * Assessment: 1. B ipolar depression - F31.9 (Primary) 2 . E SENG abuse - F10.10 ? 3 . E ssential hypertension - I10 Plan: * Treatment: 2. E SENG abuse Notes: Positive reinforcement on ETOH cessation. Continue daily meetings at AA 3. E ssential hypertension Increase Propranolol HCl Tablet, 40 MG, 1 tablet, Orally, Twice a day, 30 days, 60 Tablet, Refills 1; S tart Lisinopril Tablet, 20 MG, 1 tablet, Orally, Once a day, 30 days, 30, Refills 1. ? Notes: Increase propranolol and add lisinopril as above. MOA and SE profile discussed. RTC in 2 weeks for FU * Follow Up: 2 Weeks,prn * * Sign off status: Completed true * Provider: Gomez Wolfe APRN Date: 0 06/28/2024 Generated for Maris rodriguez/Lo/Kaseyitting on: 0 08/13/2024 02:05 PM EDT History and Physical Notes * HPI (History of Present Illness) Category Sub-Category Detail Notes Category Not es Psychology depressed mood 53 y/o male p resents for [facility] FU on suicide attempt and bipolar depression. Patient reports long h/o bipolar disorder with several suicide attempts in the past when he was a teenager and again approx 20 years ago. Called suicide hotline and spoke to someone for approx 45 minutes. Later that night took a bottle of losartan and metoprolol. States I woke up at home 4 days later. came home from trip and took him to [facility] for evaluation were he was admitted, counseled and started on Vraylar and BuSpar. Today, reports he has been sober x 30 days. Going to AA daily, received 30 day chip yesterday. Feels better on Vraylar but continues to down and overwhelmed most days. Continues to struggle with inability to work and provide for due to RCC and associated health problems. Would like to increase dose. Denies SI/HI. Appointment at [facility] tomorrow for counseling and has an appointment with psych for medication management. Blood pressure above goal today low energy level appetite change sleep disturbances high stress feeling overwhelmed sad or cry easily Examination Category Sub-Category Detail Notes Category Not es Psychology Heart: Regular Rate and Rhythm, no murmur, rubs or gallops Lungs: LCTAB, No wheezes, c rackles or rhonchi, Good air movement, Abdomen: Soft, NTND, BSNA, No organomegaly or peritoneal signs. General Appearance: NAD, pleasant Neurologic Exam: no focal signs,, nor mal sensation, strength, Alert and oriented x 3 Grooming : adequate Eye contact : normal Mood : pleasant
--- OUTSIDE RECORDS SUMMARY | 2024-07-12 08:00 | XMS_ITS ---
Author Organization [facility] [place] Address [address] [place] [address] [facility] [address] [place] [address] Care Team Providers Care Fat Pressroom Worker Name Role Phone Kj Madrid Primary Care Provider Kj Madrid Unavailable Unavailable Sarah Watson Unavailable [phone] Allergies No Known Allergies Results Component Value Reference Range Notes Cardiolite GXT Reviewed date:07/31/2024 02:40:02 PM Interpretation: Performing Lab: Notes/Report: Reason For Referral Reason Cardiolyte Stress Te st Diagnosis 1 Atherosclerosis of n ative coronary artery of [place] heart without angina pectoris (I25.10) Referral Organization [facility] KALA KATZ Referring Provider First Name Referring Provider Last Name Shirley Referring Provider Speciality Family Pra ctice Referred Organization [facility] Referred Address [address] [facility] [address] [facility], [place], Referred Provider Specialty Diagnostic R adiology General Notes Kate Wang 2024 11:15:23 AM >sent to [facility] [place] [id number] [employer] Referral Priority Routine REASON FOR VISIT 2 wk f/u Medications Medication SIG (Take, Route, Frequency, Duration) Notes Start Date End Date Status Propranolol HCl 40 MG 1 tablet Orally Tw ice a day for 30 days Active Lisinopril 20 MG 1 tablet Orally Once a day for 30 days 06/28/2024 Active Triamcinolone Acetonide 0.5 % 1 application Externally Twice a day Active Folic Acid 1 MG 1 tablet Orally Once a day for 30 days Active Vitamin B1 100 MG 1 tablet Orally Once a day for 30 days Active Albuterol Sulfate HFA 108 (90 Base) MCG/ACT 2 puff(s) inhaled every 4 hours prn Active Allopurinol 300 MG 1 tab(s) orally once a day for 90 days Active Vraylar 3 MG 1 capsule Orally Onc e a day for 30 days Active busPIRone HCl 5 MG 1 tablet Orally 3 ti mes a day for 30 days Active Metoprolol Succinate ER 100 MG 1 tablet Orally Once a day Active oxyBUTYnin Chloride ER 10 MG 1 tablet Orally Once a day Active Magnesium Oxide 400 MG 1 tablet with griselda d Orally twice a day Active Social History Tobacco Use: [...] Problem Status W/U Status Risk Notes Problem 739047288 Atherosclerosis of [place] coronary artery of [place] heart without angina pectoris (I25.10) Active confirmed Vital Signs Temperature 97.9 degrees Fahrenheit 07/13/19 25 Heart Rate 92 /min 07/12/2024 Blood pressure systolic 124 mm Hg 07/13/19 25 Blood pressure diastolic 80 mm Hg 025 Height 6 ft 5 in in 07/12/2024 Weight 235 lbs 07/12/2024 BMI 27.86 kg/m2 07/12/2024 Encounters Encounter Location Date Provider Diagnosis [facility] [place] [address] [facility] [address] [place] [address] 07/12/2024 Sarah Watson Atherosclerosis of [place] coronary artery of [place] heart without angina pectoris I25.10 ; Essential hypertension I10 ; Malaise R53.81 ; LUGO (dyspnea on exertion) R06.09 ; Bipolar depression F31.9 and ETOH abuse F10.10 Assessments Encounter Date Diagnosis (ICD Code) Assessment Notes Treatment Notes Treatment Clinical Notes Section Notes 07/12/2024 Atherosclerosis of [place] coronary artery of [place] heart without angina pectoris (ICD-10 - I25.10) 07/12/2024 Essential hypertension (ICD-10 - I10) improved, continue current regimen 07/12/2024 Malaise (ICD-10 - R53.81) likely multifactoral. encouraged him to discuss testosterone replacement options with his urologist 07/12/2024 LUGO (dyspnea on exertion) (ICD-10 - R06.09) 07/12/2024 Bipolar depression (ICD-10 - F31.9) improved and tolerating current regimen, no changes recommended 07/12/2024 ETOH abuse (ICD-10 - F10.10) Positive reinforcement on ETOH cessation. Continue daily meetings at AA Plan Of Treatment Medication Medication Name Sig Start Date Stop Date Notes Vraylar 3 MG 1 capsule Orally Once a day for 30 days busPIRone HCl 5 MG 1 tablet Orally 3 ti mes a day for 30 days Referrals Referral Date Details 07/12/2024 07/12/2024, Cardioly te Stress Test, [address] [facility] [address] [facility], [place], [address], Next Appt Details Follow Up: 4-6 weeks, Reason : Provider Name:Sarah Huff ce, 08/14/2024 11:15:00 AM, [address] [facility] [address] [facility], [address], [place], [address], Progress Notes * MAILE ToanDOB:1970 (53 yo M)Acc No.[id number]:07/12/2024 Progress Notes Patient: Toan MYERS Provider: BRANDO Cordova :1970 A ge:53 Y S ex:Male Date:07/12/2024 Address:[address] [place] [address] [id number] Pcp:Kj Madrid Subjective: * Chief Complaints: * 1 . 2 wk f/u. * HPI: P sychology: Presents today for 2 week FU regarding MDD with SI requiring hospitalization, alcohol abuse, uncontrolled HTN. Last visit vraylar was increased, lisinopril added for HTN. He feels relatively well. Mood stable, no alcohol use, no SI. Has been compliant with talking to counselor. He does have some questions about testosterone replacement - malaise, generalized weakness. Does follow with Dr Ray urology already. Also notes that CT imaging during his recent hospital stay indicated significant coronary calcifications and they had suggested he may need cardiac workup. Does not follow with cardiology, no prior stress testing that he can recall, No CP but some exertional SOA, fatigue, HTN. * ROS: R ESPIRATORY: no C hest [...] , Heat stroke? 2016, - nephrectomy 09/2021, [facility] 03/22, [facility]/ . * Family History: F ather: alive, [...] remodeling. Also vapes. * Medications: T aking oxyBUTYnin Chloride ER 10 MG Tablet Extended Release 24 Hour 1 tablet Orally Once a day , Taking Magnesium Oxide 400 MG Tablet 1 tablet with food Orally twice a day , Taking Metoprolol Succinate ER 100 MG Tablet Extended Release 24 Hour 1 tablet Orally Once a day , Taking Albuterol Sulfate HFA 108 (90 Base) MCG/ACT Aerosol Solution 2 puff(s) inhaled every 4 hours prn , Taking Allopurinol 300 MG Tablet 1 tab(s) orally once a day , Taking Vraylar 3 MG Capsule 1 capsule Orally Once a day , Taking busPIRone HCl 5 MG Tablet 1 tablet Orally 3 times a day , Taking Propranolol HCl 40 MG Tablet 1 tablet Orally Twice a day , Taking Lisinopril 20 MG Tablet 1 tablet Orally Once a day , Taking Triamcinolone Acetonide 0.5 % Ointment 1 application Externally Twice a day , Taking Folic Acid 1 MG Tablet 1 tablet Orally Once a day , Taking Vitamin B1 100 MG Tablet 1 tablet Orally Once a day , Discontinued Nitrofurantoin Monohyd Macro 100 MG Capsule 1 capsule with food Orally every 12 hrs , Medication List reviewed and reconciled with the patient * Allergies: N .K.D.A. Objective: * Vitals: N urse: jl, Pain: 7, Temp: 97.9, RR: 20, HR: 92, BP: 124/80, Ht: 6 ft 5 in, Wt: 235, BMI:27.86. * Examination: P sychology: General Appearance: N [...] oriented x 3. Assessment: * Assessment: 1. A therosclerosis of [place] coronary artery of [place] heart without angina pectoris - I25.10 (Primary) 2 . E ssential hypertension - I10 3 . M alaise - R53.81 4 . D OE (dyspnea on exertion) - R06.09 5 . B ipolar depression - F31.9 6 . E SENG abuse - F10.10 Plan: * Treatment: * ? Referral To: ?Reason:Cardiolyte Stress Test 2.?Essential hypertension?Imaging: Cardiolite GXT* Kate Wang 07/13/2024 11: 14:54 AM EDT > No Precert required per [facility] 07/30/2024 10:18:10 AM EDT >Sarah Watson 07/30/2024 01:35:17 PM EDT > stress test is abnormal...needs to see cardiology. [facility] is fine or if he doesn't want [facility] then [facility] [place] [facility] Alisson Garcia 07/30/2024 04:02:39 PM EDT > pt informed-sent to Kate to send referral to Cardiology at [facility] DI was reviewed by Kate Wang on 07/31/2024 at 14:40 PM EDT * Clinical Notes: improved, continue current regimen??3.?Malaise? Clinical Notes: likely multifactoral. encouraged him to discuss testosterone replacement options with his urologist??4.?LUGO (dyspnea on exertion)?Imaging: Cardiolite GXT* Kate Wang 07/13/2024 11: 14:54 AM EDT > [facility] 07/30/2024 10:18:10 AM EDT >Sarah Watson 07/30/2024 01:35:17 PM EDT > stress test is abnormal...needs to see cardiology. [facility] is fine or if he doesn't want [facility] then [facility] [place] [facility] 07/30/2024 04:02:39 PM EDT > pt informed-sent to Kate to send referral to Cardiology at [facility] DI was reviewed by Kate Wang on 07/31/2024 at 14:40 PM EDT * 5.?Bipolar depression? Increase Vraylar Capsule, 3 MG, 1 capsule, Orally, Once a day, 30 days, 30 Capsule, Refills 0;?Continue busPIRone HCl Tablet, 5 MG, 1 tablet, Orally, 3 times a day, 30 days, 90 Tablet, Refills 0.?? Clinical Notes: improved and tolerating current regimen, no changes recommended??6.?ETOH abuse? Clinical Notes: Positive reinforcement on ETOH cessation. Continue daily meetings at ?? * Follow Up: 4 -6 weeks * * Sign off status: Completed true * Provider: BRANDO Cordova Date: 0 07/12/2024 Generated for Maris rodriguez/Lo/Kaseyitting on: 0 08/13/2024 02:07 PM EDT History and Physical Notes * Examination Category Sub-Category Detail Notes Category Not [...] Eye contact : normal Mood : pleasant Consultation Request Notes Referral Date Referring Provider Referred Provider Not es 07/12/2024 Sarah Watson Cardiolyte S tress Test
--- OUTSIDE RECORDS SUMMARY | 2024-07-17 12:09 | XMS_ITS | Encounter Summary ---
Author Organization [facility] In [facility] Address [address] [address] Care Team Providers Care Assessor Name Role Phone Kj Madrid MD Primary Care Provider + [phone] Reason for Visit * Auth/Cert (Routine) Specialty Diagnoses / Procedures Referred By Contac t Referred To Contact Diagnoses Kidney stone Kidney Stone Procedures WY CYSTO W/URETEROSCOPY W/LITHOTRIPSY CYSTOURETEROSCOPY, WITH LASER LITHOTRIPSY [facility] Surgery Department [address] [place] [address] Phone: tel: fax: [facility] Surgery Department [address] [place] [address] Phone: tel: fax: Referral ID Status Reason Start Date Expiration Date Visits Re quested Visits Authorized [id number] 1 1 Encounter Details Date Type Department Care Team (Late st Contact Info) Description 07/17/2024 12:09 PM EDT - 07/17/2024 5:15 PM EDT Hospital Encounter [facility] Surgery Department [address] [place] [address] [place] [address] [place] [address] [address] [place] [address] Discharge Disposition: Home or Self Care Social [...] your living situation today? I have a [facility] place to live 02/02/2024 Think [...] Do you speak a language other than Citizen Of [place] at [place]? No 02/02/2024 Do you want help with [...] Sign Reading Time Taken Comments Blood Pressure 106/80 07/17/2024 5:15 PM EDT Pulse 77 07/17/2024 5:15 PM EDT Temperature 36.2 C (97.2 F) 07/17/2024 4:45 PM EDT Respiratory Rate 16 07/17/2024 5:15 PM EDT Oxygen Saturation 97% 07/17/2024 5:15 PM EDT Inhaled Oxygen Concentration - - Weight 108.9 kg (240 lb) 07/16/2024 2:00 PM EDT Height 195.6 cm (6' 5 ) 07/16/2024 2:00 PM EDT Body Mass Index 28.46 07/16/2024 2:00 PM EDT documented in this encounter Discharge Instructions * Attachments The following attachments cannot be sent through Care Everywhere. * General Anesthesia Adult Care After (Citizen Of [place]) * Laser Therapy for Kidney Stones Care After (Citizen Of [place]) documented in this encounter Medications at Time of Discharge metoprolol succinate (TOPROL-XL) 25 MG 24 hr tablet Take 1 tablet (25 mg total) by mouth daily. allopurinoL (ZYLOPRIM) 300 MG tablet Take 1 tablet (300 mg total) by mouth daily. cariprazine (Vraylar) 3 mg capsule Take 1 capsule (3 mg total) by mouth daily. folic acid (FOLVITE) 1 MG tablet Take 1 tablet (1 mg total) by mouth daily. lisinopriL (ZESTRIL) 20 MG tablet Take 1 tablet (20 mg total) by mouth daily. losartan (COZAAR) 100 MG tablet 1 tablet (100 mg total) daily. nitrofurantoin, macrocrystal-mon ohydrate, (MACROBID) 100 MG capsuleIndicatio ns:bacterial urinary tract infection Take 1 capsule (100 mg total) by mouth 2 (two) times daily with breakfast and dinner. 20 capsule 02/05/2024 nitrofurantoin, macrocrystal-mon ohydrate, (MACROBID) 100 MG capsule Take 1 capsule (100 mg total) by mouth 2 (two) times daily with breakfast and dinner. 30 capsule 07/17/2024 nitrofurantoin, macrocrystal-mon ohydrate, (MACROBID) 100 MG capsule Take 1 capsule (100 mg total) by mouth 2 (two) times daily with breakfast and dinner. 30 capsule 07/17/2024 oxybutynin (DITROPAN-XL) 10 MG 24 hr tablet Take 1 tablet (10 mg total) by mouth nightly. 30 tablet 06/25/2024 potassium citrate (UROCIT-K) 15 mEq TbER Take 15 mEq by mouth 2 (two) times daily. propranoloL (INDERAL) 40 MG tablet Take 1 tablet (40 mg total) by mouth 3 (three) times daily. HYDROcodone-acet aminophen (NORCO) 7.5-325 mg per tablet Take 1 tablet by mouth every 6 (six) hours as needed for up to 10 days. Max Daily Amount: 4 tablets 30 tablet 07/17/2024 ondansetron (ZOFRAN) 4 MG tablet Take 1 tablet (4 mg total) by mouth 2 (two) times daily as needed for up to 15 days. 30 tablet 07/17/2024 5 documented as of this encounter Progress Notes * Odalys Magallon RN - 07/16/2024 2:22 PM EDT Instructed not to take lisinopril and take his propronolol documented in this encounter H&P Notes * Gareth Ray MD - 07/17/2024 1:02 PM EDT I have reviewed the above History & Physical and I have examined the patient. No changes have occurred since the above History & Physical. Gareth Ray MD Source Note - Gareth Ray MD - 07/16/2024 12:52 PM EDT History & Physical Name: Toan Ureña : 1970 Age: 53 y.o. SUBJECTIVE: Chief Complaint / Reason for Visit: Right-sided urolithiasis HPI: Toan Ureña is a 53 y.o. male with long history of urolithiasis. He recently had a left-sided PCNL as well as ureteroscopy and laser of an accessible stones for PCNL. He has several additional stones on the right side presents today for endoscopic intervention with ureteroscopy and laser and stent placement.. HISTORY: Patient Active Problem List Diagnosis Date Noted Smoker 06/25/2024 CAD (coronary artery disease) 06/25/2024 Renal stone 01/09/2024 Renal cell cancer (HCC) 11/18/2021 Chronic obstructive pulmonary disease (HCC) 10/16/2021 CKD (chronic kidney disease) stage 3, GFR 30-59 ml/min ([facility]) 10/16/2021 Essential hypertension 10/16/2021 Primary gout 10/16/2021 Obesity (BMI 30-39.9) 10/16/2021 Obstructive sleep apnea syndrome 10/16/2021 Tobacco abuse 10/16/2021 Past Surgical History: Procedure Laterality Date bicep surgery Right CYSTOSCOPY,INSERTION URETERAL STENTS Left 06/25/2024 Procedure: CYSTOSCOPY, WITH URETERAL STENT INSERTION; Surgeon: Gareth Ray MD; Location: [facility]; Service: Urology; Laterality: Left; CYSTOSCOPY,REMOVAL URETERAL STENTS Left 04/03/2024 Procedure: CYSTOSCOPY, WITH URETERAL STENT REMOVAL; Surgeon: Gareth Ray MD; Location: [facility] OR;Service: Urology; Laterality: Left; left ureteral stent removal CYSTOSCOPY,URETEROSCOPY W/ LASER LITHOTRIPSY Left 06/25/2024 Procedure: CYSTOURETEROSCOPY, WITH LASER LITHOTRIPSY; Surgeon: Gareth Ray MD; Location: [facility] OR; Service: Urology; Laterality: Left; FOOT SURGERY Right metal adelita in right metatarsal HERNIA REPAIR KIDNEY STONE SURGERY LITHOTRIPSY,EXTRACORPOREAL SHOCK WAVE (ESWL) Left 04/03/2024 Procedure: LITHOTRIPSY,EXTRACORPOREAL SHOCK WAVE (ESWL); Surgeon: Gareth Ray MD; Location: [facility]; Service: Urology; Laterality: Left; ESWL CONF [id number] SPOKE TO ASHELY LYMPHADENECTOMY Right kidney NEPHRECTOMY [...] with breakfast and dinner. 30 capsule 0 nitrofurantoin, macrocrystal-monohydrate, (MACROBID) 100 MG capsule Take 1 capsule (100 mg total) by mouth 2 (two) times daily with breakfast and dinner. 30 capsule 0 oxybutynin (DITROPAN-XL) 10 MG 24 hr tablet Take 1 tablet (10 mg total) by mouth nightly. 30 tablet0 potassium citrate (UROCIT-K) 15 mEq TbER Take 15 mEq by mouth 2 (two) times daily. OBJECTIVE: There were no vitals taken for [...] Problems: There are no active Hospital Problems. Right sided renal calculi plan as above Admit Date: (Not on file) Length of Stay: 0 days. Discussed this case with: Time spent >30 minutes. Electronically signed by: Gareth Ray MD, 07/16/2024 at 12:52 PM * Gareth Ray MD - 07/16/2024 12:52 PM EDT History & Physical Name: Toan Ureña : 1970 Age: 53 y.o. SUBJECTIVE: Chief Complaint / Reason for Visit: Right-sided urolithiasis HPI: Toan Ureña is a 53 y.o. male with long history of urolithiasis. He recently had a left-sided PCNL as well as ureteroscopy and laser of an accessible stones for PCNL. He has several additional stones on the right side presents today for endoscopic intervention with ureteroscopy and laser and stent placement.. HISTORY: Patient Active Problem List Diagnosis Date Noted Smoker 06/25/2024 CAD (coronary artery disease) 06/25/2024 Renal stone 01/09/2024 Renal cell cancer (HCC) 11/18/2021 Chronic obstructive pulmonary disease (HCC) 10/16/2021 CKD (chronic kidney disease) stage 3, GFR 30-59 ml/min ([facility]) 10/16/2021 Essential hypertension 10/16/2021 Primary gout 10/16/2021 Obesity (BMI 30-39.9) 10/16/2021 Obstructive sleep apnea syndrome 10/16/2021 Tobacco abuse 10/16/2021 Past Surgical History: Procedure Laterality Date bicep surgery Right CYSTOSCOPY,INSERTION URETERAL STENTS Left 06/25/2024 Procedure: CYSTOSCOPY, WITH URETERAL STENT INSERTION; Surgeon: Gareth Ray MD; Location: [facility] [place]; Service: Urology; Laterality: Left; CYSTOSCOPY,REMOVAL URETERAL STENTS Left 04/03/2024 Procedure: CYSTOSCOPY, WITH URETERAL STENT REMOVAL; Surgeon: Gareth Ray MD; Location: [facility] [place];Service: Urology; Laterality: Left; left ureteral stent removal CYSTOSCOPY,URETEROSCOPY W/ LASER LITHOTRIPSY Left 06/25/2024 Procedure: CYSTOURETEROSCOPY, WITH LASER LITHOTRIPSY; Surgeon: Gareth Ray MD; Location: [facility] OR; Service: Urology; Laterality: Left; FOOT SURGERY Right metal adelita in right metatarsal HERNIA REPAIR KIDNEY STONE SURGERY LITHOTRIPSY,EXTRACORPOREAL SHOCK WAVE (ESWL) Left 04/03/2024 Procedure: LITHOTRIPSY,EXTRACORPOREAL SHOCK WAVE (ESWL); Surgeon: Gareth Ray MD; Location: [facility] [place]; Service: Urology; Laterality: Left; ESWL CONF [id number] SPOKE TO ASHELY LYMPHADENECTOMY Right kidney NEPHRECTOMY [...] with breakfast and dinner. 30 capsule 0 nitrofurantoin, macrocrystal-monohydrate, (MACROBID) 100 MG capsule Take 1 capsule (100 mg total) by mouth 2 (two) times daily with breakfast and dinner. 30 capsule 0 oxybutynin (DITROPAN-XL) 10 MG 24 hr tablet Take 1 tablet (10 mg total) by mouth nightly. 30 tablet0 potassium citrate (UROCIT-K) 15 mEq TbER Take 15 mEq by mouth 2 (two) times daily. OBJECTIVE: There were no vitals taken for [...] Problems: There are no active Hospital Problems. Right sided renal calculi plan as above Admit Date: (Not on file) Length of Stay: 0 days. Discussed this case with: Time spent >30 minutes. Electronically signed by: Gareth Ray MD, 07/16/2024 at 12:52 PM documented in this encounter OR Notes * Op Note - Gareth Ray MD - 07/17/2024 4:06 PM EDT Operative/Procedure Note Toan Ureña Date of Surgery/Procedure: 07/17/2024 Pre-Procedure Diagnosis: Large right renal stone Post-Procedure Diagnosis: Same Procedure Performed: Cystoscopy with right retrograde pyelogram right flexible ureteroscopy and laser of large renal stones with right ureteral stent placement Surgeon(s) and Role: Surgeons and Role: * Gareth Ray MD - Primary Assistants: None Anesthesia/Sedation: GETA Specimens: None Estimated Blood Loss: None Blood Administered: None Grafts or Implants: 4.8 Chinese by 28 cm right ureteral stent with string attached Complications: None Condition: None Findings: After satisfactory general esthesia was carefully placed lithotomy. Pressure garments were placed and function at time of induction. The 21 Chinese cystoscopy sheath introduced under direct vision 30 degree lens. His urethra appeared normal and prostate nonobstructing. Upon in the bladder there is no bladder stones. 5 Chinese open-ended ureteral catheter was used to perform retrograde pyelography. His urethra was unremarkable without filling defects. He had somewhat of a bifid renal pelvis with filling defect in upper pole. I then passed a 0.035 sensor wire up the ureter to the upper pole moiety. The internal sheath of 01/10 ureteral access sheath 46 cm in length was advanced over the wire easily without resistance to the level of the upper pole. I then combated the access sheath and easily advanced into the renal pelvis. Flexible ureteroscope was then introduced. At the primarycalyx of the upper pole moiety calyx he had a large stone present at the neck. A 200 ??m fiber was used at low power and high-frequency to pulverize the stone into small material. He had branched back into calyx but all that was ultimately manipulated into the primary calyx where it was fragmented further. Adjacent calyces were inspected and additional fragmentation performed assessment and debris egressed into those locations. After this was completely treated which did take a significant amount of time the lower pole moiety was further inspected. There were small material present there which was fragmented. Scope was then slowly retracted down to the mid ureters no ureteral stones and along the access sheath. The sensor wire was then replaced and the stent placed over the wire with a nice coil in the kidney and: The bladder. Bladder was drained cystoscope removed. Screening string was secured to the penis with Tegaderm and Xylocaine gel instilled urethra. Will leave this string stent in place for at least 48 hours. He will follow-up with me in the [facility] clinic in approximately 3 weeks with a KUB. Gareth Ray MD 54:06 PM documented in this encounter Plan of Treatment Not on file documented as of this encounter Procedures Procedure Name Priority Date/Time Associated Diagnosis Comments FL < 1 HOUR Routine 07/17/2024 3:00 PM EDT CYSTOURETEROSCOPY , WITH RETROGRADE PYELOGRAM AND STENT INSERTION OR REMOVAL 07/17/2024 2:23 PM EDT Kidney stone Case Notes Right Ureteroscopy with Laser of Kidney Stones WY CYSTO W/URETEROSCOPY W/LITHOTRIPSY 07/17/2024 2:23 PM EDT Kidney stone Case Notes Right Ureteroscopy with Laser of Kidney Stones documented in this encounter Results * Fluoroscopy less than 1 hour (07/17/2024 3:00 PM EDT) Anatomical Region Laterality Modality X-Ray 07/18/2024 8:01 AM EDT Impressions 07/18/2024 8:40 AM EDT Please see postoperative report. Images reviewed, interpreted, and dictated by Dr. Kimani Roman. Transcribed by Evan Lucio PA-C. Narrative 07/18/2024 8:40 AM EDT FLUOROSCOPY WITH FILMS HISTORY: right renal litotripsy in OR Fluoroscopic guidance was provided under the direction of the clinical service for intraoperative procedure. 13 digital spot radiographs were obtained for retrograde evaluation with stent placement. Fluoroscopy time was 0.51 minutes. RADIATION DOSE: Reference air kerma 14 mGy. Procedure Note Kimani Roman DO - 07/18/2024 FLUOROSCOPY WITH FILMS HISTORY: right renal litotripsy in OR Fluoroscopic guidance was provided under the direction of the clinical service for intraoperative procedure. 13 digital spot radiographs were obtained for retrograde evaluation with stent placement. Fluoroscopy time was 0.51 minutes. RADIATION DOSE: Reference air kerma 14 mGy. IMPRESSION: Please see postoperative report. Images reviewed, interpreted, and dictated by Dr. Kimani Roman. Transcribed by Evan Lucio PA-C. Gareth Ray MD IMG FLUOROSCOPY ORDERABLES Fin [...] prn comments), mild symptomatic hypoglycemia,, Starting on Tue07/17/24 at 1237, Give for blood glucose 60-70 mg/dL if [...] low blood sugar, moderate hypoglycemia,, Starting on Tue07/17/24 at 1237, If patient is alert, give for blood [...] in prn comments), moderate hypoglycemia, Starting on Tue07/17/24 at 1237, If patient NPO and alert, give for blood glucose 45-59 mg/dL. Repeat as ordered until blood glucose above 80 mg/dL., Pre-op dextrose 50% (D50W) injection 25 g 25 g Every 15 min PRN (50 mL), intravenous, low blood glucose (specify value in prn comments), severe hypoglycemia, Starting on Tue07/17/24 at 1237, Give for blood glucose less than 45 mg/dL if patient unconscious or not alert. Repeat as ordered until blood glucose above 80 mg/dL., Pre-op electrolyte-R (NORMOSOL-R) infusion intravenous, Continuous, Starting on Tue07/17/24 at 1300, Pre-op Continued by Anesthesia 07/17/2024 2:23 PM EDT 100 mL/hr 100 mL/hr New Bag 07/17/2024 1:13 PM EDT 1,000 mLs famotidine (PEPCID) tablet 20 mg 20 mg Once, oral, On Tue07/17/24 at 1300, For 1 dose, Pharmacist to renally dose if CrCl is less than 50 mL/min or on CRRT., Pre-op Given 07/17/2024 12:57 PM EDT 20 mg glucagon injection 1 mg 1 mg Every 15 min PRN, intraMUSCULAR, low blood glucose (specify value in prn comments), severe hypoglycemia, Starting on Tue07/17/24 at 1237, If no IV access, give for blood [...] in prn comments), moderate hypoglycemia,, Starting on Tue07/17/24 at 1237, If patient is alert and glucose gel is unavailable, give for blood glucose 45-59 mg/dL. Repeat as ordered until blood glucose above 80 mg/dL., Pre-op sodium chloride flush 10 mL 10 mL As needed, intravenous, line care, Starting on Tue07/17/24 at 1237, Every 8 hours and PRN to flush, Pre-op documented in this encounter Active and Recently Administered Medications Times are shown in EDT. Scheduled Medication Order 07/15/2024 07/16/2024 07/17/2024 ceFAZolin (ANCEF) IVPB 2 g/50 mL D5W (premix) (COMPLETED) 2 g Once, intravenous, Administer over 30 Minutes, On Tue07/17/24 at 1400, For 1 dose, Administer within 60 minutes of incision or procedure start., Pre-op, Please choose an indication: Surgical Prophylaxis 1438 (Given - Provid er: Alden Hopkins CRNA)1609 (Anesthesia Volume Adjustment - Provider: Alden Hopkins CRNA) famotidine (PEPCID) tablet 20 mg (COMPLETED) 20 mg Once, oral, On Tue07/17/24 at 1300, For 1 dose, Pharmacist to renally dose if CrCl is less than 50 mL/min or on CRRT., Pre-op 1257 (Given - Provid er: Cynthia Jain RN) Continuous Medication Order 07/15/2024 07/16/2024 07/17/2024 electrolyte-R (NORMOSOL-R) infusion intravenous, Continuous, Starting on Tue07/17/24 at 1300, Pre-op 1313 (New Bag - Prov ider: Cynthia aJin RN)1423 (Continued by Anesthesia - Provider: Alden Hopkins CRNA)1609 (Anesthesia Volume Adjustment - Provider: Alden Hopkins CRNA) PRN Medication Order 07/15/2024 07/16/2024 07/17/2024 dextrose (GLUTOSE) 40 % gel 15 g 15 g Every 15 min PRN, oral, low blood glucose (specify value in prn comments), mild symptomatic hypoglycemia,, Starting on Tue07/17/24 at 1237, Give for blood glucose 60-70 mg/dL if [...] low blood sugar, moderate hypoglycemia,, Starting on Tue07/17/24 at 1237, If patient is alert, give for blood [...] in prn comments), moderate hypoglycemia, Starting on Tue07/17/24 at 1237, If patient NPO and alert, give for blood glucose 45-59 mg/dL. Repeat as ordered until blood glucose above 80 mg/dL., Pre-op dextrose 50% (D50W) injection 25 g(Linked Group 2) 25 g Every 15 min PRN (50 mL), intravenous, low blood glucose (specify value in prn comments), severe hypoglycemia, Starting on Tue07/17/24 at 1237, Give for blood glucose less than 45 mg/dL if patient unconscious or not alert. Repeat as ordered until blood glucose above 80 mg/dL., Pre-op glucagon injection 1 mg(Linked Group 2) 1 mg Every 15 min PRN, intraMUSCULAR, low blood glucose (specify value in prn comments), severe hypoglycemia, Starting on Tue07/17/24 at 1237, If no IV access, give for blood [...] in prn comments), moderate hypoglycemia,, Starting on Tue07/17/24 at 1237, If patient is alert and glucose gel is unavailable, give for blood glucose 45-59 mg/dL. Repeat as ordered until blood glucose above 80 mg/dL., Pre-op iopamidoL (ISOVUE-300) 300 mg iodine /mL (61 %) injection (CANCELED) As needed, Starting on Tue07/17/24 at 1528, Intra-op 1528 (Given - Provid er: Gareth Ray MD - Comment: for use on sterile field) lidocaine (UROJET, GLYDO) 2 % jelly (CANCELED) As needed, Starting on Tue07/17/24 at 1529, Intra-op 1529 (Given - Provid er: Gareth Ray MD - Comment: for use on sterile field) sodium chloride flush 10 mL(Linked Group 3) 10 mL As needed, intravenous, line care, Starting on Tue07/17/24 at 1237, Every 8 hours and PRN to flush, Pre-op Linked Groups Order Group 1: dextrose (GLUTOSE) 40 % gel 20 gJump to med 20 g Every 15 min PRN, oral, low blood glucose (specify value in prn comments), low blood sugar, moderate hypoglycemia,, Starting on Tue07/17/24 at 1237, If patient is alert, give for blood [...] in prn comments), moderate hypoglycemia,, Starting on Tue07/17/24 at 1237, If patient is alert and glucose gel is unavailable, give for blood glucose 45-59 mg/dL. Repeat as ordered until blood glucose above 80 mg/dL., Pre-op Or dextrose 50% (D50W) injection 12.5 gJump to med 12.5 g Every 15 min PRN (25 mL), intravenous, low blood glucose (specify value in prn comments), moderate hypoglycemia, Starting on Tue07/17/24 at 1237, If patient NPO and alert, give for blood glucose 45-59 mg/dL. Repeat as ordered until blood glucose above 80 mg/dL., Pre-op Group 2: dextrose 50% (D50W) injection 25 gJump to med 25 g Every 15 min PRN (50 mL), intravenous, low blood glucose (specify value in prn comments), severe hypoglycemia, Starting on Tue07/17/24 at 1237, Give for blood glucose less than 45 mg/dL if patient unconscious or not alert. Repeat as ordered until blood glucose above 80 mg/dL., Pre-op Or glucagon injection 1 mgJump to med 1 mg Every 15 min PRN, intraMUSCULAR, low blood glucose (specify value in prn comments), severe hypoglycemia, Starting on Tue07/17/24 at 1237, If no IV access, give for blood glucose less than 45 mg/dL if patient unconscious or not alert. Caution: glucagon can cause nausea and vomiting. Roll patient on their side when administering to prevent aspiration. If repeat blood glucose (15 minutes after administration) is 80 mg/dL or below, administer second dose of 1 mg glucagon IM and contact the ordering provider., Pre-op Group 3: Insert Peripheral IV (CANCELED) STAT, Once, On Tue07/17/24 at 1238, For 1 occurrence, Pre-op And Saline Lock IV (CANCELED) Routine, Once, On Tue07/17/24 at 1238, For 1 occurrence, Pre-op And sodium chloride flush 10 mLJump to med 10 mL As needed, intravenous, line care, Starting on Tue07/17/24 at 1237, Every 8 hours and PRN to flush, Pre-op documented in this encounter Care Teams Assessor Relationship Specialty Start Date End Date Kj Madrid MD [address] [place] [address] PCP - General Adolescent Medicine 01/09/24 documented as of this encounter
--- OUTSIDE RECORDS SUMMARY | 2024-07-17 14:23 | XMS_ITS | Encounter Summary ---
Author Organization [facility] In iatives Address [address] [address] Care Team Providers Care Human Machine Interface Engineer Name Role Phone Kj Madrid MD Primary Care Provider + [phone] Reason for Visit * Auth/Cert (Routine) Specialty Diagnoses / Procedures Referred By Contac t Referred To Contact Diagnoses Kidney stone Kidney Stone Procedures [place] CYSTO W/URETEROSCOPY W/LITHOTRIPSY CYSTOURETEROSCOPY, WITH LASER LITHOTRIPSY [facility] Surgery Department [address] [place] [phone] Phone: tel: fax: [facility] Surgery Department [address] [place] [address] Phone: tel: fax: Referral ID Status Reason Start Date Expiration Date Visits Re quested Visits Authorized [id number] 1 1 Encounter Details Date Type Department Care Team (Late st Contact Info) Description 07/17/2024 2:23 PM EDT Anesthesia Event [facility] Department [address] [place] [address] Alden Hopkins CRNA [address] [place] [address] Kentrell Callaway MD [address] [place], [place] [id number] Anesthesia Record Procedure Summary Procedure Name Responsible Anesthesiologist Anesthesia Start Time Anesthesia Stop Time CYSTOURETEROSCOPY, WITH LASER LITHOTRIPSY (Right) Alden Hopkins, SUPPORT DIRECTOR 07/17/24 1423 07/17/24 1611 Events Date Time Event Comment 07/17/2024 1423 An Start Patient identif ied and chart reviewed. 1423 An Start Data Anesthesia mac yoav and monitors checked. 1427 Pre-Induction Eval FDA anest hesia machine pre-use checkout completed. Patient status reassessed prior to start of anesthesia care. 1427 An Induction 1431 An Intubation 1437 Anesthesia Ready 1604 An Extubation 1604 an stop data 1607 Handoff to Receiving I compl eted my handoff to the receiving clinician during which we: 1. Identified the patient. 2. Identified the responsible provider. 3. Reviewed the pertinent medical history. 4. Discussed the surgical course. 5. Reviewed intra-op anesthesia management and issues during anesthesia. 6. Set expectations for post-procedure period. 7. Allowed opportunity for questions and acknowledgement of understanding. 1611 An Stop Meds Name Total dexamethasone (DECADRON) injection 4 mg/ mL 4 mg fentaNYL (SUBLIMAZE) injection 150 mcg lidocaine (XYLOCAINE) injection 2% 100 m g midazolam (VERSED) injection 1 mg/ mL 2 mg ondansetron (ZOFRAN) injection vial 4 mg propofol (DIPRIVAN) injection 10 mg/mL b olus 200 mg ceFAZolin (ANCEF) IVPB 2 g/50 mL D5W (pr emix) 2 g electrolyte-R (NORMOSOL-R) infusion 180 mL * Agents Name O2 N2O Air SEVOFLURANE * Blood No blood administrations on file. Lines, Drains, and Airways Type Details Placement Removal Ureteral Drain/Stent 07/17/24; 1554; Internal; Right ureter; 6 Fr. (6 Fr x 28); external string attached to penis with mastisol and tegaderm 07/17/24 1554 by Anushka Paz 07/17/24; 1612; Incision; Penis; Not applicable 07/17/24 1612 by Anushka Paz 02/02/24; 1325; Incision; Back; Left; 07/17/24; 1449; Unknown (not present on arrival to OR) 02/02/24 1325 by Nkechi Hawkins RN 07/17/24 1449 by Anushka Lopez Wound 04/03/24; 0935; Incision; Perineum; Not applicable; 07/17/24; 1449; Unknown (not present on arrival to OR) 04/03/24 0935 by Libra Maxwell RN 07/17/24 1449 by Anushka Lopez Wound 06/25/24; 1428; Incision; Penis; Not applicable; STENT STRING SECURED WIT TEGADERM; 07/17/24; 1449; Unknown (not present on arrival to OR) 06/25/24 1428 by Sarah Garza RN 07/17/24 1449 by Anushka Lopez Peripheral IV Placement Date: 07/17/24; Placement Time: 1313; Size: 22 G; Orientation: Left, Posterior; Location: Hand; Site Prep: Chlorhexidine ; Insertion attempts: 2; Securement Method: Taped; Removal Date: 07/23/24; Removal Time: 0935 07/17/24 1313 by Cynthia Jain RN 07/23/24 0935 by Automatic Discharge Provider ETT Placement Date 07/17; Placement Time 1431 (created via procedure documentation); Removal Date 07/17/24; Removal Time 1604 07/17/24 1431 by Alden Hopkins CRNA 07/17/24 1604 by Alden Hopkins CRNA documented in this encounter Social History Tobacco Use Types Packs/Day Years Used Date Smoking Tobacco: Every Day Cigarettes Smokeless Tobacco: Current Comments:vapes Alcohol Use Standard Drinks/Week Comments Yes 0 (1 standard drink = 0.6 oz pur e alcohol) Utilities Answer Date Recorded In the past 12 months, has t he [employer], gas, oil, or water [employer] threatened to shut off services in your [...] living situation today? I [place] [facility] to live 02/02/2024 Think about the [...] Do you speak a language other than Mauritanian at [facility]? No 02/02/2024 Do you want help [...] OR Notes * Anesthesia Postprocedure Evaluation - Alden Hopkins CRNA - 07/17/2024 4:10 PM EDT Patient: Toan Ureña Procedure Summary Date: 07/17/24 Room / Location: [facility] OR [facility] OPERATING ROOM Anesthesia Start: 1423 Anesthesia Stop: Procedures: CYSTOURETEROSCOPY, WITH LASER LITHOTRIPSY (Right) CYSTOURETEROSCOPY, WITH RETROGRADE PYELOGRAM AND STENT INSERTION OR REMOVAL Diagnosis: Kidney stone (Kidney Stone) Surgeons: Gareth Ray MD Responsible Provider: Alden Hopkins CRNA Anesthesia Type: general ASA Status: 3 Anesthesia Type: general Vitals Value Taken Time BP 128/72 07/17/24 1610 Temp 97.8 07/17/24 1610 Pulse 93 07/17/24 1609 Resp 26 07/17/24 1609 SpO2 94 07/17/24 1610 Vitals shown include unfiled device data. Ht 1.956 m (6' 5 ) Wt 108.9 kg (240 lb) BMI 28.46 kg/m?? Anesthesia Post Evaluation Patient location during evaluation: PACU Patient participation: complete - patient participated Level of consciousness: awake Pain management: adequate Multimodal analgesia pain management approach Airway patency: patent Cardiovascular status: stable Respiratory status: room air Hydration status: stable Color: [place] Activity: Moves 4 extremities Inotropes/Vasopressors: N/A No notable events documented. Alden Hopkins CRNA 07/17/2024 4:10 PM EDT * Anesthesia Procedure Notes - Alden Hopkins CRNA - 07/17/2024 2:39 PM EDTAssociated Order(s): Intubation Intubation Authorized by: Alden Hopkins CRNA Performed by: Alden Hopkins CRNA Date/Time: 07/17/2024 2:31 PM Urgency: elective Indications and Patient Condition Indications for airway management: anesthesia and airway protection Spontaneous Ventilation: absent Sedation level: general anesthesia Preoxygenated: yes Patient position: sniffing no Mask difficulty assessment: 0 - not attempted no Final Airway Details Final airway type: supraglottic airway Size: 5 Number of attempts at approach: 1 Number of other approaches attempted: 0 * Anesthesia Preprocedure Evaluation - Kareem Cruz MD - 07/17/2024 1:02 PM EDT Anesthesia Pre Evaluation Mr. Toan Ureña is a 53 y.o. male being evaluated for the following: Date/Time: 07/17/241514 Procedure: CYSTOURETEROSCOPY, WITH LASER LITHOTRIPSY (Right) Location: [facility] OR OPERATING ROOM Surgeons: Gareth Ray MD No Known Allergies Current Outpatient Medications Medication Instructions allopurinoL (ZYLOPRIM) 300 mg, Daily cariprazine (VRAYLAR) 3 mg, Daily folic acid (FOLVITE) 1 mg, Daily lisinopriL (ZESTRIL) 20 mg, Daily losartan (COZAAR) 100 mg, Daily metoprolol succinate (TOPROL-XL) 25 mg, Daily nitrofurantoin, macrocrystal-monohydrate, (MACROBID) 100 MG capsule 100 mg, oral, 2 times daily with breakfast and dinner nitrofurantoin, macrocrystal-monohydrate, (MACROBID) 100 MG capsule 100 mg, oral, 2 times daily with breakfast and dinner nitrofurantoin, macrocrystal-monohydrate, (MACROBID) 100 MG capsule 100 mg, oral, 2 times daily with breakfast and dinner oxybutynin (DITROPAN-XL) 10 mg, oral, Every Night potassium citrate (UROCIT-K) 15 mEq TbER 15 mEq, 2 times daily propranoloL (INDERAL) 40 mg, 3 times daily Past Surgical History: Procedure Laterality Date bicep surgery Right CYSTOSCOPY,INSERTION URETERAL STENTS Left 06/25/2024 Procedure: CYSTOSCOPY, WITH URETERAL STENT INSERTION; Surgeon: Gareth Ray MD; Location: [facility] OR; Service: Urology; Laterality: Left; CYSTOSCOPY,REMOVAL URETERAL STENTS Left 04/03/2024 Procedure: CYSTOSCOPY, WITH URETERAL STENT REMOVAL; Surgeon: Gareth Ray MD; Location: [facility] OR;Service: Urology; Laterality: Left; left ureteral stent removal CYSTOSCOPY,URETEROSCOPY W/ LASER LITHOTRIPSY Left 06/25/2024 Procedure: CYSTOURETEROSCOPY, WITH LASER LITHOTRIPSY; Surgeon: Gareth Ray MD; Location: [facility] OR; Service: Urology; Laterality: Left; FOOT SURGERY Right metal adelita in right metatarsal HERNIA REPAIR KIDNEY STONE SURGERY LITHOTRIPSY,EXTRACORPOREAL SHOCK WAVE (ESWL) Left 04/03/2024 Procedure: LITHOTRIPSY,EXTRACORPOREAL SHOCK WAVE (ESWL); Surgeon: Gareth Ray MD; Location: [facility] OR; Service: Urology; Laterality: Left; ESWL CONF [id number] SPOKE TO ASHELY LYMPHADENECTOMY Right kidney NEPHRECTOMY Right Relevant Problems ANESTHESIA (+) Obstructive sleep apnea syndrome CARDIOVASCULAR (+) CAD (coronary artery disease) (+) Essential hypertension /RENAL (+) CKD (chronic kidney disease) stage 3, GFR 30-59 ml/min (HCC) (+) Renal cell cancer (HCC) (+) Renal stone RESPIRATORY SYSTEM (+) Chronic obstructive pulmonary disease (HCC) (+) Smoker Clinical information reviewed: NPO Status No data recorded Physical Exam Airway Mallampati: II TM distance: >3 FB Neck ROM: full Cardiovascular Rhythm: regular Rate: normal Dental Pulmonary (+) wheezes Abdominal Other findings: Chronic wheezing secondary to seasonal weather and smoking Anesthesia Plan ASA 3 Planned anesthetic: general (Coughing in preop: chronic cough exacerbated by spring) Anesthesia Plan Factors- The patient is a current smoker. Induction: intravenous Informed Consent- Anesthetic plan and risks discussed with patient. Plan discussed with SUPPORT DIRECTOR. documented in this encounter Plan of Treatment Not on file documented as of this encounter Procedures Procedure Name Priority Date/Time Associated Diagnosis Comments ANESTHESIA INTUBATION Routine 07/17/2024 2:31 PM EDT documented in this encounter Results * AN SINGLE LUMEN INTUBATION (07/17/2024 2:31 PM EDT) Alden Thomas CRNA - 07/17/2024 2:31 PM EDT Alden Hopkins CRNA 07/17/2024 2:39 PM Intubation Authorized by: Alden Hopkins CRNA Performed by: Alden Hopkins CRNA Date/Time: 07/17/2024 2:31 PM Urgency: elective Indications and Patient Condition Indications for airway management: anesthesia and airway protection Spontaneous Ventilation: absent Sedation level: general anesthesia Preoxygenated: yes Patient position: sniffing no Mask difficulty assessment: 0 - not attempted no Final Airway Details Final airway type: supraglottic airway Size: 5 Number of attempts at approach: 1 Number of other approaches attempted: 0 Alden Hopkins CRNA ANESTHESIA ORDERABLES Final Result documented in this encounter Visit Diagnoses Not on filedocumented in this encounter Administered Medications Inactive Administered Medications - up to 3 most recent administrations Medication Order MAR Action Action Date Dose Rate Site ceFAZolin (ANCEF) IVPB 2 g/50 mL D5W (premix) 2 g Once, intravenous, Administer over 30 Minutes, On Tue07/17/24 at 1400, For 1 dose, Administer within 60 minutes of incision or procedure start., Pre-op, Please choose an indication: Surgical Prophylaxis Given 07/17/2024 2:38 PM EDT 2 g dexAMETHasone (DECADRON) injection As needed, intravenous, Starting on Tue07/17/24 at 1435, Anesthesia Intra-op Given 07/17/2024 2:35 PM EDT 4 mg electrolyte-R (NORMOSOL-R) infusion intravenous, Continuous, Starting on Tue07/17/24 at 1300, Pre-op Continued by Anesthesia 07/17/2024 2:23 PM EDT 100 mL/hr 100 mL/hr New Bag 07/17/2024 1:13 PM EDT 1,000 mLs fentaNYL PF (SUBLIMAZE) injection As needed, intravenous, Starting on e 07/17/24 at 1436, Anesthesia Intra-op Given 07/17/2024 3:57 PM EDT 50 mcg Given 07/17/2024 2:41 PM EDT 50 mcg Given 07/17/2024 2:36 PM EDT 50 mcg lidocaine (XYLOCAINE) injection 2% As needed, intravenous, Starting on Tue07/17/24 at 1427, Anesthesia Intra-op Given 07/17/2024 2:27 PM EDT 100 mg midazolam (VERSED) injection As needed, intravenous, Starting on Tue07/17/24 at 1424, Anesthesia Intra-op Given 07/17/2024 2:24 PM EDT 2 mg ondansetron (ZOFRAN) injection As needed, intravenous, Starting on Tue07/17/24 at 1440, Anesthesia Intra-op Given 07/17/2024 2:40 PM EDT 4 mg propofol (DIPRIVAN) injection 10 mg/mL bolus As needed, intravenous, Starting on Tue07/17/24 at 1427, Anesthesia Intra-op Given 07/17/2024 2:27 PM EDT 200 mg documented in this encounter Care Teams Human Machine Interface Engineer Relationship Specialty Start Date End Date Kj Madrid MD [address] [place] [id number] PCP - General Adolescent Medicine 01/09/24 documented as of this encounter
--- OUTSIDE RECORDS SUMMARY | 2024-07-17 15:15 | XMS_ITS | Encounter Summary ---
Author Organization [facility] Address [address] [place] [address] Care Team Providers Care Timber Spotter Name Role Phone Kj Madrid MD Primary Care Provider + [phone] Reason for Visit * Auth/Cert (Routine) Specialty Diagnoses / Procedures Referred By Contac t Referred To Contact Diagnoses Kidney stone Kidney Stone Procedures [place] CYSTO W/URETEROSCOPY W/LITHOTRIPSY CYSTOURETEROSCOPY, WITH LASER LITHOTRIPSY [facility] Surgery Department [address] [place] [phone] Phone: tel: fax: [facility] Surgery Department [address] [place] [phone] Phone: tel: fax: Referral ID Status Reason Start Date Expiration Date Visits Re quested Visits Authorized [id number] 1 1 Encounter Details Date Type Department Care Team (Late st Contact Info) Description 07/17/2024 3:15 PM EDT - 07/17/2024 4:44 PM EDT Surgery [facility] Surgery Department [address] [place] [phone] Gareth Ray MD [address] [place] [address] [address] [place] [address] CYSTOURETEROSCOPY, WITH LASER LITHOTRIPSY Social History Tobacco [...] your living situation today? I have a [facility] place to live 02/02/2024 Think [...] Do you speak a language other than [place] [facility]? No 02/02/2024 Do you want help with [...] Everywhere. * General Anesthesia Adult Care After (Nicaraguan) * Laser Therapy for Kidney Stones Care After ([place]icaraguan) documented in this encounter Medications at Time [...] kidney disease) stage 3, GFR 30-59 ml/min ([facility]) 10/16/2021 Essential hypertension 10/16/2021 Primary gout 10/16/2021 Obesity (BMI 30-39.9) 10/16/2021 Obstructive sleep apnea syndrome 10/16/2021 Tobacco abuse 10/16/2021 Past Surgical History: Procedure Laterality Date bicep surgery Right CYSTOSCOPY,INSERTION URETERAL STENTS Left 06/25/2024 Procedure: CYSTOSCOPY, WITH URETERAL STENT INSERTION; Surgeon: Gareth Ray MD; Location: [facility]; Service: Urology; Laterality: Left; CYSTOSCOPY,REMOVAL URETERAL STENTS Left 04/03/2024 Procedure: CYSTOSCOPY, WITH URETERAL STENT REMOVAL; Surgeon: Gareth Ray MD; Location: [facility] OR;Service: Urology; Laterality: Left; left ureteral stent removal CYSTOSCOPY,URETEROSCOPY W/ LASER LITHOTRIPSY Left 06/25/2024 Procedure: CYSTOURETEROSCOPY, WITH LASER LITHOTRIPSY; Surgeon: Gareth Ray MD; Location: [facility] OR; Service: Urology; Laterality: Left; FOOT SURGERY Right metal adelita in right metatarsal HERNIA REPAIR KIDNEY STONE SURGERY LITHOTRIPSY,EXTRACORPOREAL SHOCK WAVE (ESWL) Left 04/03/2024 Procedure: LITHOTRIPSY,EXTRACORPOREAL SHOCK WAVE (ESWL); Surgeon: Gareth Ray MD; Location: [facility]; Service: Urology; Laterality: Left; ESWL CONF [id number] SPOKE TO ASHELY LYMPHADENECTOMY Right kidney NEPHRECTOMY [...] kidney disease) stage 3, GFR 30-59 ml/min ([facility]) 10/16/2021 Essential hypertension 10/16/2021 Primary gout 10/16/2021 Obesity (BMI 30-39.9) 10/16/2021 Obstructive sleep apnea syndrome 10/16/2021 Tobacco abuse 10/16/2021 Past Surgical History: Procedure Laterality Date bicep surgery Right CYSTOSCOPY,INSERTION URETERAL STENTS Left 06/25/2024 Procedure: CYSTOSCOPY, WITH URETERAL STENT INSERTION; Surgeon: Gareth Ray MD; Location: [facility]; Service: Urology; Laterality: Left; CYSTOSCOPY,REMOVAL URETERAL STENTS Left 04/03/2024 Procedure: CYSTOSCOPY, WITH URETERAL STENT REMOVAL; Surgeon: Gareth Ray MD; Location: [facility];Service: Urology; Laterality: Left; left ureteral stent removal CYSTOSCOPY,URETEROSCOPY W/ LASER LITHOTRIPSY Left 06/25/2024 Procedure: CYSTOURETEROSCOPY, WITH LASER LITHOTRIPSY; Surgeon: Gareth Ray MD; Location: [facility] OR; Service: Urology; Laterality: Left; FOOT SURGERY Right metal adelita in right metatarsal HERNIA REPAIR KIDNEY STONE SURGERY LITHOTRIPSY,EXTRACORPOREAL SHOCK WAVE (ESWL) Left 04/03/2024 Procedure: LITHOTRIPSY,EXTRACORPOREAL SHOCK WAVE (ESWL); Surgeon: Gareth Ray MD; Location: [facility] OR; Service: Urology; Laterality: Left; ESWL CONF [id number] SPOKE TO ASHELY LYMPHADENECTOMY Right kidney NEPHRECTOMY [...] Blood Administered: None Grafts or Implants: 4.8 [place] Islander by 28 cm right ureteral stent with string attached Complications: None Condition: None Findings: After satisfactory general esthesia was carefully placed lithotomy. Pressure garments were placed and function at time of induction. The 21 [place]er cystoscopy sheath introduced under direct vision 30 degree lens. His urethra appeared normal and prostate nonobstructing. Upon in the bladder there is no bladder stones. 5 [place]er open-ended ureteral catheter was used to perform [...] Right Ureteroscopy with Laser of Kidney Stones [place] CYSTO W/URETEROSCOPY W/LITHOTRIPSY 07/17/2024 2:23 PM EDT [...] air kerma 14 mGy. Procedure Note Kimani Roman, - 07/18/2024 FLUOROSCOPY WITH FILMS HISTORY: right [...] Hopkins CRNA)1609 (Anesthesia Volume Adjustment - Provider: Aldne Hopkins CRNA) famotidine (PEPCID) tablet 20 mg [...] Pre-op documented in this encounter Care Teams Timber Spotter Relationship Specialty Start Date End Date Kj Madrid MD [address] [place] [address] PCP - General Adolescent Medicine 01/09/24 documented as of this encounter
--- OUTSIDE RECORDS SUMMARY | 2024-08-13 14:05 | XMS_ITS ---
Author Organization [facility] Address [address] [place] [address] Care Team Providers Care Single Spindle Screw Machine Operator Name Role Phone Kj Madrid MD Primary Care Provider Active Problems Problem Noted Date Diagnosed Date [...]
--- OUTSIDE RECORDS SUMMARY | 2024-08-13 14:05 | XMS_ITS | Clinical Summary ---
Author Organization [facility] Address [address] [place] [address] Care Team Providers Care Finishing Range Feeder Name Role Phone Kj Madrid MD Primary Care Provider [phone] Allergies No known active allergies Medications budesonide-form [...] 05/23/2024 Orders Only [facility] [address] [place] [phone] Robby Brown MD Renal cell carcinoma of left kidney (CMS/HCC) (Primary Dx) from Last 3 Months Immunizations Immunization Administration Dates Next Due Tdap 03/23/2024 Family History Medical History Relation Name Comments Cataracts Father Relation Name Status Comments Father Social History Tobacco Use Types Packs/Day Years Used Date Smoking Tobacco: Every Day Cigarettes 0.5 41.5 Started: 02/28/1983 Cigars Passive Smoke Exposure: Current [...] any time in the past 12 m [facility], were you homeless or living in a group home (including now)? No 03/26/2024 CAGE ASSESSMENT Answer [...] drink first t sterling in the morning (EYE-LATHE MACHINE OPERATOR) to steady your nerves or to get [...] Last Done Comments [facility]-Infant/Child/Adol SDOH Screenings 1971 [id number] Vaccine (#1) 12/14/1976 [facility]-Hepatitis B Vaccines (1 [...] Reactive Non Reactive 03/23/2024 11:22 AM EST [facility][1] Comment:Screening for HIV 1 & 2 antibodies, and P24 antigen is NONREACTIVE. No confirmatory testing is required. Blood Venous blood specimen / Unknown Venipuncture / Unknown 03/23/2024 10:25 AM EST 03/23/2024 10:38 AM EST Robbni [facility] BLOOD ORDERABLES Final Re sult Performing Organization Address City/[facility]/[place] [address] * Hepatitis C Antibody - ED (03/23/2024 10:25 AM EST) Pathologist [facility] Hepatitis C Antibody Negative Negative 03/23/2024 11:22 AM EST [facility][1] Blood Venous blood specimen / Unknown Venipuncture / Unknown 03/23/2024 10:25 AM EST 03/23/2024 10:38 AM EST Robbin [facility] BLOOD ORDERABLES Final Re sult Performing Organization Address City/[facility] [place] [address] * CT Chest w IV Contrast (09/03/2022 [...] Proceduralist Nnamdi Vera MD Anesthesiologist Laura Figueredo, OIL BURNER MECHANIC OIL BURNER MECHANIC, No role selected Unknown Endo Nurse 1 [...] of bowel preparation was evaluated using the [facility] Bowel Preparation Scale with scores of: right [...] Patient has decision-making capacity? Yes Care Teams Finishing Range Feeder Relationship Specialty Start Date End Date Kj Madrid MD [address] [place] [address] PCP - General Internal Medicine 09/17/21
--- OUTSIDE RECORDS SUMMARY | 2024-08-13 14:07 | XMS_ITS | Referral Summary ---
Author Organization [facility] Address [address] [place] [address] Care Team Providers Care Technology Solutions Architect Name Role Phone Kj Madrid MD Primary Care Provider [phone] Encounters Date Type Department Care Team Description 07/19/2024 Orders Only [facility] Urology - [address] [place] [address] Gareth Ray MD Ureteral calculus, right (Primary Dx) 07/19/2024 Telephone [facility] Urology - [address] [place] [address] Gareth Ray MD Appointment 07/17/2024 Travel 07/17/2024 3:15 PM EDT - 07/17/2024 4:44 PM EDT Surgery [facility] Surgery Department [address] [place] [phone] Gareth Ray MD CYSTOURETEROSCOPY, WITH LASER LITHOTRIPSY 07/17/2024 2:23 PM EDT Anesthesia Event [facility] Surgery Department [address] [place] [address] Alden Hopkins, Kentrell Gracia MD 07/17/2024 12:09 PM EDT - 07/17/2024 5:15 PM EDT Hospital Encounter [facility] Surgery Department [address] [place] [address] Gareth Ray MD Discharge Disposition: Home or Self Care 06/29/2024 Orders Only [facility] Urology - [address] [place] [address] Gareth Ray MD 06/25/2024 Travel 06/25/2024 11:33 AM EDT - 06/25/2024 1:02 PM EDT Surgery [facility] Surgery Department [address] [place] [address] Gareth Ray MD CYSTOURETEROSCOPY, WITH LASER LITHOTRIPSY 06/25/2024 1:27 PM EDT Anesthesia Event [facility] Surgery Department [address] [place] [address] Joyce Mcfarlane CRNA Zarth, Matthew Tyler, MD 06/25/2024 9:17 AM EDT - 06/25/2024 4:32 PM EDT Hospital Encounter [facility] Surgery Department [address] [place] [address] Gareth Ray MD Discharge Disposition: Home or Self Care 06/19/2024 Telephone [facility] Urology - [facility] [address] [place] [address] Gareth Ray MD Advice Only (Pt left 2 voicemails wanting to speak with someone. I called back, he didn't answer and the voicemail has not been set up. ) 06/18/2024 Documentation [facility] Urology - [address] [place] [address] Gareth Ray MD 06/13/2024 Orders Only [facility] Urology - [address] [place] [address] Gareth Ray MD Erectile disorder (Primary Dx); Left ureteral stone 06/04/2024 Documentation [facility] - [address] [facility] [address] [place] [address] Gareth Ray MD 06/04/2024 [facility]phone [facility] [address] [facility] [address] [place] [address] Gareth Ray MD Follow-up (Trying to reach patient about scheduling his CT ) 05/25/[address] [facility] [address] [facility] [address] [place] [address] Gareth Ray MD Appointment (05/25/24 2:35pm: Spoke with pt and told him he needs to contact [facility] to schedule his CT. He said he would call today) 05/25/[address] [place] [address] Gareth Ray MD Appointment (I called [facility] to see if Mr. Ureña ever scheduled his CT. They said they tried to call him 3 days in a row and he never called back. They have also sent him a letter, with no response. I faxed the Order and Pre Auth 05/14/24. ) 05/25/[address] [facility] [address] [facility] [address] [place] [address] Gareth Ray MD Abdominal pain, unspecified abdominal location (Primary Dx) 05/14/[address] [facility] [address] [facility] [address] [place] [address] Gareth Ray MD Ureteral calculus, right (Primary Dx) from Last 3 Months Allergies No known active allergies Medications allopurinoL (ZYLOPRIM) 300 MG tablet Take 1 tablet (300 mg total) by mouth daily. Active losartan (COZAAR) 100 MG tablet 1 tablet (100 mg total) daily. Active metoprolol succinate (TOPROL-XL) 25 MG 24 hr tablet Take 1 tablet (25 mg total) by mouth daily. Active potassium citrate (UROCIT-K) 15 mEq TbER Take 15 mEq by mouth 2 (two) times daily. Active nitrofurantoin , macrocrystal-m onohydrate, (MACROBID) 100 MG capsuleIndicat ions:bacterial urinary tract infection Take 1 capsule (100 mg total) by mouth 2 (two) times daily with breakfast and dinner. 20 capsule 4 Active oxybutynin (DITROPAN-XL) 10 MG 24 hr tablet Take 1 tablet (10 mg total) by mouth nightly. 30 tablet 5 06/26/19 26 Active propranoloL (INDERAL) 40 MG tablet Take 1 tablet (40 mg total) by mouth 3 (three) times daily. Active lisinopriL (ZESTRIL) 20 MG tablet Take 1 tablet (20 mg total) by mouth daily. Active folic acid (FOLVITE) 1 MG tablet Take 1 tablet (1 mg total) by mouth daily. Active cariprazine (Vraylar) 3 mg capsule Take 1 capsule (3 mg total) by mouth daily. Active nitrofurantoin , macrocrystal-m onohydrate, (MACROBID) 100 MG capsule Take 1 capsule (100 mg total) by mouth 2 (two) times daily with breakfast and dinner. 30 capsule 5 Active nitrofurantoin , macrocrystal-m onohydrate, (MACROBID) 100 MG capsule Take 1 capsule (100 mg total) by mouth 2 (two) times daily with breakfast and dinner. 30 capsule 5 Active nitrofurantoin , macrocrystal-m onohydrate, (MACROBID) 100 MG capsule Take 1 capsule (100 mg total) by mouth 2 (two) times daily with breakfast and dinner. 30 capsule 5 07/18/19 25 Discontinue d(Stop Taking at Discharge) nitrofurantoin , macrocrystal-m onohydrate, (MACROBID) 100 MG capsule Take 1 capsule (100 mg total) by mouth 2 (two) times daily with breakfast and dinner. 30 capsule 5 07/18/19 25 Discontinue d(Stop Taking at Discharge) HYDROcodone-ac etaminophen (NORCO) 7.5-325 mg per tablet Take 1 tablet by mouth every 6 (six) hours as needed for up to 10 days. Max Daily Amount: 4 tablets 30 tablet 5 07/28/19 25 ondansetron (ZOFRAN) 4 MG tablet Take 1 tablet (4 mg total) by mouth 2 (two) times daily as needed for up to 15 days. 30 tablet 5 08/02/19 25 Active Problems Problem Noted Date Diagnosed Date Smoker 06/25/2024 CAD (coronary artery disease) 06/25/2024 Renal stone 01/09/2024 Renal cell cancer 11/18/2021 Chronic obstructive pulmonary disease 10/16/2021 CKD (chronic kidney disease) stage 3, GFR 30-59 ml/min 10/16/2021 Essential hypertension 10/16/2021 Primary gout 10/16/2021 Obesity (BMI 30-39.9) 10/16/2021 Obstructive sleep apnea syndrome 10/16/2021 Tobacco abuse 10/16/2021 Social History Tobacco Use Types Packs/Day Years Used Date Smoking Tobacco: Every Day Cigarettes Smokeless Tobacco: Current Tobacco Cessation:Ready to Q uit: Not Asked; Counseling Given: Not Answered Comments:vapes Alcohol Use Standard Drinks/Week Comments Yes [...] you? Never 02/02/2024 How often does anyone, dakotaberna ashley family and friends, insult or talk down to you? Never 02/02/2024 How often does anyone, dakotaberna ashley family and friends, threaten you with [...] Do you speak a language other than Malay at [facility]? No 02/02/2024 Do you want help [...] on file Sexual Orientation Not on file Last Filed Vital Signs Vital Sign Reading [...] Mass Index 28.46 07/16/2024 2:00 PM EDT Plan of Treatment Not on file Medical Devices Implanted Type Area Safety Glass Installer Device Identifier Shelf Expiration Date Model / Serial / Lot Stent Uret Braid + [id number] - [id number] Implanted:Qty : 1 on 01/09/2024 by Gareth Ray MD at [facility] IMPLANTS Right: Ureter [employer] 04/10/2026 [id number] / / [id number] Stent Uret Percflx + [id number] - [id number] Implanted:Qty : 1 on 06/25/2024 by Gareth Ray MD at [facility] IMPLANTS Left: Ureter [employer] [id number] 10/30/2026 [id number] 40 / / [id number] Stent Uret Fader Tip [id number] - [id number] Implanted:Qty : 1 on 07/17/2024 by Gareth Ray MD at [facility] IMPLANTS Right: Ureter [employer] [id number] 02/07/2027 [id number] 40 / / [id number] Explanted Type Area Safety Glass Installer Device Identifier Shelf Expiration Date Model / Serial / Lot Cath Uret Pillo 5fr [id number] - [id number] Implanted:Gareth Jaramillo MD (Quantity not on file) Explanted:Qty: 1 on 07/17/2024 at [facility] Right: Ureter COOK:UROLOGY [id number] / / N/A Procedures Procedure Name Priority Date/Time Associated Diagnosis Comments FL < 1 HOUR Routine 07/17/2024 3:00 PM EDT ANESTHESIA INTUBATION Routine 07/17/2024 2:31 PM EDT CYSTOURETEROSCOPY , WITH RETROGRADE PYELOGRAM AND STENT INSERTION OR REMOVAL 07/17/2024 2:23 PM EDT Kidney stone Case Notes Right Ureteroscopy with Laser of Kidney Stones [place] CYSTO W/URETEROSCOPY W/LITHOTRIPSY 07/17/2024 2:23 PM EDT Kidney stone Case Notes Right Ureteroscopy with Laser of Kidney Stones FL < 1 HOUR Routine 06/25/2024 2:30 PM EDT ANESTHESIA INTUBATION Routine 06/25/2024 1:31 PM EDT UT CYSTO W/INSERT URETERAL STENT 06/25/2024 1:27 PM EDT Kidney stone Case Notes Left Ureteroscopy UT CYSTO W/URETEROSCOPY W/LITHOTRIPSY 06/25/2024 1:27 PM EDT Kidney stone Case Notes Left Ureteroscopy from Last 3 Months Results * Fluoroscopy less than 1 hour (07/17/2024 3:00 PM EDT) Only the most recent of2 resultswithin the time period is included. Anatomical Region Laterality Modality X-Ray 07/18/2024 8:01 [...] MD IMG FLUOROSCOPY ORDERABLES Fin al Result * AN SINGLE LUMEN INTUBATION (07/17/2024 2:31 [...] Alden Hopkins CRNA ANESTHESIA ORDERABLES Final Result * AN SINGLE LUMEN INTUBATION (06/25/2024 1:31 [...] 4 Number of attempts at approach: 1 us Joyce Mcfarlane LICENSED VOCATIONAL NURSE ANESTHESIA ORDERABLES Fin al Result from Last 3 Months Insurance [employer] [facility] Advance Directives For more information, please contact: [phone] * Full Code (Latest Code Status on File) Date Activated Date Inactivated Comments 07/17/2024 11:37 AM 07/19/2024 10:35 AM * Full Code Date Activated Date Inactivated Comments 06/25/2024 8:32 AM 06/25/2024 5:33 PM * Full Code Date Activated Date Inactivated Comments 04/03/2024 8:02 AM 04/03/2024 1:34 PM * Full Code Date Activated Date Inactivated Comments 04/03/2024 8:00 AM 04/03/2024 8:02 AM * Full Code Date Activated Date Inactivated Comments 02/02/2024 3:28 PM 02/05/2024 3:08 PM Healthcare Agents on File Name Relationship Healthcare Agent Relationshi p Communication Laurie Ureña Spouse Healthcare Decision-Make r Care Teams Technology Solutions Architect Relationship Specialty Start Date End Date Kj Madrid MD [address] [place] [address] PCP - General Adolescent Medicine 01/09/24
--- OUTSIDE RECORDS SUMMARY | 2024-08-13 14:07 | XMS_ITS ---
Author Organization [facility] Address [address] [place] [address] Care Team Providers Care Auditing Control Clerk Name Role Phone Kj Madrid MD Primary Care Provider [phone] Active Problems Problem Noted Date Diagnosed Date Smoker 06/25/2024 CAD (coronary artery disease) 06/25/2024 Renal stone 01/09/2024 Renal cell cancer 11/18/2021 Chronic obstructive pulmonary disease 10/16/2021 CKD (chronic kidney disease) stage 3, GFR 30-59 ml/min 10/16/2021 Essential hypertension 10/16/2021 Primary gout 10/16/2021 Obesity (BMI 30-39.9) 10/16/2021 Obstructive sleep apnea syndrome 10/16/2021 Tobacco abuse 10/16/2021 Current Oncology Plans No current plan information found. Past Plans No past plan information found. Radiation Treatments * No radiation treatments are documented for this patient in [facility]. Treatments may have been administered in another system. Lifetime Dose Tracking * Chemical Lifetime Dose Automatic Entry Manual Entr y Radiation 1,523 mGy 1,523 mGy 0 mGy
--- OUTSIDE RECORDS SUMMARY | 2024-08-13 14:07 | XMS_ITS | Clinical Summary ---
Author Organization [employer] [facility] [employer] Address [address] [facility] [place] [address] Care Team Providers Care Community Health Nurse Staff Name Role Phone Kj Madrid MD Primary Care Provider [phone] Allergies No known active allergies Medications allopurinoL [...] sleep apnea syndrome 10/16/2021 Tobacco abuse 10/16/2021 Encounters Date Type Department Care Team Description 07/19/2024 Orders Only [facility] Urology - [address] [place] [address] Gareth Ray MD Ureteral calculus, right (Primary Dx) 07/19/2024 Telephone [facility] Urology - [address] [place] [address] Gareth Ray MD Appointment 07/17/2024 3:15 PM EDT - 07/17/2024 4:44 PM EDT Surgery [facility] Surgery Department [address] [place] [address] Gareth Ray MD CYSTOURETEROSCOPY, WITH LASER LITHOTRIPSY 07/17/2024 2:23 PM EDT Anesthesia Event [facility] Surgery Department [address] [place] [address] Alden Hopkins, Kentrell Gracia MD 07/17/2024 12:09 PM EDT - 07/17/2024 5:15 PM EDT Hospital Encounter [facility] Surgery Department [address] [place] [address] Gareth Ray MD Discharge Disposition: Home or Self Care 07/17/2024 Travel 06/29/2024 Orders Only [facility] Urology - [address] [place] [address] Gareth Ray MD 06/25/2024 1:27 PM EDT Anesthesia Event [facility] Surgery Department [address] [place] [address] Joyce Mcfarlane CRNA Zarth, Matthew Tyler, MD 06/25/2024 11:33 AM EDT - 06/25/2024 1:02 PM EDT Surgery [facility] Surgery Department [address] [place] [address] Gareth Ray MD CYSTOURETEROSCOPY, WITH LASER LITHOTRIPSY 06/25/2024 9:17 AM EDT - 06/25/2024 4:32 PM EDT Hospital Encounter [facility] Surgery Department [address] [place] [address] Gareth Ray MD Discharge Disposition: Home or Self Care 06/25/2024 Travel 06/19/2024 Telephone [facility] Urology - [facility] [address] [facility] [address] [place] [address] Gareth Ray MD Advice Only (Pt left 2 voicemails wanting to speak with someone. I called back, he didn't answer and the voicemail has not been set up. ) 06/18/2024 Documentation [facility]rology [facility] [address] [facility] [address] [place] [address] Gareth Ray MD 06/13/2024 Orders Only [facility]rology [facility] [address] [facility] [address] [place] [address] Gareth Ray MD Erectile disorder (Primary Dx); Left ureteral stone 06/04/2024 Documentation [facility] [address] [facility] [address] [place] [address] Gareth Ray MD 06/04/2024 Telephone [facility] [address] [facility] [address] [place] [address] Gareth Ray MD Follow-up (Trying to reach patient about scheduling his CT ) 05/25/2024 Telephone [facility] [address] [facility] [address] [place] [address] Gareth Ray MD Appointment (05/25/24 2:35pm: Spoke with pt and told him he needs to contact [facility] to schedule his CT. He said he would call today) 05/25/2024 Telephone [facility] Urology - [facility] [address] [place] [address] Gareth Ray MD Appointment (I called [facility] to see if Mr. Ureña ever scheduled his CT. They said they tried to call him 3 days in a row and he never called back. They have also sent him a letter, with no response. I faxed the Order and Pre Auth 05/14/24. ) 05/25/2024 Orders Only [facility] Urology - [address] [facility] [address] [place] [address] Gareth Ray MD Abdominal pain, unspecified abdominal location (Primary Dx) 05/14/2024 Orders Only [facility] Urology - [facility] [address] [facility] [address] [place] [address] Gareth Ray MD Ureteral calculus, right (Primary Dx) from Last 3 Months Family History Medical History Relation Name Comments Cancer Mother Stroke Paternal Grandfather Cancer Paternal Grandmother Relation Name Status Comments Mother Paternal Grandfather Paternal Grandmother Social History Tobacco Use Types Packs/Day Years [...] your living situation today? I have a [facility] place to live 02/02/2024 Think about [...] Do you speak a language other than Croatian at [facility]? No 02/02/2024 Do you want help with [...] 07/16/2024 2:00 PM EDT Plan of Treatment Health Maintenance Due Date Last Done Comments CT Colonography 1971 FOBT/FIT 1971 Fit-DNA (Cologuard) 1971 Sigmoidoscopy 1971 Depression Screening (12+) 1983 HIV Screening 12/14/1986 Hepatitis C Screening 12/14/1989 Pneumococcal 50+ years (1 of 2 - PCV) 12/14/1990 Shingles Vaccine (Zoster) (1 of 2) 12/14/2021 COVID-19 VACCINE (1 - season) 2023 Influenza Vaccine (Season Ended) 2024 Tobacco Cessation Counseling and Screening (12+) 02/0102/02/2024 Lipid Panel 03/24/2027 03/24/2024 Colonoscopy 05/04/2032 05/04/2022 Colorectal Cancer Screening 05/04/2032 DTAP/TDAP/TD VACCINES (2 - Td or Tdap) 03/23/2034 Medical Devices Implanted Type Area Director Of Guidance Device Identifier Shelf Expiration Date Model / Serial / Lot Stent Uret Braid + [id number] - [id number] Implanted:Qty : 1 on 01/09/[facility]PL[facility] Right: Ureter [employer] 04/10/2026 [id number] / / [id number] Stent Uret Percflx + [id number] - [id number] Implanted:Qty : 1 on 06/25/2024 by Gareth Ray MD at [facility] IMPLANTS Left: Ureter [employer] [id number] 10/30/2026 [id number] 40 / / [id number] Stent Uret Fader Tip [id number] - [id number] Implanted:Qty : 1 on 07/17/2024 by Gareth Ray MD at [facility] IMPLANTS Right: Ureter [employer] [id number] 02/07/2027 [id number] 40 / / [id number] Explanted Type Area Director Of Guidance Device Identifier Shelf Expiration Date Model / Serial / Lot Cath Uret Pollack 5fr [id number] - [id number] Implanted:Gareth Jaramillo MD (Quantity not on file) Explanted:Qty: 1 on 07/17/2024 at [facility] Right: Ureter COOK:UROLOGY [id number] / / N/A Procedures Procedure Name Priority Date/Time Associated Diagnosis Comments FL < 1 HOUR Routine 07/17/2024 3:00 PM EDT ANESTHESIA INTUBATION Routine 07/17/2024 2:31 PM EDT CYSTOURETEROSCOPY , WITH RETROGRADE PYELOGRAM AND STENT INSERTION OR REMOVAL 07/17/2024 2:23 PM EDT Kidney stone Case Notes Right Ureteroscopy with Laser of Kidney Stones [place] CYSTO W/URETEROSCOPY W/LITHOTRIPSY 07/17/2024 2:23 PM EDT Kidney stone Case Notes Right Ureteroscopy with Laser of Kidney Stones FL < 1 HOUR Routine 06/25/2024 2:30 PM EDT ANESTHESIA INTUBATION Routine 06/25/2024 1:31 PM EDT ND CYSTO W/INSERT URETERAL STENT 06/25/2024 1:27 PM EDT Kidney stone Case Notes Left Ureteroscopy ND CYSTO W/URETEROSCOPY W/LITHOTRIPSY 06/25/2024 1:27 PM EDT [...] Images reviewed, interpreted, and dictated by Dr. iKmani Roman. Transcribed by Evan Lucio PA-C. Gareth Ray MD IMG FLUOROSCOPY ORDERABLES Fin al Result * AN SINGLE LUMEN INTUBATION (07/17/2024 2:31 PM EDT) Narrative Alden Hopkins CRNA - 07/17/2024 2:31 PM EDT Alden [...] Mcfarlane CRNA ANESTHESIA ORDERABLES Fin al Result from Last 3 Months Insurance [facility] Member Subscriber Plan / Payer (Ef fective 2019-Present) Name:Toan Ureña Relation to Subscriber:Self Name:Toan Ureña Payer ID:[id number] Group ID:Not on file Type:Not on file Address: [facility] [id number] [place] [phone] Advance Directives For more information, please contact: [phone] * Full Code (Latest Code Status on [...] Agents on File Name Relationship Healthcare Agent [facility] Laurie Martinesbraxton Spouse Healthcare Decision-Make r Care Teams Community Health Nurse Staff Relationship Specialty Start Date End Date Kj Madrid MD [address] [place] [address] PCP - General Adolescent Medicine 01/09/24
--- OUTSIDE RECORDS SUMMARY | 2024-08-13 14:07 | XMS_ITS | Patient Health Record ---
Author Organization [facility] Address [address] [place] [id number] Support Name Relationship Address Phone SUZANNA GR Guarantor Unknown [phone] Allergies No Known Allergies Reason For Referral No Information Medications Medication SIG (Take, Route, Frequency, Duration) Notes Start Date End Date Status amLODIPine Besylate 10 MG Oral for 90 Days Active Mag-G 500 (27 Mg) MG Oral for 30 Days Active Xarelto 20 MG Oral for 90 Days Active Losartan Potassium 100 MG Oral for 30 Days Active Allopurinol 100 MG Oral for 90 Days Active Plan Of Treatment No Information Insurance Providers Payer Name Payer Address Payer Phone Subscriber Number Group Number Insured Name Patient Relationship to Insured Coverage Start Date Coverage End Date SELF PAY PATIENT [id number] SUZANNA GR Self - patient is the insured Medical (General) History Medical History History ICD Code Hypertension Gout Surgical History Surgery Date(Month/Year) bicep reconstruction hernia repair colonoscopy kidney removal 03/01
--- OUTSIDE RECORDS SUMMARY | 2024-08-13 14:07 | XMS_ITS | Encounter Summary ---
Author Organization Healthcare Address [address] [place] [address] Care Team Providers Care Professional Poker Player Name Role Phone Kj Madrid MD Primary Care Provider [phone] Encounter Details Date Type Department Care Team (Late st Contact Info) Description 06/28/2021 Orders Only External Location [address] [place] [address] Provider, External Social History Tobacco Use Types [...] on filedocumented in this encounter Care Teams Professional Poker Player Relationship Specialty Start Date End Date Kj Madrid MD [address] [place] [address] PCP - General Internal Medicine 09/17/21 documented as of this encounter
--- OUTSIDE RECORDS SUMMARY | 2024-08-13 14:08 | XMS_ITS | Encounter Summary ---
Author Organization [facility] Address [address] [facility] [place] [address] Care Team Providers Care Manager Commercial Sales Name Role Phone Kj Madrid MD Primary Care Provider + [phone] Encounter Details Date Type Department Care Team (Late st Contact Info) Description 06/18/2024 Documentation [facility] Urology - [address] [place] [address] [place] [address] [place] [address] [address] [place] [address] Social History Tobacco Use Types Packs/Day Years Used Date Smoking Tobacco: Every Day Cigarettes Smokeless Tobacco: Current Comments:vapes Alcohol Use Standard Drinks/Week Comments Yes 0 (1 standard drink = 0.6 oz pur e alcohol) Utilities Answer Date Recorded In the past 12 months, has t he [employer], gas, oil, or water [employer] threatened to shut off services in your [...] Do you speak a language other than Danish at [facility]? No 02/02/2024 Do you want [...] on file documented as of this encounter Progress Notes * Freya Lamont Frederick - 06/18/2024 10:26 AM EDT Called patient to give surgery information no answer and voicemail has not been set up. documented in this encounter Plan of Treatment Not on file documented as of this encounter Visit Diagnoses Not on filedocumented in this encounter Care Teams Manager Commercial Sales Relationship Specialty Start Date End Date Kj Madrid MD [address] [place] [address] PCP - General Adolescent Medicine 01/09/24 documented as of this encounter
--- OUTSIDE RECORDS SUMMARY | 2024-08-13 14:08 | XMS_ITS | Encounter Summary ---
Author Organization [facility] Address [address] [place] [address] Care Team Providers Care Hot Metal Car Operator Name Role Phone Kj Madrid MD Primary Care Provider + [phone] Reason for Visit * Reason Onset Date Comments Follow-up 06/04/2024 Trying to reach patient about scheduling his CT Encounter Details Date Type Department Care Team (Late st Contact Info) Description 06/04/2024 Telephone [facility] Urology - [address] [place] [address] Gareth Ray MD [address] [place] [address] [address] [place] [address] Follow-up (Trying to reach patient about scheduling his CT ) Social History Tobacco Use Types Packs/Day Years [...] harm? Never 02/02/2024 How often does anyone, inclu ding family and friends, scream or curse at [...] Do you speak a language other than Kazakh at [facility]? No 02/02/2024 Do you want help [...] on file documented as of this encounter Miscellaneous Notes * Telephone Encounter - Sangeeta Suarez CMA - 08/07/2024 9:18 AM EDT Reaching out to patient to see if he has scheduled his CT yet. documented in this encounter Plan of Treatment Not on file documented as of this encounter Visit Diagnoses Not on filedocumented in this encounter Care Teams Hot Metal Car Operator Relationship Specialty Start Date End Date Kj Madrid MD [address] [place] [address] PCP - General Adolescent Medicine 01/09/24 documented as of this encounter
--- OUTSIDE RECORDS SUMMARY | 2024-08-13 14:08 | XMS_ITS | Encounter Summary ---
Author Organization [facility] Address [address] [place] [address] Care Team Providers Care Hand Slitter Name Role Phone jK Madrid MD Primary Care Provider + [phone] Encounter Details Date Type Department Care Team (Latest Contact Info) Description 07/17/2024 Travel Social History Tobacco Use Types Packs/Day Years [...] harm? Never 02/02/2024 How often does anyone, dakotaberna ashley family and friends, scream or curse [...] Do you speak a language other than Dutch at [facility]? No 02/02/2024 Do you want help with [...] on file documented as of this encounter Plan of Treatment Not on file documented as of this encounter Visit Diagnoses Not on filedocumented in this encounter Care Teams Hand Slitter Relationship Specialty Start Date End Date Kj Madrid MD [address] [place] [address] PCP - General Adolescent Medicine 01/09/24 documented as of this encounter
--- OUTSIDE RECORDS SUMMARY | 2024-08-13 14:08 | XMS_ITS | Encounter Summary ---
Author Organization [facility] Address [address] [facility] [place] [address] Care Team Providers Care Mortgage Loan Reviewer Name Role Phone Kj Madrid MD Primary Care Provider + [phone] Encounter Details Date Type Department Care Team (Late st Contact Info) Description 06/29/2024 Orders Only [facility] Urology - [address] [place] [address] Gareth Ray MD [address] [facility] [address] [place] [address] Social History Tobacco Use Types Packs/Day Years Used Date Smoking Tobacco: Every Day Cigarettes Smokeless Tobacco: Current Comments:vapes Alcohol Use Standard Drinks/Week Comments Yes 0 (1 standard drink = 0.6 oz pur e alcohol) Utilities Answer Date Recorded In the past 12 months, has t he [employer], gas, oil, or water [employer] threatened to shut off services in your [...] Do you speak a language other than Bahraini at [facility]? No 02/02/2024 Do you want help [...] as of this encounter Progress Notes * Gareth Ray MD - 06/29/2024 1:50 PM EDT Phone call requesting more pain medication after ureteral stent documented in this encounter Plan of Treatment Not on file documented as of this encounter Visit Diagnoses Not on filedocumented in this encounter Care Teams Mortgage Loan Reviewer Relationship Specialty Start Date End Date Kj Madrid MD [address] [place] [address] PCP - General Adolescent Medicine 01/09/24 documented as of this encounter
--- OUTSIDE RECORDS SUMMARY | 2024-08-13 14:08 | XMS_ITS | Patient Health Record ---
Author Organization [facility] Address [address] [place] [address] Care Team Providers Care Clinical Physician Assistant Name Role Phone Kj Madrid Primary Care Provider [phone] Kj Madrid Unavailable Unavailable Sarah Watson Unavailable [phone] Cyndi Wolfe Unavailable [phone] Migration, Provider Unavailable Unavailable Allergies No Known Allergies Results Component Value Reference Range Notes Cardiolite GXT Reviewed date:07/31/2024 02:40:02 PM Interpretation: Performing Lab: Notes/Report: Reason For Referral Reason Dr. Marybeth Alfaro Loc ation Kidney Stone Diagnosis 1 Renal cell carcinoma of right kidney (C64.1) Referral Organization [facility] Referring Provider First Name Referring Provider Last Name Shirley Referring Provider Speciality Family Pra ctice Referred Provider Specialty Urology General Notes Kate Wang 2023 03:17:13 PM >Patient informed of appt Referral Priority Routine Referral Appointment Date 12/21/2023 Reason Medical Records - Do [facility] [employer] Referral Organization [facility] Referring Provider First Name Kj Referring Provider Last Name [facility] Referring Provider Speciality Internal M edicine Referral Priority Routine Reason Cardiolyte Stress Te st Diagnosis 1 Atherosclerosis of n ative coronary artery of false pass heart without angina pectoris (I25.10) Referral Organization [facility] Referring Provider First Name Referring Provider Last Name Shirley Referring Provider Speciality Family Pra ctice Referred Organization [facility] Referred Address [address], [place],[address], Referred Provider Specialty Diagnostic R adiology General Notes Kate Wang 2024 11:15:23 AM >sent to [facility] [place] [address] [employer] Referral Priority Routine Reason [facility] Cardiology- abno rmal stress test results Referral Organization [facility] IM [facility] Referring Provider First Name Kj Referring Provider Last Name [facility] Referring Provider Speciality Internal M edicine Referred Organization [facility] Referred Address [address] [facility] [address] [facility], [place],[address], Referred Provider Specialty Cardiovascul ar Disease General Notes Kate Wang 2024 02:44:02 PM >Sent to [facility] to schedule Referral Priority Routine Medications Medication SIG (Take, Route, Frequency, Duration) Notes Start Date End Date Status Albuterol Sulfate HFA 108 (90 Base) MCG/ACT 2 puff(s) inhaled every 4 hours prn Active Allopurinol 300 MG 1 tab(s) orally once a day for 90 days Active Propranolol HCl 40 MG 1 tablet Orally Tw ice a day for 30 days Active Lisinopril 20 MG 1 tablet Orally Once a day for 30 days Active busPIRone HCl 5 MG TAKE 1 [facility] DA[facility] for 30 Active Triamcinolone Acetonide 0.5 % 1 application Externally Twice a day Active Vraylar 3 MG TAKE 1 CAPSULE BY [facility] DAILY for 30 Active Folic Acid 1 MG 1 tablet Orally Once a day for 30 days Active Magnesium Oxide 400 MG 1 tablet with griselda d Orally twice a day for 30 days Active oxyBUTYnin Chloride ER 10 MG 1 tablet Orally Once a day Active Vitamin B1 100 MG 1 tablet Orally Once a day for 30 days Active Metoprolol Succinate ER 100 MG 1 tablet Orally Once a day Active Social History Tobacco Use: Social History Observation Description Date Details (start date - stop date) Current Smoker NA - NA Smoking: Question Answer Notes Are you a: current smoker How often do you smoke cigarettes? every day How many cigarettes a day do you smoke? 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) Active confirmed Problem 40458124 Essential hypertension (I10) Active confirmed Problem 7851709 Psoriasis (L40.9) Active confirmed Problem 503990390 COPD exacerbatio n (J44.1) Active confirmed Problem Fatigue (51653758) Fatigue (R53.83) Active conf irmed Problem 68229675 Other chronic pa in (G89.29) Active confirmed Problem 538267548 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) Active confirmed Problem 906412146 Atherosclerosis of false pass coronary artery of false pass heart without angina pectoris (I25.10) Active confirmed Problem 5382620455789536 Acute idiopathi c gout of left foot (M10.072) Active confirmed Problem 60414721 JG (obstructive sleep apnea) (G47.33) Active confirmed Problem 903907941991 Daytime somnolen ce (R40.0) Active confirmed Problem 977159227 Tobacco use disorder (F17.200) Active confirmed Problem 437985672 Right renal mass (N28.89) Active confirmed Problem 928777022500821 Pulmonary emboli sm and infarction (I26.99) Active confirmed Problem 65254355 ETOH abuse (F10.10) Active confirmed Problem 854813961 Bipolar depressi on (F31.9) Active confirmed Problem 979173314 Renal cell carcinoma of right kidney (C64.1) Active confirmed Problem 859344025 Stage 3b chronic kidney disease (N18.32) Active confirmed Problem 569454207 Abnormal CT scan (R93.89) Active confirmed Problem Muscle weakness (25846190) Generalized muscle weakness (M62.81) Active confirmed Problem 799819876 Stage 3b chronic kidney disease (CKD) (N18.32) Active confirmed Vital Signs Heart Rate 92 /min 07/12/2024 Temperature 97.9 degrees Fahrenheit 07/12/2024 Blood pressure diastolic 80 mm Hg 07/12/2024 Height 6 ft 5 in in 07/12/2024 Blood pressure systolic 124 mm Hg 07/12/2024 Weight 235 lbs 07/12/2024 BMI 27.86 kg/m2 07/12/2024 Encounters Encounter Location Date Provider Diagnosis [facility] [address] [place] [address] 06/02/2024 Provider Migration Pulmonary embolism and infarction I26.99 [facility] [address] [facility] [address] [place] [address] 06/28/2024 Cyndi Yaneth Bipolar depression F31.9 ; ETOH abuse F10.10 and Essential hypertension I10 [facility] [address] [place] [address] 07/12/2024 Sarah Watson Atherosclerosis of false pass coronary artery of false pass heart without angina pectoris I25.10 ; Essential hypertension I10 ; Malaise R53.81 ; LUGO (dyspnea on exertion) R06.09 ; Bipolar depression F31.9 and ETOH abuse F10.10 [facility] [address] [place] [address] 08/13/2024 Sarah Watson RE (acute kidney injury) N17.9 and Hypomagnesemia E83.42 [facility] [place] [address] [address] 06/22/2024 Cyndi McNees [facility] [address] [address] 06/28/2024 Cyndi McNees [facility] [address] [address] 07/09/2024 Kj Madrid [facility] [address] [address] 07/26/2024 Cyndi McNees [facility] [address] [address] 08/10/2024 Cyndi McNees Assessments Encounter Date Diagnosis (ICD Code) Assessment Notes Treatment Notes Treatment Clinical Notes Section Notes 06/28/2024 ETOH abuse (ICD-10 - F10.10) Positive reinforcement on ETOH cessation. Continue daily meetings at 06/28/2024 Bipolar depression (ICD-10 - F31.9) Extensive time spent with patient Increase Vraylar Continue buspar. Keep FU with counselor and psych Discussed s/s of worsening mood/agitation that warrant FU 07/12/2024 Essential hypertension (ICD-10 - I10) improved, continue current regimen 07/12/2024 Atherosclerosis of false pass coronary artery of false pass heart without angina pectoris (ICD-10 - I25.10) 08/13/2024 Hypomagnesemia (ICD-10 - E83.42) 08/13/2024 RE (acute kidney injury) (ICD-10 - N17.9) 06/02/2024 Pulmonary embolism and infarction (ICD-10 - I26.99) 06/28/2024 Essential hypertension (ICD-10 - I10) Increase propranolol and add lisinopril as above. MOA and SE profile discussed. RTC in 2 weeks for FU 07/12/2024 Malaise (ICD-10 - R53.81) likely multifactoral. encouraged him to discuss testosterone replacement options with his urologist 07/12/2024 LUGO (dyspnea on exertion) (ICD-10 - R06.09) 07/12/2024 Bipolar depression (ICD-10 - F31.9) improved and tolerating current regimen, no changes recommended 07/12/2024 ETOH abuse (ICD-10 - F10.10) Positive reinforcement on ETOH cessation. Continue daily meetings at [facility] Plan Of Treatment Pending Test Test Name Order Date Ultrasound : Liver 06/21/2023 M-Complete Blood Count Auto Diff 025 M-Comprehensive Metabolic Panel 08/14/19 25 M-Magnesium 08/13/2024 CT Scan : Chest, Lung Cancer Screening 1 04/06/2020 Physical Therapy Eval and Treat 11/09/19 23 Next Appt Details Provider Name: Dyllan Huff ce, 08/14/2024 11:15:00 AM, [address] [facility], [address], [place], [address], Insurance Providers Payer Name Payer Address Payer Phone Subscriber Number Group Number Insured Name Patient Relationship to Insured Coverage Start Date Coverage End Date [employer] [facility] [address] [address] [place], [place] [phone] [id number] Toan Ureña Self - patient is the insured Medications Administered Medication Instructions Date of Administration Dosage Notes Dexamethasone 4mg Injection 10/09/2021 4 mg Triamcinolone Acetonide 40mg Injection 03/19/2020 1 mL Medical (General) History Medical History History ICD Code Histoplasmosis Legionnaires Diverticulitis Chronic bronchitis Bipolar COPD Kidney cancer- 1/3 right kidney removed, 1 lymph node (Renal Cell Carcinoma) HTN ulcerative colitis Surgical History Surgery Date(Month/Year) Pin in right foot Right torn bicep 11/22/2019 Biopsy left arm Lung biopsies Right hand dog attack Hernia repair Kidney Stones x2 1/3 of rt kidney removed 09/2021 removal of kidney stones x 4 debridement of rt hand 02/2024 Hospitalization History Reason Date(Month/Year) [facility]/ [facility] 03/22 - nephrectomy 09/2021 Heat stroke? 2016 Surgeries as above Legionnaires x 7 weeks
--- OUTSIDE RECORDS SUMMARY | 2024-08-13 14:08 | XMS_ITS | Encounter Summary ---
Author Organization Healthcare Address [address] [place] [address] Care Team Providers Care Brass Finisher Name Role Phone Kj Madrid MD Primary Care Provider [phone] Encounter Details Date Type Department Care Team ([facility] st Contact Info) Description 03/10/2022 Orders Only External Location [address] [place] [address] Gallo May MD [address] [id number] Social History Tobacco Use Types Packs/Day Years [...] documented as of this encounter Care Teams Brass Finisher Relationship Specialty Start Date End Date Kj Madrid MD [address] [place] [address] [place] [address] PCP - General Internal Medicine 09/17/21 documented as of this encounter
--- OUTSIDE RECORDS SUMMARY | 2024-08-13 14:08 | XMS_ITS | Encounter Summary ---
Author Organization [facility] In iatives Address [address] [address] Care Team Providers Care Satellite Communications Engineer Name Role Phone Kj Madrid MD Primary Care Provider + [phone] Reason for Visit * Reason Onset Date Comments Advice Only 06/19/2024 Pt left 2 voicem ails wanting to speak with someone. I called back, he didn't answer and the voicemail has not been set up. Encounter Details Date Type Department Care Team (Late st Contact Info) Description 06/19/2024 Telephone [facility] Urology - [address] [place] [address] Gareth Ray MD [address] [place] [address] [address] [place] [address] Advice Only (Pt left 2 voicemails wanting to speak with someone. I called back, he didn't answer and the voicemail has not been set up. ) Social History Tobacco Use Types Packs/Day [...] Date Record ed How often does anyone, inclu ding family and friends, physically hurt you? Never [...] speak a language other than Kazakh at ho me? No 02/02/2024 Do you [...] encounter Miscellaneous Notes * Telephone Encounter - Cynthia Rush MA - 06/19/2024 10:51 AM EDT Returned a call, did not get through. Voicemail is not set up. documented in this encounter Plan of Treatment Not on file documented as of this encounter Visit Diagnoses Not on filedocumented in this encounter Care Teams Satellite Communications Engineer Relationship Specialty Start Date End Date Kj Madrid MD [address] [place] [address] PCP - General Adolescent Medicine 01/09/24 documented as of this encounter
--- OUTSIDE RECORDS SUMMARY | 2024-08-13 14:08 | XMS_ITS | Encounter Summary ---
Author Organization [facility] Address [address] [place] [address] Care Team Providers Care Factory Maintenance Manager Name Role Phone Kj Madrid MD Primary Care Provider + [phone] Encounter Details Date Type Department Care Team (Latest Contact Info) Description 06/25/2024 Travel Social History Tobacco Use Types Packs/Day [...] Do you speak a language other than Andorran at [facility]? No 02/02/2024 Do you want [...] on filedocumented in this encounter Care Teams Factory Maintenance Manager Relationship Specialty Start Date End Date Kj Madrid MD [address] [place] [address] PCP - General Adolescent Medicine 01/09/24 documented as of this encounter
--- OUTSIDE RECORDS SUMMARY | 2024-08-13 14:08 | XMS_ITS | Data Portability ---
Author Organization [facility] [place] & MARY Wallace ADMIN Address [address] [place] [id number] Assessment Encounter Date Assessment Date Assessment LastModified by Organization Details LastModified Time 03/29/2022 03/29/2022 Patient presents upon referral for management of renal cell carcinoma and multiple joint pain. Patient's pain is in multiple joints, specifically areas that have experienced trauma (abdomen, right elbow, right wrist, right foot), negatively impacting his function, likely associated with arthritis, as evidenced by history and physical exam. To address the patient's pain: I had discussed possible treatment modalities such as injections, but due to the patient's current comorbidities such as recent PE and blood in urine that he is undergoing testing for, I will hold off on injection therapy until he is more stabilized. Patient is wanting his Hydrocodone APAP 10-325mg Q8 managed through [facility] as Dr. Brown is wanting pain management to manage medication regimen. He reports that his PCP Dr. Madrid gave him enough medication to get him to the appointment, but prescribed Oxycodone APAP 5-325mg Q6 that he admits taking extra medication to help him function daily. I had a detailed discussion with the patient regarding treatment modalities and the respective risks/benefits. I educated the patient on the dangers/risks of long-term oral opioids, particularly with increasing age, these risks include respiratory depression, not excluding . I informed the patient that the goal of [facility] will be to incorporate a multi-modal approach to pain management, which may consist of conservative, pharmacologic, and interventional approaches, ultimately decreasing pain and increasing function with focus on both safety and efficacy. I informed the patient that I will prescribe oral opioids, but the intention will be to slowly taper once pain is better controlled. The patient verbalized understanding and agreeing to the treatment plan set forth. I will start the patient on Hydrocodone APAP 10-325mg Q8 for 1 month. However, the DNF will not be until 2/9, as the patient has medication from Dr. Madrid that she prescribed on 03/19 to get him to the appointment today. I advised the patient of this and he verbalized understanding. UDS was obtained today. I will send the UDS for confirmation due to questionable aspects in the patient's POC. UDS results will be reviewed and discussed accordingly at follow up. I will also request records from Dr. Madrid's office regarding the patient's recent care. - Medication for 1 month: Hydrocodone APAP 10-325mg Q8 #90 - UDS obtained today and appropriate - Medication contract signed - Discussed possible injections once comorbidities are stabilized - Follow up 1 month for medication refill/discuss UDS [email or web address] Not available 03/30/2022 09:56:07 05/03/2022 05/03/2022 Patient presents to the clinic today for medication refill. Patient's pain is in multiple joints, specifically areas that have experienced trauma (abdomen, right elbow, right wrist, right foot), negatively impacting his function, likely associated with arthritis, as evidenced by history and physical exam. To address the patient's pain: I had discussed possible treatment modalities such as injections, but due to the patient's current comorbidities such as recent PE, colitis, and blood in urine that he is undergoing testing for, I will hold off on injection therapy until he is more stabilized. Regarding medication: As the patient's current medication regimen is managing pain and well-tolerated, allowing him to remain functional, I will refill for 2 months. I had a detailed discussion with the patient regarding treatment modalities and the respective risks/benefits. I educated the patient on the dangers/risks of long-term oral opioids, particularly with increasing age, these risks include respiratory depression, not excluding . I informed the patient that the goal of [facility] will be to incorporate a multi-modal approach to pain management, which may consist of conservative, pharmacologic, and interventional approaches, ultimately decreasing pain and increasing function with focus on both safety and efficacy. I informed the patient that I will prescribe oral opioids, but the intention will be to slowly taper once pain is better controlled. The patient verbalized understanding and agreeing to the treatment plan set forth. At last visit, the patient's UDS was sent off for confirmation due to questionable aspects in his POC. I reviewed patient's UDS lab results today which were appropriate. I will also request records from Dr. Madrid's office regarding the patient's recent care. - Medication for 2 months: Hydrocodone APAP 10-325mg Q8 #90 - UDS lab results reviewed and appropriate - Discussed possible injections once comorbidities are stabilized - Follow up 2 month for medication refill [email or web address] Not available 05/04/2022 08:26:16 06/28/2022 06/28/2022 Telehealth visit is being conducted from [address] [place] [address]. [place] [address]. This was a real-time clinical encounter over [[email or web address] ]. Consent was obtained to engage in telemedicine service. Greater than 50% of the time spent was devoted to counseling and coordinating care including review of records, pertinent lab data and studies as well as discussing diagnostic evaluation and workup, plan therapeutic interventions and future disposition of care. This included any additional research needed to obtain further information in formulating the plan of care for this patient. This includes counseling with the patient about their disease and diagnosis, specifically as below. Patient was also counseled on the precaution of COVID-19 including importance of hand washing and social distancing. WE SPECIFICALLY DISCUSSED RISK FACTORS FOR COVID-19, INCLUDING AGE>60, HEART OR LUNG DISEASE, DIABETES, IMMUNOSUPPRESSION, AND TRAVEL. WE ALSO DISCUSSED THAT NSAIDS MAY WORSEN COVID-19 INFECTION SYMPTOMS AND THAT THEY SHOULD NOT BE USED TO TREAT COVID-19 SYMPTOMS. PATIENT WAS ALSO INFORMED THAT CORTICOSTEROIDS IN ANY FORM (ORAL OR INJECTABLE) WILL DECREASE IMMUNE RESPONSE AND MAY INCREASE RISK OF COVID-19 INFECTION AND SYMPTOMS. THIS ENCOUNTER WAS PERFORMED A TELEMEDICINE VISIT VIA SECURE TWO-WAY VIDEO AND AUDIO TO MINIMIZE RISK AND TRANSMISSION OF COVID-19. THE PATIENT AND WE UNDERSTAND THE LIMITATIONS OF A TELEMEDICINE VISIT INCLUDING INABILITY TO CHECK REFLEXES, POSSIBLY MISSING SUBTLE FINDINGS ON PHYSICAL EXAM. ALTERNATIVE OPTIONS WERE PRESENTED TO THE PATIENT AND THE PATIENT ELECTED TO PROCEED WITH THE VISIT. Patient presents via televideo today for medication refill. Patient's pain is in multiple joints, specifically areas that have experienced trauma (abdomen, right elbow, right wrist, right foot), negatively impacting his function, likely associated with arthritis, as evidenced by history and physical exam. To address the patient's pain: I had discussed possible treatment modalities such as injections, but due to the patient's current comorbidities such as recent PE, ulcerative colitis, and blood in urine that he is undergoing testing for, I will hold off on injection therapy until he is more stabilized. Regarding medication: As the patient's current medication regimen is managing pain and well-tolerated, allowing him to remain functional, I will refill for 2 months. I had a detailed discussion with the patient regarding treatment modalities and the respective risks/benefits. I educated the patient on the dangers/risks of long-term oral opioids, particularly with increasing age, these risks include respiratory depression, not excluding . I informed the patient that the goal of [facility] will be to incorporate a multi-modal approach to pain management, which may consist of conservative, pharmacologic, and interventional approaches, ultimately decreasing pain and increasing function with focus on both safety and efficacy. I informed the patient that I will prescribe oral opioids, but the intention will be to slowly taper once pain is better controlled. The patient verbalized understanding and agreeing to the treatment plan set forth. I have also requested records from Dr. Madrid's office regarding the patient's recent care which I have not yet received. - Medication for 2 months: Hydrocodone APAP 10-325mg Q8 #90 - Discussed possible injections once comorbidities are stabilized - Follow up 2 months for medication refill I have discussed in great detail our potential treatment options which would include a rehabilitative approach to care. This program would include medication management, Physical Therapy, consideration for interventional procedures as appropriate, and lifestyle modification (diet, weight loss, exercise, smoking/tobacco cessation, holistic approach including meditation and yoga). The patient understands and agrees prior to proceeding with this plan. _ __ __ __ __ __ __ __ __ __ __ __ __ __ __ __ __ __ __ __ __ __ __ __ __ __ __ __ _ RECORDS REVIEW: As per clinic policy, we will have the patient sign a release to obtain previous imaging and clinical notes. _ __ __ __ __ __ __ __ __ __ __ __ __ __ __ __ __ __ __ __ __ __ __ __ __ __ __ __ _ PSYCH: Pain affecting Neuro-psych behavior was discussed. Discussed about pain psychological counseling as a part of the multimodal approach to pain treatment. _ __ __ __ __ __ __ __ __ __ __ __ __ __ __ __ __ __ __ __ __ __ __ __ __ __ __ __ _ REHABILITATION: Discussed with the patient the importance of diet, daily physical activity and PT. Discussed with the patient the need to be scheduled for physical therapy since physical therapy will prolong the benefits of the procedure and interventions. _ __ __ __ __ __ __ __ __ __ __ __ __ __ __ __ __ __ __ __ __ __ __ __ __ __ __ __ _ NOE: [id number] I have reviewed patient's NOE report prior to prescribing Schedule II, III, and IV medications that require review by law. [place] PDMP reviewed and appropriate. UDS reviewed and consistent with current regimen. Controlled substance contract reviewed and signed line by line. Risks of medication therapy including respiratory depression, , and hazards of operating heavy machinery including automobiles discussed at length. Patient given information with six opioid/Controlled substance safety steps: 1. Never take a prescription pain medication unless it is prescribed for you. 2. Do not take pain medicine with alcohol. 3. Do not take more doses than prescribed. 4. Use with other sedative or anti-anxiety medications can be dangerous. 5. Avoid using prescription pain medication to help you fall asleep. 6. Lock up prescription pain medications. Opioid Contract Discussion: The patient was given a copy of the Clinic Prescription Drug Agreement and was counseled extensively regarding its contents. The patient is to take their pain medication exactly as prescribed. No increases in medications are to be without first contacting the office and explaining the reason behind the increase and getting approval to do so. The patient is not to obtain medications from other providers without first notifying the other provider what they obtain from this clinic and need to notify this clinic when they obtain pain medications from other providers. The patient is to bring their pain medications to each and every office visit for pill counts to monitor compliance for their safety. The patient is subject to periodic urine drug testing at the discretion of the provider as well as state and federal regulations. The patient was warned of the risks and benefits of taking opioid pain medication, the risk of addiction, the risk of withdrawal and the differences. [email or web address] Not available 06/28/2022 13:28:21 08/16/2022 08/16/2022 Patient presents today for medication refill. He states that the current medication regimen is managing pain and well-tolerated, allowing him to remain functional. He is currently having a gout flare in the right ankle with increased pain. Patient admits today to drinking alcohol daily. He reports 2 drinks daily at bedtime, each drink with several shots of alcohol in it. He continues to follow his specialists for renal cancer, UC and gout. The patient has had recent labs with elevated liver enzymes. Patient states that his GI doctor is concerned about acetaminophen secondary to his liver and kidney co-morbidities. He has been taking hydrocodone/APAP with intermittent Tylenol as well. Patient's pain is in multiple joints, specifically areas that have experienced trauma (abdomen, right elbow, right wrist, right foot), negatively impacting his function, likely associated with arthritis, as evidenced by history and physical exam. I had discussed possible treatment modalities such as injections, but due to the patient's current comorbidities such as recent PE, ulcerative colitis, and blood in urine ,I will hold off on injection therapy until he is more stabilized. UDS done today and appropriate. However, as above, patient admits to drinking alcohol daily. UDS will be sent off for confirmation. I discussed with the patient detail about the interaction between opioid and alcohol and the dangers associated with it. I will have to decrease his medication today due to the alcohol use. Patient voiced understanding. I will give him oxycodone 5mg q12h for 2 weeks removing the acetaminophen intake. He will return in 2 weeks for med refill and review UDS. I had a detailed discussion with the patient regarding treatment modalities and the respective risks/benefits. I educated the patient on the dangers/risks of long-term oral opioids, particularly with increasing age, these risks include respiratory depression, not excluding . I informed the patient that the goal of [facility] will be to incorporate a multi-modal approach to pain management, which may consist of conservative, pharmacologic, and interventional approaches, ultimately decreasing pain and increasing function with focus on both safety and efficacy. I informed the patient that I will prescribe oral opioids, but the intention will be to slowly taper once pain is better controlled. The patient verbalized understanding and agreeing to the treatment plan set forth. I have also requested records from Dr. Madrid's office regarding the patient's recent care which I have not yet received. I will resubmit for those notes. - Prescribe oxycodone 5mg q12h for 2 weeks - Discussed possible injections once comorbidities are stabilized - Follow up 2 weeks for UDS review and med refill I have discussed in great detail our potential treatment options which would include a rehabilitative approach to care. This program would include medication management, Physical Therapy, consideration for interventional procedures as appropriate, and lifestyle modification (diet, weight loss, exercise, smoking/tobacco cessation, holistic approach including meditation and yoga). The patient understands and agrees prior to proceeding with this plan. _ __ __ __ __ __ __ __ __ __ __ __ __ __ __ __ __ __ __ __ __ __ __ __ __ __ __ __ _ RECORDS REVIEW: As per clinic policy, we will have the patient sign a release to obtain previous imaging and clinical notes. _ __ __ __ __ __ __ __ __ __ __ __ __ __ __ __ __ __ __ __ __ __ __ __ __ __ __ __ _ PSYCH: Pain affecting Neuro-psych behavior was discussed. Discussed about pain psychological counseling as a part of the multimodal approach to pain treatment. _ __ __ __ __ __ __ __ __ __ __ __ __ __ __ __ __ __ __ __ __ __ __ __ __ __ __ __ _ REHABILITATION: Discussed with the patient the importance of diet, daily physical activity and PT. Discussed with the patient the need to be scheduled for physical therapy since physical therapy will prolong the benefits of the procedure and interventions. _ __ __ __ __ __ __ __ __ __ __ __ __ __ __ __ __ __ __ __ __ __ __ __ __ __ __ __ _ NOE: [id number] I have reviewed patient's NOE report prior to prescribing Schedule II, III, and IV medications that require review by law. [place] PDMP reviewed and appropriate. UDS reviewed and consistent with current regimen. Controlled substance contract reviewed and signed line by line. Risks of medication therapy including respiratory depression, , and hazards of operating heavy machinery including automobiles discussed at length. Patient given information with six opioid/Controlled substance safety steps: 1. Never take a prescription pain medication unless it is prescribed for you. 2. Do not take pain medicine with alcohol. 3. Do not take more doses than prescribed. 4. Use with other sedative or anti-anxiety medications can be dangerous. 5. Avoid using prescription pain medication to help you fall asleep. 6. Lock up prescription pain medications. Opioid Contract Discussion: The patient was given a copy of the Clinic Prescription Drug Agreement and was counseled extensively regarding its contents. The patient is to take their pain medication exactly as prescribed. No increases in medications are to be without first contacting the office and explaining the reason behind the increase and getting approval to do so. The patient is not to obtain medications from other providers without first notifying the other provider what they obtain from this clinic and need to notify this clinic when they obtain pain medications from other providers. The patient is to bring their pain medications to each and every office visit for pill counts to monitor compliance for their safety. The patient is subject to periodic urine drug testing at the discretion of the provider as well as state and federal regulations. The patient was warned of the risks and benefits of taking opioid pain medication, the risk of addiction, the risk of withdrawal and the differences. [email or web address] Not available 08/18/2022 15:26:25 Plan of Treatment Reminders Order Date Submit Date Provider Last Modified By Organization Details Last Modified Time Details Appointments None recorded. Lab urinalysi s, dipstick 2023 [email or web address] [facility] [address], [id number], 4 14:11:58 drug screen, urine 2022 023 [facility], [place], [id number], 3 09:02:59 drug screen, urine 2022 023 [facility], [place], [id number], 3 15:33:49 Referral None recorded. Procedures None recorded. Surgeries None recorded. Imaging None recorded. Medication Orders allopurin ol 300 mg tablet 2023 [facility] #00950, [address], [id number], 4 15:45:17 potassium citrate ER 15 mEq (1,620 mg) tablet,ex tended release 2023 024 [facility]385[facility], [address], [id number], 4 15:45:17 oxycodone 5 mg tablet 2022 023 [facility] #69243, [address], [id number], 3 15:25:06 hydrocodo ne 10 mg-acetam inophen 325 mg tablet 2022 023 [facility] #85806, [address] [facility], [place], [id number], 3 11:28:54 hydrocodo ne 10 mg-acetam inophen 325 mg tablet 2022 023 [facility], [address], [place], [id number], 3 11:28:57 hydrocodo ne 10 mg-acetam inophen 325 mg tablet 2022 023 [facility], [address], [place], [id number], 3 13:23:01 hydrocodo ne 10 mg-acetam inophen 325 mg tablet 2022 023 [facility]89[facility], [address], [place], [id number], 3 13:23:01 hydrocodo ne 10 mg-acetam inophen 325 mg tablet 2022 023 [facility] #04354, [address], [place], [id number], 3 14:15:25 Patient TargetsNo targets recorded. Patient Instructions Encounter Date Encounter Id Patient Instructions Last Modified By Organization Details Last Modified Time 03/29/2022 [id number] I have discussed in great detail our potential treatment options which would include a rehabilitative approach to care. This program would include medication management, Physical Therapy, consideration for interventional procedures as appropriate, and lifestyle modification (diet, weight loss, exercise, smoking/tobacco cessation, holistic approach including meditation and yoga). The patient understands and agrees prior to proceeding with this plan. _ __ __ __ __ __ __ __ __ __ __ __ __ __ __ __ __ __ __ __ __ __ __ __ __ __ __ __ _ RECORDS REVIEW: As per clinic policy, we will have the patient sign a release to obtain previous imaging and clinical notes. _ __ __ __ __ __ __ __ __ __ __ __ __ __ __ __ __ __ __ __ __ __ __ __ __ __ __ __ _ PSYCH: Pain affecting Neuro-psych behavior was discussed. Discussed about pain psychological counseling as a part of the multimodal approach to pain treatment. _ __ __ __ __ __ __ __ __ __ __ __ __ __ __ __ __ __ __ __ __ __ __ __ __ __ __ __ _ REHABILITATION: Discussed with the patient the importance of diet, daily physical activity and PT. Discussed with the patient the need to be scheduled for physical therapy since physical therapy will prolong the benefits of the procedure and interventions. _ __ __ __ __ __ __ __ __ __ __ __ __ __ __ __ __ __ __ __ __ __ __ __ __ __ __ __ _ NOE: [id number] I have reviewed patient's NOE report prior to prescribing Schedule II, III, and IV medications that require review by law. [place] PDMP reviewed and appropriate. UDS reviewed and consistent with current regimen. Controlled substance contract reviewed and signed line by line. Risks of medication therapy including respiratory depression, , and hazards of operating heavy machinery including automobiles discussed at length. Patient given information with six opioid/Controlled substance safety steps: 1. Never take a prescription pain medication unless it is prescribed for you. 2. Do not take pain medicine with alcohol. 3. Do not take more doses than prescribed. 4. Use with other sedative or anti-anxiety medications can be dangerous. 5. Avoid using prescription pain medication to help you fall asleep. 6. Lock up prescription pain medications. Opioid Contract Discussion: The patient was given a copy of the Clinic Prescription Drug Agreement and was counseled extensively regarding its contents. The patient is to take their pain medication exactly as prescribed. No increases in medications are to be without first contacting the office and explaining the reason behind the increase and getting approval to do so. The patient is not to obtain medications from other providers without first notifying the other provider what they obtain from this clinic and need to notify this clinic when they obtain pain medications from other providers. The patient is to bring their pain medications to each and every office visit for pill counts to monitor compliance for their safety. The patient is subject to periodic urine drug testing at the discretion of the provider as well as state and federal regulations. The patient was warned of the risks and benefits of taking opioid pain medication, the risk of addiction, the risk of withdrawal and the differences. [email or web address] Not available 03/30/2022 09:26:27 05/03/2022 [id number] I have discussed in great detail our potential treatment options which would include a rehabilitative approach to care. This program would include medication management, Physical Therapy, consideration for interventional procedures as appropriate, and lifestyle modification (diet, weight loss, exercise, smoking/tobacco cessation, holistic approach including meditation and yoga). The patient understands and agrees prior to proceeding with this plan. _ __ __ __ __ __ __ __ __ __ __ __ __ __ __ __ __ __ __ __ __ __ __ __ __ __ __ __ _ RECORDS REVIEW: As per clinic policy, we will have the patient sign a release to obtain previous imaging and clinical notes. _ __ __ __ __ __ __ __ __ __ __ __ __ __ __ __ __ __ __ __ __ __ __ __ __ __ __ __ _ PSYCH: Pain affecting Neuro-psych behavior was discussed. Discussed about pain psychological counseling as a part of the multimodal approach to pain treatment. _ __ __ __ __ __ __ __ __ __ __ __ __ __ __ __ __ __ __ __ __ __ __ __ __ __ __ __ _ REHABILITATION: Discussed with the patient the importance of diet, daily physical activity and PT. Discussed with the patient the need to be scheduled for physical therapy since physical therapy will prolong the benefits of the procedure and interventions. _ __ __ __ __ __ __ __ __ __ __ __ __ __ __ __ __ __ __ __ __ __ __ __ __ __ __ __ _ NOE: [id number] I have reviewed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
--- OUTSIDE RECORDS SUMMARY | 2024-08-13 14:08 | XMS_ITS | Encounter Summary ---
Author Organization Healthcare Address [address] [place] [address] Care Team Providers Care Tree Trimmer Name Role Phone Kj Madrid MD Primary Care Provider [phone] Encounter Details Date Type Department Care Team ([facility] st Contact Info) Description 03/10/2022 Orders Only External Location [address] [place] [address] Gallo May MD [address] [id number] Social History Tobacco Use Types Packs/Day Years [...] documented as of this encounter Care Teams Tree Trimmer Relationship Specialty Start Date End Date Kj Madrid MD [address] [place] [address] PCP - General Internal Medicine 09/17/21 documented as of this encounter
--- OUTSIDE RECORDS SUMMARY | 2024-08-13 14:08 | XMS_ITS | Encounter Summary ---
Author Organization [facility] In iatives Address [address] [place] [address] Care Team Providers Care Action Installer Name Role Phone Kj Madrid MD Primary Care Provider + [phone] Reason for Visit * Reason Onset Date Comments Appointment 07/19/2024 Encounter Details Date Type Department Care Team (Late st Contact Info) Description 07/19/2024 Telephone [facility] Urology - [address] [place] [address] Gareth Ray MD [address] [facility] [address] [place] [address] Appointment Social History Tobacco Use Types Packs/Day Years Used Date Smoking Tobacco: Every Day Cigarettes Smokeless Tobacco: Current Comments:vapes Alcohol Use Standard Drinks/Week Comments Yes 0 (1 standard drink = 0.6 oz pur e alcohol) Utilities Answer Date Recorded In the past 12 months, has t he Authorly, gas, oil, or water [employer] threatened to shut off services in your [...] Do you speak a language other than Micronesian at [facility]? No 02/02/2024 Do you [...] encounter Miscellaneous Notes * Telephone Encounter - Tania Vaughn - 07/19/2024 10:00 AM EDTSummary: POST OP APPT Pt is scheduled for a three week post op appt on 08/07/24, he will need a KUB prior. Can someone putthe order in please? Pt is aware! Thank you! documented in this encounter Plan of Treatment Not on file documented as of this encounter Visit Diagnoses Not on filedocumented in this encounter Care Teams Action Installer Relationship Specialty Start Date End Date Kj Madrid MD [address] [place] [address] PCP - General Adolescent Medicine 01/09/24 documented as of this encounter
--- OUTSIDE RECORDS SUMMARY | 2024-08-13 14:08 | XMS_ITS | Encounter Summary ---
Author Organization [facility] In iatives Address [address] [address] Care Team Providers Care Bindery Chief Name Role Phone Kj Madrid MD Primary Care Provider [phone] Reason for Referral * Diagnostic X-Ray (Routine) - Authorized Specialty Diagnoses / Procedures Referred By Contac t Referred To Contact Radiology Diagnoses Ureteral calculus, right Procedures XR Abdomen KUB 1 [place] [address] [place] [address] [address] [place] [address] Phone: tel: fax: [facility] [address] [facility] [address] [place] [address] Phone: tel: fax: Referral ID Status Reason Start Date Expiration Date Visits Requested Visits Authorized [id number] Authorized Continuity of Care 07/19/2024 07/19/2025 1 1 Encounter Details Date Type Department Care Team (Late st Contact Info) Description 07/19/2024 Orders Only [facility] Urology - [facility] [address] [facility] [address] [place] [address] [place] [address] [place] [address] [address] [place] [address] Ureteral calculus, right (Primary Dx) Social History Tobacco Use Types Packs/Day Years [...] your living situation today? I have a [facility] place to live 02/02/2024 Think about the [...] Do you speak a language other than [place]? No 02/02/2024 Do you want help with [...] as of this encounter Plan of Treatment Scheduled Orders Name Type Priority Associated Diagnoses Orde r Schedule XR Abdomen KUB 1 view Imaging Routine Ureteral calculus, right Expected: 07/19/2024, Expires: 08/19/2025 documented as of this encounter Visit Diagnoses Diagnosis Ureteral calculus, right- Primary Calculus of ureter documented in this encounter Care Teams Bindery Chief Relationship Specialty Start Date End Date Kj Madrid MD [address] [place] [address] PCP - General Adolescent Medicine 01/09/24 documented as of this encounter
[2024-08-13 14:29] LABS: Basophils # 0.1 K/mm3 (0-0.2); Basophils % 1.1 % (0.1-2.0); Eosinophils # 0.5 Kmm3 (0.0-0.4); Eosinophils % 5.9 % (0.1-12.0); Hematocrit 40.9 % (42.0-52.0); Hemoglobin 13.6 g/dL (14.1-18.0); Immature Granulocytes # 0.07 10^3uL; Immature Granulocytes % 0.8 %; Lymphocytes # 2.4 K/mm3 (0.7-4.5); Lymphocytes % 27.9 % (10-50); Mean Corpuscular HGB Conc 33.3 g/dL (31.8-35.4); Mean Corpuscular Hemoglobin 30.8 pg (27.0-31.2); Mean Corpuscular Volume 92.5 fl (80-94); Mean Platelet Volume 10.9 fl (7.4-10.4); Monocytes # 0.8 K/mm3 (0.1-1.0); Monocytes % 9.2 % (1.7-9.3); Neutrophils # 4.7 K/mm3 (1.8-7.8); Neutrophils % 55.1 % (37.0-80.0); Nucleated Red Blood Cells # 0 10^3/uL; Nucleated Red Blood Cells % 0 %; Platelet Count 255 K/mm3 (142-424); Red Blood Count 4.42 M/mm3 (4.60-6.20); Red Cell Distribution Width 13.4 % (11.5-17.5); Red Cell Distribution Width-SD 45.5 fL; White Blood Count 8.5 K/mm3 (4.8-10.8)
[2024-08-13 14:45] LABS: Alanine Aminotransferase 19 U/L (12-78); Albumin/Globulin Ratio 1.2 (1.1-1.8); Alkaline Phosphatase 77 U/L (38-126); Anion Gap 10.7 mEq/L (5-15); Aspartate Amino Transferase 25 U/L (17-59); Bilirubin,Total 0.5 mg/dl (0.2-1.3); Blood Urea Nitrogen 54 mg/dl (9-20); Carbon Dioxide 24 mmol/L (22.0-30.0); Chloride 107 mmol/L (98-107); Estimated Glomerular Filt Rate 35 ml/min (>60); GFR (African American) 43 ML/MIN (>60); Globulin 3.3 g/dL (1.3-3.2); Glucose 122 mg/dl (74-100); Magnesium 1.9 mg/dl (1.6-2.3); Potassium 4.7 mmoL/L (3.5-5.1); Sodium 137 mmol/L (136-145); Total Protein,Serum 7.3 g/dl (6.3-8.2)
== END 2024-08-13 23:59 | disposition home or self-care (01) ==
LOC: LAB 14:03
PROVIDERS: PCP Internal Medicine Adolescent Medicine; Visit Provider Nurse Practitioner Family
DX: E83.42 Hypomagnesemia (principal); N17.9 Acute kidney failure, unspecified
CPT/HCPCS: 36415; 80053; 83735; 85025

== ENCOUNTER 2024-08-17 08:59 | Day surgery (SDC) | payer OTHER, SELFPAY ==
[2024-08-17] VITALS (9 sets, daily range): BP systolic 91–130; BP diastolic 48–93; PULSE 63–80; RESP 18–22; O2SAT 90–95; BMI 28.2
--- NOTE | 2024-08-17 07:20 | IR_ITS ---
APPROVED REPORT Patient Location: Outpatient Motorcoach Operator: LIMA Best RT (R) PROCEDURES Left heart catheterization Left ventriculogram Selective coronary angiogram INDICATION Abnormal Myoview, LV dysfunction, Angina pectoris, Abnormal CCTA Informed consent was obtained prior to the procedure. COMPLICATIONS NONE Estimated Blood Loss: LESS THAN 10 ML TECHNIQUE One percent lidocaine used to anesthetize the right anterior aspect of the wrist. The right radial artery was accessed via the Seldinger technique. A 6 Spanish sheath was placed in the right radial artery. 2.5 mg of Verapamil, 800 mcg of nitroglycerin, 1mg Lidocaine and 5000 U Heparin were given through the arterial sheath. The JL3 catheter was also used to perform left heart catheterization, left ventriculogram and selective coronary angiogram. At the end of the procedure the sheath was removed good hemostasis was achieved using Traclet band, patient was transferred to the postop holding area in stable condition. ANGIOGRAPHIC RESULTS The left main artery Normal The left anterior descending artery Proximally normal with no angiographic evidence of macrovascular coronary disease. The distal LAD has KAILEE II flow The circumflex artery Nondominant normal The right coronary artery Dominant with a mid vessel smooth 20 to 30% stenosis The HAMM ventriculogram reveals Preserved 50% The left ventricular end-diastolic pressure 20 mmHg IMPRESSION Slow flow down the LAD consistent with endothelial dysfunction Mild disease in the mid LAD Preserved ejection fraction Elevated LVEDP PLAN 1. Risk factor modification 2. Medical management for coronary disease 3. Treatment of endothelial dysfunction 4. Avoidance of tobacco products Electronically signed by : Reggie Machado MD 08/17/2024 12:03:03
[2024-08-17 09:29] LABS: Basophils # 0.1 K/mm3 (0-0.2); Basophils % 1.3 % (0.1-2.0); Eosinophils # 0.6 Kmm3 (0.0-0.4); Hematocrit 39.2 % (42.0-52.0); Hemoglobin 13.2 g/dL (14.1-18.0); Immature Granulocytes # 0.06 10^3uL; Immature Granulocytes % 0.6 %; Lymphocytes # 2.2 K/mm3 (0.7-4.5); Lymphocytes % 23.4 % (10-50); Mean Corpuscular HGB Conc 33.7 g/dL (31.8-35.4); Mean Corpuscular Hemoglobin 30.6 pg (27.0-31.2); Mean Platelet Volume 10.8 fl (7.4-10.4); Monocytes # 0.8 K/mm3 (0.1-1.0); Monocytes % 8.7 % (1.7-9.3); Neutrophils # 5.7 K/mm3 (1.8-7.8); Nucleated Red Blood Cells # 0 10^3/uL; Nucleated Red Blood Cells % 0 %; Platelet Count 252 K/mm3 (142-424); Red Blood Count 4.31 M/mm3 (4.60-6.20); Red Cell Distribution Width 13.2 % (11.5-17.5); White Blood Count 9.5 K/mm3 (4.8-10.8)
[2024-08-17 09:34] LABS: Chloride 106 mmol/L (98-107); Sodium 135 mmol/L (136-145)
[2024-08-17 09:35] LABS: Potassium 4.7 mmoL/L (3.5-5.1)
[2024-08-17 09:37] LABS: Blood Urea Nitrogen 38 mg/dl (9-20); Creatinine Clearance Estimated 78 mL/min (50-200); Estimated Glomerular Filt Rate 43 ml/min (>60); GFR (African American) 51 ML/MIN (>60)
[2024-08-17 09:38] LABS: Anion Gap 8.7 mEq/L (5-15); Calcium 9.4 mg/dl (8.4-10.2); Carbon Dioxide 25 mmol/L (22.0-30.0); Glucose 106 mg/dl (74-100)
[2024-08-17] MEDS: LIDOCAINE 1% 10ML MDV 10 ML IJ (11:11)
[2024-08-17] MEDS: HEPARIN 1,000 UNITS/500ML NS (CATH LAB) 3000 UNIT IV (11:11)
[2024-08-17] MEDS: HEPARIN 1,000 UNITS/ML 10ML VIAL (CATH LAB) 5000 UNIT IV (11:11)
[2024-08-17] MEDS: VERAPAMIL 2.5MG/ML 2ML VIAL 2.5 MG IV (11:11)
[2024-08-17] MEDS: 0.9 % SODIUM CHLORIDE 500 ML 25 ML IV (11:11)
[2024-08-17] MEDS: NITROGLYCERIN 800MCG/8ML SYR (CATH LAB) 800 MCG IA (11:12)
[2024-08-17] MEDS: diphenhydrAMINE 50MG/ML VIAL 50 MG IV (11:12)
[2024-08-17] MEDS: FENTANYL 100MCG/2ML VIAL 50 MCG IV (11:40)
[2024-08-17] MEDS: MIDAZOLAM HCL 1MG/ML 5ML VIAL 1 MG IV (11:40)
[2024-08-17] MEDS: IOPAMIDOL-370 (76%);100ML BOTTLE 60 ML IV (13:20)
== END 2024-08-17 13:51 | disposition home or self-care (01) ==
PROVIDERS: PCP Internal Medicine Adolescent Medicine; Visit Provider Internal Medicine
PROC: 4A023N7 Measurement of Cardiac Sampling and Pressure, Left Heart, Percutaneous Approach (ICD-10-PCS; CPT 93452; principal; 2024-08-17 09:30)
DX: I25.119 Atherosclerotic heart disease of native coronary artery with unspecified angina pectoris (principal); I11.9 Hypertensive heart disease without heart failure; R93.1 Abnormal findings on diagnostic imaging of heart and coronary circulation; R94.31 Abnormal electrocardiogram [ECG] [EKG]; R07.9 Chest pain, unspecified; I10 Essential (primary) hypertension; Z86.711 Personal history of pulmonary embolism; F17.210 Nicotine dependence, cigarettes, uncomplicated; Z79.899 Other long term (current) drug therapy
CPT/HCPCS: 93458; 80048; 85025; 99152; C1725; C1769; J1200; J1644; J2003; J3010; J7040; Q9967

== ENCOUNTER 2024-08-24 12:51 | Outpatient (CLI) | payer OTHER, SELFPAY ==
--- OUTSIDE RECORDS SUMMARY | 2024-06-25 09:17 | XMS_ITS | Encounter Summary ---
Author Organization [facility] Address [address] [address] Care Team Providers Care Credit Report Checker Name Role Phone Kj Madrid MD Primary Care Provider + [phone] Reason for Visit * Auth/Cert (Routine) Specialty Diagnoses / Procedures Referred By Contac t Referred To Contact Diagnoses Kidney stone Kidney Stone Procedures AR CYSTO W/URETEROSCOPY W/LITHOTRIPSY CYSTOURETEROSCOPY, WITH LASER LITHOTRIPSY Gareth Ray MD [address] [place] [address] [place] [address] Phone: tel: fax: Referral ID Status Reason Start Date Expiration Date Visits Re quested Visits Authorized [id number] 06/15/2024 1 1 Encounter Details Date Type Department Care Team (Late st Contact Info) Description 06/25/2024 9:17 AM EDT - 06/25/2024 4:32 PM EDT Hospital Encounter [facility] Surgery Department [address] [place] [phone] Gareth Ray MD [address] [place] [address] [place] [address] Discharge Disposition: Home or Self Care Social History Tobacco Use Types Packs/Day Years Used Date Smoking Tobacco: Every Day Cigarettes Smokeless Tobacco: Current Comments:vapes Alcohol Use Standard Drinks/Week Comments Yes 0 (1 standard drink = 0.6 oz pur e alcohol) Utilities Answer Date Recorded In the past 12 months, has t he electric, gas, oil, or water company threatened to shut off services in your home? No 02/02/2024 Interpersonal Safety Answer Date Record ed How often does anyone, [employer] family and friends, physically hurt you? Never 02/02/2024 How often does anyone, cooper ashley family and friends, insult or talk down to you? Never 02/02/2024 How often does anyone, cooper ashley family and friends, threaten you with harm? Never 02/02/2024 How often does anyone, cooper ashley family and friends, scream or curse at you? Never 02/02/2024 Housing Stability Answer Date Recorded What is your living situation today? I have a [facility] place to live 02/02/[address] you li ve. Do you have problems with any of the following? None of the above 02/02/2024 Food Insecurity Answer Date Recorded Within the past 12 months, y ou worried that your food would run out before you got money to buy more. Never true 02/02/2024 Within the past 12 months, t he food you bought just didn't last and you didn't have money to get more. Never true 02/02/2024 Transportation Needs Answer Date Record ed In the past 12 months, has l ack of reliable transportation kept you from medical appointments, meetings, work or from getting things needed for daily living? No 02/02/2024 Financial Resource Strain Answer Date R ecorded How hard is it for you to pa y for the very basics like food, housing, medical care, and heating? Would you say it is: Not hard at all 02/02/2024 Employment Answer Date Recorded Do you want help finding or keeping work or a job? I do not need or want help 02/02/2024 Family and Community Support Answer Jim e Recorded If for any reason you need h elp with day-to-day activities such as bathing, preparing meals, shopping, managing finances, etc., do you get the help you need? I get all the help I need 02/02/2024 Feeling Lonely or Isolated 0 02/01 Educational Attainment Answer Date Zay rded Do you speak a language other than Nigerian at ho id? No 02/02/2024 Do you want help with school or training? For example, starting or completing job training or getting a high school diploma, GED or equivalent. No 02/02/2024 Physical Activity Answer Date Recorded Number of minutes of exercise per week 0 02/02/2024 Alcohol Use Answer Date Recorded 5 or More Drinks Per Day Past 12 Months 0 02/02/2024 Depression Answer Date Recorded Calculation of above two rows 0 Stress Answer Date Recorded Stress means a situation in which a person feels tense, restless, nervous, or anxious, or is unable to sleep at night because his or her mind is troubled all the time. Do you feel this kind of stress these days? Not at all 02/02/2024 Disabilities Answer Date Recorded Because of a physical, menta l, or emotional condition, do you have serious difficulty concentrating, remembering, or making decisions? (5 years or older) No 02/02/2024 Because of a physical, menta l, or emotional condition, do you have difficulty doing errands alone such as visiting a doctor's office or shopping? (15 years or older) No 02/02/2024 Substance Use Answer Date Recorded How many times in the past y ear have you used prescription drugs for non-medical reasons? Never 02/02/2024 How many times in the past year have you used il legal drugs? Never 02/02/2024 Sex and Gender Information Value Date Recorded Sex Assigned at Not on file Legal Sex Male 10:08 AM CDT Gender Identity Not on file Sexual Orientation Not on file documented as of this encounter Last Filed Vital Signs Vital Sign Reading Time Taken Comments Blood Pressure 148/88 06/25/2024 4:10 PM EDT Pulse 75 06/25/2024 4:10 PM EDT Temperature 36.6 C (97.9 F) 06/25/2024 4:10 PM EDT Respiratory Rate 18 06/25/2024 4:10 PM EDT Oxygen Saturation 95% 06/25/2024 4:10 PM EDT Inhaled Oxygen Concentration - - Weight 105.7 kg (233 lb) 06/25/2024 9:53 AM EDT Height - - Body Mass Index 27.63 02/02/2024 7:00 AM EST documented in this encounter Discharge Instructions * Discharge Instr - Other Orders* Verónica Pathak RN - 06/25/2024 4:00 PM EDT 5mg of oxycodone given at 3:30pm. Please dose accordingly. * Attachments The following attachments cannot be sent through Care Everywhere. * General Anesthesia Adult Care After (Nigerian) * Ureteral Stent Implantation Care After (Nigerian) * Laser Therapy for Kidney Stones Care After (Nigerian) documented in this encounter Medications at Time of Discharge metoprolol succinate (TOPROL-XL) 25 MG 24 hr tablet Take 1 tablet (25 mg total) by mouth daily. allopurinoL (ZYLOPRIM) 300 MG tablet Take 1 tablet (300 mg total) by mouth daily. losartan (COZAAR) 100 MG tablet 1 tablet (100 mg total) daily. nitrofurantoin, macrocrystal-mon ohydrate, (MACROBID) 100 MG capsuleIndicatio ns:bacterial urinary tract infection Take 1 capsule (100 mg total) by mouth 2 (two) times daily with breakfast and dinner. 20 capsule 02/05/2024 oxybutynin (DITROPAN-XL) 10 MG 24 hr tablet Take 1 tablet (10 mg total) by mouth nightly. 30 tablet 06/25/2024 6 potassium citrate (UROCIT-K) 15 mEq TbER Take 15 mEq by mouth 2 (two) times daily. HYDROcodone-acet aminophen (NORCO) 7.5-325 mg per tablet Take 1 tablet by mouth every 6 (six) hours as needed for up to 10 days. Max Daily Amount: 4 tablets 20 tablet 06/25/2024 5 sildenafiL (VIAGRA) 100 MG tablet Take 1 tablet (100 mg total) by mouth daily as needed for erectile dysfunction (30 minutes prior to activity) for up to 30 days. 30 tablet 5 06/13/2024 5 nitrofurantoin, macrocrystal-mon ohydrate, (MACROBID) 100 MG capsule Take 1 capsule (100 mg total) by mouth 2 (two) times daily with breakfast and dinner. 30 capsule 04/03/2024 5 nitrofurantoin, macrocrystal-mon ohydrate, (MACROBID) 100 MG capsule Take 1 capsule (100 mg total) by mouth 2 (two) times daily with breakfast and dinner. 30 capsule 06/25/2024 5 documented as of this encounter H&P Notes * Gareth Ray MD - 06/25/2024 9:41 AM EDT I have reviewed the above History & Physical and I have examined the patient. No changes have occurred since the above History & Physical. Gareth Ray MD Source Note - Gareth Ray MD - 06/24/2024 11:43 PM EDT History & Physical Name: Toan Ureña : 1970 Age: 53 y.o. SUBJECTIVE: Chief Complaint / Reason for Visit: Left-sided urolithiasis with ureteral and renal stones HPI: Toan Ureña is a 53 y.o. male With long history of urolithiasis. He currently has 2 stones 7 mm in size in his left ureter as well as additional stones in the left collecting system here for ureteroscopy laser of stones and probable ureteral stent placement. HISTORY: Patient Active Problem List Diagnosis Date Noted Renal stone 01/09/2024 Renal cell cancer (HCC) 11/18/2021 Chronic obstructive pulmonary disease (HCC) 10/16/2021 CKD (chronic kidney disease) stage 3, GFR 30-59 ml/min ([facility]) 10/16/2021 Essential hypertension 10/16/2021 Primary gout 10/16/2021 Obesity (BMI 30-39.9) 10/16/2021 Obstructive sleep apnea syndrome 10/16/2021 Tobacco abuse 10/16/2021 Past Surgical History: Procedure Laterality Date bicep surgery Right CYSTOSCOPY,REMOVAL URETERAL STENTS Left 04/03/2024 Procedure: CYSTOSCOPY, WITH URETERAL STENT REMOVAL; Surgeon: Gareth Ray MD; Location: [facility];Service: Urology; Laterality: Left; left ureteral stent removal FOOT SURGERY Right metal adelita in right metatarsal HERNIA REPAIR KIDNEY STONE SURGERY LITHOTRIPSY,EXTRACORPOREAL SHOCK WAVE (ESWL) Left 04/03/2024 Procedure: LITHOTRIPSY,EXTRACORPOREAL SHOCK WAVE (ESWL); Surgeon: Gareth Ray MD; Location: [facility]; Service: Urology; Laterality: Left; ESWL CONF [id number] SPOKE TO ASHELY LYMPHADENECTOMY Right kidney NEPHRECTOMY Right ALLERGIES: Patient has no known allergies. Social History Tobacco Use Smoking status: Every Day Current packs/day: 0.50 Types: Cigarettes Smokeless tobacco: Current Tobacco comments: vapes Substance Use Topics Alcohol use: Yes Family History Problem Relation Name Age of Onset Cancer Mother Cancer Paternal Grandmother Stroke Paternal Grandfather No current facility-administered medications on file prior to encounter. Current Outpatient Medications on File Prior to Encounter Medication Sig Dispense Refill allopurinoL (ZYLOPRIM) 300 MG tablet Take 1 tablet (300 mg total) by mouth daily. [] HYDROcodone-acetaminophen (NORCO) 7.5-325 mg per tablet Take 1 tablet by mouth every 6 (six) hours as needed for pain for up to 10 days. Max Daily Amount: 4 tablets 20 tablet 0 losartan (COZAAR) 100 MG tablet 1 tablet (100 mg total) daily. metoprolol succinate (TOPROL-XL) 25 MG 24 hr tablet Take 1 tablet (25 mg total) by mouth daily. nitrofurantoin, macrocrystal-monohydrate, (MACROBID) 100 MG capsule Take 1 capsule (100 mg total) by mouth 2 (two) times daily with breakfast and dinner. 20 capsule 0 nitrofurantoin, macrocrystal-monohydrate, (MACROBID) 100 MG capsule Take 1 capsule (100 mg total) by mouth 2 (two) times daily with breakfast and dinner. 30 capsule 0 potassium citrate (UROCIT-K) 15 mEq TbER Take 15 mEq by mouth 2 (two) times daily. sildenafiL (VIAGRA) 100 MG tablet Take 1 tablet (100 mg total) by mouth daily as needed for erectile dysfunction (30 minutes prior to activity) for up to 30 days. 30 tablet 5 OBJECTIVE: There were no vitals taken for this visit. Patient is alert and appropriate LABORATORY No results for input(s): WBC , HGB , HCT , PLT , APTT , INR , PTT , MG , NA , K , CL , CO2 , BUN , CREATININE , EGFR , GLUCOSE , CALCIUM , PHOS , ALKPHOS , BILITOT , BILIDIR , PROT , ALT , AST in the last 168 hours. Invalid input(s): LABALBU IMAGING Radiology Results (last 3 days) No results found for the last 72 hours. ASSESSMENT & PLAN: Active Problems: There are no active Hospital Problems. Urolithiasis Admit Date: (Not on file) Length of Stay: 0 days. Discussed this case with:Patient and Time spent >30 minutes. Electronically signed by: Gareth Ray MD, 06/24/2024 at 11:43 PM * Gareth Ray MD - 06/24/2024 11:43 PM EDT History & Physical Name: Toan Ureña : 1970 Age: 53 y.o. SUBJECTIVE: Chief Complaint / Reason for Visit: Left-sided urolithiasis with ureteral and renal stones HPI: Toan Ureña is a 53 y.o. male With long history of urolithiasis. He currently has 2 stones 7 mm in size in his left ureter as well as additional stones in the left collecting system here for ureteroscopy laser of stones and probable ureteral stent placement. HISTORY: Patient Active Problem List Diagnosis Date Noted Renal stone 01/09/2024 Renal cell cancer (HCC) 11/18/2021 Chronic obstructive pulmonary disease (HCC) 10/16/2021 CKD (chronic kidney disease) stage 3, GFR 30-59 ml/min (HCC) 10/16/2021 Essential hypertension 10/16/2021 Primary gout 10/16/2021 Obesity (BMI 30-39.9) 10/16/2021 Obstructive sleep apnea syndrome 10/16/2021 Tobacco abuse 10/16/2021 Past Surgical History: Procedure Laterality Date bicep surgery Right CYSTOSCOPY,REMOVAL URETERAL STENTS Left 04/03/2024 Procedure: CYSTOSCOPY, WITH URETERAL STENT REMOVAL; Surgeon: Gareth Ray MD; Location: [facility];Service: Urology; Laterality: Left; left ureteral stent removal FOOT SURGERY Right metal adelita in right metatarsal HERNIA REPAIR KIDNEY STONE SURGERY LITHOTRIPSY,EXTRACORPOREAL SHOCK WAVE (ESWL) Left 04/03/2024 Procedure: LITHOTRIPSY,EXTRACORPOREAL SHOCK WAVE (ESWL); Surgeon: Gareth Ray MD; Location: [facility]; Service: Urology; Laterality: Left; ESWL CONF [id number] SPOKE TO ASHELY LYMPHADENECTOMY Right kidney NEPHRECTOMY Right ALLERGIES: Patient has no known allergies. Social History Tobacco Use Smoking status: Every Day Current packs/day: 0.50 Types: Cigarettes Smokeless tobacco: Current Tobacco comments: vapes Substance Use Topics Alcohol use: Yes Family History Problem Relation Name Age of Onset Cancer Mother Cancer Paternal Grandmother Stroke Paternal Grandfather No current facility-administered medications on file prior to encounter. Current Outpatient Medications on File Prior to Encounter Medication Sig Dispense Refill allopurinoL (ZYLOPRIM) 300 MG tablet Take 1 tablet (300 mg total) by mouth daily. [] HYDROcodone-acetaminophen (NORCO) 7.5-325 mg per tablet Take 1 tablet by mouth every 6 (six) hours as needed for pain for up to 10 days. Max Daily Amount: 4 tablets 20 tablet 0 losartan (COZAAR) 100 MG tablet 1 tablet (100 mg total) daily. metoprolol succinate (TOPROL-XL) 25 MG 24 hr tablet Take 1 tablet (25 mg total) by mouth daily. nitrofurantoin, macrocrystal-monohydrate, (MACROBID) 100 MG capsule Take 1 capsule (100 mg total) by mouth 2 (two) times daily with breakfast and dinner. 20 capsule 0 nitrofurantoin, macrocrystal-monohydrate, (MACROBID) 100 MG capsule Take 1 capsule (100 mg total) by mouth 2 (two) times daily with breakfast and dinner. 30 capsule 0 potassium citrate (UROCIT-K) 15 mEq TbER Take 15 mEq by mouth 2 (two) times daily. sildenafiL (VIAGRA) 100 MG tablet Take 1 tablet (100 mg total) by mouth daily as needed for erectile dysfunction (30 minutes prior to activity) for up to 30 days. 30 tablet 5 OBJECTIVE: There were no vitals taken for this visit. Patient is alert and appropriate LABORATORY No results for input(s): WBC , HGB , HCT , PLT , APTT , INR , PTT , MG , NA , K , CL , CO2 , BUN , CREATININE , EGFR , GLUCOSE , CALCIUM , PHOS , ALKPHOS , BILITOT , BILIDIR , PROT , ALT , AST in the last 168 hours. Invalid input(s): LABALBU IMAGING Radiology Results (last 3 days) No results found for the last 72 hours. ASSESSMENT & PLAN: Active Problems: There are no active Hospital Problems. Urolithiasis Admit Date: (Not on file) Length of Stay: 0 days. Discussed this case with:Patient and Time spent >30 minutes. Electronically signed by: Gareth Ray MD, 06/24/2024 at 11:43 PM documented in this encounter OR Notes * Op Note - Gareth Ray MD - 06/25/2024 2:41 PM EDT Operative/Procedure Note Toan Ureña Date of Surgery/Procedure: 06/25/2024 Pre-Procedure Diagnosis: Left-sided urolithiasis Post-Procedure Diagnosis: Left proximal ureteral stone and left renal stone Procedure Performed: Left ureteroscopy with laser stones and ureteral stent placement Surgeon(s) and Role: Surgeons and Role: * Gareth Ray MD - Primary Assistants: None Anesthesia/Sedation: GETA Specimens: None Estimated Blood Loss: None Blood Administered: None Grafts or Implants: 4.8 Canadian by 28 cm left ureteral stent string attached Complications: None Condition: PACU stable Findings: After satisfactory general anesthesia was carefully placed lithotomy. Sequential compression garments were placed and functioning. The genital areas prepped and draped in normal fashion. Timeout was called. 21 Canadian cystoscopy sheath introduced amplification cleared to be placed. Urethranormal his prostate nonobstructing. I point 035 sensor wire was easily advanced up the left ureter. No obvious ureteral calcifications were noted. Cystoscope was exchanged for semirigid ureteroscope which was advanced. It easily traversed the transmural ureter. The ureter itself seem somewhat dilated but there were no stones present to just below the ureteropelvic junction. At that point there was a flat shelf type stone across the middle of the ureter patency bilateral around the stone. I could not position my semirigid scope and laser fiber to treat the stone and therefore a second wire wasplaced through the ureteroscope and the ureteroscope withdrawn. The flexible scope was passed over the second wire to the level of the renal pelvis where the proximal ureter stone had been reduced to2. In the upper pole calyx there is a large shelf type stone present as well. 100 ??m fiber was used to fragment the larger stone down to tiny material and then brought back to the renal pelvis to treat manipulated stone. Some of this went into the midpole calyx which was then further fragmented. At the completion all calyces were inspected and only tiny material was left within his collecting sys tem. The scope was slowly withdrawn. There is no residual ureteral stone material. The stent was placed over the wire with a nice coil in the kidney and: The bladder. String was left attached next tothe urethra. Bladder was emptied with cystoscopy sheath. Patient procedure well transferred postop covering stable condition. Gareth Ray MD 52:42 PM documented in this encounter Plan of Treatment Not on file documented as of this encounter Procedures Procedure Name Priority Date/Time Associated Diagnosis Comments FL < 1 HOUR Routine 06/25/2024 2:30 PM EDT AR CYSTO W/INSERT URETERAL STENT 06/25/2024 1:27 PM EDT Kidney stone Case Notes Left Ureteroscopy AR CYSTO W/URETEROSCOPY W/LITHOTRIPSY 06/25/2024 1:27 PM EDT Kidney stone Case Notes Left Ureteroscopy documented in this encounter Results * Fluoroscopy less than 1 hour (06/25/2024 2:30 PM EDT) Anatomical Region Laterality Modality X-Ray 06/26/2024 8:42 AM EDT Impressions 06/26/2024 9:29 AM EDT Please see postoperative report. Images reviewed, interpreted, and dictated by Dr. Mick Vivar. Transcribed by Evan Lucio PA-C. Narrative 06/26/2024 9:29 AM EDT FLUOROSCOPY WITH FILMS HISTORY: left sided cystoscopy with stent placement Fluoroscopic guidance was provided under the direction of the clinical service for intraoperative procedure. 3 digital spot radiographs were obtained for cystoscopy with stent placement. Fluoroscopy time was 0.49 minutes. RADIATION DOSE: Reference air kerma 10 mGy. Procedure Note Mick Vivar MD - 06/26/2024 FLUOROSCOPY WITH FILMS HISTORY: left sided cystoscopy with stent placement Fluoroscopic guidance was provided under the direction of the clinical service for intraoperative procedure. 3 digital spot radiographs were obtained for cystoscopy with stent placement. Fluoroscopy time was 0.49 minutes. RADIATION DOSE: Reference air kerma 10 mGy. IMPRESSION: Please see postoperative report. Images reviewed, interpreted, and dictated by Dr. Mick Vivar. Transcribed by Evan Lucio PA-C. Gareth Ray MD IM FLUOROSCOPY ORDERABLES Fin al Result documented in this encounter Visit Diagnoses Diagnosis Smoker Tobacco use disorder CAD (coronary artery disease) Coronary atherosclerosis of unspecified type of vessel, kar[place] or graft documented in this encounter Administered Medications Inactive Administered Medications - up to 3 most recent administrations Medication Order MAR Action Action Date Dose Rate Site dextrose (GLUTOSE) 40 % gel 15 g 15 g Every 15 min PRN, oral, low blood glucose (specify value in prn comments), mild symptomatic hypoglycemia,, Starting on Tue06/25/24 at 0932, Give for blood glucose 60-70 mg/dL if patient is alert and symptomatic. Repeat as ordered until blood glucose above 80 mg/dL. * * *The dose of Glucose Gel 40% will be based on 0.5 mL/kg.* * * The dose can be divided to deliver 1/4 or 1/2 to each check before or formula feeding. Using a gloved hand, transfer the glucose to a medicine cup and draw up the dose using an oral syringe. Wearing a clean glove, gently dry the infant's buccal mucosa with gauze. Transfer the glucose gel from the syringe to a finger and massage into 's buccal mucosa. Refer to algorithm for management guidelines. Do not exceed more than 2 doses of glucose 40% gel in 24 hours., Pre-op dextrose (GLUTOSE) 40 % gel 20 g 20 g Every 15 min PRN, oral, low blood glucose (specify value in prn comments), low blood sugar, moderate hypoglycemia,, Starting on Tue06/25/24 at 0932, If patient is alert, give for blood glucose 45-59 mg/dL. Repeat as ordered until blood glucose above 80 mg/dL. * * *The dose of Glucose Gel 40% will be based on 0.5 mL/kg.* * * The dose can be divided to deliver 1/4 or 1/2 to each check before or formula feeding. Using a gloved hand, transfer the glucose to a medicine cup and draw up the dose using an oral syringe. Wearing a clean glove, gently dry the infant's buccal mucosa with gauze. Transfer the glucose gel from the syringe to a finger and massage into infant's buccal mucosa. Refer to algorithm for management guidelines. Do not exceed more than 2 doses of glucose 40% gel in 24 hours., Pre-op dextrose (GLUTOSE) 40 % gel 30 g 30 g Every 15 min PRN, oral, low blood glucose (specify value in prn comments), severe hypoglycemia, Starting on Tue06/25/24 at 0932, Give for blood glucose less than 45 mg/dL if patient is conscious/alert (may be disoriented). Repeat as ordered until blood glucose above 80 mg/dL. * * *The dose of Glucose Gel 40% will be based on 0.5 mL/kg.* * * The dose can be divided to deliver 1/4 or 1/2 to each check before or formula feeding. Using a gloved hand, transfer the glucose to a medicine cup and draw up the dose using an oral syringe. Wearing a clean glove, gently dry the infant's buccal mucosa with gauze. Transfer the glucose gel from the syringe to a finger and massage into infant's buccal mucosa. Refer to algorithm for management guidelines. Do not exceed more than 2 doses of glucose 40% gel in 24 hours., Pre-op dextrose 50% (D50W) injection 12.5 g 12.5 g Every 15 min PRN (25 mL), intravenous, low blood glucose (specify value in prn comments), moderate hypoglycemia, Starting on Tue06/25/24 at 0932, If patient NPO and alert, give for blood glucose 45-59 mg/dL. Repeat as ordered until blood glucose above 80 mg/dL., Pre-op dextrose 50% (D50W) injection 12.5 g 12.5 g Every 15 min PRN (25 mL), intravenous, low blood glucose (specify value in prn comments), severe hypoglycemia, Starting on Tue06/25/24 at 0932, If NPO and conscious/alert (may be disoriented), give for blood glucose less than 45 mg/dL. Repeat as ordered until blood glucose above 80 mg/dL., Pre-op dextrose 50% (D50W) injection 25 g 25 g Every 15 min PRN (50 mL), intravenous, low blood glucose (specify value in prn comments), severe hypoglycemia, Starting on Tue06/25/24 at 0932, Give for blood glucose less than 45 mg/dL if patient unconscious or not alert. Repeat as ordered until blood glucose above 80 mg/dL., Pre-op electrolyte-R (NORMOSOL-R) infusion intravenous, Continuous, Starting on Tue06/25/24 at 1030, Pre-op New Bag 06/25/2024 10:13 AM EDT 1,000 mLs 50 mL/hr famotidine (PEPCID) tablet 20 mg 20 mg Once, oral, On Tue06/25/24 at 1030, For 1 dose, Pharmacist to renally dose if CrCl is less than 50 mL/min or on CRRT., Pre-op Given 06/25/2024 10:12 AM EDT 20 mg fentaNYL PF (SUBLIMAZE) injection 25 mcg 25 mcg Every 5 min PRN, intravenous, moderate pain (4-6), First Line for pain moderate or greater, Starting on Tue06/25/24 at 1512, For 4 doses, Maximum cumulative dose 100 mcg. If maximum dose is reached, proceed to 2nd Line agent., PACU glucagon injection 1 mg 1 mg Every 15 min PRN, intraMUSCULAR, low blood glucose (specify value in prn comments), severe hypoglycemia, Starting on Tue06/25/24 at 0932, If no IV access, give for blood glucose less than 45 mg/dL if patient unconscious or not alert. Caution: glucagon can cause nausea and vomiting. Roll patient on their side when administering to prevent aspiration. If repeat blood glucose (15 minutes after administration) is 80 mg/dL or below, administer second dose of 1 mg glucagon IM and contact the ordering provider., Pre-op glucose chew tab 20 g 20 g Every 15 min PRN, oral, low blood glucose (specify value in prn comments), moderate hypoglycemia,, Starting on Tue06/25/24 at 0932, If patient is alert and glucose gel is unavailable, give for blood glucose 45-59 mg/dL. Repeat as ordered until blood glucose above 80 mg/dL., Pre-op glucose chew tab 30 g 30 g Every 15 min PRN, oral, low blood glucose (specify value in prn comments), severe hypoglycemia, Starting on Tue06/25/24 at 0932, Give for blood glucose less than 45 mg/dL if patient is conscious/alert (may be disoriented) and glucose gel is unavailable. Repeat as ordered until blood glucose above 80 mg/dL., Pre-op HYDROmorphone (DILAUDID) injection 0.5 mg 0.5 mg Every 10 min PRN, intravenous, severe pain (7-10), 2nd Line agent after max dose Fentanyl given if ordered., Starting on Tue06/25/24 at 1512, For 4 doses, Maximum cumulative dose 2 mg, PACU, PACU Given 06/25/2024 3:52 PM EDT 0.5 mg Given 06/25/2024 3:19 PM EDT 0.5 mg ondansetron (ZOFRAN) injection 4 mg 4 mg Every 15 min PRN, intravenous, nausea, Starting on Tue06/25/24 at 1512, For 2 doses, 1st line for nausea For IV push, give over 2 - 5 minutes., PACU Given 06/25/2024 3:18 PM EDT 4 mg oxyCODONE (ROXICODONE) immediate release tablet 5 mg 5 mg Once as needed, oral, moderate pain (4-6), severe pain (7-10), For patients going home if they have not received hydromorphone or morphine., Starting on Tue06/25/24 at 1512, For 1 dose, Look-alike/Sound-alike medication, PACU Given 06/25/2024 3:23 PM EDT 5 mg sodium chloride flush 10 mL 10 mL As needed, intravenous, line care, Starting on Tue06/25/24 at 0932, Every 8 hours and PRN to flush, Pre-op documented in this encounter Active and Recently Administered Medications Times are shown in EDT. Scheduled Medication Order 06/23/2024 06/24/2024 06/25/2024 clindamycin (CLEOCIN) IVPB 900 mg in dextrose 5 % 50 mL (premix) (COMPLETED) 900 mg Once, intravenous, Administer over 60 Minutes, On Tue06/25/24 at 1000, For 1 dose, Administer within 60 minutes of incision or procedure start, Pre-op, Please choose an indication: Surgical Prophylaxis 1012 (Handoff - Prov ider: Savana Mukherjee RN)1332 (Given - Provider: Joyce Mcfarlane CRNA) famotidine (PEPCID) tablet 20 mg (COMPLETED) 20 mg Once, oral, On Tue06/25/24 at 1030, For 1 dose, Pharmacist to renally dose if CrCl is less than 50 mL/min or on CRRT., Pre-op 1012 (Given - Provid er: Savana Mukherjee RN) Continuous Medication Order 06/23/2024 06/24/2024 06/25/2024 electrolyte-R (NORMOSOL-R) infusion intravenous, Continuous, Starting on Tue06/25/24 at 1030, Pre-op 1013 (New Bag - Prov ider: Savana Mukherjee RN) PRN Medication Order 06/23/2024 06/24/2024 06/25/2024 dextrose (GLUTOSE) 40 % gel 15 g 15 g Every 15 min PRN, oral, low blood glucose (specify value in prn comments), mild symptomatic hypoglycemia,, Starting on Tue06/25/24 at 0932, Give for blood glucose 60-70 mg/dL if patient is alert and symptomatic. Repeat as ordered until blood glucose above 80 mg/dL. * * *The dose of Glucose Gel 40% will be based on 0.5 mL/kg.* * * The dose can be divided to deliver 1/4 or 1/2 to each check before or formula feeding. Using a gloved hand, transfer the glucose to a medicine cup and draw up the dose using an oral syringe. Wearing a clean glove, gently dry the infant's buccal mucosa with gauze. Transfer the glucose gel from the syringe to a finger and massage into infant's buccal mucosa. Refer to algorithm for management guidelines. Do not exceed more than 2 doses of glucose 40% gel in 24 hours., Pre-op dextrose (GLUTOSE) 40 % gel 20 g(Linked Group 1) 20 g Every 15 min PRN, oral, low blood glucose (specify value in prn comments), low blood sugar, moderate hypoglycemia,, Starting on Tue06/25/24 at 0932, If patient is alert, give for blood glucose 45-59 mg/dL. Repeat as ordered until blood glucose above 80 mg/dL. * * *The dose of Glucose Gel 40% will be based on 0.5 mL/kg.* * * The dose can be divided to deliver 1/4 or 1/2 to each check before or formula feeding. Using a gloved hand, transfer the glucose to a medicine cup and draw up the dose using an oral syringe. Wearing a clean glove, gently dry the 's buccal mucosa with gauze. Transfer the glucose gel from the syringe to a finger and massage into infant's buccal mucosa. Refer to algorithm for management guidelines. Do not exceed more than 2 doses of glucose 40% gel in 24 hours., Pre-op dextrose (GLUTOSE) 40 % gel 30 g(Linked Group 2) 30 g Every 15 min PRN, oral, low blood glucose (specify value in prn comments), severe hypoglycemia, Starting on Tue06/25/24 at 0932, Give for blood glucose less than 45 mg/dL if patient is conscious/alert (may be disoriented). Repeat as ordered until blood glucose above 80 mg/dL. * * *The dose of Glucose Gel 40% will be based on 0.5 mL/kg.* * * The dose can be divided to deliver 1/4 or 1/2 to each check before or formula feeding. Using a gloved hand, transfer the glucose to a medicine cup and draw up the dose using an oral syringe. Wearing a clean glove, gently dry the 's buccal mucosa with gauze. Transfer the glucose gel from the syringe to a finger and massage into infant's buccal mucosa. Refer to algorithm for management guidelines. Do not exceed more than 2 doses of glucose 40% gel in 24 hours., Pre-op dextrose 50% (D50W) injection 12.5 g(Linked Group 1) 12.5 g Every 15 min PRN (25 mL), intravenous, low blood glucose (specify value in prn comments), moderate hypoglycemia, Starting on Tue06/25/24 at 0932, If patient NPO and alert, give for blood glucose 45-59 mg/dL. Repeat as ordered until blood glucose above 80 mg/dL., Pre-op dextrose 50% (D50W) injection 12.5 g(Linked Group 2) 12.5 g Every 15 min PRN (25 mL), intravenous, low blood glucose (specify value in prn comments), severe hypoglycemia, Starting on Tue06/25/24 at 0932, If NPO and conscious/alert (may be disoriented), give for blood glucose less than 45 mg/dL. Repeat as ordered until blood glucose above 80 mg/dL., Pre-op dextrose 50% (D50W) injection 25 g(Linked Group 3) 25 g Every 15 min PRN (50 mL), intravenous, low blood glucose (specify value in prn comments), severe hypoglycemia, Starting on Tue06/25/24 at 0932, Give for blood glucose less than 45 mg/dL if patient unconscious or not alert. Repeat as ordered until blood glucose above 80 mg/dL., Pre-op fentaNYL PF (SUBLIMAZE) injection 25 mcg 25 mcg Every 5 min PRN, intravenous, moderate pain (4-6), First Line for pain moderate or greater, Starting on Tue06/25/24 at 1512, For 4 doses, Maximum cumulative dose 100 mcg. If maximum dose is reached, proceed to 2nd Line agent., PACU glucagon injection 1 mg(Linked Group 3) 1 mg Every 15 min PRN, intraMUSCULAR, low blood glucose (specify value in prn comments), severe hypoglycemia, Starting on Tue06/25/24 at 0932, If no IV access, give for blood glucose less than 45 mg/dL if patient unconscious or not alert. Caution: glucagon can cause nausea and vomiting. Roll patient on their side when administering to prevent aspiration. If repeat blood glucose (15 minutes after administration) is 80 mg/dL or below, administer second dose of 1 mg glucagon IM and contact the ordering provider., Pre-op glucose chew tab 20 g(Linked Group 1) 20 g Every 15 min PRN, oral, low blood glucose (specify value in prn comments), moderate hypoglycemia,, Starting on Tue06/25/24 at 0932, If patient is alert and glucose gel is unavailable, give for blood glucose 45-59 mg/dL. Repeat as ordered until blood glucose above 80 mg/dL., Pre-op glucose chew tab 30 g(Linked Group 2) 30 g Every 15 min PRN, oral, low blood glucose (specify value in prn comments), severe hypoglycemia, Starting on Tue06/25/24 at 0932, Give for blood glucose less than 45 mg/dL if patient is conscious/alert (may be disoriented) and glucose gel is unavailable. Repeat as ordered until blood glucose above 80 mg/dL., Pre-op HYDROmorphone (DILAUDID) injection 0.5 mg 0.5 mg Every 10 min PRN, intravenous, severe pain (7-10), 2nd Line agent after max dose Fentanyl given if ordered., Starting on Tue06/25/24 at 1512, For 4 doses, Maximum cumulative dose 2 mg, PACU, PACU 1519 (Given - Provid er: Verónica Pathak RN)1552 (Given - Provider: Verónica Pathak RN) lidocaine (UROJET, GLYDO) 2 % jelly (CANCELED) As needed, Starting on Tue06/25/24 at 1356, Intra-op 1356 (Given - Provid er: Gareth Ray MD - Comment: given to sterile field.) ondansetron (ZOFRAN) injection 4 mg 4 mg Every 15 min PRN, intravenous, nausea, Starting on Tue06/25/24 at 1512, For 2 doses, 1st line for nausea For IV push, give over 2 - 5 minutes., PACU 1518 (Given - Provid er: Verónica Pathak RN) oxyCODONE (ROXICODONE) immediate release tablet 5 mg (COMPLETED) 5 mg Once as needed, oral, moderate pain (4-6), severe pain (7-10), For patients going home if they have not received hydromorphone or morphine., Starting on Tue06/25/24 at 1512, For 1 dose, Look-alike/Sound-alike medication, PACU 1523 (Given - Provid er: Verónica Pathak RN) sodium chloride flush 10 mL(Linked Group 4) 10 mL As needed, intravenous, line care, Starting on Tue06/25/24 at 0932, Every 8 hours and PRN to flush, Pre-op Linked Groups Order Group 1: dextrose (GLUTOSE) 40 % gel 20 gJump to med 20 g Every 15 min PRN, oral, low blood glucose (specify value in prn comments), low blood sugar, moderate hypoglycemia,, Starting on Tue06/25/24 at 0932, If patient is alert, give for blood glucose 45-59 mg/dL. Repeat as ordered until blood glucose above 80 mg/dL. * * *The dose of Glucose Gel 40% will be based on 0.5 mL/kg.* * * The dose can be divided to deliver 1/4 or 1/2 to each check before or formula feeding. Using a gloved hand, transfer the glucose to a medicine cup and draw up the dose using an oral syringe. Wearing a clean glove, gently dry the infant's buccal mucosa with gauze. Transfer the glucose gel from the syringe to a finger and massage into 's buccal mucosa. Refer to algorithm for management guidelines. Do not exceed more than 2 doses of glucose 40% gel in 24 hours., Pre-op Or glucose chew tab 20 gJump to med 20 g Every 15 min PRN, oral, low blood glucose (specify value in prn comments), moderate hypoglycemia,, Starting on Tue06/25/24 at 0932, If patient is alert and glucose gel is unavailable, give for blood glucose 45-59 mg/dL. Repeat as ordered until blood glucose above 80 mg/dL., Pre-op Or dextrose 50% (D50W) injection 12.5 gJump to med 12.5 g Every 15 min PRN (25 mL), intravenous, low blood glucose (specify value in prn comments), moderate hypoglycemia, Starting on Tue06/25/24 at 0932, If patient NPO and alert, give for blood glucose 45-59 mg/dL. Repeat as ordered until blood glucose above 80 mg/dL., Pre-op Group 2: dextrose (GLUTOSE) 40 % gel 30 gJump to med 30 g Every 15 min PRN, oral, low blood glucose (specify value in prn comments), severe hypoglycemia, Starting on Tue06/25/24 at 0932, Give for blood glucose less than 45 mg/dL if patient is conscious/alert (may be disoriented). Repeat as ordered until blood glucose above 80 mg/dL. * * *The dose of Glucose Gel 40% will be based on 0.5 mL/kg.* * * The dose can be divided to deliver 1/4 or 1/2 to each check before or formula feeding. Using a gloved hand, transfer the glucose to a medicine cup and draw up the dose using an oral syringe. Wearing a clean glove, gently dry the infant's buccal mucosa with gauze. Transfer the glucose gel from the syringe to a finger and massage into infant's buccal mucosa. Refer to algorithm for management guidelines. Do not exceed more than 2 doses of glucose 40% gel in 24 hours., Pre-op Or glucose chew tab 30 gJump to med 30 g Every 15 min PRN, oral, low blood glucose (specify value in prn comments), severe hypoglycemia, Starting on Tue06/25/24 at 0932, Give for blood glucose less than 45 mg/dL if patient is conscious/alert (may be disoriented) and glucose gel is unavailable. Repeat as ordered until blood glucose above 80 mg/dL., Pre-op Or dextrose 50% (D50W) injection 12.5 gJump to med 12.5 g Every 15 min PRN (25 mL), intravenous, low blood glucose (specify value in prn comments), severe hypoglycemia, Starting on Tue06/25/24 at 0932, If NPO and conscious/alert (may be disoriented), give for blood glucose less than 45 mg/dL. Repeat as ordered until blood glucose above 80 mg/dL., Pre-op Group 3: dextrose 50% (D50W) injection 25 gJump to med 25 g Every 15 min PRN (50 mL), intravenous, low blood glucose (specify value in prn comments), severe hypoglycemia, Starting on Tue06/25/24 at 0932, Give for blood glucose less than 45 mg/dL if patient unconscious or not alert. Repeat as ordered until blood glucose above 80 mg/dL., Pre-op Or glucagon injection 1 mgJump to med 1 mg Every 15 min PRN, intraMUSCULAR, low blood glucose (specify value in prn comments), severe hypoglycemia, Starting on Tue06/25/24 at 0932, If no IV access, give for blood glucose less than 45 mg/dL if patient unconscious or not alert. Caution: glucagon can cause nausea and vomiting. Roll patient on their side when administering to prevent aspiration. If repeat blood glucose (15 minutes after administration) is 80 mg/dL or below, administer second dose of 1 mg glucagon IM and contact the ordering provider., Pre-op Group 4: Insert Peripheral IV (CANCELED) STAT, Once, On Tue06/25/24 at 0933, For 1 occurrence, Pre-op And Saline Lock IV (CANCELED) Routine, Once, On Tue06/25/24 at 0933, For 1 occurrence, Pre-op And sodium chloride flush 10 mLJump to med 10 mL As needed, intravenous, line care, Starting on Tue06/25/24 at 0932, Every 8 hours and PRN to flush, Pre-op documented in this encounter Care Teams Credit Report Checker Relationship Specialty Start Date End Date Kj Madrid MD [address] [place] [id number] PCP - General Adolescent Medicine 01/09/24 documented as of this encounter
--- OUTSIDE RECORDS SUMMARY | 2024-06-25 11:33 | XMS_ITS | Encounter Summary ---
Author Organization [facility] In iatives Address [address] [address] Care Team Providers Care Beauty Shop Manager Name Role Phone Kj Madrid MD Primary Care Provider + [phone] Reason for Visit * Auth/Cert (Routine) Specialty Diagnoses / Procedures Referred By Contac t Referred To Contact Diagnoses Kidney stone Kidney Stone Procedures [place] CYSTO W/URETEROSCOPY W/LITHOTRIPSY CYSTOURETEROSCOPY, WITH LASER LITHOTRIPSY Gareth Ray MD [address] [place] [address] [place] [address] Phone: tel: fax: Referral ID Status Reason Start Date Expiration Date Visits Re quested Visits Authorized [id number] 06/15/2024 1 1 Encounter Details Date Type Department Care Team (Late st Contact Info) Description 06/25/2024 11:33 AM EDT - 06/25/2024 1:02 PM EDT Surgery [facility] Surgery Department [address] [place] [phone] Gareth Ray MD [address] [place] [address] CYSTOURETEROSCOPY, WITH LASER LITHOTRIPSY Social History Tobacco [...] living situation today? I have a [facility] place to live 02/02/2024 Think about the [...] Do you speak a language other than Equ[place]an at [facility]? No 02/02/2024 Do you want help with [...] Everywhere. * General Anesthesia Adult Care After (Equatorial Guinean) * Ureteral Stent Implantation Care After (Equatorial Guinean) * Laser Therapy for Kidney Stones Care After ([place]an) documented in this encounter Medications at Time [...] kidney disease) stage 3, GFR 30-59 ml/min ([facility]) 10/16/2021 Essential hypertension 10/16/2021 Primary gout 10/16/2021 Obesity (BMI 30-39.9) 10/16/2021 Obstructive sleep apnea syndrome 10/16/2021 Tobacco abuse 10/16/2021 Past Surgical History: Procedure Laterality Date bicep surgery Right CYSTOSCOPY,REMOVAL URETERAL STENTS Left 04/03/2024 Procedure: CYSTOSCOPY, WITH URETERAL STENT REMOVAL; Surgeon: Gareth Ray MD; Location: [facility];Service: Urology; Laterality: Left; left ureteral stent removal FOOT SURGERY Right metal adelita in right metatarsal HERNIA REPAIR KIDNEY STONE SURGERY LITHOTRIPSY,EXTRACORPOREAL SHOCK WAVE (ESWL) Left 04/03/2024 Procedure: LITHOTRIPSY,EXTRACORPOREAL SHOCK WAVE (ESWL); Surgeon: Gareth Ray MD; Location: [facility]; Service: Urology; Laterality: Left; ESWL CONF [id number] SPOKE TO ASHELY LYMPHADENECTOMY Right kidney NEPHRECTOMY [...] STENT REMOVAL; Surgeon: Gareth Ray MD; Location: [facility]; Service: Urology; Laterality: Left; left ureteral stent removal FOOT SURGERY Right metal adelita in right metatarsal HERNIA REPAIR KIDNEY STONE SURGERY LITHOTRIPSY,EXTRACORPOREAL SHOCK WAVE (ESWL) Left 04/03/2024 Procedure: LITHOTRIPSY,EXTRACORPOREAL SHOCK WAVE (ESWL); Surgeon: Gareth Ray MD; Location: [facility]; Service: Urology; Laterality: Left; ESWL CONF [id number] SPOKE TO ASHELY LYMPHADENECTOMY Right kidney NEPHRECTOMY [...] Blood Administered: None Grafts or Implants: 4.8 Georgian by 28 cm left ureteral stent string attached Complications: None Condition: PACU stable Findings: After satisfactory general anesthesia was carefully placed lithotomy. Sequential compression garments were placed and functioning. The genital areas prepped and draped in normal fashion. Timeout was called. 21 Georgian cystoscopy sheath introduced amplification cleared to be [...] 1 HOUR Routine 06/25/2024 2:30 PM EDT AL CYSTO W/INSERT URETERAL STENT 06/25/2024 1:27 PM EDT Kidney stone Case Notes Left Ureteroscopy AL CYSTO W/URETEROSCOPY W/LITHOTRIPSY 06/25/2024 1:27 PM EDT [...] Coronary atherosclerosis of unspecified type of vessel, [place]hal[place] or graft Kidney stone Calculus of kidney [...] Pre-op documented in this encounter Care Teams Beauty Shop Manager Relationship Specialty Start Date End Date Kj Madrid MD [address] [place] [address] PCP - General Adolescent Medicine 01/09/24 documented as of this encounter
--- OUTSIDE RECORDS SUMMARY | 2024-06-25 13:27 | XMS_ITS | Encounter Summary ---
Author Organization [facility] In iatives Address [address] [address] Care Team Providers Care Extension Division Director Name Role Phone Kj Madrid MD Primary Care Provider + [phone] Reason for Visit * Auth/Cert (Routine) Specialty Diagnoses / Procedures Referred By Contac t Referred To Contact Diagnoses Kidney stone Kidney Stone Procedures [place] CYSTO W/URETEROSCOPY W/LITHOTRIPSY CYSTOURETEROSCOPY, WITH LASER LITHOTRIPSY Gareth Ray MD [address] [facility] [address] [place] [address] Phone: tel: fax: Referral ID Status Reason Start Date Expiration Date Visits Re quested Visits Authorized [id number] 06/15/2024 1 1 Encounter Details Date Type Department Care Team (Late st Contact Info) Description 06/25/2024 1:27 PM EDT Anesthesia Event [facility] Surgery Department [address] [place] [phone] Joyce Mcfarlane CRNA [address] [place] [address] Reggie Calderon MD [address] [place], [place] [id number] Anesthesia Record Procedure Summary Procedure Name Responsible [...] Time 1428 06/25/24 1331 by Joyce Mcfarlane, WHOLESALE DIAMOND BROKER 06/25/24 1428 by Joyce Mcfarlane, WHOLESALE DIAMOND BROKER Wound 06/25/24; 1428; Inci corbin; Penis; Not [...] t he electric, gas, oil, or water [employer] threatened to shut off services in your [...] living situation today? I have a [facility] place to live 02/02/2024 Think about [...] Do you speak a language other than Niuean at [facility]? No 02/02/2024 Do you want help [...] Procedure Summary Date: 06/25/24 Room / Location: [facility] Anesthesia Start: 1327 Anesthesia [...] Respiratory status: acceptable Hydration status: acceptable Color: [place] Activity: Moves 4 extremities Inotropes/Vasopressors: N/A No [...] Procedure: CYSTOURETEROSCOPY, WITH LASER LITHOTRIPSY (Left) Location: [facility] OR OPERATING ROOM Surgeons: Gareth Ray [...] risks discussed with patient. Plan discussed with WHOLESALE DIAMOND BROKER. documented in this encounter Plan of Treatment [...] mg documented in this encounter Care Teams Extension Division Director Relationship Specialty Start Date End Date Kj Madrid MD [address] [place] [address] PCP - General Adolescent Medicine 01/09/24 documented as of this encounter
--- OUTSIDE RECORDS SUMMARY | 2024-07-17 12:09 | XMS_ITS | Encounter Summary ---
Author Organization [facility] Address [address] [address] Care Team Providers Care Stem Crusher Name Role Phone Kj Madrid MD Primary Care Provider [phone] Reason for Visit * Auth/Cert (Routine) Specialty Diagnoses / Procedures Referred By Contac t Referred To Contact Diagnoses Kidney stone Kidney Stone Procedures [place] CYSTO W/URETEROSCOPY W/LITHOTRIPSY CYSTOURETEROSCOPY, WITH LASER LITHOTRIPSY [facility] Surgery Department [address] [place] [address] Phone: tel: fax: [facility] Surgery Department [address] [place] [address] Phone: tel: fax: Referral ID Status Reason Start Date Expiration Date Visits Re quested Visits Authorized [id number] 1 1 Encounter Details Date Type Department Care Team (Late st Contact Info) Description 07/17/2024 12:09 PM EDT - 07/17/2024 5:15 PM EDT Hospital Encounter [facility] Surgery Department [address] [place] [address] [place] [address] [place] [address] [address] [place] [address] Discharge Disposition: Home or Self Care Social [...] your living situation today? I have a [facility] place to live 02/02/2024 Think [...] Do you speak a language other than Chinese at ho nd? No 02/02/2024 Do you want help with [...] Everywhere. * General Anesthesia Adult Care After (Chinese) * Laser Therapy for Kidney Stones Care After (Chinese) documented in this encounter Medications at Time [...] kidney disease) stage 3, GFR 30-59 ml/min ([facility]) 10/16/2021 Essential hypertension 10/16/2021 Primary gout 10/16/2021 Obesity (BMI 30-39.9) 10/16/2021 Obstructive sleep apnea syndrome 10/16/2021 Tobacco abuse 10/16/2021 Past Surgical History: Procedure Laterality Date bicep surgery Right CYSTOSCOPY,INSERTION URETERAL STENTS Left 06/25/2024 Procedure: CYSTOSCOPY, WITH URETERAL STENT INSERTION; Surgeon: Gareth Ray MD; Location: [facility]; Service: Urology; Laterality: Left; CYSTOSCOPY,REMOVAL URETERAL STENTS Left 04/03/2024 Procedure: CYSTOSCOPY, WITH URETERAL STENT REMOVAL; Surgeon: Gareth Ray MD; Location: [facility];Service: Urology; Laterality: Left; left ureteral stent removal CYSTOSCOPY,URETEROSCOPY W/ LASER LITHOTRIPSY Left 06/25/2024 Procedure: CYSTOURETEROSCOPY, WITH LASER LITHOTRIPSY; Surgeon: Gareth Ray MD; Location: [facility]; Service: Urology; Laterality: Left; FOOT SURGERY Right metal adelita in right metatarsal HERNIA REPAIR KIDNEY STONE SURGERY LITHOTRIPSY,EXTRACORPOREAL SHOCK WAVE (ESWL) Left 04/03/2024 Procedure: LITHOTRIPSY,EXTRACORPOREAL SHOCK WAVE (ESWL); Surgeon: Gareth Ray MD; Location: [facility]; Service: Urology; Laterality: Left; ESWL CONF [id number] SPOKE TO ASHELY LYMPHADENECTOMY Right kidney NEPHRECTOMY [...] kidney disease) stage 3, GFR 30-59 ml/min ([facility]) 10/16/2021 Essential hypertension 10/16/2021 Primary gout 10/16/2021 Obesity (BMI 30-39.9) 10/16/2021 Obstructive sleep apnea syndrome 10/16/2021 Tobacco abuse 10/16/2021 Past Surgical History: Procedure Laterality Date bicep surgery Right CYSTOSCOPY,INSERTION URETERAL STENTS Left 06/25/2024 Procedure: CYSTOSCOPY, WITH URETERAL STENT INSERTION; Surgeon: Gareth Ray MD; Location: [facility]; Service: Urology; Laterality: Left; CYSTOSCOPY,REMOVAL URETERAL STENTS Left 04/03/2024 Procedure: CYSTOSCOPY, WITH URETERAL STENT REMOVAL; Surgeon: Gareth Ray MD; Location: [facility];Service: Urology; Laterality: Left; left ureteral stent removal CYSTOSCOPY,URETEROSCOPY W/ LASER LITHOTRIPSY Left 06/25/2024 Procedure: CYSTOURETEROSCOPY, WITH LASER LITHOTRIPSY; Surgeon: Gareth Ray MD; Location: [facility]; Service: Urology; Laterality: Left; FOOT SURGERY Right metal adelita in right metatarsal HERNIA REPAIR KIDNEY STONE SURGERY LITHOTRIPSY,EXTRACORPOREAL SHOCK WAVE (ESWL) Left 04/03/2024 Procedure: LITHOTRIPSY,EXTRACORPOREAL SHOCK WAVE (ESWL); Surgeon: Gareth Ray MD; Location: [facility]; Service: Urology; Laterality: Left; ESWL CONF [id number] SPOKE TO ASHELY LYMPHADENECTOMY Right kidney NEPHRECTOMY [...] Blood Administered: None Grafts or Implants: 4.8 Montserratian by 28 cm right ureteral stent with string attached Complications: None Condition: None Findings: After satisfactory general esthesia was carefully placed lithotomy. Pressure garments were placed and function at time of induction. The 21 Montserratian cystoscopy sheath introduced under direct vision 30 degree lens. His urethra appeared normal and prostate nonobstructing. Upon in the bladder there is no bladder stones. 5 Montserratian open-ended ureteral catheter was used to perform [...] Right Ureteroscopy with Laser of Kidney Stones [place] CYSTO W/URETEROSCOPY W/LITHOTRIPSY 07/17/2024 2:23 PM EDT [...] Pre-op documented in this encounter Care Teams Stem Crusher Relationship Specialty Start Date End Date Kj Madrid MD [address] [place] [address] PCP - General Adolescent Medicine 01/09/24 documented as of this encounter
--- OUTSIDE RECORDS SUMMARY | 2024-07-17 14:23 | XMS_ITS | Encounter Summary ---
Author Organization [facility] In iatives Address [address] [address] Care Team Providers Care Cupola Hoist Operator Name Role Phone Kj Madrid MD Primary Care Provider [phone] Reason for Visit * Auth/Cert (Routine) Specialty Diagnoses / Procedures Referred By Contac t Referred To Contact Diagnoses Kidney stone Kidney Stone Procedures [place] CYSTO W/URETEROSCOPY W/LITHOTRIPSY CYSTOURETEROSCOPY, WITH LASER LITHOTRIPSY [facility] Surgery Department [address] [place] [phone] Phone: tel: fax: [facility] Surgery Department [address] [place] [address] Phone: tel: fax: Referral ID Status Reason Start Date Expiration Date Visits Re quested Visits Authorized [id number] 1 1 Encounter Details Date Type Department Care Team (Late st Contact Info) Description 07/17/2024 2:23 PM EDT Anesthesia Event [facility] Department [address] [place] [address] Alden Hopkins CRNA [address] [place] [address] Kentrell Callaway MD [address] [place], [place] [id number] Anesthesia Record Procedure Summary Procedure Name Responsible Anesthesiologist Anesthesia Start Time Anesthesia Stop Time CYSTOURETEROSCOPY, WITH LASER LITHOTRIPSY (Right) Alden Hopkins, TOP INSTALLER 07/17/24 1423 07/17/24 1611 Events Date Time [...] the past 12 months, has t he [employer], gas, oil, or water [employer] threatened to shut off services in your [...] Do you speak a language other than Georgian at [facility]? No 02/02/2024 Do you want help with [...] Procedure Summary Date: 07/17/24 Room / Location: [facility] OR [facility] OPERATING ROOM Anesthesia Start: 1423 Anesthesia Stop: [...] status: room air Hydration status: stable Color: [place] Activity: Moves 4 extremities Inotropes/Vasopressors: N/A No [...] Procedure: CYSTOURETEROSCOPY, WITH LASER LITHOTRIPSY (Right) Location: [facility] OR OPERATING ROOM Surgeons: Gareth Ray MD [...] STENT INSERTION; Surgeon: Gareth Ray MD; Location: [facility] OR; Service: Urology; Laterality: Left; CYSTOSCOPY,REMOVAL URETERAL STENTS Left 04/03/2024 Procedure: CYSTOSCOPY, WITH URETERAL STENT REMOVAL; Surgeon: Gareth Ray MD; Location: [facility] OR;Service: Urology; Laterality: Left; left ureteral stent removal CYSTOSCOPY,URETEROSCOPY W/ LASER LITHOTRIPSY Left 06/25/2024 Procedure: CYSTOURETEROSCOPY, WITH LASER LITHOTRIPSY; Surgeon: Gareth Ray MD; Location: [facility] OR; Service: Urology; Laterality: Left; FOOT SURGERY Right metal adelita in right metatarsal HERNIA REPAIR KIDNEY STONE SURGERY LITHOTRIPSY,EXTRACORPOREAL SHOCK WAVE (ESWL) Left 04/03/2024 Procedure: LITHOTRIPSY,EXTRACORPOREAL SHOCK WAVE (ESWL); Surgeon: Gareth Ray MD; Location: [facility] OR; Service: Urology; Laterality: Left; ESWL CONF [id number] SPOKE TO ASHELY LYMPHADENECTOMY Right kidney NEPHRECTOMY [...] risks discussed with patient. Plan discussed with TOP INSTALLER. documented in this encounter Plan of Treatment [...] mg documented in this encounter Care Teams Cupola Hoist Operator Relationship Specialty Start Date End Date Kj Madrid MD [address] [place] [id number] PCP - General Adolescent Medicine 01/09/24 documented as of this encounter
--- OUTSIDE RECORDS SUMMARY | 2024-07-17 15:15 | XMS_ITS | Encounter Summary ---
Author Organization [facility] Address [address] [place] [address] Care Team Providers Care Supervisor Cutting Department Name Role Phone Kj Madrid MD Primary Care Provider + [phone] Reason for Visit * Auth/Cert (Routine) Specialty Diagnoses / Procedures Referred By Contac t Referred To Contact Diagnoses Kidney stone Kidney Stone Procedures RI CYSTO W/URETEROSCOPY W/LITHOTRIPSY CYSTOURETEROSCOPY, WITH LASER LITHOTRIPSY [facility] Surgery Department [address] [place] [phone] Phone: tel: fax: [facility] Surgery Department [address] [place] [phone] Phone: tel: fax: Referral ID Status Reason Start Date Expiration Date Visits Re quested Visits Authorized [id number] 1 1 Encounter Details Date Type Department Care Team (Late st Contact Info) Description 07/17/2024 3:15 PM EDT - 07/17/2024 4:44 PM EDT Surgery [facility] Surgery Department [address] [place] [phone] Gareth Ray MD [address] [place] [address] [address] [place] [address] CYSTOURETEROSCOPY, WITH LASER LITHOTRIPSY Social History Tobacco [...] your living situation today? I have a [facility] place to live 02/02/2024 Think about [...] Do you speak a language other than [place] at [facility]? No 02/02/2024 Do you want help [...] Everywhere. * General Anesthesia Adult Care After ([place]) * Laser Therapy for Kidney Stones Care After ([place]) documented in this encounter Medications at Time [...] kidney disease) stage 3, GFR 30-59 ml/min ([facility]) 10/16/2021 Essential hypertension 10/16/2021 Primary gout 10/16/2021 Obesity (BMI 30-39.9) 10/16/2021 Obstructive sleep apnea syndrome 10/16/2021 Tobacco abuse 10/16/2021 Past Surgical History: Procedure Laterality Date bicep surgery Right CYSTOSCOPY,INSERTION URETERAL STENTS Left 06/25/2024 Procedure: CYSTOSCOPY, WITH URETERAL STENT INSERTION; Surgeon: Gareth Ray MD; Location: [facility]; Service: Urology; Laterality: Left; CYSTOSCOPY,REMOVAL URETERAL STENTS Left 04/03/2024 Procedure: CYSTOSCOPY, WITH URETERAL STENT REMOVAL; Surgeon: Gareth Ray MD; Location: [facility] OR;Service: Urology; Laterality: Left; left ureteral stent removal CYSTOSCOPY,URETEROSCOPY W/ LASER LITHOTRIPSY Left 06/25/2024 Procedure: CYSTOURETEROSCOPY, WITH LASER LITHOTRIPSY; Surgeon: Gareth Ray MD; Location: [facility] OR; Service: Urology; Laterality: Left; FOOT SURGERY Right metal adelita in right metatarsal HERNIA REPAIR KIDNEY STONE SURGERY LITHOTRIPSY,EXTRACORPOREAL SHOCK WAVE (ESWL) Left 04/03/2024 Procedure: LITHOTRIPSY,EXTRACORPOREAL SHOCK WAVE (ESWL); Surgeon: Gareth Ray MD; Location: [facility]; Service: Urology; Laterality: Left; ESWL CONF [id number] SPOKE TO ASHELY LYMPHADENECTOMY Right kidney NEPHRECTOMY [...] kidney disease) stage 3, GFR 30-59 ml/min ([facility]) 10/16/2021 Essential hypertension 10/16/2021 Primary gout 10/16/2021 Obesity (BMI 30-39.9) 10/16/2021 Obstructive sleep apnea syndrome 10/16/2021 Tobacco abuse 10/16/2021 Past Surgical History: Procedure Laterality Date bicep surgery Right CYSTOSCOPY,INSERTION URETERAL STENTS Left 06/25/2024 Procedure: CYSTOSCOPY, WITH URETERAL STENT INSERTION; Surgeon: Gareth Ray MD; Location: [facility]; Service: Urology; Laterality: Left; CYSTOSCOPY,REMOVAL URETERAL STENTS Left 04/03/2024 Procedure: CYSTOSCOPY, WITH URETERAL STENT REMOVAL; Surgeon: Gareth Ray MD; Location: [facility];Service: Urology; Laterality: Left; left ureteral stent removal CYSTOSCOPY,URETEROSCOPY W/ LASER LITHOTRIPSY Left 06/25/2024 Procedure: CYSTOURETEROSCOPY, WITH LASER LITHOTRIPSY; Surgeon: Gareth Ray MD; Location: [facility] OR; Service: Urology; Laterality: Left; FOOT SURGERY Right metal adelita in right metatarsal HERNIA REPAIR KIDNEY STONE SURGERY LITHOTRIPSY,EXTRACORPOREAL SHOCK WAVE (ESWL) Left 04/03/2024 Procedure: LITHOTRIPSY,EXTRACORPOREAL SHOCK WAVE (ESWL); Surgeon: Gareth Ray MD; Location: [facility] OR; Service: Urology; Laterality: Left; ESWL CONF [id number] SPOKE TO ASHELY LYMPHADENECTOMY Right kidney NEPHRECTOMY [...] Blood Administered: None Grafts or Implants: 4.8 Ugandan by 28 cm right ureteral stent with string attached Complications: None Condition: None Findings: After satisfactory general esthesia was carefully placed lithotomy. Pressure garments were placed and function at time of induction. The 21 Ugandan cystoscopy sheath introduced under direct vision 30 degree lens. His urethra appeared normal and prostate nonobstructing. Upon in the bladder there is no bladder stones. 5 Ugandan open-ended ureteral catheter was used to perform [...] Right Ureteroscopy with Laser of Kidney Stones RI CYSTO W/URETEROSCOPY W/LITHOTRIPSY 07/17/2024 2:23 PM EDT [...] Pre-op documented in this encounter Care Teams Supervisor Cutting Department Relationship Specialty Start Date End Date Kj Madrid MD [address] [place] [address] PCP - General Adolescent Medicine 01/09/24 documented as of this encounter
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
--- OUTSIDE RECORDS SUMMARY | 2024-08-21 06:52 | XMS_ITS ---
Author Organization [facility] Address [address] [place] [address] Care Team Providers Care Staff Nurse Anesthetist Name Role Phone Kj Madrid Primary Care Provider [phone] Kj Madrid Unavailable Unavailable ShirleySarah Ivania [phone] order Encounters Encounter Location Date Provider Diagnosis [facility] [address] [place] [address] 08/21/2024 Sarah Watson History of renal cell carcinoma Z85.528 Assessments Encounter Date Diagnosis (ICD Code) Assessment Notes Treatment Notes Treatment Clinical Notes Section Notes 08/21/2024 History of renal cell carcinoma (ICD-10 - Z85.528) Plan Of Treatment Pending Test Test Name Order Date CT Scan : Abdomen and Pelvis without con trast 08/21/2024 Next Appt Details Provider Name:Cyndi Albert, 09/06/2024 12:30:00 PM, [address], [address], [place], [address], Progress Notes * Deedee UREÑA:1970 (53 yo M)Acc No.[id number]:08/21/2024 Patient: Toan MYERS :1970 A ge:53 Y S ex:Male Address:[address] [place], [address] Subjective: * Chief Complaints: * C t order * Medical History: * Surgical History: * Hospitalization/Major Diagno stic Procedure: * Medications: Objective: * Vitals: * Physical Examination: Assessment: * Assessment: 1. H istory of renal cell carcinoma - Z85.528 Plan: * Treatment: * * Procedure Codes: * true * Date: Generated for Maris rodriguez/Lo/Kaseyitting on: 0 08/24/2024 12:55 PM EDT
--- OUTSIDE RECORDS SUMMARY | 2024-08-22 10:59 | XMS_ITS ---
Author Organization [facility] Address [address] [facility] [address] [place] [address] Care Team Providers Care Diamond Polisher Name Role Phone Kj Madrid Primary Care Provider Kj Madrid Unavailable Unavailable Cyndi Wolfe Unavailable [phone] REASON FOR VISIT lab order Encounters Encounter Location Date Provider Diagnosis [address] [address] 08/22/2024 Cyndi Wolfe Stage 3b chronic kidney disease N18.32 ; Essential hypertension I10 and Low magnesium level R79.0 Assessments Encounter Date Diagnosis (ICD Code) Assessment Notes Treatment Notes Treatment Clinical Notes Section Notes 08/22/2024 Stage 3b chronic kidney disease (ICD-10 - N18.32) 08/22/2024 Essential hypertension (ICD-10 - I10) 08/22/2024 Low magnesium level (ICD-10 - R79.0) Plan Of Treatment Pending Test Test Name Order Date M-Complete Blood Count w/o Diff 08/23/19 M-Comprehensive Metabolic Panel 08/23/19 M-Magnesium 08/22/2024 Next Appt Details Provider Name:Cyndi Albert, 09/06/2024 12:30:00 PM, [address], [address], [place], [address], Progress Notes * Deedee UREÑA:1970 (53 yo M)Acc No.[id number]:08/22/2024 Patient: Toan MYERS :1970 A ge:53 Y S ex:Male Address:[facility] [place], [address] Subjective: * Chief Complaints: * L ab order * Medical History: * Surgical History: * Hospitalization/Major Diagno stic Procedure: * Medications: Objective: * Vitals: * Physical Examination: Assessment: * Assessment: 1. S tage 3b chronic kidney disease - N18.32 2 . E ssential hypertension - I10 3 . L ow magnesium level - R79.0 Plan: * Treatment: ?LAB: M-Comprehensive Metabolic Panel* [facility] 08/23/2024 0 2:08:31 PM EDT > Will have drawn next week 08/27-08/30/2024 ?LAB: M-Magnesium* [facility] 08/23/2024 0 2:08:31 PM EDT > Will have drawn next week 08/27-08/30/2024 2.?Essential hypertension?LAB: M-Complete Blood Count w/o Diff* Tavo Burnham 08/23/2024 0 2:08:31 PM EDT > Will have drawn next week 08/27-08/30/2024 ?LAB: M-Comprehensive Metabolic Panel* Tej Tavo 08/23/2024 0 2:08:31 PM EDT > Will have drawn next week 08/27-08/30/2024 ?LAB: M-Magnesium* [facility] 08/23/2024 0 2:08:31 PM EDT > Will have drawn next week 08/27-08/30/2024 3.?Low magnesium level?LAB: M-Complete Blood Count w/o Diff* [facility] 08/23/2024 0 2:08:31 PM EDT > Will have drawn next week 08/27-08/30/2024 ?LAB: M-Comprehensive Metabolic Panel* Tavo Burnham 08/23/2024 0 2:08:31 PM EDT > Will have drawn next week 08/27-08/30/2024 ?LAB: M-Magnesium* Tavo Burnham R 08/23/2024 0 2:08:31 PM EDT > Will have drawn next week 08/27-08/30/2024 * Procedure Codes: * true * Date: Generated for Maris rodriguez/Lo/Kaseyitting on: 0 08/24/2024 12:54 PM EDT
--- OUTSIDE RECORDS SUMMARY | 2024-08-24 12:54 | XMS_ITS | Clinical Summary ---
Author Organization [facility] Address [address] [place] [address] Care Team Providers Care Animal Surgeon Name Role Phone Kj Madrid MD Primary Care Provider [phone] Allergies No known active allergies Medications allopurinoL [...] by mouth 2 (two) times daily. Active nitrofurantoin, macrocrystal-mo nohydrate, (MACROBID) 100 MG capsuleIndicati ons:bacterial urinary tract infection Take 1 capsule (100 [...] (3 mg total) by mouth daily. Active nitrofurantoin, macrocrystal-mo nohydrate, (MACROBID) 100 MG capsule Take 1 capsule (100 mg total) by mouth 2 (two) times daily with breakfast and dinner. 30 capsule 5 Active nitrofurantoin, macrocrystal-mo nohydrate, (MACROBID) 100 MG capsule Take 1 capsule (100 mg total) by mouth 2 (two) times daily with breakfast and dinner. 30 capsule 5 Active HYDROcodone-kanika taminophen (NORCO) 7.5-325 mg per tablet Take 1 [...] Department Care Team Description 07/19/2024 Orders Only [facility] Urology - [address] [place] [address] Gareth Ray MD Ureteral calculus, right (Primary Dx) 07/19/2024 Telephone [facility] Urology - [address] [place] [address] Gareth Ray MD Appointment 07/17/2024 3:15 PM EDT - 07/17/2024 4:44 PM EDT Surgery [facility] Surgery Department [address] [place] [address] Gareth Ray MD CYSTOURETEROSCOPY, WITH LASER LITHOTRIPSY 07/17/2024 2:23 PM EDT Anesthesia Event [facility] Surgery Department [address] [place] [address] Alden Hopkins, Kentrell Gracia MD 07/17/2024 12:09 PM EDT - 07/17/2024 5:15 PM EDT Hospital Encounter [facility] Surgery Department [address] [place] [address] Gareth Ray MD Discharge Disposition: Home or Self Care 07/17/2024 Travel 06/29/2024 Orders Only [facility] Urology - [address] [facility] [address] [place] [address] Gareth Ray MD 06/25/2024 1:27 PM EDT Anesthesia Event [facility] Surgery Department [address] [place] [address] Joyce Mcfarlane, Reggie Brower MD 06/25/2024 11:33 AM EDT - 06/25/2024 1:02 PM EDT Surgery [facility] Surgery Department [address] [place] [address] Gareth Ray MD CYSTOURETEROSCOPY, WITH LASER LITHOTRIPSY 06/25/2024 9:17 AM EDT - 06/25/2024 4:32 PM EDT Hospital Encounter [facility] Surgery Department [address] [place] [address] Gareth Ray MD Discharge Disposition: Home or Self Care 06/25/2024 Travel 06/19/2024 Telephone [facility] Urology - [address] [place] [address] Gareth Ray MD Advice Only (Pt left 2 voicemails wanting to speak with someone. I called back, he didn't answer and the voicemail has not been set up. ) 06/18/2024 Documentation [facility] Urology - [facility] [address] [place] [address] Gareth Ray MD 06/13/2024 Orders Only [facility] [address] [place] [address] Gareth Ray MD Erectile disorder (Primary Dx); Left ureteral stone 06/04/2024 Documentation [facility] [address] [facility] [address] [place] [address] Gareth Ray MD 06/04/2024 Telephone [facility] [address] [facility] [address] [place] [address] Gareth Ray MD Follow-up (Trying to reach patient about scheduling his CT ) 05/25/2024 Telephone [facility] [address] [facility] [address] [place] [address] Gareth Ray MD Appointment (05/25/24 2:35pm: Spoke with pt and told him he needs to contact [facility] to schedule his CT. He said he would call today) 05/25/2024 Telephone [facility] [address] [facility] [address] [place] [address] Gareth Ray MD Appointment (I called [facility] to see if Mr. Ureña ever scheduled his CT. They said they tried to call him 3 days in a row and he never called back. They have also sent him a letter, with no response. I faxed the Order and Pre Auth 05/14/24. ) 05/25/2024 Orders Only [facility] [address] [facility] [address] [place] [address] Gareth Ray MD Abdominal pain, unspecified abdominal location (Primary Dx) from Last 3 Months Family [...] situation today? I have a [facility] place to live 02/02/2024 Think [...] speak a language other than Congolese at [facility]? No 02/02/2024 Do you want help with [...] Tdap) 03/23/2034 Medical Devices Implanted Type Area Medical Biller Coder Device Identifier Shelf Expiration Date Model / Serial / Lot Stent Uret Braid + [id number] - [id number] Implanted:Qty : 1 on 01/09/2024 by Gareth Ray MD at [facility] IMPLANTS Right: Ureter [employer]/HELP DESK ASSOCIATE ECOLOG[employer] 04/10/2026 [id number] 40 / / [id number] Stent Uret Percflx + [id number] - [id number] Implanted:Qty : 1 on 06/25/2024 by Gareth aRy MD at [facility] IMPLANTS Left: Ureter [employer]:UROLOGY/HELP DESK ASSOCIATE ECOLOG[employer] [id number] 10/30/2026 [id number] 40 / / [id number] Stent Uret Fader Tip [id number] - [id number] Implanted:Qty : 1 on 07/17/2024 by Gareth Ray MD at [facility] IMPLANTS Right: Ureter [employer]UROLOG[employer]/HELP DESK ASSOCIATE EC[employer] [id number] 02/07/2027 [id number] 40 / / [id number] Explanted Type Area Medical Biller Coder Device Identifier Shelf Expiration Date Model / Serial / Lot Cath Uret Pollack 5fr [id number] - [id number] Implanted:Gareth Jaramillo MD (Quantity not on file) Explanted:Qty: 1 on 07/17/2024 at [facility] Right: Ureter COOK [id number] / / N/A Procedures Procedure Name Priority Date/Time Associated Diagnosis Comments FL < 1 HOUR Routine 07/17/2024 3:00 PM EDT ANESTHESIA INTUBATION Routine 07/17/2024 2:31 PM EDT CYSTOURETEROSCOPY , WITH RETROGRADE PYELOGRAM AND STENT INSERTION OR REMOVAL 07/17/2024 2:23 PM EDT Kidney stone Case Notes Right Ureteroscopy with Laser of Kidney Stones AK CYSTO W/URETEROSCOPY W/LITHOTRIPSY 07/17/2024 2:23 PM EDT Kidney stone Case Notes Right Ureteroscopy with Laser of Kidney Stones FL < 1 HOUR Routine 06/25/2024 2:30 PM EDT ANESTHESIA INTUBATION Routine 06/25/2024 1:31 PM EDT AK CYSTO W/INSERT URETERAL STENT 06/25/2024 1:27 PM EDT Kidney stone Case Notes Left Ureteroscopy AK CYSTO W/URETEROSCOPY W/LITHOTRIPSY 06/25/2024 1:27 PM EDT [...] attempts at approach: 1 us Joyce Mcfarlane DEBURRING AND TOOLING MACHINE OPERATOR ANESTHESIA ORDERABLES Fin al Result from Last 3 Months Insurance [employer]ETNA [facility] Advance Directives For more information, please contact: [phone] * Full Code (Latest Code Status on [...] Ureña Spouse Healthcare Decision-Make r Care Teams Animal Surgeon Relationship Specialty Start Date End Date Kj Madrid MD [address] [place] [address] PCP - General Adolescent Medicine 01/09/24
--- OUTSIDE RECORDS SUMMARY | 2024-08-24 12:54 | XMS_ITS ---
Author Organization [facility] Address [address] [place] [address] Care Team Providers Care Wireless Retail Manager Name Role Phone Kj Madrid MD [...]
--- OUTSIDE RECORDS SUMMARY | 2024-08-24 12:54 | XMS_ITS | Referral Summary ---
Author Organization [facility] Address [address] [place] [address] Care Team Providers Care Pulpit Operator Name Role Phone Kj Madrid MD Primary Care Provider Encounters Date Type Department Care Team Description 07/19/2024 Orders Only [facility] Urology - [address] [place] [address] Gareth Ray MD Ureteral calculus, right (Primary Dx) 07/19/2024 Telephone [facility] Urology - [address] [place] [address] Gareth Ray MD Appointment 07/17/2024 Travel 07/17/2024 3:15 PM EDT - 07/17/2024 4:44 PM EDT Surgery [facility] Surgery Department [address] [place] [address] Gareth Ray MD CYSTOURETEROSCOPY, WITH LASER LITHOTRIPSY 07/17/2024 2:23 PM EDT Anesthesia Event [facility] Surgery Department [address] [place] [address] Alden Hopkins, Kentrell Gracia MD 07/17/2024 12:09 PM EDT - 07/17/2024 5:15 PM EDT Hospital Encounter [facility] Surgery Department [address] [place] [address] Gareth Ray MD Discharge Disposition: Home or Self Care 06/29/2024 Orders Only [facility] Urology - [address] [place] [address] Gareth Ray MD 06/25/2024 Travel 06/25/2024 11:33 AM EDT - 06/25/2024 1:02 PM EDT Surgery [facility] Surgery Department [address] [place] [address] Gareth Ray MD CYSTOURETEROSCOPY, WITH LASER LITHOTRIPSY 06/25/2024 1:27 PM EDT Anesthesia Event [facility] Surgery Department [address] [place] [address] Joyce Mcfarlane CRNA Zarth, Matthew Tyler, MD 06/25/2024 9:17 AM EDT - 06/25/2024 4:32 PM EDT Hospital Encounter [facility] Surgery Department [address] [place] [address] Gareth Ray MD Discharge Disposition: Home or Self Care 06/19/2024 Telephone [facility] Urology - [facility] [address] [place] [address] Gareth Ray MD Advice Only (Pt left 2 voicemails wanting to speak with someone. I called back, he didn't answer and the voicemail has not been set up. ) 06/18/2024 Documentation [facility] Urology - [address] [place] [address] Gareth Ray MD 06/13/2024 Orders Only [facility] Urology - [address] [place] [address] Gareth Ray MD Erectile disorder (Primary Dx); Left ureteral stone 06/04/2024 Documentation [facility] - [address] [facility] [address] [place] [address] Gareth Ray MD 06/04/2024 Telephone [facility] U[facility] [address] [facility] [address] [place] [address] Gareth Ray MD Follow-up (Trying to reach patient about scheduling his CT ) 05/25/[address] [facility] [address] [facility] [address] [place] [address] Gareth Ray MD Appointment (05/25/24 2:35pm: Spoke with pt and told him he needs to contact [facility] to schedule his CT. He said he would call today) 05/25/2024 [address]phone [facility] [address] [facility] [address] [place] [address] Gareth Ray MD Appointment (I called [facility] to see if Mr. Ureña ever scheduled his CT. They said they tried to call him 3 days in a row and he never called back. They have also sent him a letter, with no response. I faxed the Order and Pre Auth 05/14/24. ) 05/25/[address] [facility] [address] [facility] [address] [place] [address] Gareth Ray MD Abdominal pain, unspecified abdominal location (Primary Dx) from Last 3 Months Allergies [...] your living situation today? I have a [facility] place to live 02/02/2024 Think [...] Do you speak a language other than Korean at [facility]? No 02/02/2024 Do you want help with [...] on file Medical Devices Implanted Type Area Scalehouse Attendant Device Identifier Shelf Expiration Date Model / Serial / Lot Stent Uret Braid + [id number] - [id number] Implanted:Qty : 1 on 01/09/2024 by Gareth Ray MD at [facility] IMPLANTS Right: Ureter [employer]:UR[employer]/TOWEL FOLDER ECOLOGY 04/10/2026 [id number] / / [id number] Stent Uret Percflx + [id number] - [id number] Implanted:Qty : 1 on 06/25/2024 by Gareth Ray MD at [facility] IMPLANTS Left: Ureter [employer]:UR[employer]/TOWEL FOLDER ECOLOGY [id number] 10/30/2026 [id number] 40 / / [id number] Stent Uret Fader Tip [id number] - [id number] Implanted:Qty : 1 on 07/17/2024 by Gareth Ray MD at [facility] IMPLANTS Right: Ureter [employer]UR[employer]/TOWEL FOLDER ECOLOG[employer] [id number] 02/07/2027 [id number] 40 / / [id number] Explanted Type Area Scalehouse Attendant Device Identifier Shelf Expiration Date Model / Serial / Lot Cath Uret Pollack 5fr [id number] - [id number] Implanted:Gareth Jaramillo MD (Quantity not on file) Explanted:Qty: 1 on 07/17/2024 at [facility] Right: Ureter COOK [id number] / / N/A Procedures Procedure Name Priority Date/Time Associated Diagnosis Comments FL < 1 HOUR Routine 07/17/2024 3:00 PM EDT ANESTHESIA INTUBATION Routine 07/17/2024 2:31 PM EDT CYSTOURETEROSCOPY , WITH RETROGRADE PYELOGRAM AND STENT INSERTION OR REMOVAL 07/17/2024 2:23 PM EDT Kidney stone Case Notes Right Ureteroscopy with Laser of Kidney Stones MD CYSTO W/URETEROSCOPY W/LITHOTRIPSY 07/17/2024 2:23 PM EDT Kidney stone Case Notes Right Ureteroscopy with Laser of Kidney Stones FL < 1 HOUR Routine 06/25/2024 2:30 PM EDT ANESTHESIA INTUBATION Routine 06/25/2024 1:31 PM EDT MD CYSTO W/INSERT URETERAL STENT 06/25/2024 1:27 PM EDT Kidney stone Case Notes Left Ureteroscopy MD CYSTO W/URETEROSCOPY W/LITHOTRIPSY 06/25/2024 1:27 PM EDT [...] Result from Last 3 Months Insurance A[employer]NA [facility] Advance Directives For more information, please contact: [phone] * Full Code (Latest Code Status on [...] Agents on File Name Relationship [facility] Agent [facility] Laurie Ureña Spouse Healthcare Decision-Make r Care Teams Pulpit Operator Relationship Specialty Start Date End Date Kj Madrid MD [address] [place] [address] PCP - General Adolescent Medicine 01/09/24
--- OUTSIDE RECORDS SUMMARY | 2024-08-24 12:54 | XMS_ITS | Clinical Summary ---
Author Organization [facility] Address [address] [place] [address] Care Team Providers Care Rice Cleaning Machine Tender Name Role Phone jK Madrid MD Primary Care Provider Allergies No known active allergies Medications budesonide-form [...] Encounters Date Type Department Care Team Description 08/15/2024 [facility] [address] [place] [address] Sarah Watson APRN Chronic kidney disease (CKD) stage G3b/A1, moderately decreased glomerular filtration rate (GFR) between 30-44 mL/min/1.73 square meter and albuminuria creatinine ratio less than 30 mg/g (CMS/HCC) (Primary Dx) from Last 3 Months [...] any time in the past 12 m [facility], were you homeless or living in a halfway (including now)? No 03/26/2024 CAGE ASSESSMENT Answer [...] drink first t sterling in the morning (EYE-CHASSIS MECHANIC) to steady your nerves or to get rid of a hangover? 1 03/23/2024 CAGE Questionnaire Score 3 025 Utilities Answer Date Recorded In the past 12 months has e [employer], gas, oil, or water [employer] threatened to shut off services in your [...] Health Maintenance Due Date Last Done Comments [facility]-/Child/Adol SDOH Screenings 1971 [id number] Vaccine (#1) 12/14/1976 [facility]-Hepatitis B Vaccines (1 [...] Reactive Non Reactive 03/23/2024 11:22 AM EST [facility] Comment:Screening for HIV 1 & 2 antibodies, and P24 antigen is NONREACTIVE. No confirmatory testing is required. Blood Venous blood specimen / Unknown Venipuncture / Unknown 03/23/2024 10:25 AM EST 03/23/2024 10:38 AM EST [facility] BLOOD ORDERABLES Final Re sult Performing Organization Address City/[facility]/[place] [address] * Hepatitis C Antibody - ED (03/23/2024 10:25 AM EST) Pathologist [facility] Hepatitis C Antibody Negative Negative 03/23/2024 11:22 AM EST [facility] Blood Venous blood specimen / Unknown Venipuncture / Unknown 03/23/2024 10:25 AM EST 03/23/2024 10:38 AM EST [facility] BLOOD ORDERABLES Final Re sult Performing Organization Address City/[facility] [place] [address] * CT Chest w IV Contrast (09/03/2022 9:12 AM EDT) Anatomical Region Laterality Modality Chest Computed Tomogra phy 09/03/2022 9:12 AM EDT us External Provider IMG CT [...] MD Proceduralist Nnamdi Vera MD Anesthesiologist Laura Figueredo CRNA TRAVELING NURSE, No role selected Unknown Endo Nurse 1 [...] of bowel preparation was evaluated using the Jber Bowel Preparation Scale with scores of: right [...] Patient has decision-making capacity? Yes Care Teams Rice Cleaning Machine Tender Relationship Specialty Start Date End Date Kj Madrid MD [address] [place] [address] PCP - General Internal Medicine 09/17/21
--- OUTSIDE RECORDS SUMMARY | 2024-08-24 12:55 | XMS_ITS | Encounter Summary ---
Author Organization [facility] Address [address] [place] [address] Care Team Providers Care Public Affairs Specialist Name Role Phone Kj Madrid MD Primary Care Provider [phone] Encounter Details Date Type Department Care Team ([facility] st Contact Info) Description 03/10/2022 Orders Only External Location [address] [place] [address] Gallo May MD [address] [id number] Social History Tobacco Use Types Packs/Day Years [...] documented as of this encounter Care Teams Public Affairs Specialist Relationship Specialty Start Date End Date Kj Madrid MD [address] [place] [address] PCP - General Internal Medicine 09/17/21 documented as of this encounter
--- OUTSIDE RECORDS SUMMARY | 2024-08-24 12:55 | XMS_ITS | Encounter Summary ---
Author Organization [facility] Address [address] [place] [address] Care Team Providers Care Environmental Compliance Inspector Name Role Phone Kj Madrid MD Primary Care Provider Encounter Details Date Type Department Care Team (Late st Contact Info) Description 06/28/2021 Orders Only External Location [address] [place] [address] Provider, External Social History Tobacco Use Types [...] on filedocumented in this encounter Care Teams Environmental Compliance Inspector Relationship Specialty Start Date End Date Kj Madrid MD [address] [place] [address] PCP - General Internal Medicine 09/17/21 documented as of this encounter
--- OUTSIDE RECORDS SUMMARY | 2024-08-24 12:55 | XMS_ITS | Encounter Summary ---
Author Organization [facility] Address [address] [place] [address] Care Team Providers Care Telecommunication Lines Repairer Name Role Phone Kj Madrid MD Primary Care Provider [phone] Encounter Details Date Type Department Care Team (Late st Contact Info) Description 06/29/2024 Orders Only [facility] Urology - [address] [place] [address] Gareth Ray MD [address] [facility] [address] [place] [address] Social History Tobacco Use Types Packs/Day Years Used Date Smoking Tobacco: Every Day Cigarettes Smokeless Tobacco: Current Comments:vapes Alcohol Use Standard Drinks/Week Comments Yes 0 (1 standard drink = 0.6 oz pur e alcohol) Utilities Answer Date Recorded In the past 12 months, has t he [employer], gas, oil, or water [employer] threatened to shut off services in your [...] Do you speak a language other than Somali at [facility]? No 02/02/2024 Do you want [...] on filedocumented in this encounter Care Teams Telecommunication Lines Repairer Relationship Specialty Start Date End Date Kj Madrid MD [address] [place] [address] PCP - General Adolescent Medicine 01/09/24 documented as of this encounter
--- OUTSIDE RECORDS SUMMARY | 2024-08-24 12:55 | XMS_ITS ---
Author Organization [facility] Address [address] [place] [address] Care Team Providers Care Advertising Account Manager Name Role Phone Kj Madrid MD Primary Care Provider [phone] Active Problems Problem Noted Date Diagnosed Date [...] treatments are documented for this patient in [facility]. Treatments may have been administered in another system. Lifetime Dose Tracking * Chemical Lifetime Dose Automatic Entry Manual Entr y Radiation 1,523 mGy 1,523 mGy 0 mGy
--- OUTSIDE RECORDS SUMMARY | 2024-08-24 12:55 | XMS_ITS | Encounter Summary ---
Author Organization [facility] Address [address] [place] [address] Care Team Providers Care Black Ash Worker Name Role Phone Kj Madrid MD Primary Care Provider [phone] Reason for Referral * Consultation (Routine) - Authorized Specialty Diagnoses / Procedures Referred By Contcampbell t Referred To Contact Nephrology Diagnoses Chronic kidney disease (CKD) stage G3b/A1, moderately decreased glomerular filtration rate (GFR) between 30-44 mL/min/1.73 square meter and albuminuria creatinine ratio less than 30 mg/g ([facility]) Sarah Watson APRN [address] [address] Phone: tel: fax: [facility] [address] [place] [address] [address], [place] [address] Phone: tel: fax: Referral ID Status Reason Start Date Expiration Date Visits Requested Visits Authorized [id number] Authorized Specialty Services Required 08/15/2024 02/14/2026 1 1 Encounter Details Date Type Department Care Team (Late st Contact Info) Description 08/15/2024 [facility] [address] [place] [address] Sarah Watson APRN [address] [address] Chronic kidney disease (CKD) stage G3b/A1, moderately decreased glomerular filtration rate (GFR) between 30-44 mL/min/1.73 square meter and albuminuria creatinine ratio less than 30 mg/g ([facility]/HCC) (Primary Dx) Social History Tobacco Use Types Packs/Day Years Used Date Smoking Tobacco: Every Day Cigarettes 0.5 41.5 Started: 02/28/1983 Cigars Passive Smoke Exposure: Current Smokeless Tobacco: Never Alcohol Use Standard Drinks/Week Comments Yes 140 [...] money to buy more. Never true 03/26/19 25 Within the past 12 months, t he [...] any time in the past [address] [facility], were you homeless or living [...] drink first t sterling in the morning ([employer]ENT) to steady your nerves or to get rid of a hangover? 1 03/23/2024 CAGE Questionnaire Score 3 025 Utilities Answer Date Recorded In the past 12 months has [employer], gas, oil, or water [employer] threatened to shut off services in your home? No 03/26/2024 PHQ-2A Answer Date Recorded Depression Risk 1 02/24/2022 Sex and Gender Information Value Date Recorded Sex Assigned at Male 10/16/2021 11:15 AM EDT Legal Sex Male 7:34 PM EDT Gender Identity Male 10/16/2021 11:15 AM EDT Sexual Orientation Straight 10/16/2021 11 :15 AM EDT documented as of this encounter Plan of Treatment Scheduled Referrals Name Type Priority Associated Diagnoses Orde r Schedule Ambulatory referral to Nephrology Outpatient Referral Routine Chronic kidney disease (CKD) stage G3b/A1, moderately decreased glomerular filtration rate (GFR) between 30-44 mL/min/1.73 square meter and albuminuria creatinine ratio less than 30 mg/g ([facility]/HCC) Expected: 08/15/2024 (Approximate), Expires: 02/16/2026 documented as of this encounter Visit Diagnoses Diagnosis Chronic kidney disease (CKD) stage G3b/A1, moderately decreased glomerular filtration rate (GFR) between 30-44 mL/min/1.73 square meter and albuminuria creatinine ratio less than 30 mg/g (CMS/HCC)- Primary documented in this encounter Additional Health Concerns Assessment Noted Time PHQ-9 Depression Total Score: 14 023 2:10 PM EDT A fall risk assessment has been complete d for the patient 05/09/2023 4:34 PM EDT A Body Mass Index follow-up plan has been documented for the patient 03/27/2024 5:26 PM EST documented as of this encounter Care Teams Black Ash Worker Relationship Specialty Start Date End Date Kj Madrid MD [address] [place] [address] [place] [address] PCP - General Internal Medicine 09/17/21 documented as of this encounter
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
--- OUTSIDE RECORDS SUMMARY | 2024-08-24 12:55 | XMS_ITS | Encounter Summary ---
Author Organization Healthcare Address [address] [place] [address] Care Team Providers Care Sales Support Coordinator Name Role Phone Kj Madrid MD Primary Care Provider [phone] Encounter Details Date Type Department Care Team ([facility] st Contact Info) Description 03/10/2022 Orders Only External Location [address] [place] [address] Gallo May MD [address] [id number] Social History Tobacco Use Types Packs/Day Years [...] documented as of this encounter Care Teams Sales Support Coordinator Relationship Specialty Start Date End Date Kj Madrid MD [address] [place] [address] PCP - General Internal Medicine 09/17/21 documented as of this encounter
--- OUTSIDE RECORDS SUMMARY | 2024-08-24 12:55 | XMS_ITS | Encounter Summary ---
Author Organization [facility] In [facility]atives Address [address] [address] Care Team Providers Care Director Of Reimbursement Name Role Phone Kj Madrid MD Primary Care Provider [phone] Reason for Referral * Diagnostic X-Ray (Routine) - Authorized Specialty Diagnoses / Procedures Referred By Contac t Referred To Contact Radiology Diagnoses Ureteral calculus, right Procedures XR Abdomen KUB 1 [place] [address] [place] [address] [address] [place] [address] Phone: tel: fax: [facility] Diagnostic Imaging - [facility] [address] [facility] [address] [place] [address] Phone: tel: fax: Referral ID Status Reason Start Date Expiration Date Visits Requested Visits Authorized [id number] Authorized Continuity of Care 07/19/2024 07/19/2025 1 1 Encounter Details Date Type Department Care Team (Late st Contact Info) Description 07/19/2024 Orders Only [facility] Urology - [facility] [address] [facility] [address] [place] [address] [place] [address] [place] [address] [address] [place] [address] Ureteral calculus, right (Primary Dx) Social History [...] your living situation today? I have a [facility] place to live 02/02/2024 Think about the [...] Do you speak a language other than Belarusian at [facility]? No 02/02/2024 Do you want help with [...] ureter documented in this encounter Care Teams Director Of Reimbursement Relationship Specialty Start Date End Date Kj Madrid MD [address] [place] [address] PCP - General Adolescent Medicine 01/09/24 documented as of this encounter
--- OUTSIDE RECORDS SUMMARY | 2024-08-24 12:55 | XMS_ITS | Patient Health Record ---
Author Organization [facility] Address [address] [place] [address] Care Team Providers Care Database Software Technician Name Role Phone Kj Madrid Primary Care Provider Kj Madrid Unavailable Unavailable Sarah Watson Unavailable [phone] Cyndi Wolfe Unavailable [phone] Migration, Provider Unavailable Unavailable Allergies No Known Allergies Results Component Value Reference Range Notes M-Magnesium Reviewed date:08/13/2024 06:04:13 PM Interpretation: Performing Lab: Notes/Report: MG 1.9 1.6-2.3 mg/dl M-Complete Blood Count Auto Diff Reviewed date:08/13/2024 06:04:13 PM Interpretation: Performing Lab: Notes/Report: WBC 8.5 4.8-10.8 K/mm3 RBC 4.42 4.60-6.20 M/mm3 HGB 13.6 14.1-18.0 g/dL HCT 40.9 42.0-52.0 % MCV 92.5 80-94 fl MCH 30.8 27.0-31.2 pg MCHC 33.3 31.8-35.4 g/dL RDW 13.4 11.5-17.5 % PLT 255 142-424 K/mm3 MPV 10.9 7.4-10.4 fl NE% 55.1 37.0-80.0 % LY% 27.9 10-50 % MO% 9.2 1.7-9.3 % EO% 5.9 0.1-12.0 % BA% 1.1 0.1-2.0 % NE# 4.7 1.8-7.8 K/mm3 LY# 2.4 0.7-4.5 K/mm3 MO# 0.8 0.1-1.0 K/mm3 EO# 0.5 0.0-0.4 Kmm3 BA# 0.1 0-0.2 K/mm3 RDW-SD 45.5 NRBC% 0 IG% 0.8 NRBC# 0 IG# 0.07 M-Comprehensive Metabolic Pa dante Reviewed date:08/13/2024 06:04:13 PM Interpretation: Performing Lab: Notes/Report: NA 137 136-145 mmol/L K 4.7 3.5-5.1 mmoL/L CL 107 98-107 mmol/L CO2 24 22.0-30.0 mmol/L GAP 10.7 5-15 mEq/L BUN 54 9-20 mg/dl CREATT 2.00 0.66-1.25 mg/dl GFRAA 43 >60 ML/MIN EGFR 35 >60 ml/min GLU 122 74-100 mg/dl CA 10.0 8.4-10.2 mg/dl BILIT 0.5 0.2-1.3 mg/dl AST 25 17-59 U/L ALT 19 12-78 U/L TP 7.3 6.3-8.2 g/dl ALB 4.0 3.5-5.0 g/dl GLOB 3.3 1.3-3.2 g/dL AGRATIO 1.2 1.1-1.8 ALP 77 38-126 U/L Cardiolite GXT Reviewed date:07/31/2024 02:40:02 PM Interpretation: Performing Lab: Notes/Report: Reason For Referral Reason Dr. Marybeth Katz Loc ation Kidney Stone Diagnosis 1 Renal cell carcinoma of right kidney (C64.1) Referral Organization [facility] KODY KATZ Referring Provider First Name Referring Provider Last Name Shirley Referring Provider Speciality Family Pra ctice Referred Provider Specialty Urology General Kate Martell 2023 03:17:13 PM >Patient informed of appt Referral Priority Routine Referral Appointment Date 12/21/2023 Reason Medical Records - Do [facility] [employer] Referral Organization [facility] KODY PED TULIO Referring Provider First Name Kj Referring Provider Last Name [facility]cy Referring Provider Speciality Internal M edicine Referral Priority Routine Reason Cardiolyte Stress Te st Diagnosis 1 Atherosclerosis of n ative coronary artery of [place] heart without angina pectoris (I25.10) [facility] Referring Provider First Name Sraah Referring Provider Last Name Shirley Referring Provider [facility] ctice Referred Organization [facility] Referred Address [address] [facility] [address] [place], [place],[address], Referred Provider Specialty Diagnostic R adiology General Notes Kate Wang 2024 11:15:23 AM >sent to [facility] [place] [address] [employer] Referral Priority Routine Reason [facility] Cardiology- abno rmal stress test results Referral Organization [facility] KODY ANTUNEZ Referring Provider First Name Kj Referring Provider Last Name [facility]cy Referring Provider Speciality Internal M edicine Referred Organization [facility] Referred Address [address] [facility] [address] [place], [place],[address],[place] Referred Provider Specialty Cardiovascul ar Disease General Notes Kate Wang 2024 02:44:02 PM >Sent to [facility] to schedule Referral Priority Routine Reason [facility]/ Nephrology - has seen them previously but I don't have notes Diagnosis 1 Stage 3b chronic kid glenis disease (CKD) (N18.32) Referral Organization [facility] KODY KATZ Referring Provider First Name Referring Provider Last Name Shirley Referring Provider [facility] ctice Referred Organization Referrals Referred Address [address] [place],[address],[place] Referred Provider Specialty Nephrology General Notes Kate Wang 2024 05:14:25 PM >sent to through [facility] to Nephrology at [facility] Referral Priority Routine Reason CT abd/pelvis at [facility] , no contrast Diagnosis 1 History of renal bubba l carcinoma (Z85.528) Ref[facility] Referring Provider First Name Referring Provider Last Name Shirley Referring Provider [facility] ctice Referred Organization [facility] Referred Address [address] [facility] [address] [place], [place],[address],[place] Referred Provider Specialty Diagnostic R adiology General Notes Kate Wang 2024 03:37:09 PM >pending precert with [employer] Referral Priority Routine Medications Medication SIG (Take, [...] once a day; Duration: 90 days Active Vraylar 4.5 MG 1 capsule Orally Onc e a day; Duration: 30 days 08/14/2024 Active Triamcinolone Acetonide 0.5 % 1 application Externally Twice a day Active Propranolol HCl 40 MG 1 tablet Orally Tw ice a day; Duration: 30 days Active Magnesium Oxide 400 MG 1 tablet with griselda d Orally 3 times a day; Duration: 30 days Active Folic Acid 1 MG 1 tablet Orally Once a day; Duration: 30 days Active Vitamin B1 100 MG 1 tablet Orally Once a day; Duration: 30 days Active busPIRone HCl 5 MG TAKE 1 TABLET BY ELDER THREE TIMES DAILY; Duration: 30 Active Social History Tobacco Use: Social History [...] Problem Status W/U Status Risk Notes Problem Hypomagnesemia (501505266) Hypomagnesemia (E83.42) Active confirmed Problem Primary gout (36384553) Idiopathic gout, right ankle and foot (M10.071) Active confirmed Problem Essential hypertension (26469797) Essential hypertension (I10) Active confirmed Problem Psoriasis (4068778) Psoriasis (L40.9) Active confirmed Problem Acute exacerbation of chronic obstructive airways disease (078888093) COPD exacerbation (J44.1) Active confirmed Problem Fatigue (07830553) Fatigue (R53.83) Active conf irmed Problem Chronic pain (42161749) Other chronic pain (G89.29) Active confirmed Problem Chronic obstructive bronchitis (disorder) (255794187) 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) Active confirmed Problem Atherosclerosis of coronary artery without angina pectoris (808096758520001) Atherosclerosis of [place] coronary artery of [place] heart without angina pectoris (I25.10) Active confirmed Problem Primary gout (38523741) Acute idiopathic gout of left foot (M10.072) Active confirmed Problem Obstructive sleep apnea syndrome (88113972) JG (obstructive sleep apnea) (G47.33) Active confirmed Problem Daytime somnolence (137403280546) Daytime somnolence (R40.0) Active confirmed Problem Tobacco use (610082016) Tobacco use disorder (F17.200) Active confirmed Problem Disorder of kidney and/or ureter (889611271) Right renal mass (N28.89) Active confirmed Problem Pulmonary embolism with pulmonary infarction (2141541753917) Pulmonary embolism and infarction (I26.99) Active confirmed Problem Ethanol abuse (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) ETOH abuse (F10.10) Active confirmed Problem Bipolar disorder (84236694) Bipolar depression (F31.9) Active confirmed Problem Malignant tumor of kidney (245020705) Renal cell carcinoma of right kidney (C64.1) Active confirmed Problem Personal history of primary malignant neoplasm of kidney (781863969) History of renal cell carcinoma (Z85.528) Active confirmed Problem Chronic kidney disease stage 3B (disorder) (286972891) Stage 3b chronic kidney disease (N18.32) Active confirmed Problem Computed tomography result abnormal (408311002) Abnormal CT scan (R93.89) Active confirmed Problem Muscle weakness (66795034) Generalized muscle weakness (M62.81) Active confirmed Problem Chronic kidney disease stage 3B (disorder) (060153842) Stage 3b chronic kidney disease (CKD) (N18.32) Active confirmed Vital Signs Heart Rate 88 /min 08/14/2024 Temperature 97.7 degrees Fahrenheit 08/14/2024 Blood pressure diastolic 80 mm Hg 08/14/2024 Height 6 ft 5 in in 08/14/2024 Blood pressure systolic 150 mm Hg 08/14/2024 Weight 244 lbs 08/14/2024 BMI 28.93 kg/m2 08/14/2024 Encounters Encounter Location Date Provider Diagnosis [address] [address] 06/22/2024 Cyndi McNees [facility] [address] [place] [address] 06/28/2024 Cyndi McNees [facility] [address] [place] [address] 07/09/2024 Kj Madrid [facility] [address] [place] [address] 07/26/2024 Cyndi McNees [facility] [address] [place] [address] 08/10/2024 Cyndi McNees [facility] [address] [place] [address] 08/13/2024 Sarah Watson RE (acute kidney injury) N17.9 and Hypomagnesemia E83.42 [facility] [address] [place] [address] 08/21/2024 Shirley History of renal bubba l carcinoma Z85.528 [facility] [address] [place] [address] 08/22/2024 Cyndi McNees Hypomagnesemia E83.4 2 [facility] [address] [place] [address] 08/22/2024 Cyndi McHollies Stage 3b chronic kid glenis disease N18.32 ; Essential hypertension I10 and Low magnesium level R79.0 [facility] [address] [place] [address] 06/02/2024 Provider Migration Pulmonary embolism and infarction I26.99 [facility] [address] [place] [address] 06/28/2024 Cyndi Wolfe Bipolar depression F31.9 ; ETOH abuse F10.10 and Essential hypertension I10 [facility] [address] [place] [address] 08/14/2024 Sarah Watson Essential hypertensi on I10 ; Stage 3b chronic kidney disease (CKD) N18.32 ; LUGO (dyspnea on exertion) R06.09 ; Bipolar depression F31.9 ; History of renal cell carcinoma Z85.528 ; Abnormal stress test R94.39 ; Hyperkalemia E87.5 and Hypomagnesemia E83.42 [facility] [address] [facility] [address] [place] [address] 07/12/2024 Sarah Watson Atherosclerosis of [place] coronary artery of [place] heart without angina pectoris I25.10 ; Essential hypertension I10 ; Malaise R53.81 ; LUGO (dyspnea on exertion) R06.09 ; Bipolar depression F31.9 and ETOH abuse F10.10 Assessments Encounter Date Diagnosis (ICD Code) Assessment Notes Treatment Notes Treatment Clinical Notes Section Notes 06/28/2024 ETOH abuse (ICD-10 - F10.10) Positive reinforcement on ETOH cessation. Continue daily meetings at [facility] 06/28/2024 Bipolar depression (ICD-10 - F31.9) Extensive time spent with patient Increase Vraylar Continue buspar. Keep FU with counselor and psych Discussed s/s of worsening mood/agitation that warrant FU 07/12/2024 Essential hypertension (ICD-10 - I10) improved, continue current regimen 07/12/2024 Atherosclerosis of [place] coronary artery of [place] heart without angina pectoris (ICD-10 - I25.10) 08/13/2024 Hypomagnesemia (ICD-10 - E83.42) 08/13/2024 RE (acute kidney injury) (ICD-10 - N17.9) 08/21/2024 History of renal cell carcinoma (ICD-10 - Z85.528) 08/22/2024 Hypomagnesemia (ICD-10 - E83.42) 08/22/2024 Stage 3b chronic kidney disease (ICD-10 - N18.32) 08/14/2024 Essential hypertension (ICD-10 - I10) improved, continue current regimen 08/14/2024 Stage 3b chronic kidney disease (CKD) (ICD-10 - N18.32) 06/02/2024 Pulmonary embolism and infarction (ICD-10 - I26.99) 08/14/2024 LUGO (dyspnea on exertion) (ICD-10 - R06.09) 08/22/2024 Essential hypertension (ICD-10 - I10) 06/28/2024 Essential hypertension (ICD-10 - I10) Increase propranolol and add lisinopril as above. MOA and SE profile discussed. RTC in 2 weeks for FU 07/12/2024 Malaise (ICD-10 - R53.81) likely multifactoral. encouraged him to discuss testosterone replacement options with his urologist 07/12/2024 LUGO (dyspnea on exertion) (ICD-10 - R06.09) 08/22/2024 Low magnesium level (ICD-10 - R79.0) 08/14/2024 Bipolar depression (ICD-10 - F31.9) improved and tolerating current regimen, increase dose as noted and discussed needs to keep appt with psychiatry 08/14/2024 History of renal cell carcinoma (ICD-10 - Z85.528) encouraged to reschedule FU with Dr Ray 08/14/2024 Abnormal stress test (ICD-10 - R94.39) cardiology following 07/12/2024 Bipolar depression (ICD-10 - F31.9) improved and tolerating current regimen, no changes recommended 08/14/2024 Hyperkalemia (ICD-10 - E87.5) improved, low potassium diet encouraged, good water intake 07/12/2024 ETOH abuse (ICD-10 - F10.10) Positive reinforcement on ETOH cessation. Continue daily meetings at [facility] 08/14/2024 Hypomagnesemia (ICD-10 - E83.42) improved Plan Of Treatment Pending Test Test Name Order Date CT Scan : Abdomen and Pelvis without con trast 08/21/2024 Ultrasound : Liver 06/21/2023 M-Complete Blood Count w/o Diff 08/23/19 25 M-Comprehensive Metabolic Panel 08/23/19 25 M-Magnesium 08/22/2024 CT Scan : Chest, Lung Cancer Screening 1 04/06/2020 Physical Therapy Eval and Treat 11/09/19 23 Next Appt Details Provider Name:Cyndi Albert, 09/06/2024 12:30:00 PM, [address], [place], [address], Insurance Providers Payer Name Payer Address Payer Phone Subscriber Number Group Number Insured Name Patient Relationship to Insured Coverage Start Date Coverage End Date [employer] [facility] [address] [address] [place] [address] [id number] Toan Ureña Self - patient is the insured Medications Administered Medication Instructions Date of Administration Dosage Notes Dexamethasone 4mg Injection 10/09/2021 4 mg Triamcinolone Acetonide 40mg Injection 03/19/2020 1 mL Medical (General) History Medical History History ICD Code Histoplasmosis Legionnaires Diverticulitis Chronic bronchitis Bipolar COPD Kidney cancer- 03/02 right kidney removed, 1 lymph node (Renal Cell Carcinoma) HTN ulcerative colitis Surgical History Surgery Date(Month/Year) Pin in right foot Right torn bicep 11/22/2019 Biopsy left arm Lung biopsies Right hand dog attack Hernia repair Kidney Stones x2 1/3 of rt kidney removed 09/2021 removal of kidney stones x 4 debridement of rt hand 02/2024 Kidney 2024 Hospitalization History Reason Date(Month/Year) [facility]/22 - nephrectomy 09/2021 Heat stroke? 2016 Surgeries as above Legionnaires x 7 weeks
--- OUTSIDE RECORDS SUMMARY | 2024-08-24 12:55 | XMS_ITS | Patient Health Record ---
Author Organization [facility] Address [address] [place] [address] Support Name Relationship Address Phone MAILE SUZANNA Guarantor Unknown [phone] Allergies No Known Allergies Reason For Referral No Information Medications Medication SIG (Take, Route, Frequency, Duration) Notes Start Date End Date Status amLODIPine Besylate 10 MG Oral; Duration: 90 Days Active Mag-G 500 (27 Mg) MG Oral; Duration: 30 Days Active Xarelto 20 MG Oral; Duration: 90 Days Active Losartan Potassium 100 MG Oral; Duration: 30 Days Active Allopurinol 100 MG Oral; Duration: 90 Days Active Plan Of Treatment No Information Insurance Providers Payer Name Payer Address Payer Phone Subscriber Number Group Number Insured Name Patient Relationship to Insured Coverage Start Date Coverage End Date SELF PAY PATIENT [id number] SUZANNA GR Self - patient is the insured Medical (General) History Medical History History ICD Code Hypertension Gout Surgical History Surgery Date(Month/Year) bicep reconstruction hernia repair colonoscopy kidney removal 03/01
--- OUTSIDE RECORDS SUMMARY | 2024-08-24 12:55 | XMS_ITS | Encounter Summary ---
Author Organization [facility] Address [address] [place] [address] Care Team Providers Care Paper Pattern Inspector Name Role Phone Kj Madrid MD Primary Care Provider + [phone] Reason for Visit * Reason Onset Date Comments Appointment 07/19/2024 Encounter Details Date Type Department Care Team (Late st Contact Info) Description 07/19/2024 Telephone [facility] Urology - [address] [place] [address] Gareth Ray MD [address] [facility] [address] [place] [address] Appointment Social History Tobacco Use Types Packs/Day Years Used Date Smoking Tobacco: Every Day Cigarettes Smokeless Tobacco: Current Comments:vapes Alcohol Use Standard Drinks/Week Comments Yes 0 (1 standard drink = 0.6 oz pur e alcohol) Utilities Answer Date Recorded In the past 12 months, has t he [employer], gas, oil, or water [employer] threatened to shut off services in your [...] Do you speak a language other than Nepalese at [facility]? No 02/02/2024 Do you want help [...] on filedocumented in this encounter Care Teams Paper Pattern Inspector Relationship Specialty Start Date End Date Kj Madrid MD [address] [place] [address] PCP - General Adolescent Medicine 01/09/24 documented as of this encounter
--- OUTSIDE RECORDS SUMMARY | 2024-08-24 12:55 | XMS_ITS | Encounter Summary ---
Author Organization [facility] Address [address] [place] [address] Care Team Providers Care Tenter Feeder Name Role Phone Kj Madrid MD Primary Care Provider + [phone] Encounter Details Date Type Department Care Team [...] speak a language other than Egyptian at [facility]? No 02/02/2024 Do you want help [...] on filedocumented in this encounter Care Teams Tenter Feeder Relationship Specialty Start Date End Date Kj Madrid MD [address] [place] [address] PCP - General Adolescent Medicine 01/09/24 documented as of this encounter
--- OUTSIDE RECORDS SUMMARY | 2024-08-24 12:55 | XMS_ITS | Encounter Summary ---
Author Organization [facility] Address [address] [facility] [place] [address] Care Team Providers Care Link Knitting Machine Operator Name Role Phone Kj Madrid MD Primary Care Provider + [phone] Encounter Details Date Type Department Care Team [...] Do you speak a language other than Lao at [facility]? No 02/02/2024 Do you want [...] on filedocumented in this encounter Care Teams Link Knitting Machine Operator Relationship Specialty Start Date End Date Kj Madrid MD [address] [place] [address] PCP - General Adolescent Medicine 01/09/24 documented as of this encounter
--- OUTSIDE RECORDS SUMMARY | 2024-08-24 12:56 | XMS_ITS | Encounter Summary ---
Author Organization [facility] Address [address] [place] [address] Care Team Providers Care Associate Producer Name Role Phone Kj Mardid MD Primary Care Provider + [phone] Reason for Visit * Reason Onset Date Comments Follow-up 06/04/2024 Trying to reach patient about scheduling his CT Encounter Details Date Type Department Care Team (Late st Contact Info) Description 06/04/2024 Telephone [facility] Urology - [address] [place] [address] Gareth Ray MD [address] [place] [address] [address] [place] [address] Follow-up (Trying to reach patient about scheduling [...] Do you speak a language other than [place] at [facility]? No 02/02/2024 Do you [...] on filedocumented in this encounter Care Teams Associate Producer Relationship Specialty Start Date End Date Kj Madrid MD [address] [place] [address] PCP - General Adolescent Medicine 01/09/24 documented as of this encounter
--- NOTE | 2024-08-24 13:00 | CA_ITS ---
APPROVED REPORT EXAM: Comprehensive 2D, Doppler, and color-flow Echocardiogram Agency Sales Development Associate: Jenn Mendes RDCS Ht: 6 ft 5 in Wt: 238lbs BSA: 2.41 BP: 111/78 mmHg Indications: Chest pain M-Mode Dimensions RVDd 2.94 cm (0.9-2.6) LVDd 6.38 cm (3.5-5.7) LVDs 1.86 cm (3.5-5.7) IVSd 0.78 cm (0.6-1.1) PWd 0.83 cm (0.6-1.1) EF (Teich) 94.90% FS 70.80% EDV (Teich) 207.00 mL TAPSE 2.22 (<1.7) ESV (Teich) 10.60 mL LV Diastology E Decel Time 233 (160-240 msec) E/A Ratio 0.7 Mitral Valve MV E Max Zi. 37.0 (40-130 cm/s) MV A Velocity 53.0 (40-130 cm/s) E/A Ratio 0.69 MV PHT 68.0 ms Left Ventricle The left ventricle is normal size. The left ventricular systolic function is normal. The left ventricular ejection fraction is within the normal range. There is normal left ventricular wall thickness. There is normal LV segmental wall motion. The left ventricular diastolic function is normal. LVEF is 55%. Right Ventricle The right ventricle is normal size. The right ventricular systolic function is normal. Atria The left atrium size is normal. The right atrium size is normal. There is no Doppler evidence of interatrial shunt. Aortic Valve The aortic valve is mildly thickened. There is no aortic valvular stenosis. No aortic regurgitation is present. Mitral Valve The mitral valve is normal in structure. No evidence of mitral valve stenosis. Trace mitral regurgitation. Tricuspid Valve Tricuspid valve is grossly normal in structure and function. Trace tricuspid regurgitation. There is insufficient TR jet to estimate RVSP. Pulmonic Valve The pulmonary valve is normal in structure. Trace pulmonic regurgitation. Great Vessels The aortic root is normal in size. IVC is normal in size and collapses >50% with inspiration. Pericardium There is no pericardial effusion. Other Information Study Quality: Adequate Conclusion Normal biventricular systolic function. No significant valvular stenosis or regurgitation. Electronically signed by : Quiana Dubon MD 08/27/2024 14:40:10
== END 2024-08-24 23:59 | disposition home or self-care (01) ==
LOC: RT 12:52
PROVIDERS: PCP Internal Medicine Adolescent Medicine; Visit Provider Nurse Practitioner
DX: R94.31 Abnormal electrocardiogram [ECG] [EKG] (principal); R94.39 Abnormal result of other cardiovascular function study; R07.9 Chest pain, unspecified; R06.00 Dyspnea, unspecified
CPT/HCPCS: 93306

== ENCOUNTER 2024-08-27 12:49 | Outpatient (CLI) | payer OTHER, SELFPAY ==
--- OUTSIDE RECORDS SUMMARY | 2024-07-17 12:09 | XMS_ITS | Encounter Summary ---
Author Organization [employer] ([place], [place], [place], [place]) Address [address] [place] [address] Care Team Providers Care Confidential Secretary Name Role Phone Kj Madrid MD Primary Care Provider [phone] Reason for Visit * Auth/Cert (Routine) Specialty Diagnoses / Procedures Referred By Sandy owusu Referred To Contact Diagnoses Kidney stone Kidney Stone Procedures [place] CYSTO W/URETEROSCOPY W/LITHOTRIPSY CYSTOURETEROSCOPY, WITH LASER LITHOTRIPSY [facility] Surgery Department [address] [place] [address] Phone: tel: fax: [facility] Surgery Department [address] [place] [address] Phone: tel: fax: Referral ID Status Reason Start Date Expiration Date Visits Re quested Visits Authorized [id number] 1 1 Encounter Details Date Type Department Care Team (Late st Contact Info) Description 07/17/2024 12:09 PM EDT - 07/17/2024 5:15 PM EDT Hospital Encounter [facility] Surgery Department [address] [place] [address] [place] [address] [place] [address] [address] [place] [address] Discharge Disposition: Home or Self Care Social [...] your living situation today? I have a [facility] place to live 02/02/2024 Think [...] stage 3, GFR 30-59 ml/min ([facility]) 10/16/2021 Essential hypertension 10/16/2021 Primary gout 10/16/2021 Obesity (BMI 30-39.9) 10/16/2021 Obstructive sleep apnea syndrome 10/16/2021 Tobacco abuse 10/16/2021 Past Surgical History: Procedure Laterality Date bicep surgery Right CYSTOSCOPY,INSERTION URETERAL STENTS Left 06/25/2024 Procedure: CYSTOSCOPY, WITH URETERAL STENT INSERTION; Surgeon: Gareth Ray MD; Location: [facility]; Service: Urology; Laterality: Left; CYSTOSCOPY,REMOVAL URETERAL STENTS Left 04/03/2024 Procedure: CYSTOSCOPY, WITH URETERAL STENT REMOVAL; Surgeon: Gareth Ray MD; Location: [facility] OR;Service: Urology; Laterality: Left; left ureteral stent removal CYSTOSCOPY,URETEROSCOPY W/ LASER LITHOTRIPSY Left 06/25/2024 Procedure: CYSTOURETEROSCOPY, WITH LASER LITHOTRIPSY; Surgeon: Gareth Ray MD; Location: [facility]; Service: Urology; Laterality: Left; FOOT SURGERY Right metal adelita in right metatarsal HERNIA REPAIR KIDNEY STONE SURGERY LITHOTRIPSY,EXTRACORPOREAL SHOCK WAVE (ESWL) Left 04/03/2024 Procedure: LITHOTRIPSY,EXTRACORPOREAL SHOCK WAVE (ESWL); Surgeon: Gareth Ray MD; Location: [facility]; Service: Urology; Laterality: Left; ESWL CONF [id number] SPOKE TO ASHELY LYMPHADENECTOMY Right kidney NEPHRECTOMY [...] stage 3, GFR 30-59 ml/min ([facility]) 10/16/2021 Essential hypertension 10/16/2021 Primary gout 10/16/2021 Obesity (BMI 30-39.9) 10/16/2021 Obstructive sleep apnea syndrome 10/16/2021 Tobacco abuse 10/16/2021 Past Surgical History: Procedure Laterality Date bicep surgery Right CYSTOSCOPY,INSERTION URETERAL STENTS Left 06/25/2024 Procedure: CYSTOSCOPY, WITH URETERAL STENT INSERTION; Surgeon: Gareth Ray MD; Location: [facility]; Service: Urology; Laterality: Left; CYSTOSCOPY,REMOVAL URETERAL STENTS Left 04/03/2024 Procedure: CYSTOSCOPY, WITH URETERAL STENT REMOVAL; Surgeon: Gareth Ray MD; Location: [facility];Service: Urology; Laterality: Left; left ureteral stent removal CYSTOSCOPY,URETEROSCOPY W/ LASER LITHOTRIPSY Left 06/25/2024 Procedure: CYSTOURETEROSCOPY, WITH LASER LITHOTRIPSY; Surgeon: Gareth Ray MD; Location: [facility]; Service: Urology; Laterality: Left; FOOT SURGERY Right metal adelita in right metatarsal HERNIA REPAIR KIDNEY STONE SURGERY LITHOTRIPSY,EXTRACORPOREAL SHOCK WAVE (ESWL) Left 04/03/2024 Procedure: LITHOTRIPSY,EXTRACORPOREAL SHOCK WAVE (ESWL); Surgeon: Gareth Ray MD; Location: [facility]; Service: Urology; Laterality: Left; ESWL CONF [id number] SPOKE TO ASHELY LYMPHADENECTOMY Right kidney NEPHRECTOMY [...] Blood Administered: None Grafts or Implants: 4.8 Ethiopian by 28 cm right ureteral stent with string attached Complications: None Condition: None Findings: After satisfactory general esthesia was carefully placed lithotomy. Pressure garments were placed and function at time of induction. The 21 Ethiopian cystoscopy sheath introduced under direct vision 30 degree lens. His urethra appeared normal and prostate nonobstructing. Upon in the bladder there is no bladder stones. 5 Ethiopian open-ended ureteral catheter was used to perform [...] in approximately 3 weeks with a KUB. Garteh Ray MD 54:06 PM documented in this encounter Plan of Treatment Not on file documented as of this encounter Procedures Procedure Name Priority Date/Time Associated Diagnosis Comments FL < 1 HOUR Routine 07/17/2024 3:00 PM EDT CYSTOURETEROSCOPY , WITH RETROGRADE PYELOGRAM AND STENT INSERTION OR REMOVAL 07/17/2024 2:23 PM EDT Kidney stone Case Notes Right Ureteroscopy with Laser of Kidney Stones [place] CYSTO W/URETEROSCOPY W/LITHOTRIPSY 07/17/2024 2:23 PM EDT [...] Pre-op documented in this encounter Care Teams Confidential Secretary Relationship Specialty Start Date End Date Kj Madrid MD [address] [place] [address] PCP - General Adolescent Medicine 01/09/24 documented as of this encounter
--- OUTSIDE RECORDS SUMMARY | 2024-07-17 14:23 | XMS_ITS | Encounter Summary ---
Author Organization [employer] ([place], [place], [place], [place]) Address [address] [place] [address] Care Team Providers Care District Resource Officer Name Role Phone Kj Madrid MD Primary Care Provider [phone] Reason for Visit * Auth/Cert (Routine) Specialty Diagnoses / Procedures Referred By Sandy owusu Referred To Contact Diagnoses Kidney stone Kidney Stone Procedures [place] CYSTO W/URETEROSCOPY W/LITHOTRIPSY CYSTOURETEROSCOPY, WITH LASER LITHOTRIPSY [facility] Surgery Department [address] [place] [phone] Phone: tel: fax: [facility] Surgery Department [address] [place] [address] Phone: tel: fax: Referral ID Status Reason Start Date Expiration Date Visits Re quested Visits Authorized [id number] 1 1 Encounter Details Date Type Department Care Team (Late st Contact Info) Description 07/17/2024 2:23 PM EDT Anesthesia Event [facility] Surgery Department [address] [place] [address] Alden Hopkins CRNA [address] [place] [address] Kentrell Callaway MD [address] [place] [address] Anesthesia Record Procedure Summary Procedure Name Responsible Anesthesiologist Anesthesia Start Time Anesthesia Stop Time CYSTOURETEROSCOPY, WITH LASER LITHOTRIPSY (Right) Alden Holder [place], PRESIDENT AND CHIEF EXECUTIVE OFFICER 07/17/24 1423 07/17/24 1611 Events Date Time [...] mastisol and tegaderm 07/17/24 1554 by Anushka Lopez Wound 07/17/24; 1612; Incision; Penis; Not applicable 07/17/24 1612 by Anushka Lopez Wound 02/02/24; 1325; Incision; Back; Left; 07/17/24; 1449; Unknown (not present on arrival to OR) 02/02/24 1325 by Nkechi Hwakins RN 07/17/24 1449 by Anushka Lopez Wound [...] the past 12 months, has t he [employer], gas, oil, or water [employer] threatened to shut off services in your home? No 02/02/2024 Interpersonal Safety Answer Date Record ed How often does anyone, cooper aslhey family and friends, physically hurt you? Never [...] Do you speak a language other than Egyptian at [facility]? No 02/02/2024 Do you want help with [...] Procedure Summary Date: 07/17/24 Room / Location: [facility] OR OPERATING ROOM Anesthesia Start: 1423 Anesthesia Stop: [...] status: room air Hydration status: stable Color: [place] Activity: Moves 4 extremities Inotropes/Vasopressors: N/A No [...] male being evaluated for the following: Date/Time: 07/17/24 1515 Procedure: CYSTOURETEROSCOPY, WITH LASER LITHOTRIPSY (Right) Location: [facility] OR [facility] OPERATING ROOM Surgeons: Gareth Rya MD No Known Allergies Current Outpatient Medications [...] STENT INSERTION; Surgeon: Gareth Ray MD; Location: [facility] OR; Service: Urology; Laterality: Left; CYSTOSCOPY,REMOVAL URETERAL STENTS Left 04/03/2024 Procedure: CYSTOSCOPY, WITH URETERAL STENT REMOVAL; Surgeon: Gareth Ray MD; Location: [facility] OR;Service: Urology; Laterality: Left; left ureteral stent removal CYSTOSCOPY,URETEROSCOPY W/ LASER LITHOTRIPSY Left 06/25/2024 Procedure: CYSTOURETEROSCOPY, WITH LASER LITHOTRIPSY; Surgeon: Gareth Ray MD; Location: [facility] OR; Service: Urology; Laterality: Left; FOOT SURGERY Right metal adelita in right metatarsal HERNIA REPAIR KIDNEY STONE SURGERY LITHOTRIPSY,EXTRACORPOREAL SHOCK WAVE (ESWL) Left 04/03/2024 Procedure: LITHOTRIPSY,EXTRACORPOREAL SHOCK WAVE (ESWL); Surgeon: Gareth Ray MD; Location: [facility] OR; Service: Urology; Laterality: Left; ESWL CONF [id number] SPOKE TO ASHELY LYMPHADENECTOMY Right kidney NEPHRECTOMY [...] risks discussed with patient. Plan discussed with PRESIDENT AND CHIEF EXECUTIVE OFFICER. documented in this encounter Plan of Treatment [...] (SUBLIMAZE) injection As needed, intravenous, Starting on Tue07/17/24 at 1436, Anesthesia Intra-op Given 07/17/2024 3:57 PM EDT 50 mcg Given 07/17/2024 2:41 PM EDT 50 mcg Given 07/17/2024 2:36 PM EDT 50 mcg lidocaine (XYLOCAINE) injection 2% As needed, intravenous, Starting on 07/17/24 at 1427, Anesthesia Intra-op Given 07/17/2024 2:27 PM EDT 100 mg midazolam (VERSED) injection As needed, intravenous, Starting on Tue07/17/24 at 1424, Anesthesia Intra-op Given 07/17/2024 2:24 PM EDT 2 mg ondansetron (ZOFRAN) injection As needed, intravenous, Starting on Tue07/17/24 at 1440, Anesthesia Intra-op Given 07/17/2024 2:40 PM EDT 4 mg propofol (DIPRIVAN) injection 10 mg/mL bolus As needed, intravenous, Starting on e 07/17/24 at 1427, Anesthesia Intra-op Given 07/17/2024 2:27 PM EDT 200 mg documented in this encounter Care Teams District Resource Officer Relationship Specialty Start Date End Date Kj Madrid MD [address] [place] [id number] PCP - General Adolescent Medicine 01/09/24 documented as of this encounter
--- OUTSIDE RECORDS SUMMARY | 2024-07-17 15:15 | XMS_ITS | Encounter Summary ---
Author Organization [employer] ([place], [place], [place], [place]) Address [address] [place] [address] Care Team Providers Care Gun Profiler Name Role Phone Kj Madrid MD Primary Care Provider [phone] Reason for Visit * Auth/Cert (Routine) Specialty Diagnoses / Procedures Referred By Sandy owusu Referred To Contact Diagnoses Kidney stone Kidney Stone Procedures [place] CYSTO W/URETEROSCOPY W/LITHOTRIPSY CYSTOURETEROSCOPY, WITH LASER LITHOTRIPSY [facility] Surgery Department [address] [place] [phone] Phone: tel: fax: [facility] Surgery Department [address] [place] [phone] Phone: tel: fax: Referral ID Status Reason Start Date Expiration Date Visits Re quested Visits Authorized [id number] 1 1 Encounter Details Date Type Department Care Team (Late st Contact Info) Description 07/17/2024 3:15 PM EDT - 07/17/2024 4:44 PM EDT Surgery [facility] Surgery Department [address] [place] [phone] [place] [address] [place] [address] [address] [place] [address] CYSTOURETEROSCOPY, WITH LASER LITHOTRIPSY Social History Tobacco [...] your living situation today? I have a [facility] place to live 02/02/2024 Think about [...] Do you speak a language other than [place]an at [facility]? No 02/02/2024 Do you [...] Sign Reading Time Taken Comments Blood Pressure 140/93 07/17/2024 4:35 PM EDT Pulse 83 07/17/2024 4:35 PM EDT Temperature 36.4 C (97.6 F) 07/17/2024 4:10 PM EDT Respiratory Rate 20 07/17/2024 4:35 PM EDT Oxygen Saturation 95% 07/17/2024 4:35 PM EDT Inhaled Oxygen Concentration - - Weight 108.9 kg (240 lb) 07/16/2024 2:00 PM EDT Height 195.6 cm (6' 5 ) 07/16/2024 2:00 PM EDT Body Mass Index 28.46 07/16/2024 2:00 PM EDT documented in this encounter Discharge Instructions * Attachments The following attachments cannot be sent through Care Everywhere. * General Anesthesia Adult Care After (Belizean) * Laser Therapy for Kidney Stones Care After (Belizean) documented in this encounter Medications at Time [...] stage 3, GFR 30-59 ml/min ([facility]) 10/16/2021 Essential hypertension 10/16/2021 Primary gout 10/16/2021 Obesity (BMI 30-39.9) 10/16/2021 Obstructive sleep apnea syndrome 10/16/2021 Tobacco abuse 10/16/2021 Past Surgical History: Procedure Laterality Date bicep surgery Right CYSTOSCOPY,INSERTION URETERAL STENTS Left 06/25/2024 Procedure: CYSTOSCOPY, WITH URETERAL STENT INSERTION; Surgeon: Gareth Ray MD; Location: [facility]; Service: Urology; Laterality: Left; CYSTOSCOPY,REMOVAL URETERAL STENTS Left 04/03/2024 Procedure: CYSTOSCOPY, WITH URETERAL STENT REMOVAL; Surgeon: Gareth Ray MD; Location: [facility] OR;Service: Urology; Laterality: Left; left ureteral stent removal CYSTOSCOPY,URETEROSCOPY W/ LASER LITHOTRIPSY Left 06/25/2024 Procedure: CYSTOURETEROSCOPY, WITH LASER LITHOTRIPSY; Surgeon: Gareth Ray MD; Location: [facility] OR; Service: Urology; Laterality: Left; FOOT SURGERY Right metal adelita in right metatarsal HERNIA REPAIR KIDNEY STONE SURGERY LITHOTRIPSY,EXTRACORPOREAL SHOCK WAVE (ESWL) Left 04/03/2024 Procedure: LITHOTRIPSY,EXTRACORPOREAL SHOCK WAVE (ESWL); Surgeon: Gareth Ray MD; Location: [facility] OR; Service: Urology; Laterality: Left; ESWL CONF [id number] SPOKE TO ASHELY LYMPHADENECTOMY Right kidney NEPHRECTOMY [...] stage 3, GFR 30-59 ml/min ([facility]) 10/16/2021 Essential hypertension 10/16/2021 Primary gout 10/16/2021 Obesity (BMI 30-39.9) 10/16/2021 Obstructive sleep apnea syndrome 10/16/2021 Tobacco abuse 10/16/2021 Past Surgical History: Procedure Laterality Date bicep surgery Right CYSTOSCOPY,INSERTION URETERAL STENTS Left 06/25/2024 Procedure: CYSTOSCOPY, WITH URETERAL STENT INSERTION; Surgeon: Gareth Ray MD; Location: [facility]; Service: Urology; Laterality: Left; CYSTOSCOPY,REMOVAL URETERAL STENTS Left 04/03/2024 Procedure: CYSTOSCOPY, WITH URETERAL STENT REMOVAL; Surgeon: Gareth Ray MD; Location: [facility] OR;Service: Urology; Laterality: Left; left ureteral stent removal CYSTOSCOPY,URETEROSCOPY W/ LASER LITHOTRIPSY Left 06/25/2024 Procedure: CYSTOURETEROSCOPY, WITH LASER LITHOTRIPSY; Surgeon: Gareth Ray MD; Location: [facility]; Service: Urology; Laterality: Left; FOOT SURGERY Right metal adelita in right metatarsal HERNIA REPAIR KIDNEY STONE SURGERY LITHOTRIPSY,EXTRACORPOREAL SHOCK WAVE (ESWL) Left 04/03/2024 Procedure: LITHOTRIPSY,EXTRACORPOREAL SHOCK WAVE (ESWL); Surgeon: Gareth Ray MD; Location: [facility]; Service: Urology; Laterality: Left; ESWL CONF [id number] SPOKE TO ASHELY LYMPHADENECTOMY Right kidney NEPHRECTOMY [...] Blood Administered: None Grafts or Implants: 4.8 Hong Konger by 28 cm right ureteral stent with string attached Complications: None Condition: None Findings: After satisfactory general esthesia was carefully placed lithotomy. Pressure garments were placed and function at time of induction. The 21 Hong Konger cystoscopy sheath introduced under direct vision 30 degree lens. His urethra appeared normal and prostate nonobstructing. Upon in the bladder there is no bladder stones. 5 Hong Konger open-ended ureteral catheter was used to perform [...] documented in this encounter Visit Diagnoses Diagnosis Kidney stone Calculus of kidney documented in [...] 300 mg iodine /mL (61 %) injection As needed, Starting on Tue07/17/24 at 1528, Intra-op Given 07/17/2024 3:28 PM EDT 30 mLs lidocaine (UROJET, GLYDO) 2 % jelly As needed, Starting on Tue07/17/24 at 1529, Intra-op Given 07/17/2024 3:29 PM EDT 1 Application sodium chloride flush 10 mL 10 mL [...] Pre-op documented in this encounter Care Teams Gun Profiler Relationship Specialty Start Date End Date Kj Madrid MD [address] [place] [address] PCP - General Adolescent Medicine 01/09/24 documented as of this encounter
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
--- OUTSIDE RECORDS SUMMARY | 2024-08-21 06:52 | XMS_ITS ---
Author Organization [facility] Address [address] [place] [address] Care Team Providers Care Mri Technologist Name Role Phone Kj Madrid Primary Care Provider Kj Madrid Unavailable Unavailable ShirleySarah Ivania [phone] order Encounters Encounter Location Date Provider Diagnosis [facility] [address] [place] [address] 08/21/2024 Sarah Watson History of renal cell [address], [place], [address], Progress Notes * Deedee UREÑA:1970 (53 yo M)Acc No.[id number]:08/21/2024 Patient: Toan MYERS :1970 A ge:53 Y S ex:Male Address:[address] [place], [address] Subjective: * Chief Complaints: * C t order * Medical History: * Surgical History: * Hospitalization/Major Diagno stic Procedure: * Medications: Objective: * Vitals: * Physical Examination: Assessment: * Assessment: 1. H istory of renal cell carcinoma - Z85.528 Plan: * Treatment: * * Procedure Codes: * true * Date: Generated for Maris rodriguez/Lo/Kaseyitting on: 0 08/27/2024 12:53 PM EDT
--- OUTSIDE RECORDS SUMMARY | 2024-08-22 10:59 | XMS_ITS ---
Author Organization [facility] Address [address] [facility] [address] [place] [address] Care Team Providers Care Consultant In Ergonomics And Safety Name Role Phone Kj Madrid Primary Care Provider Kj Madrid Unavailable Unavailable Cyndi Wolfe Unavailable [phone] REASON FOR VISIT lab order Encounters Encounter Location Date Provider Diagnosis [address] [address] 08/22/2024 Cyndi Wolfe Stage 3b chronic kidney [...] 08/23/19 M-Magnesium 08/22/2024 Next Appt Details Provider Name:Cnydi Albert, 09/06/2024 12:30:00 PM, [address], [address], [place], [address], Progress Notes * Deedee UREÑA:1970 (53 yo M)Acc No.[id number]:08/22/2024 Patient: Toan MYERS :1970 A ge:53 Y S ex:Male Address:[facility] [place], [address] Subjective: * Chief Complaints: * L ab order * Medical History: * Surgical History: * Hospitalization/Major Diagno stic Procedure: * Medications: Objective: * Vitals: * Physical Examination: Assessment: * Assessment: 1. S tage 3b chronic kidney disease - N18.32 2 . E ssential hypertension - I10 3 . L ow magnesium level - R79.0 Plan: * Treatment: ?LAB: M-Comprehensive Metabolic Panel* [facility] 08/23/2024 0 2:08:31 PM EDT > Will have drawn next week 08/27-08/30/2024 ?LAB: M-Magnesium* [facility] 08/23/2024 0 2:08:31 PM EDT > Will have drawn next week 08/27-08/30/2024 2.?Essential hypertension?LAB: M-Complete Blood Count w/o Diff* Tavo Burnham 08/23/2024 0 2:08:31 PM EDT > Will have drawn next week 08/27-08/30/2024 ?LAB: M-Comprehensive Metabolic Panel* Tej Tavo 08/23/2024 0 2:08:31 PM EDT > Will have drawn next week 08/27-08/30/2024 ?LAB: M-Magnesium* [facility] 08/23/2024 0 2:08:31 PM EDT > Will have drawn next week 08/27-08/30/2024 3.?Low magnesium level?LAB: M-Complete Blood Count w/o Diff* [facility] 08/23/2024 0 2:08:31 PM EDT > Will have drawn next week 08/27-08/30/2024 ?LAB: M-Comprehensive Metabolic Panel* Tavo Burnham 08/23/2024 0 2:08:31 PM EDT > Will have drawn next week 08/27-08/30/2024 ?LAB: M-Magnesium* Tavo Burnham R 08/23/2024 0 2:08:31 PM EDT > Will have drawn next week 08/27-08/30/2024 * Procedure Codes: * true * Date: Generated for Maris rodriguez/Lo/Kaseyitting on: 0 08/27/2024 12:52 PM EDT
--- OUTSIDE RECORDS SUMMARY | 2024-08-27 12:52 | XMS_ITS ---
Author Organization [facility] Address [address] [place] [address] Care Team Providers Care Operating Room Assistant Name Role Phone Kj Madrid MD [...]
--- OUTSIDE RECORDS SUMMARY | 2024-08-27 12:52 | XMS_ITS | Clinical Summary ---
Author Organization [facility] Address [address] [place] [address] Care Team Providers Care Shelf Filler Name Role Phone Kj Madrid MD Primary Care Provider Allergies No [...] Date Type Department Care Team Description 08/15/2024 [facility] [address] [place] [phone] Sarah Watson APRN Chronic kidney disease (CKD) [...] any time in the past 12 m [facility], were you homeless or living in a retirement (including now)? No 03/26/2024 CAGE ASSESSMENT Answer [...] drink first t sterling in the morning (EYE-INTERLIBRARY LOAN SERVICES LIBRARIAN) to steady your nerves or to get rid of a hangover? 1 03/23/2024 CAGE Questionnaire Score 3 025 Utilities Answer Date Recorded In the past 12 months has e [employer], gas, oil, or water [employer] threatened to shut off services in your [...] Last Done Comments [facility]-/Child/Adol SDOH Screenings 1971 COA-ITPLM-09 Vaccine (#1) 12/14/1976 [facility]-Hepatitis B Vaccines (1 [...] Reactive Non Reactive 03/23/2024 11:22 AM EST [facility] Comment:Screening for HIV 1 & 2 antibodies, and P24 antigen is NONREACTIVE. No confirmatory testing is required. Blood Venous blood specimen / Unknown Venipuncture / Unknown 03/23/2024 10:25 AM EST 03/23/2024 10:38 AM EST Robbin REDDY LAB BLOOD ORDERABLES Final Re sult Performing Organization Address City/[facility]/[place] [address] * Hepatitis C Antibody - ED (03/23/2024 10:25 AM EST) Pathologist [facility] Hepatitis C Antibody Negative Negative 03/23/2024 11:22 AM EST [facility] Blood Venous blood specimen / Unknown Venipuncture / Unknown 03/23/2024 10:25 AM EST 03/23/2024 10:38 AM EST Robbin REDDY LAB BLOOD ORDERABLES Final Re sult Performing Organization Address City/[facility] [place] [address] * CT Chest w IV Contrast (09/03/2022 [...] Nnamdi Vera MD Anesthesiologist Laura Figueredo CRNA STEEL HEATER, No role selected Unknown Endo Nurse 1 [...] of bowel preparation was evaluated using the [place] Bowel Preparation Scale with scores of: right [...] Patient has decision-making capacity? Yes Care Teams Shelf Filler Relationship Specialty Start Date End Date Kj Madrid MD [address] [place] [address] PCP - General Internal Medicine 09/17/21
--- OUTSIDE RECORDS SUMMARY | 2024-08-27 12:52 | XMS_ITS | Referral Summary ---
Author Organization [employer] ([place], [place], [place], [place]) Address [address] [place] [address] Care Team Providers Care Supervisor Finishing Room Name Role Phone Kj Madrid MD Primary Care Provider Encounters Date Type Department Care Team Description 07/19/2024 Orders Only [facility] Urology - [address] [place] [address] Gareth Ray MD Ureteral calculus, right (Primary Dx) 07/19/2024 Telephone [facility] Urology - [facility] [address] [facility] [address] [place] [address] Gareth Ray MD Appointment 07/17/2024 Travel 07/17/2024 3:15 PM EDT - 07/17/2024 4:44 PM EDT Surgery [facility] Surgery Department [address] [place] [address] Gareth Ray MD CYSTOURETEROSCOPY, WITH LASER LITHOTRIPSY 07/17/2024 2:23 PM EDT Anesthesia Event [facility] Surgery Department [address] [place] [phone] Alden Hopkins, Kentrell Gracia MD 07/17/2024 12:09 PM EDT - 07/17/2024 5:15 PM EDT Hospital Encounter [facility] Surgery Department [address] [place] [address] Gareth Ray MD Discharge Disposition: Home or Self Care 06/29/2024 Orders Only [facility] Urology - [address] [place] [address] Gareth Ray MD 06/25/2024 Travel 06/25/2024 11:33 AM EDT - 06/25/2024 1:02 PM EDT Surgery [facility] Surgery Department [address] [place] [address] Gareth Ray MD CYSTOURETEROSCOPY, WITH LASER LITHOTRIPSY 06/25/2024 1:27 PM EDT Anesthesia Event [facility] Surgery Department [address] [place] [address] Joyce Mcfarlane CRNA Zarth, Matthew Tyler, MD 06/25/2024 9:17 AM EDT - 06/25/2024 4:32 PM EDT Hospital Encounter [facility] Surgery Department [address] [place] [address] Gareth Ray MD Discharge Disposition: Home or Self Care 06/19/2024 Telephone [facility] Urology - [facility] [address] [facility] [address] [place] [address] Gareth Ray MD Advice Only (Pt left 2 voicemails wanting to speak with someone. I called back, he didn't answer and the voicemail has not been set up. ) 06/18/2024 Documentation [facility] Urology - [address] [place] [address] Gareth Ray MD 06/13/2024 Orders Only [facility] Urology - [address] [place] [address] Gareth Ray MD Erectile disorder (Primary Dx); Left ureteral stone 06/04/2024 Documentation [facility] Urology - [address] [place] [address] Gareth Ray MD 06/04/2024 Telephone [facility] Urology - [address] [place] [address] Gareth Ray MD Follow-up (Trying to reach patient about scheduling his CT ) from Last 3 Months Allergies No known [...] breakfast and dinner. 30 capsule 5 Active ondansetron (ZOFRAN) 4 MG tablet Take 1 [...] Do you speak a language other than Bulgarian at [facility]? No 02/02/2024 Do you want [...] on file Medical Devices Implanted Type Area Process Controller Device Identifier Shelf Expiration Date Model / Serial / Lot Stent Uret Braid + [id number] - [id number] Implanted:Qty : 1 on 01/09/2024 by Gareth Ray MD at [facility] IMPLANTS Right: Ureter [employer]:UROLOGY/PROP CUTTER ECOLOGY 04/10/2026 [id number] 40 / / [id number] Stent Uret Percflx + [id number] - [id number] Implanted:Qty : 1 on 06/25/2024 by Gareth Ray MD at [facility] IMPLANTS Left: Ureter [employer]:UROLOGY/PROP CUTTER ECOLOGY [id number] 10/30/2026 [id number] 40 / / [id number] Stent Uret Fader Tip [id number] - [id number] Implanted:Qty : 1 on 07/17/2024 by Gareth Ray MD at [facility] IMPLANTS Right: Ureter [employer]:UROLOGY/PROP CUTTER ECOLOGY [id number] 02/07/2027 [id number] 40 / / [id number] Explanted Type Area Process Controller Device Identifier Shelf Expiration Date Model / Serial / Lot Cath Uret Pollack 5fr [id number] - [id number] Implanted:Gareth Jaramillo MD (Quantity not on file) Explanted:Qty: 1 on 07/17/2024 at [facility] Right: Ureter COOK [id number] / / N/A Procedures Procedure Name Priority Date/Time Associated Diagnosis Comments FL < 1 HOUR Routine 07/17/2024 3:00 PM EDT ANESTHESIA INTUBATION Routine 07/17/2024 2:31 PM EDT CYSTOURETEROSCOPY , WITH RETROGRADE PYELOGRAM AND STENT INSERTION OR REMOVAL 07/17/2024 2:23 PM EDT Kidney stone Case Notes Right Ureteroscopy with Laser of Kidney Stones [place] CYSTO W/URETEROSCOPY W/LITHOTRIPSY 07/17/2024 2:23 PM EDT Kidney stone Case Notes Right Ureteroscopy with Laser of Kidney Stones FL < 1 HOUR Routine 06/25/2024 2:30 PM EDT ANESTHESIA INTUBATION Routine 06/25/2024 1:31 PM EDT [place] CYSTO W/INSERT URETERAL STENT 06/25/2024 1:27 PM EDT Kidney stone Case Notes Left Ureteroscopy [place] CYSTO W/URETEROSCOPY W/LITHOTRIPSY 06/25/2024 1:27 PM EDT [...] Kimani Roman. Transcribed by Evan Lucio PA-C. Result [facility] aGreth Ray MD IMG FLUOROSCOPY ORDERABLES Fin al [...] 1 Number of other approaches attempted: 0 Result [facility] Alden Hopkins CRNA ANESTHESIA ORDERABLES Final Result [...] 4 Number of attempts at approach: 1 Result [facility] Joyce Mcfarlane CRNA ANESTHESIA ORDERABLES Fin al Result from Last 3 Months Insurance [employer] [facility] [place] Advance Directives For more information, please contact: [phone] * Full Code (Latest Code Status on [...] Relationship Healthcare Agent Relationshi p Communication Laurie Adelita Spouse Healthcare Decision-Make r Care Teams Supervisor Finishing Room Relationship Specialty Start Date End Date Kj Madrid MD [address] [place] [address] PCP - General Adolescent Medicine 01/09/24
--- OUTSIDE RECORDS SUMMARY | 2024-08-27 12:52 | XMS_ITS | Clinical Summary ---
Author Organization [employer] ([place], [place], [place], [place]) Address [address] [place] [address] Care Team Providers Care Chief Bank Examiner Name Role Phone Kj Madrid MD Primary Care Provider + [phone] Allergies No known active allergies Medications allopurinoL [...] to 15 days. 30 tablet 5 08/02/19 Active Problems Problem Noted Date Diagnosed Date [...] Care Team Description 07/19/2024 Orders Only [facility] Urology - [address] [place] [address] Gareth Ray MD Ureteral calculus, right (Primary Dx) 07/19/2024 Telephone [facility] Urology - [address] [place] [address] Gareth Ray MD Appointment 07/17/2024 3:15 PM EDT - 07/17/2024 4:44 PM EDT Surgery [facility] Surgery Department [address] [place] [address] Gareth Ray MD CYSTOURETEROSCOPY, WITH LASER LITHOTRIPSY 07/17/2024 2:23 PM EDT Anesthesia Event [facility] Surgery Department [address] [place] [address] Alden Hopkins, Kentrell Gracia MD 07/17/2024 12:09 PM EDT - 07/17/2024 5:15 PM EDT Hospital Encounter [facility] Surgery Department [address] [place] [address] Gareth Ray MD Discharge Disposition: Home or Self Care 07/17/2024 Travel 06/29/2024 Orders Only [facility]rology - [facility] [facility] [address] [facility] [address] [place] [address] Gareth Ray MD 06/25/2024 1:27 PM EDT Anesthesia Event [facility] Surgery Department [address] [place] [address] Joyce Mcfarlane, Reggie Brower MD 06/25/2024 11:33 AM EDT - 06/25/2024 1:02 PM EDT Surgery [facility] Surgery Department [address] [place] [address] Gareth Ray MD CYSTOURETEROSCOPY, WITH LASER LITHOTRIPSY 06/25/2024 9:17 AM EDT - 06/25/2024 4:32 PM EDT Hospital Encounter [facility] Surgery Department [address] [place] [address] Gareth Ray MD Discharge Disposition: Home or Self Care 06/25/2024 Travel 06/19/2024 Telephone [facility] Urology - [address] [facility] [address] [place] [address] Gareth Ray MD Advice Only (Pt left 2 voicemails wanting to speak with someone. I called back, he didn't answer and the voicemail has not been set up. ) 06/18/2024 Documentation [facility] Urology - [address] [place] [address] Gareth Ray MD 06/13/2024 Orders Only [facility] Urology - [address] [place] [address] Gareth Ray MD Erectile disorder (Primary Dx); Left ureteral stone 06/04/2024 Documentation [facility] Urology - [address] [place] [address] Gareth Ray MD 06/04/2024 Telephone [facility] Urology - [address] [place] [address] Gareth Ray MD Follow-up (Trying to reach patient about scheduling his CT ) from Last 3 Months Family History Medical [...] living situation today? I have a [facility] place to live 02/02/2024 Think about [...] speak a language other than Colombian at [facility]? No 02/02/2024 Do you want help with [...] (Zoster) (1 of 2) 12/14/2021 COVID-19 VACCINE ( - season) 2023 Influenza Vaccine (Season Ended) 2024 Tobacco Cessation Counseling and Screening (12+) 02/0102/02/2024 Lipid Panel 03/24/2027 03/24/2024 Colonoscopy 05/04/2032 05/04/2022 Colorectal Cancer Screening 05/04/2032 DTAP/TDAP/TD VACCINES (2 - Td or Tdap) 03/23/2034 Medical Devices Implanted Type Area Production Associate Device Identifier Shelf Expiration Date Model / Serial / Lot Stent Uret Braid + [id number] - [id number] Implanted:Qty : 1 on 01/09/2024 by Gareth Ray MD at [facility] IMPLANTS Right: Ureter [employer]:UROLOGY/PRIVATE SECURITY GUARD ECOLOGY 04/10/2026 [id number] 40 / / [id number] Stent Uret Percflx + [id number] - [id number] Implanted:Qty : 1 on 06/25/2024 by Gareth Ray MD at [facility] IMPLANTS Left: Ureter [employer]:UROLOGY/PRIVATE SECURITY GUARD ECOLOGY [id number] 10/30/2026 [id number] 40 / / [id number] Stent Uret Fader Tip [id number] - [id number] Implanted:Qty : 1 on 07/17/2024 by Gareth Ray MD at [facility] IMPLANTS Right: Ureter [employer]:UROLOGY/PRIVATE SECURITY GUARD ECOLOGY [id number] 02/07/2027 [id number] 40 / / [id number] Explanted Type Area Production Associate Device Identifier Shelf Expiration Date Model / Serial / Lot Cath Uret Pollack 5fr [id number] - [id number] Implanted:Gareth Jaramillo MD (Quantity not on file) Explanted:Qty: 1 on 07/17/2024 at [facility] Right: Ureter COOK [id number] / / N/A Procedures Procedure Name Priority Date/Time Associated Diagnosis Comments FL < 1 HOUR Routine 07/17/2024 3:00 PM EDT ANESTHESIA INTUBATION Routine 07/17/2024 2:31 PM EDT CYSTOURETEROSCOPY , WITH RETROGRADE PYELOGRAM AND STENT INSERTION OR REMOVAL 07/17/2024 2:23 PM EDT Kidney stone Case Notes Right Ureteroscopy with Laser of Kidney Stones [place] CYSTO W/URETEROSCOPY W/LITHOTRIPSY 07/17/2024 2:23 PM EDT Kidney stone Case Notes Right Ureteroscopy with Laser of Kidney Stones FL < 1 HOUR Routine 06/25/2024 2:30 PM EDT ANESTHESIA INTUBATION Routine 06/25/2024 1:31 PM EDT [place] CYSTO W/INSERT URETERAL STENT 06/25/2024 1:27 PM EDT Kidney stone Case Notes Left Ureteroscopy [place] CYSTO W/URETEROSCOPY W/LITHOTRIPSY 06/25/2024 1:27 PM EDT [...] SINGLE LUMEN INTUBATION (06/25/2024 1:31 PM EDT) Ratna Joyce Mcfarlane CRNA - 06/25/2024 1:31 PM EDT Joyce [...] al Result from Last 3 Months Insurance [facility] Advance Directives For more information, please contact: [phone] * Full Code (Latest Code Status on [...] Ureña Spouse Healthcare Decision-Make r Care Teams Chief Bank Examiner Relationship Specialty Start Date End Date Kj Madrid MD [address] [place] [address] PCP - General Adolescent Medicine 01/09/24
--- OUTSIDE RECORDS SUMMARY | 2024-08-27 12:53 | XMS_ITS | Encounter Summary ---
Author Organization [employer] ([place], [place], [place], [place]) Address [address] [place] [address] Care Team Providers Care Forming Machine Upkeep Mechanic Name Role Phone Kj Madrid MD Primary Care Provider + [phone] Reason for Visit * Reason Onset Date Comments Appointment 07/19/2024 Encounter Details Date Type Department Care Team (Late st Contact Info) Description 07/19/2024 Telephone [facility] Urology - [address] [place] [address] Gareth Ray MD [address] [facility] [address] [place] [address] Appointment Social History Tobacco Use Types Packs/Day Years Used Date Smoking Tobacco: Every Day Cigarettes Smokeless Tobacco: Current Comments:vapes Alcohol Use Standard Drinks/Week Comments Yes 0 (1 standard drink = 0.6 oz pur e alcohol) Utilities Answer Date Recorded In the past 12 months, has t he electric, gas, oil, or water [employer] threatened to shut off services in your [...] Do you speak a language other than Dominican at [facility]? No 02/02/2024 Do you want help [...] on filedocumented in this encounter Care Teams Forming Machine Upkeep Mechanic Relationship Specialty Start Date End Date Kj Madrid MD [address] [place] [address] PCP - General Adolescent Medicine 01/09/24 documented as of this encounter
--- OUTSIDE RECORDS SUMMARY | 2024-08-27 12:53 | XMS_ITS | Encounter Summary ---
Author Organization [employer] ([place], [place], [place], [place]) Address [address] [place] [address] Care Team Providers Care Sample Maker Original Name Role Phone Kj Madrid MD Primary Care Provider + [phone] Reason for Visit * Reason Onset Date Comments Follow-up 06/04/2024 Trying to reach patient about scheduling his CT Encounter Details Date Type Department Care Team (Late st Contact Info) Description 06/04/2024 Telephone [facility] Urology - [address] [place] [address] Gareth Ray MD [address] [facility] [address] [place] [address] Follow-up (Trying to reach patient about scheduling [...] Do you speak a language other than Cook Islander at [facility]? No 02/02/2024 Do you want help with [...] on filedocumented in this encounter Care Teams Sample Maker Original Relationship Specialty Start Date End Date Kj Madrid MD [address] [place] [address] PCP - General Adolescent Medicine 01/09/24 documented as of this encounter
--- OUTSIDE RECORDS SUMMARY | 2024-08-27 12:53 | XMS_ITS | Encounter Summary ---
Author Organization [facility] Address [address] [place] [address] Care Team Providers Care Medical Office Asst Name Role Phone Kj Madrid MD Primary Care Provider [phone] Reason for Referral * Consultation (Routine) - Authorized Specialty Diagnoses / Procedures Referred By Contcampbell t Referred To Contact Nephrology Diagnoses Chronic kidney disease (CKD) stage G3b/A1, moderately decreased glomerular filtration rate (GFR) between 30-44 mL/min/1.73 square meter and albuminuria creatinine ratio less than 30 mg/g ([facility]) Sarah Watson APRN [address] [address] Phone: tel: fax: [facility] [address] [place] [address] [address], [place] [address] Phone: tel: fax: Referral ID Status Reason Start Date Expiration Date Visits Requested Visits Authorized [id number] Authorized Specialty Services Required 08/15/2024 02/14/2026 1 1 Encounter Details Date Type Department Care Team (Late st Contact Info) Description 08/15/2024 Community [facility] Practice [address] [place] [address] Sarah Watson APRN [address] [address] Chronic kidney disease (CKD) stage G3b/A1, moderately decreased glomerular filtration rate (GFR) between 30-44 mL/min/1.73 square meter and albuminuria creatinine ratio less than 30 mg/g ([facility]/HCC) (Primary Dx) Social History Tobacco Use Types [...] any time in the past 12 m [facility], were you homeless or living in a penitentiary (including now)? No 03/26/2024 CAGE ASSESSMENT Answer [...] drink first t sterling in the morning (EYE-SOFTWARE TEST SPECIALIST) to steady your nerves or to get rid of a hangover? 1 03/23/2024 CAGE Questionnaire Score 3 025 Utilities Answer Date Recorded In the past 12 months has [employer], gas, oil, or water [employer] threatened to shut off services in your [...] albuminuria creatinine ratio less than 30 mg/g ([facility]/HCC) Expected: 08/15/2024 (Approximate), Expires: 02/16/2026 documented as [...] documented as of this encounter Care Teams Medical Office Asst Relationship Specialty Start Date End Date Kj Madrid MD [address] [place] [address] PCP - General Internal Medicine 09/17/21 documented as of this encounter
--- OUTSIDE RECORDS SUMMARY | 2024-08-27 12:53 | XMS_ITS | Patient Health Record ---
Author Organization [facility] Address [address] [place] [address] Support Name Relationship Address Phone MAILE SUZANNA Guarantor Unknown [phone] Allergies No Known Allergies Reason For Referral [...] Date Coverage End Date SELF PAY PATIENT [id number] SUZANNA GR Self - patient is the insured Medical (General) History Medical History History ICD Code Hypertension Gout Surgical History Surgery Date(Month/Year) bicep reconstruction hernia repair colonoscopy kidney removal 03/01
--- OUTSIDE RECORDS SUMMARY | 2024-08-27 12:53 | XMS_ITS | Encounter Summary ---
Author Organization [facility] Address [address] [place] [address] Care Team Providers Care Painter Ski Edge Name Role Phone Kj Madrid MD Primary Care Provider [phone] Encounter Details Date Type Department Care Team ([facility] st Contact Info) Description 03/10/2022 Orders Only External Location [address] [place] [address] Gallo May MD [address] [id number] Social History Tobacco Use Types Packs/Day Years [...] documented as of this encounter Care Teams Painter Ski Edge Relationship Specialty Start Date End Date Kj Madrid MD [address] [place] [address] PCP - General Internal Medicine 09/17/21 documented as of this encounter
--- OUTSIDE RECORDS SUMMARY | 2024-08-27 12:53 | XMS_ITS | Patient Health Record ---
Author Organization [facility] Address [address] [place] [address] Care Team Providers Care Commercial Real Estate Sales Manager Name Role Phone Kj Madrid Primary Care Provider [phone] Kj Madrid Unavailable Unavailable Sarah Watson Unavailable [phone] Cyndi Wolfe Unavailable [phone] Migration, Provider Unavailable Unavailable Allergies No Known Allergies Results Component Value Reference Range Notes M-Complete Blood Count Auto Diff Reviewed date:08/13/2024 [...] 0 IG% 0.8 NRBC# 0 IG# 0.07 M-Magnesium Reviewed date:08/13/2024 06:04:13 PM Interpretation: Performing Lab: Notes/Report: MG 1.9 1.6-2.3 mg/dl M-Comprehensive Metabolic Pa dante Reviewed date:08/13/2024 06:04:13 [...] carcinoma of right kidney (C64.1) Referral Organization [facility] KODY KATZ Referring Provider First Name Referring Provider Last Name Shirley Referring Provider Speciality Family Pra ctice Referred Provider Specialty Urology General Kate Martell 2023 03:17:13 PM >Patient informed of appt Referral Priority Routine Referral Appointment Date 12/21/2023 Reason Medical Records - Do [facility] [employer] Referral Organization [facility] KODY ARMENDARIZ TULIO Referring Provider First Name Kj Referring Provider Last Name Mercy Referring Provider Speciality Internal M edicine Referral Priority Routine Reason Cardiolyte Stress Te st Diagnosis 1 Atherosclerosis of n ative coronary artery of ruby heart without angina pectoris (I25.10) Referral Organization [facility] KODY KATZ Referring Provider First Name Referring Provider Last Name Shirley Referring Provider [facility] ctice Referred Organization [facility] Referred Address [address] [facility] [address] [place], [place],[address], Referred Provider Specialty Diagnostic R adiology General Notes Kate Wang 2024 11:15:23 AM >sent to [facility] [place] [address] [employer] Referral Priority Routine Reason [facility] Cardiology- abno rmal stress test results Referral Organization [facility] KODY ANTUNEZ Referring Provider First Name Kj Referring Provider Last Name Mercy Referring Provider Speciality Internal M edicine Referred Organization [facility] Referred Address [address] [facility] [address] [place], [place],[address],[place] Referred Provider Specialty Cardiovascul ar Disease General Notes Kate Wang 2024 02:44:02 PM >Sent to [facility] to schedule Referral Priority Routine Reason [facility]/ Nephrology - has seen them previously but I don't have notes Diagnosis 1 Stage 3b chronic kid glenis disease (CKD) (N18.32) Referral Organization [facility] KODY KATZ Referring Provider First Name Referring Provider Last Name Shirley Referring Provider [facility] ctice Referred Organization Referrals Referred Address [address] [place], [place],[address],[place] Referred Provider Specialty Nephrology General Notes Kate Wang 2024 05:14:25 PM >sent to through [facility] to Nephrology at [facility] Referral Priority Routine Reason CT abd/pelvis at [facility] , no contrast Diagnosis 1 History of renal bubba l carcinoma (Z85.528) Referral Organization [facility] KODY KATZ Referring Provider First Name Referring Provider Last Name Shirley Referring Provider [facility] ctice Referred Organization [facility] Referred Address [address] [facility] [address] [place], [place],[address],[place] Referred Provider Specialty Diagnostic R adiology General [...] Status W/U Status Risk Notes Problem Hypomagnesemia (195730775) Hypomagnesemia (E83.42) Active confirmed Problem Primary gout (14313809) Idiopathic gout, right ankle and foot (M10.071) Active confirmed Problem Essential hypertension (63402492) Essential hypertension (I10) Active confirmed Problem Psoriasis (7372482) Psoriasis (L40.9) Active confirmed Problem Acute exacerbation of chronic obstructive airways disease (799130181) COPD exacerbation (J44.1) Active confirmed Problem Fatigue (94573841) Fatigue (R53.83) Active conf irmed Problem Chronic pain (39430464) Other chronic pain (G89.29) Active confirmed Problem Chronic obstructive bronchitis (disorder) (075939380) 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) Active confirmed Problem Atherosclerosis of coronary artery without angina pectoris (405440146742003) Atherosclerosis of ruby coronary artery of ruby heart without angina pectoris (I25.10) Active confirmed Problem Primary gout (44260574) Acute idiopathic gout of left foot (M10.072) Active confirmed Problem Obstructive sleep apnea syndrome (81582316) JG (obstructive sleep apnea) (G47.33) Active confirmed Problem Daytime somnolence (479809284387) Daytime somnolence (R40.0) Active confirmed Problem Tobacco use (445616545) Tobacco use disorder (F17.200) Active confirmed Problem Disorder of kidney and/or ureter (219709587) Right renal mass (N28.89) Active confirmed Problem Pulmonary embolism with pulmonary infarction (1352008397750) Pulmonary embolism and infarction (I26.99) Active confirmed Problem Ethanol abuse (13653028) ETOH abuse (F10.10) Active confirmed Problem Bipolar disorder (33391398) Bipolar depression (F31.9) Active confirmed Problem Malignant tumor of kidney (367509838) Renal cell carcinoma of right kidney (C64.1) Active confirmed Problem Personal history of primary malignant neoplasm of kidney (345642680) History of renal cell carcinoma (Z85.528) Active confirmed Problem Chronic kidney disease stage 3B (disorder) (627492217) Stage 3b chronic kidney disease (N18.32) Active confirmed Problem Computed tomography result abnormal (089745239) Abnormal CT scan (R93.89) Active confirmed Problem Muscle weakness (35931741) Generalized muscle weakness (M62.81) Active confirmed Problem Chronic kidney disease stage 3B (disorder) (368729742) Stage 3b chronic kidney disease (CKD) (N18.32) Active confirmed Vital Signs Heart Rate 88 /min 08/14/2024 Temperature 97.7 degrees Fahrenheit 08/14/2024 Blood pressure diastolic 80 mm Hg 08/14/2024 Height 6 ft 5 in in 08/14/2024 Blood pressure systolic 150 mm Hg 08/14/2024 Weight 244 lbs 08/14/2024 BMI 28.93 kg/m2 08/14/2024 Encounters Encounter Location Date Provider Diagnosis [facility] [address] [place] [address] 06/02/2024 Provider Migration Pulmonary embolism and infarction I26.99 [facility] [address] [place] [address] 06/28/2024 Cyndi McNees Bipolar depression F31.9 ; ETOH abuse F10.10 and Essential hypertension I10 [facility] [place] [address] [place] [address] 07/12/2024 Sarah Watson Atherosclerosis of ruby coronary artery of ruby heart without angina pectoris I25.10 ; Essential hypertension I10 ; Malaise R53.81 ; LUGO (dyspnea on exertion) R06.09 ; Bipolar depression F31.9 and ETOH abuse F10.10 [facility] [place] [address] [place] [address] 08/14/2024 Sarah Watson Essential hypertensi on I10 ; Stage 3b chronic kidney disease (CKD) N18.32 ; LUGO (dyspnea on exertion) R06.09 ; Bipolar depression F31.9 ; History of renal cell carcinoma Z85.528 ; Abnormal stress test R94.39 ; Hyperkalemia E87.5 and Hypomagnesemia E83.42 [facility] [address] [place] [address] 06/22/2024 Cyndi McNees [facility] [address] [address] 06/28/2024 Cyndi McNees [facility] [address] [place] [address] 07/09/2024 Kj Madrid [facility] [address] [address] 07/26/2024 Cyndi McNees [facility] [address] [place] [address] 08/10/2024 Cyndi McNees [facility] [place] [address] [place] [address] 08/13/2024 Sarah Watson RE (acute kidney injury) N17.9 and Hypomagnesemia E83.42 [facility] [address] [facility] [address] [place] [address] 08/21/2024 Sarah Watson History of renal bubba l carcinoma Z85.528 [facility] [address] [address] 08/22/2024 Cyndi Wolfe Hypomagnesemia E83.4 2 [facility] [address] [address] 08/22/2024 Cyndi Wolfe Stage 3b chronic kid glenis disease N18.32 [...] improved, continue current regimen 07/12/2024 Atherosclerosis of ruby coronary artery of ruby heart without angina pectoris (ICD-10 - I25.10) 08/13/2024 Hypomagnesemia (ICD-10 - E83.42) 08/13/2024 RE (acute kidney injury) (ICD-10 - N17.9) 08/14/2024 Essential hypertension (ICD-10 - I10) improved, continue current regimen 08/14/2024 Stage 3b chronic kidney disease (CKD) (ICD-10 - N18.32) 08/21/2024 History of renal cell carcinoma (ICD-10 - Z85.528) 08/22/2024 Hypomagnesemia (ICD-10 - E83.42) 08/22/2024 Stage 3b chronic kidney disease (ICD-10 - N18.32) 08/22/2024 Essential hypertension (ICD-10 - I10) 08/14/2024 LUGO (dyspnea on exertion) (ICD-10 - R06.09) 06/02/2024 Pulmonary embolism and infarction (ICD-10 - [...] discussed needs to keep appt with psychiatry 08/22/2024 Low magnesium level (ICD-10 - R79.0) 08/14/2024 History of renal cell carcinoma (ICD-10 [...] [address], [place], [address], Insurance Providers Payer Name Payer Address Payer Phone Subscriber Number Group Number Insured Name Patient Relationship to Insured Coverage Start Date Coverage End Date [employer] [facility] [address] [address] [place] [address] [id number] Toan Ureña Self - patient is the [...] Hospitalization History Reason Date(Month/Year) [facility] 03/22 - nephrectomy 09/2021 Heat stroke? 2016 Surgeries as above Legionnaires x 7 weeks
--- OUTSIDE RECORDS SUMMARY | 2024-08-27 12:53 | XMS_ITS | Encounter Summary ---
Author Organization Healthcare Address [address] [place] [address] Care Team Providers Care Tetryl Boiling Tub Operator Name Role Phone Kj Madrid MD Primary Care Provider [phone] Encounter Details Date Type Department Care Team (Late st Contact Info) Description 06/28/2021 Orders Only External Location [address] [place] [address] Provider, External Social History Tobacco Use Types [...] on filedocumented in this encounter Care Teams Tetryl Boiling Tub Operator Relationship Specialty Start Date End Date Kj Madrid MD [address] [place] [address] PCP - General Internal Medicine 09/17/21 documented as of this encounter
--- OUTSIDE RECORDS SUMMARY | 2024-08-27 12:53 | XMS_ITS ---
Author Organization [employer] ([place], [place], [place], [place]) Address [address] [place] [address] Care Team Providers Care Curtain Inspector Name Role Phone Kj Madrid MD [...] treatments are documented for this patient in [facility]. Treatments may have been administered in another system. Lifetime Dose Tracking * Chemical Lifetime Dose Automatic Entry Manual Entr y Radiation 1,523 mGy 1,523 mGy 0 mGy
--- OUTSIDE RECORDS SUMMARY | 2024-08-27 12:53 | XMS_ITS | Encounter Summary ---
Author Organization [employer] ([place], [place], [place], [place]) Address [address] [place] [address] Care Team Providers Care Rotary Cutter Name Role Phone Kj Madrid MD Primary Care Provider [phone] Encounter Details Date Type Department Care Team (Late st Contact Info) Description 06/29/2024 Orders Only [facility] Urology - [address] [place] [address] Gareth Ray MD [address] [facility] [address] [place] [address] Social History Tobacco Use Types Packs/Day Years Used Date Smoking Tobacco: Every Day Cigarettes Smokeless Tobacco: Current Comments:vapes Alcohol Use Standard Drinks/Week Comments Yes 0 (1 standard drink = 0.6 oz pur e alcohol) Utilities Answer Date Recorded In the past 12 months, has t he [employer], gas, oil, or water [employer] threatened to shut off services in your [...] Do you speak a language other than [place] [facility]? No 02/02/2024 Do you want help with [...] on filedocumented in this encounter Care Teams Rotary Cutter Relationship Specialty Start Date End Date Kj Madrid MD [address] [place] [address] PCP - General Adolescent Medicine 01/09/24 documented as of this encounter
--- OUTSIDE RECORDS SUMMARY | 2024-08-27 12:53 | XMS_ITS | Encounter Summary ---
Author Organization [employer] ([place], [place], [place], [place]) Address [address] [place] [address] Care Team Providers Care Seasoner Name Role Phone Kj Madrid MD Primary Care Provider [phone] Reason for Referral * Diagnostic X-Ray (Routine) - Authorized Specialty Diagnoses / Procedures Referred By Contac t Referred To Contact Radiology Diagnoses Ureteral calculus, right Procedures [place]R Abdomen K[place] [address] [place] [address] [address] [place] [address] Phone: tel: fax: [facility] Diagnostic Imaging - [facility] [address] [facility] [address] [place] [address] Phone: tel: fax: Referral ID Status Reason Start Date Expiration Date Visits Requested Visits Authorized [id number] Authorized Continuity of Care 07/19/2024 07/19/2025 1 1 Encounter Details Date Type Department Care Team (Late st Contact Info) Description 07/19/2024 Orders Only [facility] Urology - [facility] [address] [facility] [address] [place] [address] [place] [address] [place] [address] [address] [place] [address] Ureteral calcgeno, right (Primary Dx) Social History Tobacco Use [...] your living situation today? I have a [facility] place to live 02/02/2024 [...] Do you speak a language other than [place] at [place]? No 02/02/2024 Do you [...] ureter documented in this encounter Care Teams Seasoner Relationship Specialty Start Date End Date Kj Madrid MD [address] [place] [address] PCP - General Adolescent Medicine 01/09/24 documented as of this encounter
--- OUTSIDE RECORDS SUMMARY | 2024-08-27 12:53 | XMS_ITS | Encounter Summary ---
Author Organization Healthcare Address [address] [place] [address] Care Team Providers Care Cylinder Filler Name Role Phone Kj Madrid MD Primary Care Provider [phone] Encounter Details Date Type Department Care Team ([facility] st Contact Info) Description 03/10/2022 Orders Only External Location [address] [place] [address] Gallo May MD [address] [phone] Social History Tobacco Use Types Packs/Day Years [...] documented as of this encounter Care Teams Cylinder Filler Relationship Specialty Start Date End Date Kj Madrid MD [address] [place] [address] PCP - General Internal Medicine 09/17/21 documented as of this encounter
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
--- OUTSIDE RECORDS SUMMARY | 2024-08-27 12:53 | XMS_ITS | Encounter Summary ---
Author Organization [employer] ([place], [place], [place], [place]) Address [address] [place] [address] Care Team Providers Care Geophysical Support Specialist Name Role Phone Kj Madrid MD Primary Care Provider + [phone] Encounter Details Date Type Department Care Team [...] does anyone, cooper gabi family and friends, insult or talk down to you? Never 02/02/2024 How often does anyone, cooper gabi family and friends, threaten you with harm? Never 02/02/2024 How often does anyone, cooper gabi family and friends, scream or curse at [...] Do you speak a language other than Uzbek at [facility]? No 02/02/2024 Do you want help with [...] on filedocumented in this encounter Care Teams Geophysical Support Specialist Relationship Specialty Start Date End Date Kj Madrid MD [address] [place] [address] [place] [address] PCP - General Adolescent Medicine 01/09/24 documented as of this encounter
--- NOTE | 2024-08-27 13:48 | CT_ITS ---
FINAL REPORT TECHNIQUE: Axial images through the abdomen and pelvis were performed without contrast.This study was performed with techniques to keep radiation doses as low as reasonably achievable, (ALARA). Individualized dose reduction techniques using automated exposure control or adjustment of mA and/or kV according to the patient's size were employed. CLINICAL HISTORY: HISTORY RENAL CELL CARCINOMA. Diverticulitis. Right sided pain. Stones removed 5 wks ago. COMPARISON: 11/16/2023 FINDINGS: ABDOMEN: Scarring is seen at the lung bases. The heart size is normal. There is mild fatty infiltration of the liver. Gallstones are seen in the dependent portion of the gallbladder. There are calcified granulomas in the spleen. No adrenal mass is identified. The aorta is normal in caliber. There is no significant free fluid or adenopathy. There are multiple bilateral, nonobstructing renal stones, some of which are staghorn calculi. There has been interval resolution of previously seen obstructing stone at the proximal right ureter. There are postoperative changes to the anterior right kidney, similar to prior exam, likely related to site of prior renal cell carcinoma resection. PELVIS: The appendix is not identified. The urinary bladder is unremarkable. There is moderate sigmoid diverticulosis without evidence of diverticulitis. There is no significant free fluid or adenopathy. IMPRESSION: Bilateral, nonobstructing nephrolithiasis. Cholelithiasis. Postoperative changes to the anterior right kidney. Interval resolution of previously seen obstructing right UPJ stone. Reviewed, Interpreted and Dictated by Leoncio Gardner MD Transcribed by Shirley Maynard Authenticated and [facility]
[2024-08-27 14:23] LABS: Basophils # 0.1 K/mm3 (0-0.2); Basophils % 0.8 % (0.1-2.0); Eosinophils # 0.7 Kmm3 (0.0-0.4); Eosinophils % 7.3 % (0.1-12.0); Hematocrit 37.9 % (42.0-52.0); Hemoglobin 13.1 g/dL (14.1-18.0); Lymphocytes % 20.7 % (10-50); Mean Corpuscular HGB Conc 34.6 g/dL (31.8-35.4); Mean Corpuscular Hemoglobin 31.3 pg (27.0-31.2); Mean Corpuscular Volume 90.7 fl (80-94); Mean Platelet Volume 10.7 fl (7.4-10.4); Monocytes # 0.9 K/mm3 (0.1-1.0); Monocytes % 8.9 % (1.7-9.3); Neutrophils # 5.9 K/mm3 (1.8-7.8); Neutrophils % 61.3 % (37.0-80.0); Nucleated Red Blood Cells # 0 10^3/uL; Nucleated Red Blood Cells % 0 %; Platelet Count 258 K/mm3 (142-424); Red Blood Count 4.18 M/mm3 (4.60-6.20); Red Cell Distribution Width 13.5 % (11.5-17.5); Red Cell Distribution Width-SD 44.2 fL; White Blood Count 9.7 K/mm3 (4.8-10.8)
[2024-08-27 15:46] LABS: Albumin Level 4.1 g/dl (3.5-5.0); Chloride 99 mmol/L (98-107); Potassium 4.9 mmoL/L (3.5-5.1); Sodium 135 mmol/L (136-145)
[2024-08-27 15:49] LABS: Alanine Aminotransferase 14 U/L (12-78); Albumin/Globulin Ratio 1.3 (1.1-1.8); Alkaline Phosphatase 86 U/L (38-126); Anion Gap 15.9 mEq/L (5-15); Aspartate Amino Transferase 24 U/L (17-59); Bilirubin,Total 0.4 mg/dl (0.2-1.3); Blood Urea Nitrogen 38 mg/dl (9-20); Calcium 9.4 mg/dl (8.4-10.2); Carbon Dioxide 25 mmol/L (22.0-30.0); Estimated Glomerular Filt Rate 43 ml/min (>60); GFR (African American) 51 ML/MIN (>60); Globulin 3.1 g/dL (1.3-3.2); Glucose 90 mg/dl (74-100); Total Protein,Serum 7.2 g/dl (6.3-8.2)
[2024-08-27 15:50] LABS: Magnesium 1.7 mg/dl (1.6-2.3)
== END 2024-08-27 23:59 | disposition home or self-care (01) ==
PROVIDERS: Nurse Practitioner Family; PCP Internal Medicine Adolescent Medicine; Visit Provider Nurse Practitioner Family
DX: N20.0 Calculus of kidney (principal); K80.20 Calculus of gallbladder without cholecystitis without obstruction; I12.9 Hypertensive chronic kidney disease with stage 1 through stage 4 chronic kidney disease, or unspecified chronic kidney disease; N18.32 Chronic kidney disease, stage 3b; R79.0 Abnormal level of blood mineral; Z85.528 Personal history of other malignant neoplasm of kidney; Z98.890 Other specified postprocedural states
CPT/HCPCS: 36415; 74176; 80053; 83735; 85025

== ENCOUNTER 2024-09-07 16:03 | Outpatient (CLI) | payer OTHER, SELFPAY ==
--- OUTSIDE RECORDS SUMMARY | 2024-07-17 12:09 | XMS_ITS | Encounter Summary ---
Author Organization [employer] ([place], [place], [place], [place]) Address [address] [place] [address] Care Team Providers Care Hand Ii Tube Bender Name Role Phone Kj Madrid MD Primary Care Provider [phone] Reason for Visit * Auth/Cert (Routine) Specialty Diagnoses / Procedures Referred By Sandy owusu Referred To Contact Diagnoses Kidney stone Kidney Stone Procedures [place] CYSTO W/URETEROSCOPY W/LITHOTRIPSY CYSTOURETEROSCOPY, WITH LASER LITHOTRIPSY [facility] Surgery Department [address] [place] [address] Phone: tel: fax: [facility] Surgery Department [address] [place] [address] Phone: tel: fax: Referral ID Status Reason Start Date Expiration Date Visits Re quested Visits Authorized [id number] 1 1 Encounter Details Date Type Department Care Team (Late st Contact Info) Description 07/17/2024 12:09 PM EDT - 07/17/2024 5:15 PM EDT Hospital Encounter [facility] Surgery Department [address] [place] [address] [place] [address] [place] [address] [address] [place] [address] Discharge Disposition: Home or Self Care Social [...] your living situation today? I have a [facility] place to live 02/02/2024 Think about [...] Do you speak a language other than Colombian at ho me? No 02/02/2024 Do you want help with school or training? For example, starting or completing job training or getting a high school diploma, GED or equivalent. No 02/02/2024 Physical Activity Answer Date Recorded Number of minutes of exercise per week 0 02/02/2024 Self Management Answer Date Recorded Because of a physical, [...] you used [place] legal drugs? Never 02/02/2024 Mental Health Answer Date Recorded Calculation of above two rows 0 Sex and Gender Information Value Date Recorded [...] Everywhere. * General Anesthesia Adult Care After (Colombian) * Laser Therapy for Kidney Stones Care After (Colombian) documented in this encounter Medications at Time [...] Daily Amount: 4 tablets 30 tablet 07/17/2024 5 ondansetron (ZOFRAN) 4 MG tablet Take 1 tablet (4 mg total) by mouth 2 (two) times daily as needed for up to 15 days. 30 tablet 07/17/2024 documented as of this encounter Progress Notes [...] kidney disease) stage 3, GFR 30-59 ml/min ([facility]) 10/16/2021 Essential hypertension 10/16/2021 Primary gout 10/16/2021 Obesity (BMI 30-39.9) 10/16/2021 Obstructive sleep apnea syndrome 10/16/2021 Tobacco abuse 10/16/2021 Past Surgical History: Procedure Laterality Date bicep surgery Right CYSTOSCOPY,INSERTION URETERAL STENTS Left 06/25/2024 Procedure: CYSTOSCOPY, WITH URETERAL STENT INSERTION; Surgeon: Gareth Ray MD; Location: [facility]; Service: Urology; Laterality: Left; CYSTOSCOPY,REMOVAL URETERAL STENTS Left 04/03/2024 Procedure: CYSTOSCOPY, WITH URETERAL STENT REMOVAL; Surgeon: Gareth Ray MD; Location: [facility] OR;Service: Urology; Laterality: Left; left ureteral stent removal CYSTOSCOPY,URETEROSCOPY W/ LASER LITHOTRIPSY Left 06/25/2024 Procedure: CYSTOURETEROSCOPY, WITH LASER LITHOTRIPSY; Surgeon: Gareth Ray MD; Location: [facility]; Service: Urology; Laterality: Left; FOOT SURGERY Right metal adelita in right metatarsal HERNIA REPAIR KIDNEY STONE SURGERY LITHOTRIPSY,EXTRACORPOREAL SHOCK WAVE (ESWL) Left 04/03/2024 Procedure: LITHOTRIPSY,EXTRACORPOREAL SHOCK WAVE (ESWL); Surgeon: Gareth Ray MD; Location: [facility]; Service: Urology; Laterality: Left; ESWL CONF [id number] SPOKE TO ASHELY LYMPHADENECTOMY Right kidney NEPHRECTOMY [...] kidney disease) stage 3, GFR 30-59 ml/min ([facility]) 10/16/2021 Essential hypertension 10/16/2021 Primary gout 10/16/2021 Obesity (BMI 30-39.9) 10/16/2021 Obstructive sleep apnea syndrome 10/16/2021 Tobacco abuse 10/16/2021 Past Surgical History: Procedure Laterality Date bicep surgery Right CYSTOSCOPY,INSERTION URETERAL STENTS Left 06/25/2024 Procedure: CYSTOSCOPY, WITH URETERAL STENT INSERTION; Surgeon: Gareth Ray MD; Location: [facility]; Service: Urology; Laterality: Left; CYSTOSCOPY,REMOVAL URETERAL STENTS Left 04/03/2024 Procedure: CYSTOSCOPY, WITH URETERAL STENT REMOVAL; Surgeon: Gareth Ray MD; Location: [facility];Service: Urology; Laterality: Left; left ureteral stent removal CYSTOSCOPY,URETEROSCOPY W/ LASER LITHOTRIPSY Left 06/25/2024 Procedure: CYSTOURETEROSCOPY, WITH LASER LITHOTRIPSY; Surgeon: Gareth Ray MD; Location: [facility]; Service: Urology; Laterality: Left; FOOT SURGERY Right metal adelita in right metatarsal HERNIA REPAIR KIDNEY STONE SURGERY LITHOTRIPSY,EXTRACORPOREAL SHOCK WAVE (ESWL) Left 04/03/2024 Procedure: LITHOTRIPSY,EXTRACORPOREAL SHOCK WAVE (ESWL); Surgeon: Gareth Ray MD; Location: [facility]; Service: Urology; Laterality: Left; ESWL CONF [id number] SPOKE TO ASHELY LYMPHADENECTOMY Right kidney NEPHRECTOMY [...] Blood Administered: None Grafts or Implants: 4.8 Finnish by 28 cm right ureteral stent with string attached Complications: None Condition: None Findings: After satisfactory general esthesia was carefully placed lithotomy. Pressure garments were placed and function at time of induction. The 21 Finnish cystoscopy sheath introduced under direct vision 30 degree lens. His urethra appeared normal and prostate nonobstructing. Upon in the bladder there is no bladder stones. 5 Finnish open-ended ureteral catheter was used to perform [...] Right Ureteroscopy with Laser of Kidney Stones SD CYSTO W/URETEROSCOPY W/LITHOTRIPSY 07/17/2024 2:23 PM EDT [...] 1313 (New Bag - Prov ider: Cynthia Jain RN)1423 (Continued by Anesthesia - Provider: Alden [...] Pre-op documented in this encounter Care Teams Hand Ii Tube Bender Relationship Specialty Start Date End Date Kj Madrid MD [address] [place] [address] PCP - General Adolescent Medicine 01/09/24 documented as of this encounter
--- OUTSIDE RECORDS SUMMARY | 2024-07-17 14:23 | XMS_ITS | Encounter Summary ---
Author Organization [employer] ([place], [place], [place], [place]) Address [address] [place] [address] Care Team Providers Care Contract Negotiation Specialist Name Role Phone Kj Madrid MD Primary Care Provider [phone] Reason for Visit * Auth/Cert (Routine) Specialty Diagnoses / Procedures Referred By Sandy owusu Referred To Contact Diagnoses Kidney stone Kidney Stone Procedures [place] CYSTO W/URETEROSCOPY W/LITHOTRIPSY CYSTOURETEROSCOPY, WITH LASER LITHOTRIPSY [facility] Surgery Department [address] [place] [phone] Phone: tel: fax: [facility] Surgery Department [address] [place] [address] Phone: tel: fax: Referral ID Status Reason Start Date Expiration Date Visits Re quested Visits Authorized [id number] 1 1 Encounter Details Date Type Department Care Team (Late st Contact Info) Description 07/17/2024 2:23 PM EDT Anesthesia Event [facility] Surgery Department [address] [place] [address] Alden Hopkins CRNA [address] [place] [address] Kentrell Callaway MD [address] [place] [address] Anesthesia Record Procedure Summary Procedure Name Responsible Anesthesiologist Anesthesia Start Time Anesthesia Stop Time CYSTOURETEROSCOPY, WITH LASER LITHOTRIPSY (Right) Alden Holder [place], FACILITIES MAINTENANCE ENGINEER 07/17/24 1423 07/17/24 1611 Events Date Time [...] Incision; Penis; Not applicable 07/17/24 1612 by Ansuhka Lopez Wound 02/02/24; 1325; Incision; Back; Left; [...] the past 12 months, has t he [employer], gas, oil, or water [employer] threatened to shut off services in your [...] Do you speak a language other than Zimbabwean at [facility]? No 02/02/2024 Do you want help [...] Procedure Summary Date: 07/17/24 Room / Location: [facility] OR OPERATING ROOM Anesthesia Start: 1423 [...] status: room air Hydration status: stable Color: The Hideout Activity: Moves 4 extremities Inotropes/Vasopressors: N/A No [...] Procedure: CYSTOURETEROSCOPY, WITH LASER LITHOTRIPSY (Right) Location: [facility] OR [facility] OPERATING [facility]OM Surgeons: Gareth Ray MD No [...] STENT INSERTION; Surgeon: Gareth Ray MD; Location: [facility] OR; Service: Urology; Laterality: Left; CYSTOSCOPY,REMOVAL URETERAL STENTS Left 04/03/2024 Procedure: CYSTOSCOPY, WITH URETERAL STENT REMOVAL; Surgeon: Gareth Ray MD; Location: [facility] OR;Service: Urology; Laterality: Left; left ureteral stent removal CYSTOSCOPY,URETEROSCOPY W/ LASER LITHOTRIPSY Left 06/25/2024 Procedure: CYSTOURETEROSCOPY, WITH LASER LITHOTRIPSY; Surgeon: Gareth Ray MD; Location: [facility] OR; Service: Urology; Laterality: Left; FOOT SURGERY Right metal adelita in right metatarsal HERNIA REPAIR KIDNEY STONE SURGERY LITHOTRIPSY,EXTRACORPOREAL SHOCK WAVE (ESWL) Left 04/03/2024 Procedure: LITHOTRIPSY,EXTRACORPOREAL SHOCK WAVE (ESWL); Surgeon: Gareth Ray MD; Location: [facility] OR; Service: Urology; Laterality: Left; ESWL CONF [id number] SPOKE TO ASHELY LYMPHADENECTOMY Right kidney NEPHRECTOMY [...] risks discussed with patient. Plan discussed with FACILITIES MAINTENANCE ENGINEER. documented in this encounter Plan of Treatment [...] mg documented in this encounter Care Teams Contract Negotiation Specialist Relationship Specialty Start Date End Date Kj Madrid MD [address] [place] [address] PCP - General Adolescent Medicine 01/09/24 documented as of this encounter
--- OUTSIDE RECORDS SUMMARY | 2024-07-17 15:15 | XMS_ITS | Encounter Summary ---
Author Organization [employer] ([place], [place], [place], [place]) Address [address] [place] [address] Care Team Providers Care Meat Cutter Name Role Phone Kj Madrid MD Primary Care Provider [phone] Reason for Visit * Auth/Cert (Routine) Specialty Diagnoses / Procedures Referred By Sandy owusu Referred To Contact Diagnoses Kidney stone Kidney Stone Procedures [place] CYSTO W/URETEROSCOPY W/LITHOTRIPSY CYSTOURETEROSCOPY, WITH LASER LITHOTRIPSY [facility] Surgery Department [address] [place] [phone] Phone: tel: fax: [facility] Surgery Department [address] [place] [phone] Phone: tel: fax: Referral ID Status Reason Start Date Expiration Date Visits Re quested Visits Authorized [id number] 1 1 Encounter Details Date Type Department Care Team (Late st Contact Info) Description 07/17/2024 3:15 PM EDT - 07/17/2024 4:44 PM EDT Surgery [facility] Surgery Department [address] [place] [phone] [place] [address] [place] [address] [address] [place] [address] CYSTOURETEROSCOPY, WITH LASER LITHOTRIPSY Social History Tobacco [...] your living situation today? I have a [facility] place to live 02/02/2024 Think about [...] Do you speak a language other than Congolese at [facility]? No 02/02/2024 Do you [...] Everywhere. * General Anesthesia Adult Care After (Congolese) * Laser Therapy for Kidney Stones Care After (Congolese) documented in this encounter Medications at Time [...] kidney disease) stage 3, GFR 30-59 ml/min ([facility]) 10/16/2021 Essential hypertension 10/16/2021 Primary gout 10/16/2021 Obesity (BMI 30-39.9) 10/16/2021 Obstructive sleep apnea syndrome 10/16/2021 Tobacco abuse 10/16/2021 Past Surgical History: Procedure Laterality Date bicep surgery Right CYSTOSCOPY,INSERTION URETERAL STENTS Left 06/25/2024 Procedure: CYSTOSCOPY, WITH URETERAL STENT INSERTION; Surgeon: Gareth Ray MD; Location: [facility]; Service: Urology; Laterality: Left; CYSTOSCOPY,REMOVAL URETERAL STENTS Left 04/03/2024 Procedure: CYSTOSCOPY, WITH URETERAL STENT REMOVAL; Surgeon: Gareth Ray MD; Location: [facility] OR;Service: Urology; Laterality: Left; left ureteral stent removal CYSTOSCOPY,URETEROSCOPY W/ LASER LITHOTRIPSY Left 06/25/2024 Procedure: CYSTOURETEROSCOPY, WITH LASER LITHOTRIPSY; Surgeon: Gareth Ray MD; Location: [facility]; Service: Urology; Laterality: Left; FOOT SURGERY Right metal adelita in right metatarsal HERNIA REPAIR KIDNEY STONE SURGERY LITHOTRIPSY,EXTRACORPOREAL SHOCK WAVE (ESWL) Left 04/03/2024 Procedure: LITHOTRIPSY,EXTRACORPOREAL SHOCK WAVE (ESWL); Surgeon: Gareth Ray MD; Location: [facility]; Service: Urology; Laterality: Left; ESWL CONF [id number] SPOKE TO ASHELY LYMPHADENECTOMY Right kidney NEPHRECTOMY [...] kidney disease) stage 3, GFR 30-59 ml/min ([facility]) 10/16/2021 Essential hypertension 10/16/2021 Primary gout 10/16/2021 Obesity (BMI 30-39.9) 10/16/2021 Obstructive sleep apnea syndrome 10/16/2021 Tobacco abuse 10/16/2021 Past Surgical History: Procedure Laterality Date bicep surgery Right CYSTOSCOPY,INSERTION URETERAL STENTS Left 06/25/2024 Procedure: CYSTOSCOPY, WITH URETERAL STENT INSERTION; Surgeon: Gareth Ray MD; Location: [facility]; Service: Urology; Laterality: Left; CYSTOSCOPY,REMOVAL URETERAL STENTS Left 04/03/2024 Procedure: CYSTOSCOPY, WITH URETERAL STENT REMOVAL; Surgeon: Gareth Ray MD; Location: [facility] OR;Service: Urology; Laterality: Left; left ureteral stent removal CYSTOSCOPY,URETEROSCOPY W/ LASER LITHOTRIPSY Left 06/25/2024 Procedure: CYSTOURETEROSCOPY, WITH LASER LITHOTRIPSY; Surgeon: Gareth Ray MD; Location: [facility]; Service: Urology; Laterality: Left; FOOT SURGERY Right metal adelita in right metatarsal HERNIA REPAIR KIDNEY STONE SURGERY LITHOTRIPSY,EXTRACORPOREAL SHOCK WAVE (ESWL) Left 04/03/2024 Procedure: LITHOTRIPSY,EXTRACORPOREAL SHOCK WAVE (ESWL); Surgeon: Gareth Ray MD; Location: [facility]; Service: Urology; Laterality: Left; ESWL CONF [id number] SPOKE TO ASHELY LYMPHADENECTOMY Right kidney NEPHRECTOMY [...] Blood Administered: None Grafts or Implants: 4.8 Italian by 28 cm right ureteral stent with string attached Complications: None Condition: None Findings: After satisfactory general esthesia was carefully placed lithotomy. Pressure garments were placed and function at time of induction. The 21 Italian cystoscopy sheath introduced under direct vision 30 degree lens. His urethra appeared normal and prostate nonobstructing. Upon in the bladder there is no bladder stones. 5 Italian open-ended ureteral catheter was used to perform [...] Right Ureteroscopy with Laser of Kidney Stones [place] CYSTO W/URETEROSCOPY W/LITHOTRIPSY 07/17/2024 2:23 PM EDT [...] CRNA)[id number] (Anesthesia Volume Adjustment - Provider: Alden Hopikns CRNA) PRN Medication Order 07/15/2024 07/16/2024 07/17/2024 [...] Pre-op documented in this encounter Care Teams Meat Cutter Relationship Specialty Start Date End Date Kj Madrid MD [address] [place] [address] PCP - General Adolescent Medicine 01/09/24 documented as of this encounter
--- OUTSIDE RECORDS SUMMARY | 2024-08-21 06:52 | XMS_ITS ---
Author Organization [facility] Address [address] [place] [address] Care Team Providers Care Release Of Information Clerk Name Role Phone Kj Madrid Primary Care Provider Kj Madrid Unavailable Unavailable Shirley Unavailable [phone] order Encounters Encounter Location Date Provider Diagnosis [facility] [address] [place] [address] 08/21/2024 Sarah Watson History of renal cell carcinoma Z85.528 Assessments Encounter Date Diagnosis (ICD Code) Assessment Notes Treatment Notes Treatment Clinical Notes Section Notes 08/21/2024 History of renal cell carcinoma (ICD-10 - Z85.528) Plan Of Treatment Pending Test Test Name Order Date CT Scan : Abdomen and Pelvis without con trast 08/21/2024 Progress Notes * Toan UREÑADOB:1970 (53 yo M)Acc No.[id number]:08/21/2024 Patient: Toan MYERS :1970 A ge:53 Y S ex:Male Address:[address] [place], [address] Subjective: * Chief Complaints: * C t order * Medical History: * Surgical History: * Hospitalization/Major Diagno stic Procedure: * Medications: Objective: * Vitals: * Physical Examination: Assessment: * Assessment: 1. H istory of renal cell carcinoma - Z85.528 Plan: * Treatment: * * Procedure Codes: * true * Date: Generated for Maris rodriguez/Lo/Yolis on: 0 09/07/2024 04:06 PM EDT
--- OUTSIDE RECORDS SUMMARY | 2024-08-22 10:59 | XMS_ITS ---
Author Organization [facility] Address [address] [place] [address] Care Team Providers Care Color Finisher Name Role Phone Kj Madrid Primary Care Provider [phone] Kj Madrid Unavailable Unavailable Cyndi Wolfe Unavailable [phone] Results Component Value Reference Range Notes M-Comprehensive Metabolic Pa dante Reviewed date:08/28/2024 02:04:26 PM Interpretation: Performing Lab: Notes/Report: NA 135 136-145 mmol/L K 4.9 3.5-5.1 mmoL/L CL 99 98-107 mmol/L CO2 25 22.0-30.0 mmol/L GAP 15.9 5-15 mEq/L BUN 38 9-20 mg/dl CREATT 1.70 0.66-1.25 mg/dl GFRAA 51 >60 ML/MIN EGFR 43 >60 ml/min GLU 90 74-100 mg/dl CA 9.4 8.4-10.2 mg/dl BILIT 0.4 0.2-1.3 mg/dl AST 24 17-59 U/L ALT 14 12-78 U/L TP 7.2 6.3-8.2 g/dl ALB 4.1 3.5-5.0 g/dl GLOB 3.1 1.3-3.2 g/dL AGRATIO 1.3 1.1-1.8 ALP 86 38-126 U/L M-Magnesium Reviewed date:08/28/2024 02:04:26 PM Interpretation: Performing Lab: Notes/Report: MG 1.7 1.6-2.3 mg/dl REASON FOR VISIT lab order Encounters Encounter Location Date Provider Diagnosis [address] [address] 08/22/2024 Cyndi Wolfe Stage 3b chronic kidney [...] Date M-Complete Blood Count w/o Diff 08/23/19 Progress Notes * Toan UREÑADOB:1970 (53 yo M)Acc No.[id number]:08/22/2024 Patient: Silvina GRIGSBYToan MERCER :1970 A ge:53 Y S ex:Male Address:[address] [place] [address] [place] [facility] [address] Subjective: * Chief Complaints: * L ab order * Medical History: * Surgical History: * Hospitalization/Major Diagno stic Procedure: * Medications: Objective: * Vitals: * Physical Examination: Assessment: * Assessment: 1. S tage 3b chronic kidney disease - N18.32 2 . E ssential hypertension - I10 3 . L ow magnesium level - R79.0 Plan: * Treatment: ?LAB: M-Comprehensive Metabolic Panel* Value Reference Range S odium 135 L 136-145 - mmol/L * P otassium 4.9 3.5-5.1 - mmoL/L * C hloride 99 98-107 - mmol/L * C arbon Dioxide 25 22.0-30.0 - mmol/L * A nion Gap 15.9 H 5-15 - mEq/L * B lood Urea Nitrogen 38 H 9-20 - mg/dl * C reatinine,Serum 1.70 H 0.66-1.25 - mg/dl * G FR () 51 L >60 - ML/MIN * E stimated Glomerular Filt Rate 43 L >60 - ml/m in * G lucose 90 74-100 - mg/dl * C alcium 9.4 8.4-10.2 - mg/dl * B ilirubin,Total 0.4 0.2-1.3 - mg/dl * A spartate Amino Transferase 24 17-59 - U/L * A lanine Aminotransferase 14 12-78 - U/L * T otal Protein,Serum 7.2 6.3-8.2 - g/dl * A lbumin Level 4.1 3.5-5.0 - g/dl * G lobulin 3.1 1.3-3.2 - g/dL * A lbumin/Globulin Ratio 1.3 1.1-1.8 - * A lkaline Phosphatase 86 38-126 - U/L * [facility] 08/23/2024 0 2:08:31 PM EDT > Will have drawn next week 08/27-08/30/2024 Cyndi Wolfe 08/28/2024 10:52:48 AM EDT > kidney function stable, mag level better Tej [facility] 08/28/2024 02:04:20 PM EDT > pt notifiedThis lab was reviewed by Tavo Burnham on 08/28/2024 at 14:04 PM EDT ?LAB: M-Magnesium* Value Reference Range M agnesium 1.7 1.6-2.3 - mg/dl * Te[facility] 08/23/2024 0 2:08:31 PM EDT > Will have drawn next week 08/27-08/30/2024 Cyndi Wolfe 08/28/2024 10:52:48 AM EDT > kidney function stable, mag level better Te[facility] 08/28/2024 02:04:20 PM EDT > pt notifiedThis lab was reviewed by Tavo Burnham on 08/28/2024 at 14:04 PM EDT 2.?Essential hypertension?LAB: M-Complete Blood Count w/o Diff* Te[facility] 08/23/2024 0 2:08:31 PM EDT > Will have drawn next week 08/27-08/30/2024 ?LAB: M-Comprehensive Metabolic Panel* Value Reference Range S odium 135 L 136-145 - mmol/L * P otassium 4.9 3.5-5.1 - mmoL/L * C hloride 99 98-107 - mmol/L * C arbon Dioxide 25 22.0-30.0 - mmol/L * A nion Gap 15.9 H 5-15 - mEq/L * B lood Urea Nitrogen 38 H 9-20 - mg/dl * C reatinine,Serum 1.70 H 0.66-1.25 - mg/dl * G FR () 51 L >60 - ML/MIN * E stimated Glomerular Filt Rate 43 L >60 - ml/m in * G lucose 90 74-100 - mg/dl * C alcium 9.4 8.4-10.2 - mg/dl * B ilirubin,Total 0.4 0.2-1.3 - mg/dl * A spartate Amino Transferase 24 17-59 - U/L * A lanine Aminotransferase 14 12-78 - U/L * T otal Protein,Serum 7.2 6.3-8.2 - g/dl * A lbumin Level 4.1 3.5-5.0 - g/dl * G lobulin 3.1 1.3-3.2 - g/dL * A lbumin/Globulin Ratio 1.3 1.1-1.8 - * A lkaline Phosphatase 86 38-126 - U/L * Tvao Burnham 08/23/2024 0 2:08:31 PM EDT > Will have drawn next week 08/27-08/30/2024 Cyndi Wolfe 08/28/2024 10:52:48 AM EDT > kidney function stable, mag level better Tavo Burnham 08/28/2024 02:04:20 PM EDT > pt notifiedThis lab was reviewed by Tavo Burnham on 08/28/2024 at 14:04 PM EDT ?LAB: M-Magnesium* Value Reference Range M agnesium 1.7 1.6-2.3 - mg/dl * Tavo Burnham 08/23/2024 0 2:08:31 PM EDT > Will have drawn next week 08/27-08/30/2024 Cyndi Wolfe 08/28/2024 10:52:48 AM EDT > kidney function stable, mag level better Tavo Burnham 08/28/2024 02:04:20 PM EDT > pt notifiedThis lab was reviewed by Tavo Burnham on 08/28/2024 at 14:04 PM EDT 3.?Low magnesium level?LAB: M-Complete Blood Count w/o Diff* Tavo Burnham 08/23/2024 0 2:08:31 PM EDT > Will have drawn next week 08/27-08/30/2024 ?LAB: M-Comprehensive Metabolic Panel* Value Reference Range S odium 135 L 136-145 - mmol/L * P otassium 4.9 3.5-5.1 - mmoL/L * C hloride 99 98-107 - mmol/L * C arbon Dioxide 25 22.0-30.0 - mmol/L * A nion Gap 15.9 H 5-15 - mEq/L * B lood Urea Nitrogen 38 H 9-20 - mg/dl * C reatinine,Serum 1.70 H 0.66-1.25 - mg/dl * G FR () 51 L >60 - ML/MIN * E stimated Glomerular Filt Rate 43 L >60 - ml/m in * G lucose 90 74-100 - mg/dl * C alcium 9.4 8.4-10.2 - mg/dl * B ilirubin,Total 0.4 0.2-1.3 - mg/dl * A spartate Amino Transferase 24 17-59 - U/L * A lanine Aminotransferase 14 12-78 - U/L * T otal Protein,Serum 7.2 6.3-8.2 - g/dl * A lbumin Level 4.1 3.5-5.0 - g/dl * G lobulin 3.1 1.3-3.2 - g/dL * A lbumin/Globulin Ratio 1.3 1.1-1.8 - * A lkaline Phosphatase 86 38-126 - U/L * Tavo Burnham 08/23/2024 0 2:08:31 PM EDT > Will have drawn next week 08/27-08/30/2024 Cyndi Wolfe 08/28/2024 10:52:48 AM EDT > kidney function stable, mag level better Tavo Burnham R 08/28/2024 02:04:20 PM EDT > pt notifiedThis lab was reviewed by Tavo Burnham on 08/28/2024 at 14:04 PM EDT ?LAB: M-Magnesium* Value Reference Range M agnesium 1.7 1.6-2.3 - mg/dl * Tavo Burnham 08/23/2024 0 2:08:31 PM EDT > Will have drawn next week 08/27-08/30/2024 Cyndi Wolfe 08/28/2024 10:52:48 AM EDT > kidney function stable, mag level better Tavo Burnham 08/28/2024 02:04:20 PM EDT > pt notifiedThis lab was reviewed by Tavo Burnham on 08/28/2024 at 14:04 PM EDT * Procedure Codes: * true * Date: Generated for Maris rodriguez/Lo/Chinosmitting on: 0 09/07/2024 04:05 PM EDT
--- OUTSIDE RECORDS SUMMARY | 2024-09-06 08:30 | XMS_ITS ---
Author Organization [facility] Address [address] [place] [address] Care Team Providers Care Evaluator Name Role Phone Kj Madrid Primary Care Provider Kj Madrid Unavailable Unavailable Cyndi Wolfe Unavailable [phone] Allergies No Known Allergies REASON FOR VISIT 2 wk f/u-still having some dizziness Medications Medication SIG (Take, Route, Frequency, Duration) Notes Start Date End Date Status Vitamin B1 100 MG 1 tablet Orally Once a day; Duration: 30 days Active Magnesium Oxide 400 MG 1 tablet with griselda d Orally 3 times a day; Duration: 30 days Active Propranolol HCl 40 MG 1 tablet Orally Tw ice a day; Duration: 30 days Active busPIRone HCl 5 MG TAKE 1 TABLET BY THREE TIMES DAILY; Duration: 30 Active Vraylar 4.5 MG 1 capsule Orally Onc e a day; Duration: 90 days 08/14/2024 Active Triamcinolone Acetonide 0.5 % 1 application Externally Twice a day Active Allopurinol 300 MG 1 tab(s) orally once a day; Duration: 90 days Active Albuterol Sulfate HFA 108 (90 Base) MCG/ACT 2 puff(s) inhaled every 4 hours prn Active Metoprolol Succinate ER 100 MG 1 tablet Orally Once a day Active oxyBUTYnin Chloride ER 10 MG 1 tablet Orally Once a day Active Folic Acid 1 MG 1 tablet Orally Once a day; Duration: 30 days Active Lisinopril 20 MG 1 tablet Orally Once a day; Duration: 30 days Active Social History Tobacco Use: Social History Observation Description Date Details (start date - stop date) Current Smoker NA - NA Smoking: Question Answer Notes Are you a: current smoker How often do you smoke cigarettes? every day How many cigarettes a day do you smoke? 5 or les s Section Notes: Also vapes Vital Signs Temperature 97.8 degrees Fahrenheit 09/07/19 25 Heart Rate 100 /min 09/06/2024 Blood pressure systolic 108 mm Hg 09/07/19 25 Blood pressure diastolic 80 mm Hg 025 Height 6 ft 5 in in 09/06/2024 Weight 253.4 lbs 09/06/2024 BMI 30.05 kg/m2 09/06/2024 Encounters Encounter Location Date Provider Diagnosis [facility] [address] [place] [address] 09/06/2024 Cyndi Wolfe Stage 3b chronic kid glenis disease (CKD) N18.32 ; Bipolar depression F31.9 ; Essential hypertension I10 ; History of renal cell carcinoma Z85.528 ; Hyperkalemia E87.5 ; Hypomagnesemia E83.42 and Low testosterone R79.89 Assessments Encounter Date Diagnosis (ICD Code) Assessment Notes Treatment Notes Treatment Clinical Notes Section Notes 09/06/2024 Stage 3b chronic kidney disease (CKD) (ICD-10 - N18.32) Will repeat labs to confirm stability. Maximize oral water intake 09/06/2024 Bipolar depression (ICD-10 - F31.9) Well controlled on current regimen Keep FU with psych and counselor No med changes made today. S/s of worsening mood/agitation that warrant urgent FU discussed 09/06/2024 Essential hypertension (ICD-10 - I10) At goal, no changes made 09/06/2024 History of renal cell carcinoma (ICD-10 - Z85.528) Keep FU with Dr. Ray Take recent CT imaging to next appointment and will defer management of low testosterone levels to him as well 09/06/2024 Hyperkalemia (ICD-10 - E87.5) Continue low K+ diet 09/06/2024 Hypomagnesemia (ICD-10 - E83.42) Improved on previous labs Will recheck to confirm stability Continue mag replacement 09/06/2024 Low testosterone (ICD-10 - R79.89) See above Plan Of Treatment Medication Medication Name Sig Start Date Stop Date Notes Vraylar 4.5 MG 1 capsule Orally Onc e a day; Duration: 90 days 08/14/2024 Treatment Notes Assessment Notes Stage 3b chronic kidney disease (CKD) Will repeat labs to confirm stability. Maximize oral water intake Bipolar depression Well controlled on current regimen Keep FU with psych and counselor No med changes made today. S/s of worsening mood/agitation that warrant urgent FU discussed Essential hypertension At goal, no sousa es made History of renal cell carcinoma Keep FU with Dr. Ray Take recent CT imaging to next appointment and will defer management of low testosterone levels to him as well Hyperkalemia Continue low K+ diet Hypomagnesemia Improved on previous labs Will recheck to confirm stability Continue mag replacement Low testosterone See above Pending Test Test Name Order Date M-Complete Blood Count Auto Diff 025 M-Comprehensive Metabolic Panel 09/07/19 25 M-Magnesium 09/06/2024 M-Testosterone 09/06/2024 Next Appt Details Follow Up: 3 Months,Corie stevens son: Progress Notes * Toan UREÑADOB:1970 (53 yo M)Acc No.[id number]:09/06/2024 Progress Notes Patient: Silvina GRIGSBYRUSLAN Toan Provider: Gomez Wolfe APRN :1970 A ge:53 Y S ex:Male Date:09/06/2024 Address:[facility] [place], [id number] Pcp:Kj Madrid Subjective: * Chief Complaints: * 1 . 2 wk f/u-still having some dizziness. * HPI: C onstitutional: 53-year-old male with history of psychiatric disease, alcohol abuse, tobacco use and multiple medical problems including RCC presents for FU on bipolar depression, hypomagnesemia and CKD. Seen in the office approx 3 weeks ago, vraylar was increased. Feels much better. Mood has improved. Anxiety well controlled. Following with psych and has a counselor he sees routinely. Feels tired, chronic, maybe a little worse. Would like testosterone level repeated as it has been a little low in the past. * ROS: R ESPIRATORY: no C hest congestion. n o C ough. C ARDIOLOGY: Dizziness y es, w hile getting up from sitting position. n o C hest pain. n o P alpitations. [...] , Heat stroke? 2015, - nephrectomy 09/2021, [facility] 03/22, [facility]/ , [facility] [place] 05/29-06/07/2024. * Family History: F ather: alive, [...] tab(s) orally once a day , Taking Triamcinolone Acetonide 0.5 % Ointment 1 application Externally Twice a day , Taking Vitamin B1 100 MG Tablet 1 tablet Orally Once a day , Taking busPIRone HCl 5 MG Tablet TAKE 1 TABLET BY MOUTH THREE TIMES DAILY , Taking Vraylar 4.5 MG Capsule 1 capsule Orally Once a day , Taking Propranolol HCl 40 MG Tablet 1 tablet Orally Twice a day , Taking Magnesium Oxide 400 MG Tablet 1 tablet with food Orally 3 times a day , Taking Lisinopril 20 MG Tablet 1 tablet Orally Once a day , Taking Folic Acid 1 MG Tablet 1 tablet Orally Once a day , Medication List reviewed and reconciled with the patient * Allergies: N .K.D.A. Objective: * Vitals: N urse: jl, Pain: 5, Temp: 97.8, RR: 20, HR: 100, BP: 108/80, Ht: 6 ft 5 in, Wt: 253.4, BMI:30.05. * Examination: P sychology: General Appearance: N AD, pleasant. Grooming : a dequate. Eye contact : n ormal. Mood : p leasant. Heart: R egular Rate and Rhythm, no murmur, rubs or gallops. Lungs: f aint expiratory wheezes. Abdomen: S oft, NTND, BSNA, No organomegaly or peritoneal signs.. Neurologic Exam: n o focal signs, . Assessment: * Assessment: 1. B ipolar depression - F31.9 (Primary) 2 . S tage 3b chronic kidney disease (CKD) - N18.32 3 . E ssential hypertension - I10 4 . H istory of renal cell carcinoma - Z85.528 5 . H yperkalemia - E87.5 6. H ypomagnesemia - E83.42 7 . L ow testosterone - R79.89 ? Plan: * Treatment: 2. S tage 3b chronic kidney disease (CKD) L AB: M-Complete Blood Count Auto Diff L AB: M-Comprehensive Metabolic Panel Notes: Will repeat labs to confirm stability. Maximize oral water intake 3. E ssential hypertension Notes: At goal, no changes made 4. H istory of renal cell carcinoma L AB: M-Complete Blood Count Auto Diff Notes: Keep FU with Dr. Ray Take recent CT imaging to next appointment and will defer management of low testosterone levels to him as well 5. H yperkalemia Notes: Continue low K+ diet 6. H ypomagnesemia L AB: M-Magnesium Notes: Improved on previous labs Will recheck to confirm stability Continue mag replacement 7. L ow testosterone L AB: M-Testosterone Notes: See above * Follow Up: 3 Months,prn * * Sign off status: Completed true * Provider: Gomez Wolfe APRN Date: 09/06/2024 Generated for Maris rodriguez/Lo/Yolis on: 09/07/2024 04:06 PM EDT History and Physical Notes * HPI (History of Present Illness) Category Sub-Category Detail Notes Category Not es Constitutional 53-year-old m charlene with history of psychiatric disease, alcohol abuse, tobacco use and multiple medical problems including RCC presents for FU on bipolar depression, hypomagnesemia and CKD. Seen in the office approx 3 weeks ago, vraylar was increased. Feels much better. Mood has improved. Anxiety well controlled. Following with psych and has a counselor he sees routinely. Feels tired, chronic, maybe a little worse. Would like testosterone level repeated as it has been a little low in the past. Examination Category Sub-Category Detail Notes Category Not es Psychology Heart: Regular Rate and Rhythm, no murmur, rubs or gallops Lungs: faint expiratory whe ezes Abdomen: Soft, NTND, BSNA, No organomegaly or peritoneal signs. General Appearance: NAD, pleasant Neurologic Exam: no focal signs, Grooming : adequate Eye contact : normal Mood : pleasant
--- OUTSIDE RECORDS SUMMARY | 2024-09-07 16:05 | XMS_ITS | Clinical Summary ---
Author Organization [employer] ([place], [place], [place], [place]) Address [address] [place] [address] Care Team Providers Care Hatch Tender Name Role Phone Kj Madrid MD Primary Care Provider + [phone] Allergies No known active allergies Medications allopurinoL [...] breakfast and dinner. 30 capsule 5 Active Active Problems Problem Noted Date [...] Department Care Team Description 07/19/2024 Orders Only [facility] [address] [place] [address] Gareth Ray MD Ureteral calculus, right (Primary Dx) 07/19/2024 Telephone [facility] - [address] [place] [address] Gareth Ray MD Appointment 07/17/2024 3:15 PM EDT - 07/17/2024 4:44 PM EDT Surgery [facility] Surgery Department [address] [place] [address] Gareth Ray MD CYSTOURETEROSCOPY, WITH LASER LITHOTRIPSY 07/17/2024 2:23 PM EDT Anesthesia Event [facility] Surgery Department [address] [place] [address] Alden Hopkins, Kentrell Gracia MD 07/17/2024 12:09 PM EDT - 07/17/2024 5:15 PM EDT Hospital Encounter [facility] Surgery Department [address] [place] [address] Gareth Ray MD Discharge Disposition: Home or Self Care 07/17/2024 Travel 06/29/2024 Orders Only [facility]rology - [address] [place] [address] Gareth Ray MD 06/25/2024 1:27 PM EDT Anesthesia Event [facility] Surgery Department [address] [place] [address] Joyce Mcfarlane CRNA Zarth, Matthew Tyler, MD 06/25/2024 11:33 AM EDT - 06/25/2024 1:02 PM EDT Surgery [facility] Surgery Department [address] [place] [address] Gareth Ray MD CYSTOURETEROSCOPY, WITH LASER LITHOTRIPSY 06/25/2024 9:17 AM EDT - 06/25/2024 4:32 PM EDT Hospital Encounter [facility] Surgery Department [address] [place] [address] Gareth Ray MD Discharge Disposition: Home or Self Care 06/25/2024 Travel 06/19/2024 Telephone [facility] - [address] [place] [address] Gareth Ray MD Advice Only (Pt left 2 voicemails wanting to speak with someone. I called back, he didn't answer and the voicemail has not been set up. ) 06/18/2024 Documentation [facility] - [address] [place] [address] Gareth Ray MD 06/13/2024 Orders Only [facility] - [address] [place] [address] Gareth Ray MD Erectile disorder (Primary Dx); Left ureteral stone from Last 3 Months Family History Medical [...] living situation today? I have a [facility] to live 02/02/2024 Think about the [...] Do you speak a language other than [place] at [facility]? No 02/02/2024 [...] VACCINE (1 - season) 2023 Influenza Vaccine (#1) 2024 Tobacco Cessation Counseling and Screening (12+) 02/0102/02/2024 Lipid Panel 03/24/2027 03/24/2024 Colonoscopy 05/04/2032 05/04/2022 Colorectal Cancer Screening 05/04/2032 DTAP/TDAP/TD VACCINES (2 - Td or Tdap) 03/23/2034 Medical Devices Implanted Type Area Tractor Crane Operator Device Identifier Shelf Expiration Date Model / Serial / Lot Stent Uret Braid + [id number] - [id number] Implanted:Qty : 1 on 01/09/2024 by Gareth Ray MD at [facility] IMPLANTS Right: Ureter [employer]:UROLOGY/EDUCATIONAL ADVISOR ECOLOGY 04/10/2026 [id number] 40 / / [id number] Stent Uret Percflx + [id number] - [id number] Implanted:Qty : 1 on 06/25/2024 by Gareth Ray MD at [facility] IMPLANTS Left: Ureter [employer]:UROLOGY/EDUCATIONAL ADVISOR ECOLOGY [id number] 10/30/2026 [id number] 40 / / [id number] Stent Uret Fader Tip [id number] - [id number] Implanted:Qty : 1 on 07/17/2024 by Gareth Ray MD at [facility] IMPLANTS Right: Ureter [employer]:UROLOGY/EDUCATIONAL ADVISOR ECOLOGY [id number] 02/07/2027 [id number] 40 / / [id number] Explanted Type Area Tractor Crane Operator Device Identifier Shelf Expiration Date Model / Serial / Lot Cath Uret Pillo 5fr [id number] - [id number] Implanted:Gareth Jaramillo MD (Quantity not on file) Explanted:Qty: 1 on 07/17/2024 at [facility] Right: Ureter COOK [id number] / / N/A Procedures Procedure Name Priority Date/Time Associated Diagnosis Comments FL < 1 HOUR Routine 07/17/2024 3:00 PM EDT ANESTHESIA INTUBATION Routine 07/17/2024 2:31 PM EDT CYSTOURETEROSCOPY , WITH RETROGRADE PYELOGRAM AND STENT INSERTION OR REMOVAL 07/17/2024 2:23 PM EDT Kidney stone Case Notes Right Ureteroscopy with Laser of Kidney Stones AL CYSTO W/URETEROSCOPY W/LITHOTRIPSY 07/17/2024 2:23 PM EDT Kidney stone Case Notes Right Ureteroscopy with Laser of Kidney Stones FL < 1 HOUR Routine 06/25/2024 2:30 PM EDT ANESTHESIA INTUBATION Routine 06/25/2024 1:31 PM EDT AL CYSTO W/INSERT URETERAL STENT [...] MD IM FLUOROSCOPY ORDERABLES Fin al Result * AN [...] of attempts at approach: 1 Joyce Mcfarlane INFORMATICS CONSULTANT ANESTHESIA ORDERABLES Fin al Result from Last 3 Months Insurance AETNA [facility] [place] Advance Directives For more information, please contact: [phone] * Full Code (Latest Code Status on [...] Adelita Spouse Healthcare Decision-Make r Care Teams Hatch Tender Relationship Specialty Start Date End Date Kj Madrid MD [address] [place] [address] PCP - General Adolescent Medicine 01/09/24
--- OUTSIDE RECORDS SUMMARY | 2024-09-07 16:05 | XMS_ITS | Referral Summary ---
Author Organization [employer] ([place], [place], [place], [place]) Address [address] [place] [address] Care Team Providers Care Fisher Hand Line Name Role Phone Kj Madrid MD Primary Care Provider Encounters Date Type Department Care Team Description 07/19/2024 Orders Only [facility] Urology - [address] [place] [address] Gareth Ray MD Ureteral calculus, right (Primary Dx) 07/19/2024 Telephone [facility] [address] [place] [address] Gareth Ray MD Appointment 07/17/2024 Travel 07/17/2024 3:15 PM EDT - 07/17/2024 4:44 PM EDT Surgery [facility] Surgery Department [address] [place] [address] Gareth Ray MD CYSTOURETEROSCOPY, WITH LASER LITHOTRIPSY 07/17/2024 2:23 PM EDT Anesthesia Event [facility] Surgery Department [address] [place] [address] Alden Hopkins, Kentrell Gracia MD 07/17/2024 12:09 PM EDT - 07/17/2024 5:15 PM EDT Hospital Encounter [facility] Surgery Department [address] [place] [address] Gareth Ray MD Discharge Disposition: Home or Self Care 06/29/2024 Orders Only [facility] - [address] [place] [address] Gareth Ray MD 06/25/2024 Travel 06/25/2024 11:33 AM EDT - 06/25/2024 1:02 PM EDT Surgery [facility] Surgery Department [address] [place] [address] Gareth Ray MD CYSTOURETEROSCOPY, WITH LASER LITHOTRIPSY 06/25/2024 1:27 PM EDT Anesthesia Event [facility] Surgery Department [address] [place] [address] Joyce Mcfarlane CRNA Zarth, Matthew Tyler, MD 06/25/2024 9:17 AM EDT - 06/25/2024 4:32 PM EDT Hospital Encounter [facility] Surgery Department [address] [place] [address] Gareth Ray MD Discharge Disposition: Home or Self Care 06/19/2024 Telephone [facility] Urology [facility] [address] [place] [address] Gareth Ray MD Advice Only (Pt left 2 voicemails wanting to speak with someone. I called back, he didn't answer and the voicemail has not been set up. ) 06/18/2024 Documentation [facility] - [address] [facility] [address] [place] [address] Gareth Ray MD 06/13/2024 Orders Only [facility] Urology [facility] [address] [place] [address] Gareth Ray MD Erectile disorder (Primary Dx); Left ureteral stone from Last 3 Months Allergies No known [...] your living situation today? I have a [facility] place to live 02/02/2024 Think about [...] Do you speak a language other than [place] at [facility]? No 02/02/2024 Do you want help [...] on file Medical Devices Implanted Type Area Short Goods Drier Device Identifier Shelf Expiration Date Model / Serial / Lot Stent Uret Braid + [id number] - [id number] Implanted:Qty : 1 on 01/09/2024 by Gareth Ray MD at [facility] IMPLANTS Right: Ureter [employer]:UROLOGY/DIALYSIS TECH ECOLOGY 04/10/2026 [id number] 40 / / [id number] Stent Uret Percflx + [id number] - [id number] Implanted:Qty : 1 on 06/25/2024 by Gareth Ray MD at [facility] IMPLANTS Left: Ureter [employer]:UROLOGY/DIALYSIS TECH ECOLOGY [id number] 10/30/2026 [id number] 40 / / [id number] Stent Uret Fader Tip [id number] - [id number] Implanted:Qty : 1 on 07/17/2024 by Gareth Ray MD at [facility] IMPLANTS Right: Ureter [employer]:UROLOGY/DIALYSIS TECH ECOLOGY [id number] 02/07/2027 [id number] 40 / / [id number] Explanted Type Area Short Goods Drier Device Identifier Shelf Expiration Date Model / Serial / Lot Cath Uret Pollack 5fr [id number] - [id number] Implanted:Gareth Jaramillo MD (Quantity not on file) Explanted:Qty: 1 on 07/17/2024 at [facility] Right: Ureter COOK [id number] / / N/A Procedures Procedure Name Priority [...] Kimani Roman. Transcribed by Evan Lucio PA-C. us Gareth [...] Result from Last 3 Months Insurance AETNA [facility] Advance Directives For more information, please contact: [phone] * Full Code (Latest Code Status on [...] Adelita Spouse Healthcare Decision-Make r Care Teams Fisher Hand Line Relationship Specialty Start Date End Date Kj Madrid MD [address] [place] [address] PCP - General Adolescent Medicine 01/09/24
--- OUTSIDE RECORDS SUMMARY | 2024-09-07 16:05 | XMS_ITS | Clinical Summary ---
Author Organization [facility] Address [address] [place] [address] Care Team Providers Care Annealing Oven Operator Name Role Phone Kj Madrid MD Primary Care Provider [phone] Allergies No known active allergies Medications budesonide-form [...] Date Type Department Care Team Description 08/15/2024 [facility] Practice [address] [place] [address] Sarah Watson APRN Chronic kidney disease (CKD) [...] any time in the past 12 [facility], were you homeless or living [...] drink first t sterling in the morning (EYE-ROVING HAND) to steady your nerves or to get rid of a hangover? 1 03/23/2024 CAGE Questionnaire Score 3 025 Utilities Answer Date Recorded In the past 12 months has e [employer], gas, oil, or water [employer] threatened to shut off services in your [...] Last Done Comments [facility]-/Child/Adol SDOH Screenings 1970 [id number] Vaccine (#1) 12/14/1976 [facility]-Hepatitis B Vaccines (1 of 3 - 19+ 3-dose series) 12/14/1990 [facility]-Pneumococcal Vaccine: 50+ Years (1 of 2 - PCV) 12/14/1990 [facility]-Zoster Vaccines (1 of 2) 12/14/1990 CT Colonography 12/14/2016 FIT-DNA 12/14/2016 FIT 12/14/2016 FOBT 12/14/2016 Sigmoidoscopy 12/14/2016 [facility]-Depression Screening 12/18/2023 023, 08/03/2022, 02/24/2022, Additional history exists [facility]- SDOH Screenings 09/23/2024 [facility]-Adult SDOH Screenings 09/23/2024 03/26/2024 [facility]-Influenza Vaccine (#1) 2024 Colonoscopy 05/04/2032 05/04/2022 [facility]-Colorectal Cancer Screening [...] Reactive Non Reactive 03/23/2024 11:22 AM EST [facility] Comment:Screening for HIV 1 & 2 antibodies, and P24 antigen is NONREACTIVE. No confirmatory testing is required. Blood Venous blood specimen / Unknown Venipuncture / Unknown 03/23/2024 10:25 AM EST 03/23/2024 10:38 AM EST [facility] BLOOD ORDERABLES Final Re sult Performing Organization Address City/[facility]/[place] [address] * Hepatitis C Antibody - ED (03/23/2024 10:25 AM EST) Pathologist [facility] Hepatitis C Antibody Negative Negative 03/23/2024 11:22 AM EST [facility] Blood Venous blood specimen / Unknown Venipuncture / Unknown 03/23/2024 10:25 AM EST 03/23/2024 10:38 AM EST [facility] BLOOD ORDERABLES Final Re sult Performing Organization Address City/[facility] [place] [address] * CT Chest w IV Contrast (09/03/2022 [...] Nnamdi Vera MD Anesthesiologist Laura Figueredo CRNA REFINING SUPERVISOR, No role selected Unknown Endo Nurse 1 [...] of bowel preparation was evaluated using the Sunflower Bowel Preparation Scale with scores of: right [...] Patient has decision-making capacity? Yes Care Teams Annealing Oven Operator Relationship Specialty Start Date End Date Kj Madrid MD [address] [place] [address] PCP - General Internal Medicine 09/17/21
--- OUTSIDE RECORDS SUMMARY | 2024-09-07 16:05 | XMS_ITS ---
Author Organization [facility] Address [address] [place] [address] Care Team Providers Care Psychiatric Nurse Name Role Phone Kj Madrid MD Primary [...]
--- OUTSIDE RECORDS SUMMARY | 2024-09-07 16:06 | XMS_ITS | Encounter Summary ---
Author Organization Healthcare Address [address] [place] [address] Care Team Providers Care Machine Sweeper Brush Maker Name Role Phone Kj Madrid MD Primary Care Provider [phone] Encounter Details Date Type Department Care Team (Late st Contact Info) Description 06/28/2021 Orders Only External Location [address] [place] [address] Provider, External Social History Tobacco Use Types [...] on filedocumented in this encounter Care Teams Machine Sweeper Brush Maker Relationship Specialty Start Date End Date Kj Madrid MD [address] [place] [address] PCP - General Internal Medicine 09/17/21 documented as of this encounter
--- OUTSIDE RECORDS SUMMARY | 2024-09-07 16:06 | XMS_ITS | Patient Health Record ---
Author Organization [facility] Address [address] [place] [address] Care Team Providers Care Skidder Driver Name Role Phone Kj Madrid Primary Care Provider Kj Madrid Unavailable Unavailable Sarah Watson Unavailable [phone] Cyndi Wolfe Unavailable [phone] Migration, Provider Unavailable Unavailable Allergies No Known Allergies Results Component Value Reference Range Notes M-Comprehensive [...] Performing Lab: Notes/Report: MG 1.7 1.6-2.3 mg/dl M-Complete Blood Count Auto Diff Reviewed date:08/28/2024 11:19:10 AM Interpretation: Performing Lab: Notes/Report: WBC 9.7 4.8-10.8 K/mm3 RBC 4.18 4.60-6.20 M/mm3 HGB 13.1 14.1-18.0 g/dL HCT 37.9 42.0-52.0 % MCV 90.7 80-94 fl MCH 31.3 27.0-31.2 pg MCHC 34.6 31.8-35.4 g/dL RDW 13.5 11.5-17.5 % PLT 258 142-424 K/mm3 MPV 10.7 7.4-10.4 fl NE% 61.3 37.0-80.0 % LY% 20.7 10-50 % MO% 8.9 1.7-9.3 % EO% 7.3 0.1-12.0 % BA% 0.8 0.1-2.0 % NE# 5.9 1.8-7.8 K/mm3 LY# 2.0 0.7-4.5 K/mm3 MO# 0.9 0.1-1.0 K/mm3 EO# 0.7 0.0-0.4 Kmm3 BA# 0.1 0-0.2 K/mm3 RDW-SD 44.2 NRBC% 0 IG% 1.0 NRBC# 0 IG# 0.10 M-Magnesium Reviewed date:08/13/2024 06:04:13 PM Interpretation: Performing [...] AGRATIO 1.2 1.1-1.8 ALP 77 38-126 U/L M-Complete Blood Count Auto Diff Reviewed date:08/13/2024 [...] 0 IG% 0.8 NRBC# 0 IG# 0.07 Cardiolite GXT Reviewed date:07/31/2024 02:40:02 PM Interpretation: Performing Lab: Notes/Report: Reason For Referral Reason Dr. Marybeth Katz Loc ation Kidney Stone Diagnosis 1 Renal cell carcinoma of right kidney (C64.1) Referral Organization [facility] Referring Provider First Name Referring Provider Last Name Shirley Referring Provider Speciality Family Pra ctice Referred Provider Specialty Urology General Notes Kate Wang 2023 03:17:13 PM >Patient informed of appt Referral Priority Routine Referral Appointment Date 12/21/2023 Reason Medical Records - Do [facility] [place] [facility] [employer] [employer] Referral Organization [facility] KODY ARMENDARIZ [facility] Referring Provider First Name Kj Referring Provider Last Name [facility] Referring Provider Speciality Internal M edicine Referral Priority Routine Reason Cardiolyte Stress Te st Diagnosis 1 Atherosclerosis of n ative coronary artery of picayune heart without angina pectoris (I25.10) Referral Organization [facility] KALA KATZ Referring Provider First Name Referring Provider Last Name Shirley Referring Provider Speciality Family Pra ctice Referred Organization [facility] Referred Address [address] [facility] [address] [place], [place],[address], Referred Provider Specialty Diagnostic R adiology General Notes Kate Wang 2024 11:15:23 AM >sent to [facility] [place] [address] [employer] Referral Priority Routine Reason [facility] Cardiology- abno rmal stress test results Referral Organization [facility] KALA TULIO Referring Provider First Name Kj Referring Provider Last Name [facility] Referring Provider Speciality Internal M edicine Referred Organization [facility] Referred Address [address],[address], Referred Provider Specialty Cardiovascul ar Disease General Notes Kate Wang 2024 02:44:02 PM >Sent to [facility] to schedule Referral Priority Routine Reason [facility]/ Nephrology - has seen them previously but I don't have notes Diagnosis 1 Stage 3b chronic kid glenis disease (CKD) (N18.32) Referral Organization [facility] KALA KATZ Referring Provider First Name Referring Provider Last Name Shirley Referring Provider Speciality [facility] ctice Referred Organization Referrals Referred Address [address] [place],[address],[place] Referred Provider Specialty Nephrology General Notes Kate Wang 2024 05:14:25 PM >sent to through EPIC to Nephrology at [facility] Referral Priority Routine Reason CT abd/pelvis at [facility] , no contrast Diagnosis 1 History of renal bubba l carcinoma (Z85.528) Referral Organization [facility] Referring Provider First Name Referring Provider Last Name Shirley Referring Provider Speciality Family Pra ctice Referred Organization [facility] Referred Address [address] [facility], [place],[address],[place] Referred Provider Specialty Diagnostic R adiology General Notes Kate Wang 2024 03:37:09 PM >pending precert with [employer] Referral Priority Routine Medications Medication SIG (Take, Route, Frequency, Duration) Notes Start Date End Date Status Vitamin B1 100 MG 1 tablet Orally Once a day; Duration: 30 days Active Triamcinolone Acetonide 0.5 % 1 application Externally Twice a day Active Allopurinol 300 MG 1 tab(s) orally once a day; Duration: 90 days Active Albuterol Sulfate HFA 108 (90 Base) MCG/ACT 2 puff(s) inhaled every 4 hours prn Active Magnesium Oxide 400 MG 1 tablet with griselda d Orally 3 times a day; Duration: 30 days Active Propranolol HCl 40 MG 1 tablet Orally Tw ice a day; Duration: 30 days Active busPIRone HCl 5 MG TAKE 1 TABLET BY THREE TIMES DAILY; Duration: 30 Active Metoprolol Succinate ER 100 MG 1 tablet Orally Once a day Active oxyBUTYnin Chloride ER 10 MG 1 tablet Orally Once a day Active Folic Acid 1 MG 1 tablet Orally Once a day; Duration: 30 days Active Vraylar 4.5 MG 1 capsule Orally Onc e a day; Duration: 90 days 08/14/2024 Active Lisinopril 20 MG 1 tablet Orally [...] Status W/U Status Risk Notes Problem Hypomagnesemia (792126964) Hypomagnesemia (E83.42) Active confirmed Problem Primary gout (77809705) Idiopathic gout, right ankle and foot (M10.071) Active confirmed Problem Essential hypertension (77546322) Essential hypertension (I10) Active confirmed Problem Psoriasis (1254740) Psoriasis (L40.9) Active confirmed Problem Acute exacerbation of chronic obstructive airways disease (285755420) COPD exacerbation (J44.1) Active confirmed Problem Fatigue (95163184) Fatigue (R53.83) Active conf irmed Problem Chronic pain (18401509) Other chronic pain (G89.29) Active confirmed Problem Chronic obstructive bronchitis (disorder) (221530299) 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) Active confirmed Problem Atherosclerosis of coronary artery without angina pectoris (190030708481235) Atherosclerosis of picayune coronary artery of picayune heart without angina pectoris (I25.10) Active confirmed Problem Primary gout (17853802) Acute idiopathic gout of left foot (M10.072) Active confirmed Problem Obstructive sleep apnea syndrome (59266921) JG (obstructive sleep apnea) (G47.33) Active confirmed Problem Daytime somnolence (529928110224) Daytime somnolence (R40.0) Active confirmed Problem Tobacco use (190105460) Tobacco use disorder (F17.200) Active confirmed Problem Disorder of kidney and/or ureter (263663557) Right renal mass (N28.89) Active confirmed Problem Pulmonary embolism with pulmonary infarction (6221779916082) Pulmonary embolism and infarction (I26.99) Active confirmed Problem Ethanol 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) ETOH abuse (F10.10) Active confirmed Problem Bipolar disorder (97325904) Bipolar depression (F31.9) Active confirmed Problem Malignant tumor of kidney (132168250) Renal cell carcinoma of right kidney (C64.1) Active confirmed Problem Personal history of primary malignant neoplasm of kidney (214547030) History of renal cell carcinoma (Z85.528) Active confirmed Problem Chronic kidney disease stage 3B (disorder) (779084174) Stage 3b chronic kidney disease (N18.32) Active confirmed Problem Computed tomography result abnormal (157962122) Abnormal CT scan (R93.89) Active confirmed Problem Muscle weakness (21073736) Generalized muscle weakness (M62.81) Active confirmed Problem Chronic kidney disease stage 3B (disorder) (889305283) Stage 3b chronic kidney disease (CKD) (N18.32) Active confirmed Vital Signs Heart Rate 100 /min 09/06/2024 Temperature 97.8 degrees Fahrenheit 09/06/2024 Blood pressure diastolic 80 mm Hg 09/06/2024 Height 6 ft 5 in in 09/06/2024 Blood pressure systolic 108 mm Hg 09/06/2024 Weight 253.4 lbs 09/06/2024 BMI 30.05 kg/m2 09/06/2024 Encounters Encounter Location Date Provider Diagnosis [facility] [address] [facility] [address] [place] [address] 06/02/2024 Provider Migration Pulmonary embolism and infarction I26.99 [facility] [address] [facility] [address] [place] [address] 06/28/2024 Cyndi Yaneth Bipolar depression F31.9 ; ETOH abuse F10.10 and Essential hypertension I10 [facility] [address] [facility] [address] [place] [address] 07/12/2024 Sarah Watson Atherosclerosis of picayune coronary artery of picayune heart without angina pectoris I25.10 ; Essential hypertension I10 ; Malaise R53.81 ; LUGO (dyspnea on exertion) R06.09 ; Bipolar depression F31.9 and ETOH abuse F10.10 [facility] [address] [facility] [address] [place] [address] 08/14/2024 Sarah Watson Essential hypertensi on I10 ; Stage 3b chronic kidney disease (CKD) N18.32 ; LUGO (dyspnea on exertion) R06.09 ; Bipolar depression F31.9 ; History of renal cell carcinoma Z85.528 ; Abnormal stress test R94.39 ; Hyperkalemia E87.5 and Hypomagnesemia E83.42 [facility] [address] [facility] [address] [place] [address] 09/06/2024 Cyndi Yaneth Stage 3b chronic kid glenis disease (CKD) N18.32 ; Bipolar depression F31.9 ; Essential hypertension I10 ; History of renal cell carcinoma Z85.528 ; Hyperkalemia E87.5 ; Hypomagnesemia E83.42 and Low testosterone R79.89 [facility] [address] [address] 06/22/2024 Cyndi McNees [facility] [place] [address] [address] 06/28/2024 Cyndi McNees [facility] [place] [address] [address] 07/09/2024 Kj Besson [facility] [place] [address] [address] 07/26/2024 Cyndi McNees [facility] [place] [address] [address] 08/10/2024 Cyndi McNees [facility] [address] [place] [address] 08/13/2024 Sarah Watson RE (acute kidney injury) N17.9 and Hypomagnesemia E83.42 [facility] [address] [place] [address] 08/21/2024 Sarah Watson History of renal bubba l carcinoma Z85.528 [facility] [place] [address] [place] [address] 08/22/2024 Cyndi McHollies Hypomagnesemia E83.4 2 [facility] [place] [address] [address] 08/22/2024 Cyndi Gisellaes Stage 3b chronic kid glenis disease N18.32 ; Essential hypertension I10 and Low magnesium level R79.0 [facility] [place] [address] [address] 08/28/2024 Kj Madrid Essential hypertensi on I10 Assessments Encounter Date Diagnosis (ICD Code) [...] improved, continue current regimen 07/12/2024 Atherosclerosis of picayune coronary artery of picayune heart without angina pectoris (ICD-10 - I25.10) 08/13/2024 Hypomagnesemia (ICD-10 - E83.42) 08/13/2024 RE (acute kidney injury) (ICD-10 - N17.9) 08/14/2024 Essential hypertension (ICD-10 - I10) improved, continue current regimen 08/14/2024 Stage 3b chronic kidney disease (CKD) (ICD-10 - N18.32) 08/21/2024 History of renal cell carcinoma (ICD-10 - Z85.528) 08/22/2024 Hypomagnesemia (ICD-10 - E83.42) 08/22/2024 Stage 3b chronic kidney disease (ICD-10 - N18.32) 08/28/2024 Essential hypertension (ICD-10 - I10) 09/06/2024 Bipolar depression (ICD-10 - F31.9) Well controlled on current regimen Keep FU with psych and counselor No med changes made today. S/s of worsening mood/agitation that warrant urgent FU discussed 09/06/2024 Stage 3b chronic kidney disease (CKD) (ICD-10 - N18.32) Will repeat labs to confirm stability. Maximize oral water intake 09/06/2024 Essential hypertension (ICD-10 - I10) At goal, no changes made 08/22/2024 Essential hypertension (ICD-10 - I10) 08/14/2024 [...] discussed needs to keep appt with psychiatry 09/06/2024 History of renal cell carcinoma (ICD-10 - Z85.528) Keep FU with Dr. Ray Take recent CT imaging to next appointment and will defer management of low testosterone levels to him as well 08/22/2024 Low magnesium level (ICD-10 - R79.0) 09/06/2024 Hyperkalemia (ICD-10 - E87.5) Continue low K+ diet 08/14/2024 History of renal cell carcinoma (ICD-10 - Z85.528) encouraged to reschedule FU with Dr Ray 08/14/2024 Abnormal stress test (ICD-10 - R94.39) cardiology following 07/12/2024 Bipolar depression (ICD-10 - F31.9) improved and tolerating current regimen, no changes recommended 09/06/2024 Hypomagnesemia (ICD-10 - E83.42) Improved on previous labs Will recheck to confirm stability Continue mag replacement 09/06/2024 Low testosterone (ICD-10 - R79.89) See above 08/14/2024 Hyperkalemia (ICD-10 - E87.5) improved, low [...] M-Complete Blood Count w/o Diff 08/23/19 25 M-Complete Blood Count Auto Diff 025 M-Comprehensive Metabolic Panel 09/07/19 25 M-Magnesium 09/06/2024 M-Testosterone 09/06/2024 CT Scan : Chest, Lung Cancer Screening 1 04/06/2020 Physical Therapy Eval and Treat 11/09/19 23 Insurance Providers Payer Name Payer Address Payer Phone Subscriber Number Group Number Insured Name Patient Relationship to Insured Coverage Start Date Coverage End Date [employer] [facility] [address] [address] [place], [place] [phone] [id number] Toan Ureña Self - patient is the [...] Kidney 2024 Hospitalization History Reason Date(Month/Year) [facility] 03/22 - nephrectomy 09/2021 Heat stroke? 2016 Surgeries as above Legionnaires x 7 weeks
--- OUTSIDE RECORDS SUMMARY | 2024-09-07 16:06 | XMS_ITS | Patient Health Record ---
Author Organization [facility] Address [address] [place] [address] Support Name Relationship Address Phone MAILE SUZANNA Guarantor Unknown [phone] Allergies No Known Allergies Reason For Referral [...] Date Coverage End Date SELF PAY PATIENT [id number] SUZANNA GR Self - patient is the insured Medical (General) History Medical History History ICD Code Hypertension Gout Surgical History Surgery Date(Month/Year) bicep reconstruction hernia repair colonoscopy kidney removal 03/01
--- OUTSIDE RECORDS SUMMARY | 2024-09-07 16:06 | XMS_ITS ---
Author Organization [employer] ([place], [place], [place], [place]) Address [address] [place] [address] Care Team Providers Care Third Officer Name Role Phone Kj Madrid MD [...] treatments are documented for this patient in [facility]. Treatments may have been administered in another system. Lifetime Dose Tracking * Chemical Lifetime Dose Automatic Entry Manual Entr y Radiation 1,523 mGy 1,523 mGy 0 mGy
--- OUTSIDE RECORDS SUMMARY | 2024-09-07 16:07 | XMS_ITS | Encounter Summary ---
Author Organization [employer] ([place], [place], [place], [place]) Address [address] [place] [address] Care Team Providers Care Dynamometer Tester Engine Name Role Phone Kj Madrid MD Primary Care Provider [phone] Reason for Referral * Diagnostic X-Ray (Routine) - Authorized Specialty Diagnoses / Procedures Referred By Contac t Referred To Contact Radiology Diagnoses Ureteral calculus, right Procedures [place]R [place]domen K[place] 1 [place] [address] [place] [address] [address] [place] [address] Phone: tel: fax: [facility] Diagnostic Imaging - [facility] [address] [facility] [address] [place] [address] Phone: tel: fax: Referral ID Status Reason Start Date Expiration Date Visits Requested Visits Authorized [id number] Authorized Continuity of Care 07/19/2024 07/19/2025 1 1 Encounter Details Date Type Department Care Team (Late st Contact Info) Description 07/19/2024 Orders Only [facility] Urology - [facility] [address] [facility] [address] [place] [address] [place] [address] [place] [address] [address] [place] [address] Ureteral calcgeno, right (Primary Dx) Social History [...] your living situation today? I have a [facility] place to live 02/02/2024 Think about [...] speak a language other than Zimbabwean at [facility]? No 02/02/2024 Do you [...] ureter documented in this encounter Care Teams Dynamometer Tester Engine Relationship Specialty Start Date End Date Kj Madrid MD [address] [place] [address] PCP - General Adolescent Medicine 01/09/24 documented as of this encounter
--- OUTSIDE RECORDS SUMMARY | 2024-09-07 16:07 | XMS_ITS | Encounter Summary ---
Author Organization [employer] ([place], [place], [place], [place]) Address [address] [place] [address] Care Team Providers Care Supervisor Locomotive Name Role Phone Kj Madrid MD Primary Care Provider + [phone] Reason for Visit * Reason Onset Date Comments Follow-up 06/04/2024 Trying to reach patient about scheduling his CT Encounter Details Date Type Department Care Team (Late st Contact Info) Description 06/04/2024 Telephone [facility] Urology - [address] [place] [address] Gareth Ray MD [address] [facility] [address] [place] [address] Follow-up (Trying to reach patient about scheduling [...] Do you speak a language other than Djib[place]ian at [facility]? No 02/02/2024 Do you want help [...] on filedocumented in this encounter Care Teams Supervisor Locomotive Relationship Specialty Start Date End Date Kj Madrid MD [address] [place] [address] PCP - General Adolescent Medicine 01/09/24 documented as of this encounter
--- OUTSIDE RECORDS SUMMARY | 2024-09-07 16:07 | XMS_ITS | Encounter Summary ---
Author Organization [facility] Address [address] [place] [address] Care Team Providers Care Professor Of Music Name Role Phone Kj Madrid MD Primary Care Provider [phone] Reason for Referral * Consultation (Routine) - Authorized Specialty Diagnoses / Procedures Referred By Contcampbell t Referred To Contact Nephrology Diagnoses Chronic kidney disease (CKD) stage G3b/A1, moderately decreased glomerular filtration rate (GFR) between 30-44 mL/min/1.73 square meter and albuminuria creatinine ratio less than 30 mg/g ([facility]) Sarah Watson APRN [address] [address] Phone: tel: fax: [facility] [address] [place] [address] [address], [place] [address] Phone: tel: fax: Referral ID Status Reason Start Date Expiration Date Visits Requested Visits Authorized [id number] Authorized Specialty Services Required 08/15/2024 02/14/2026 1 1 Encounter Details Date Type Department Care Team (Late st Contact Info) Description 08/15/2024 Community [facility] [address] [place] [address] Sarah Watson APRN [address] [address] Chronic kidney disease (CKD) stage G3b/A1, moderately decreased glomerular filtration rate (GFR) between 30-44 mL/min/1.73 square meter and albuminuria creatinine ratio less than 30 mg/g ([facility]/HCC) (Primary Dx) Social History Tobacco Use Types [...] any time in the past 12 m [facility], were you homeless or living in a long-term (including now)? No 03/26/2024 CAGE ASSESSMENT Answer [...] drink first t sterling in the morning (EYE-COMPOUNDING ASSISTANT) to steady your nerves or to get rid of a hangover? 1 03/23/2024 CAGE Questionnaire Score 3 025 Utilities Answer Date Recorded In the past 12 months has [employer], gas, oil, or water [employer] threatened to shut off services in your [...] albuminuria creatinine ratio less than 30 mg/g ([facility]/HCC) Expected: 08/15/2024 (Approximate), Expires: 02/16/2026 documented as [...] documented as of this encounter Care Teams Professor Of Music Relationship Specialty Start Date End Date Kj Madrid MD [address] [place] [address] [place] [address] PCP - General Internal Medicine 09/17/21 documented as of this encounter
--- OUTSIDE RECORDS SUMMARY | 2024-09-07 16:07 | XMS_ITS | Encounter Summary ---
Author Organization [employer] ([place], [place], [place], [place]) Address [address] [place] [address] Care Team Providers Care Electrical Logging Operator Name Role Phone Kj Madrid MD Primary Care Provider + [phone] Encounter Details Date Type Department Care Team [...] Do you speak a language other than [place] at [facility]? No 02/02/2024 Do you want [...] on filedocumented in this encounter Care Teams Electrical Logging Operator Relationship Specialty Start Date End Date Kj Madrid MD [address] [place] [address] PCP - General Adolescent Medicine 01/09/24 documented as of this encounter
--- OUTSIDE RECORDS SUMMARY | 2024-09-07 16:07 | XMS_ITS | Encounter Summary ---
Author Organization [facility] Address [address] [place] [address] Care Team Providers Care Medical Policy Specialist Name Role Phone Kj Madrid MD Primary Care Provider [phone] Encounter Details Date Type Department Care Team ([facility] st Contact Info) Description 03/10/2022 Orders Only External Location [address] [place] [address] Gallo May MD [address] [id number] Social History Tobacco Use Types Packs/Day Years [...] as of this encounter Care Teams Medical Policy Specialist Relationship Specialty Start Date End Date Kj Madrid MD [address] [place] [address] [place] [address] PCP - General Internal Medicine 09/17/21 documented as of this encounter
--- OUTSIDE RECORDS SUMMARY | 2024-09-07 16:07 | XMS_ITS | Encounter Summary ---
Author Organization [facility] Address [address] [place] [address] Care Team Providers Care Gig Tender Name Role Phone Kj Madrid MD Primary Care Provider [phone] Encounter Details Date Type Department Care Team ([facility] st Contact Info) Description 03/10/2022 Orders Only External Location [address] [place] [address] Gallo May MD [address] [phone] Social History Tobacco Use Types Packs/Day Years [...] documented as of this encounter Care Teams Gig Tender Relationship Specialty Start Date End Date Kj Madrid MD [address] [place] [address] [place] [address] PCP - General Internal Medicine 09/17/21 documented as of this encounter
--- OUTSIDE RECORDS SUMMARY | 2024-09-07 16:07 | XMS_ITS | Encounter Summary ---
Author Organization [facility] ([place], [place], [place], [place]) Address [address] [place] [address] Care Team Providers Care Circle Saw Operator Name Role Phone Kj Madrid MD Primary Care Provider + [phone] Reason for Visit * Reason Onset Date Comments Appointment 07/19/2024 Encounter Details Date Type Department Care Team (Late st Contact Info) Description 07/19/2024 Telephone [facility] Urology - [address] [place] [address] Gareth Ray MD [address] [facility] [address] [place] [address] Appointment Social History Tobacco Use Types Packs/Day Years Used Date Smoking Tobacco: Every Day Cigarettes Smokeless Tobacco: Current Comments:vapes Alcohol Use Standard Drinks/Week Comments Yes 0 (1 standard drink = 0.6 oz pur e alcohol) Utilities Answer Date Recorded In the past 12 months, has t he electric, gas, oil, or water [employer] threatened to shut off services in your [...] Do you speak a language other than Maltese at [facility]? No 02/02/2024 Do you want help [...] on filedocumented in this encounter Care Teams Circle Saw Operator Relationship Specialty Start Date End Date Kj Madrid MD [address] [place] [address] PCP - General Adolescent Medicine 01/09/24 documented as of this encounter
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
[2024-09-07 16:37] LABS: Hematocrit 39.7 % (42.0-52.0); Hemoglobin 13.5 g/dL (14.1-18.0); Immature Granulocytes % 1.0 %; Mean Corpuscular HGB Conc 34.0 g/dL (31.8-35.4); Mean Corpuscular Hemoglobin 31.6 pg (27.0-31.2); Mean Corpuscular Volume 93.0 fl (80-94); Nucleated Red Blood Cells % 0 %; Platelet Count 295 K/mm3 (142-424); Red Blood Count 4.27 M/mm3 (4.60-6.20); Red Cell Distribution Width-SD 46.2 fL; White Blood Count 11.7 K/mm3 (4.8-10.8)
[2024-09-07 17:00] LABS: Alanine Aminotransferase 16 U/L (12-78); Albumin Level 4.4 g/dl (3.5-5.0); Albumin/Globulin Ratio 1.3 (1.1-1.8); Alkaline Phosphatase 78 U/L (38-126); Anion Gap 19.8 mEq/L (5-15); Aspartate Amino Transferase 25 U/L (17-59); Bilirubin,Total 0.7 mg/dl (0.2-1.3); Blood Urea Nitrogen 44 mg/dl (9-20); Calcium 10.0 mg/dl (8.4-10.2); Carbon Dioxide 22 mmol/L (22.0-30.0); Chloride 101 mmol/L (98-107); Creatinine,Serum 2.00 mg/dl (0.66-1.25); Estimated Glomerular Filt Rate 35 ml/min (>60); GFR (African American) 43 ML/MIN (>60); Globulin 3.4 g/dL (1.3-3.2); Glucose 117 mg/dl (74-100); Magnesium 1.8 mg/dl (1.6-2.3); Potassium 4.8 mmoL/L (3.5-5.1); Sodium 138 mmol/L (136-145); Total Protein,Serum 7.8 g/dl (6.3-8.2)
[2024-09-10 11:36] LABS: Testosterone,Total 726 ng/dL (264-916)
== END 2024-09-07 23:59 | disposition home or self-care (01) ==
LOC: LAB 16:04
PROVIDERS: PCP Internal Medicine Adolescent Medicine; Visit Provider Nurse Practitioner Family
DX: E83.42 Hypomagnesemia (principal); R79.89 Other specified abnormal findings of blood chemistry; N18.32 Chronic kidney disease, stage 3b; Z85.528 Personal history of other malignant neoplasm of kidney
CPT/HCPCS: 36415; 80053; 83735; 84403; 85025